=== PATIENT | female | born 1950 | race Caucasian/White ===

== ENCOUNTER → 2016-11-23 | Outpatient (CLI) | payer MEDICARE, OTHER ==
--- NOTE | 2016-11-23 17:18 | XR ---
EXAMINATION TYPE: XR ankle complete LT DATE OF EXAM: 11/23/2016 5:04 PM COMPARISON: NONE HISTORY: Ankle pain and swelling TECHNIQUE: 3 views FINDINGS: There is soft tissue swelling over the lateral malleolus. I see no fracture nor dislocation . There is mild narrowing of intertarsal joint spaces. IMPRESSION: Soft tissue swelling. No fracture.
== END | disposition home or self-care (01) ==
LOC: RADXRMAIN 16:37
PROVIDERS: ATTEND Internal Medicine
DX: M25.572 Pain in left ankle and joints of left foot (principal); M79.89 Other specified soft tissue disorders

== ENCOUNTER 2017-10-12 22:04 | Emergency (ER) | payer MEDICARE, OTHER ==
--- NOTE | 2017-10-12 22:28 | ED ---
General Adult HPI - General Chief complaint: Dizziness Stated complaint: vertigo Time Seen by Provider: 10/12/17 22:26 Source: patient, EMS, RN notes reviewed, old records reviewed Mode of arrival: EMS Limitations: no limitations - History of Present Illness Initial comments: This is a 67-year-old female to the ER for evaluation of vertigo and dizziness. Patient has history of the same. Patient's poor historian history is otherwise obtained from EMS as well as patient's prior chart and transfer paperwork, patient has history of vertigo and has been extremity vertigo throughout the day. - Related Data Home Medications Medication Instructions Recorded Confirmed Baclofen 10 mg PO TID 07/18/14 10/12/17 Calcium Carbonate/Vitamin D3 1 tab PO BID 07/18/14 10/12/17 [Calcium 500 + D Tablet] Cholecalciferol [Vitamin D3] 2,000 unit PO DAILY 07/18/14 10/12/17 Omeprazole [PriLOSEC] 20 mg PO DAILY 07/18/14 10/12/17 Simvastatin [Zocor] 10 mg PO HS 07/18/14 10/12/17 Timolol 0.5% Ophth Soln [Timoptic 1 drop BOTH EYES DAILY 07/18/14 10/12/17 0.5% Ophth Soln] Artificial Tears-Hypromellose 1 drops BOTH EYES Q2HR 10/12/17 10/12/17 [Artificial Tear Drops] Bimatoprost [Lumigan .01% Ophth 1 drop BOTH EYES HS 10/12/17 10/12/17 Soln] Brimonidine Tartrate [Alphagan P 1 drops BOTH EYES BID 10/12/17 10/12/17 0.15% Ophth Soln] Carvedilol [Coreg] 12.5 mg PO BID 10/12/17 10/12/17 Difluprednate [Durezol] 1 drop RIGHT EYE DAILY 10/12/17 10/12/17 FLUoxetine HCL [PROzac] 60 mg PO DAILY 10/12/17 10/12/17 Nepafenac [Ilevro] 1 drop RIGHT EYE DAILY 10/12/17 10/12/17 metFORMIN HCL ER [Glucophage Xr] 500 mg PO DAILY 10/12/17 10/12/17 Previous Rx's Medication Instructions Recorded Meclizine [Antivert] 25 mg PO TID #20 tab 01/10/18 Allergies Allergy/AdvReac Type Severity Reaction Status Date / Time No Known Allergies Allergy Verified 10/12/17 22:21 Review of Systems ROS Statement: Those systems with pertinent positive or pertinent negative responses have been documented in the HPI. ROS Other: All systems not noted in ROS Statement are negative. Past Medical History Past Medical History: Hypertension Additional Past Medical History / Comment(s): dysthymic disorder, mental disorder, hyper cholestremia, cerebral palsy. History of Any Multi-Drug Resistant Organisms: None Reported Past Surgical History: No Surgical Hx Reported Past Psychological History: No Psychological Hx Reported Smoking Status: Never smoker Past Alcohol Use History: None Reported Past Drug Use History: None Reported General Exam Limitations: no limitations General appearance: alert, in no apparent distress Head exam: Present: atraumatic, normocephalic, normal inspection Eye exam: Present: normal appearance, PERRL, EOMI. Absent: scleral icterus, conjunctival injection, periorbital swelling ENT exam: Present: normal exam, mucous membranes moist Neck exam: Present: normal inspection. Absent: tenderness, meningismus, lymphadenopathy Respiratory exam: Present: normal lung sounds bilaterally. Absent: respiratory distress, wheezes, rales, rhonchi, stridor Cardiovascular Exam: Present: regular rate, normal rhythm, normal heart sounds. Absent: systolic murmur, diastolic murmur, rubs, gallop, clicks GI/Abdominal exam: Present: soft, normal bowel sounds. Absent: distended, tenderness, guarding, rebound, rigid Extremities exam: Present: normal inspection, full ROM, normal capillary refill. Absent: tenderness, pedal edema, joint swelling, calf tenderness Back exam: Present: normal inspection Neurological exam: Present: alert, oriented X3, CN II-XII intact Psychiatric exam: Present: normal affect, normal mood Skin exam: Present: warm, dry, intact, normal color. Absent: rash Course Vital Signs 10/12/17 10/13/17 22:06 01:10 Temperature 98.0 F Pulse Rate 72 68 Respiratory 18 16 Rate Blood Pressure 136/65 130/66 O2 Sat by Pulse 95 98 Oximetry Medical Decision Making - Medical Decision Making 67 female the ER for evaluation of vertigo, symptoms improved, CT brain negative , patient can be discharged home - Lab Data Result diagrams: 10/12/17 23:10 10/12/17 23:10 Lab Results 10/12/17 10/12/17 10/12/17 Range/Units 23:10 23:10 23:10 WBC 8.4 (3.8-10.6) k/uL RBC 4.21 (3.80-5.40) m/uL Hgb 11.6 (11.4-16.0) gm/dL Hct 36.6 (34.0-46.0) % MCV 87.0 (80.0-100.0) fL MCH 27.4 (25.0-35.0) pg MCHC 31.5 (31.0-37.0) g/dL RDW 16.0 H (11.5-15.5) % Plt Count 250 (150-450) k/uL Neutrophils % 77 % Lymphocytes % 12 % Monocytes % 6 % Eosinophils % 3 % Basophils % 0 % Neutrophils # 6.5 (1.3-7.7) k/uL Lymphocytes # 1.0 (1.0-4.8) k/uL Monocytes # 0.5 (0-1.0) k/uL Eosinophils # 0.2 (0-0.7) k/uL Basophils # 0.0 (0-0.2) k/uL Hypochromasia Slight Sodium 137 (137-145) mmol/L Potassium 4.5 (3.5-5.1) mmol/L Chloride 101 (98-107) mmol/L Carbon Dioxide 28 (22-30) mmol/L Anion Gap 8 mmol/L BUN 18 H (7-17) mg/dL Creatinine 0.71 (0.52-1.04) mg/dL Est GFR (MDRD) Af Amer >60 (>60 ml/min/1.73 sqM) Est GFR (MDRD) Non-Af >60 (>60 ml/min/1.73 sqM) Glucose 183 H (74-99) mg/dL Calcium 9.6 (8.4-10.2) mg/dL Phosphorus 3.3 (2.5-4.5) mg/dL Magnesium 1.9 (1.6-2.3) mg/dL Total Bilirubin 0.2 (0.2-1.3) mg/dL AST 26 (14-36) U/L ALT 45 (9-52) U/L Alkaline Phosphatase 97 (38-126) U/L Total Creatine Kinase 52 (30-135) U/L CK-MB (CK-2) 0.8 (0.0-2.4) ng/mL CK-MB (CK-2) Rel Index 1.5 Troponin I <0.012 (0.000-0.034) ng/mL Total Protein 6.9 (6.3-8.2) g/dL Albumin 3.6 (3.5-5.0) g/dL Urine Color Urine Appearance (Clear) Urine pH (5.0-8.0) Ur Specific [place] (1.001-1.035) Urine Protein (Negative) Urine Glucose (UA) (Negative) Urine Ketones (Negative) Urine Blood (Negative) Urine Nitrite (Negative) Urine Bilirubin (Negative) Urine Urobilinogen (<2.0) mg/dL Ur Leukocyte Esterase (Negative) 10/12/17 Range/Units 23:55 WBC (3.8-10.6) k/uL RBC (3.80-5.40) m/uL Hgb (11.4-16.0) gm/dL Hct (34.0-46.0) % MCV (80.0-100.0) fL MCH (25.0-35.0) pg MCHC (31.0-37.0) g/dL RDW (11.5-15.5) % Plt Count (150-450) k/uL Neutrophils % % Lymphocytes % % Monocytes % % Eosinophils % % Basophils % % Neutrophils # (1.3-7.7) k/uL Lymphocytes # (1.0-4.8) k/uL Monocytes # (0-1.0) k/uL Eosinophils # (0-0.7) k/uL Basophils # (0-0.2) k/uL Hypochromasia Sodium (137-145) mmol/L Potassium (3.5-5.1) mmol/L Chloride (98-107) mmol/L Carbon Dioxide (22-30) mmol/L Anion Gap mmol/L BUN (7-17) mg/dL Creatinine (0.52-1.04) mg/dL Est GFR (MDRD) Af Amer (>60 ml/min/1.73 sqM) Est GFR (MDRD) Non-Af (>60 ml/min/1.73 sqM) Glucose (74-99) mg/dL Calcium (8.4-10.2) mg/dL Phosphorus (2.5-4.5) mg/dL Magnesium (1.6-2.3) mg/dL Total Bilirubin (0.2-1.3) mg/dL AST (14-36) U/L ALT (9-52) U/L Alkaline Phosphatase (38-126) U/L Total Creatine Kinase (30-135) U/L CK-MB (CK-2) (0.0-2.4) ng/mL CK-MB (CK-2) Rel Index Troponin I (0.000-0.034) ng/mL Total Protein (6.3-8.2) g/dL Albumin (3.5-5.0) g/dL Urine Color Light Yellow Urine Appearance Clear (Clear) Urine pH 6.0 (5.0-8.0) Ur Specific [place] 1.008 (1.001-1.035) Urine Protein Negative (Negative) Urine Glucose (UA) 4+ H (Negative) Urine Ketones Negative (Negative) Urine Blood Negative (Negative) Urine Nitrite Negative (Negative) Urine Bilirubin Negative (Negative) Urine Urobilinogen <2.0 (<2.0) mg/dL Ur Leukocyte Esterase Negative (Negative) - Radiology Data Radiology results: report reviewed (CT brain negative), image reviewed Disposition Clinical Impression: Vertigo Disposition: HOME SELF-CARE Condition: Good Instructions: Vertigo (ED) Prescriptions: Meclizine [Antivert] 25 mg PO TID #20 tab Referrals: Johny Abraham MD [Primary Care Provider] - 1-2 days
[2017-10-12] MEDS ORDERED: SODIUM CHLORIDE 0.9% 500 ML IV STA (22:54)
[2017-10-12] MEDS ORDERED: ONDANSETRON 4 MG/2 ML VIAL IVP STA (22:54)
[2017-10-12] MEDS ORDERED: DIAZEPAM 5 MG/ML 2 ML INJ IVP STA (22:55)
[2017-10-12 23:27] LABS: Basophils % (A) 0 %; Eosinophils # (A) 0.2 k/uL (0-0.7); Eosinophils % (A) 3 %; HCT 36.6 % (34.0-46.0); HGB 11.6 gm/dL (11.4-16.0); Hypochromasia Slight; Lymphocytes % (A) 12 %; MCH 27.4 pg (25.0-35.0); MCHC 31.5 g/dL (31.0-37.0); Mean Platelet Volume 8.1; Monocytes # (A) 0.5 k/uL (0-1.0); Monocytes % (A) 6 %; Neutrophils # (A) 6.5 k/uL (1.3-7.7); Neutrophils % (A) 77 %; Platelet Count 250 k/uL (150-450); RBC 4.21 m/uL (3.80-5.40); WBC 8.4 k/uL (3.8-10.6)
[2017-10-12 23:30] LABS: ALT 45 U/L (9-52); AST 26 U/L (14-36); Albumin 3.6 g/dL (3.5-5.0); Alkaline Phosphatase 97 U/L (38-126); Anion Gap 8 mmol/L; Blood Urea Nitrogen 18 mg/dL (7-17); Calcium 9.6 mg/dL (8.4-10.2); Carbon Dioxide 28 mmol/L (22-30); Chloride 101 mmol/L (98-107); Glucose 183 mg/dL (74-99); Magnesium 1.9 mg/dL (1.6-2.3); Phosphorus 3.3 mg/dL (2.5-4.5); Potassium 4.5 mmol/L (3.5-5.1); Sodium 137 mmol/L (137-145); Total Bilirubin 0.2 mg/dL (0.2-1.3); Total Protein 6.9 g/dL (6.3-8.2)
--- NOTE | 2017-10-12 23:39 | CT ---
EXAMINATION TYPE: CT brain wo con DATE OF EXAM: 10/12/2017 COMPARISON: 09/21/2011 HISTORY: Weakness CT DLP: mGycm Automated exposure control for dose reduction was used. FINDINGS: There is cerebral cortical atrophy. There is no mass effect nor midline shift. There is no sign of in tracranial hemorrhage. There is widening of the subdural space over the left parietal convexity more than the right consistent with encephalomalacia. There is dural calcification in the left posterior f rontal lobe. There is no midline shift. There is no sign of intracranial hemorrhage. 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 GENERALIZED ATROPHY. NO ACUTE INTRACRANI AL ABNORMALITY. NO CHANGE COMPARED TO OLD EXAM.
[2017-10-12 23:41] LABS: Creatine Kinase 52 U/L (30-135)
[2017-10-12 23:54] LABS: Creatine Kinase MB 0.8 ng/mL (0.0-2.4); Troponin I <0.012 ng/mL (0.000-0.034)
[2017-10-13 00:13] LABS: Appearance,Urine Clear (Clear); Bilirubin,Urine Negative (Negative); Blood,Urine Negative (Negative); Color,Urine Light Yellow; Glucose,Urine (UA) 4+ (Negative); Ketones,Urine Negative (Negative); Leukocyte Esterase,Urine Negative (Negative); Nitrite,Urine Negative (Negative); Protein,Urine Negative (Negative); Specific Gravity,Urine 1.008 (1.001-1.035); Urobilinogen,Urine <2.0 mg/dL (<2.0)
--- NOTE | 2017-10-13 00:46 | ED ---
Medical Decision Making - Lab Data Result diagrams: 10/12/17 23:10 10/12/17 23:10 Lab Results 10/12/17 10/12/17 10/12/17 Range/Units 23:10 23:10 23:10 WBC 8.4 (3.8-10.6) k/uL RBC 4.21 (3.80-5.40) m/uL Hgb 11.6 (11.4-16.0) gm/dL Hct 36.6 (34.0-46.0) % MCV 87.0 (80.0-100.0) fL MCH 27.4 (25.0-35.0) pg MCHC 31.5 (31.0-37.0) g/dL RDW 16.0 H (11.5-15.5) % Plt Count 250 (150-450) k/uL Neutrophils % 77 % Lymphocytes % 12 % Monocytes % 6 % Eosinophils % 3 % Basophils % 0 % Neutrophils # 6.5 (1.3-7.7) k/uL Lymphocytes # 1.0 (1.0-4.8) k/uL Monocytes # 0.5 (0-1.0) k/uL Eosinophils # 0.2 (0-0.7) k/uL Basophils # 0.0 (0-0.2) k/uL Hypochromasia Slight Sodium 137 (137-145) mmol/L Potassium 4.5 (3.5-5.1) mmol/L Chloride 101 (98-107) mmol/L Carbon Dioxide 28 (22-30) mmol/L Anion Gap 8 mmol/L BUN 18 H (7-17) mg/dL Creatinine 0.71 (0.52-1.04) mg/dL Est GFR (MDRD) Af Amer >60 (>60 ml/min/1.73 sqM) Est GFR (MDRD) Non-Af >60 (>60 ml/min/1.73 sqM) Glucose 183 H (74-99) mg/dL Calcium 9.6 (8.4-10.2) mg/dL Phosphorus 3.3 (2.5-4.5) mg/dL Magnesium 1.9 (1.6-2.3) mg/dL Total Bilirubin 0.2 (0.2-1.3) mg/dL AST 26 (14-36) U/L ALT 45 (9-52) U/L Alkaline Phosphatase 97 (38-126) U/L Total Creatine Kinase 52 (30-135) U/L CK-MB (CK-2) 0.8 (0.0-2.4) ng/mL CK-MB (CK-2) Rel Index 1.5 Troponin I <0.012 (0.000-0.034) ng/mL Total Protein 6.9 (6.3-8.2) g/dL Albumin 3.6 (3.5-5.0) g/dL Urine Color Urine Appearance (Clear) Urine pH (5.0-8.0) Ur Specific [place] (1.001-1.035) Urine Protein (Negative) Urine Glucose (UA) (Negative) Urine Ketones (Negative) Urine Blood (Negative) Urine Nitrite (Negative) Urine Bilirubin (Negative) Urine Urobilinogen (<2.0) mg/dL Ur Leukocyte Esterase (Negative) 10/12/17 Range/Units 23:55 WBC (3.8-10.6) k/uL RBC (3.80-5.40) m/uL Hgb (11.4-16.0) gm/dL Hct (34.0-46.0) % MCV (80.0-100.0) fL MCH (25.0-35.0) pg MCHC (31.0-37.0) g/dL RDW (11.5-15.5) % Plt Count (150-450) k/uL Neutrophils % % Lymphocytes % % Monocytes % % Eosinophils % % Basophils % % Neutrophils # (1.3-7.7) k/uL Lymphocytes # (1.0-4.8) k/uL Monocytes # (0-1.0) k/uL Eosinophils # (0-0.7) k/uL Basophils # (0-0.2) k/uL Hypochromasia Sodium (137-145) mmol/L Potassium (3.5-5.1) mmol/L Chloride (98-107) mmol/L Carbon Dioxide (22-30) mmol/L Anion Gap mmol/L BUN (7-17) mg/dL Creatinine (0.52-1.04) mg/dL Est GFR (MDRD) Af Amer (>60 ml/min/1.73 sqM) Est GFR (MDRD) Non-Af (>60 ml/min/1.73 sqM) Glucose (74-99) mg/dL Calcium (8.4-10.2) mg/dL Phosphorus (2.5-4.5) mg/dL Magnesium (1.6-2.3) mg/dL Total Bilirubin (0.2-1.3) mg/dL AST (14-36) U/L ALT (9-52) U/L Alkaline Phosphatase (38-126) U/L Total Creatine Kinase (30-135) U/L CK-MB (CK-2) (0.0-2.4) ng/mL CK-MB (CK-2) Rel Index Troponin I (0.000-0.034) ng/mL Total Protein (6.3-8.2) g/dL Albumin (3.5-5.0) g/dL Urine Color Light Yellow Urine Appearance Clear (Clear) Urine pH 6.0 (5.0-8.0) Ur Specific [place] 1.008 (1.001-1.035) Urine Protein Negative (Negative) Urine Glucose (UA) 4+ H (Negative) Urine Ketones Negative (Negative) Urine Blood Negative (Negative) Urine Nitrite Negative (Negative) Urine Bilirubin Negative (Negative) Urine Urobilinogen <2.0 (<2.0) mg/dL Ur Leukocyte Esterase Negative (Negative) Disposition Clinical Impression: Vertigo Disposition: HOME SELF-CARE Condition: Good Instructions: Vertigo (ED) Prescriptions: Meclizine [Antivert] 25 mg PO TID #20 tab Referrals: Johny Abraham MD [Primary Care Provider] - 1-2 days
[2017-10-13 01:11] VITALS: BP 130/66; PULSE 68; RESP 16; TEMP 98
== END 2017-10-13 01:11 | disposition home or self-care (01) ==
LOC: EEVIPCON 22:04 → EC 22:04
DX: R42 Dizziness and giddiness (principal); I10 Essential (primary) hypertension; E78.00 Pure hypercholesterolemia, unspecified; Z79.84 Long term (current) use of oral hypoglycemic drugs; Z79.899 Other long term (current) drug therapy; F99 Mental disorder, not otherwise specified
CPT/HCPCS: 36415; 80053; 82550; 82553; 83735; 84100; 84484; 85025; 81003; 87086; 70450; 99285; 96374; 96375; J3360; J2405

== ENCOUNTER 2018-01-23 17:16 | Observation (INO) | payer MEDICARE, OTHER ==
[2018-01-23] MEDS ORDERED: NITROGLYCERIN OINT 1 INCH/GM PACKET TOPICAL STA ×2 (17:31→18:23)
[2018-01-23] MEDS ORDERED: ASPIRIN 81 MG PO STA (17:31)
--- NOTE | 2018-01-23 17:35 | ED ---
General Adult HPI - General Chief complaint: Chest Pain Stated complaint: Dizziness/chest pain Time Seen by Provider: 01/23/18 17:16 Source: patient, EMS, RN notes reviewed Mode of arrival: EMS - History of Present Illness Initial comments: This is a 67-year-old female presents emergency Department who is developmental delayed and has a guardian. Patient comes in because she complained at the adult foster care facility that she was feeling like she might pass out was complaining of chest pain. Patient states she continues to have chest pain at this time. Patient denies difficulty breathing shortness breath per patient denies any recent fever chills or cough. Patient denies abdominal pain patient denies nausea vomiting diarrhea. Patient denies headache patient denies numbness weakness. Pa patient denies dysuria hematuria urinary frequency. tient denies any abdominal pain - Related Data Home Medications Medication Instructions Recorded Confirmed Baclofen 10 mg PO TID 07/18/14 10/12/17 Calcium Carbonate/Vitamin D3 1 tab PO BID 07/18/14 10/12/17 [Calcium 500 + D Tablet] Cholecalciferol [Vitamin D3] 2,000 unit PO DAILY 07/18/14 10/12/17 Omeprazole [PriLOSEC] 20 mg PO DAILY 07/18/14 10/12/17 Simvastatin [Zocor] 10 mg PO HS 07/18/14 10/12/17 Timolol 0.5% Ophth Soln [Timoptic 1 drop BOTH EYES DAILY 07/18/14 10/12/17 0.5% Ophth Soln] Artificial Tears-Hypromellose 1 drops BOTH EYES Q2HR 10/12/17 10/12/17 [Artificial Tear Drops] Bimatoprost [Lumigan .01% Ophth 1 drop BOTH EYES HS 10/12/17 10/12/17 Soln] Brimonidine Tartrate [Alphagan P 1 drops BOTH EYES BID 10/12/17 10/12/17 0.15% Ophth Soln] Carvedilol [Coreg] 12.5 mg PO BID 10/12/17 10/12/17 Difluprednate [Durezol] 1 drop RIGHT EYE DAILY 10/12/17 10/12/17 FLUoxetine HCL [PROzac] 60 mg PO DAILY 10/12/17 10/12/17 Nepafenac [Ilevro] 1 drop RIGHT EYE DAILY 10/12/17 10/12/17 metFORMIN HCL ER [Glucophage Xr] 500 mg PO DAILY 10/12/17 10/12/17 Previous Rx's Medication Instructions Recorded Meclizine [Antivert] 25 mg PO TID #20 tab 10/13/17 Allergies Allergy/AdvReac Type Severity Reaction Status Date / Time No Known Allergies Allergy Verified 01/23/18 18:20 Review of Systems ROS Statement: Those systems with pertinent positive or pertinent negative responses have been documented in the HPI. ROS Other: All systems not noted in ROS Statement are negative. Past Medical History Past Medical History: Hypertension Additional Past Medical History / Comment(s): dysthymic disorder, mental disorder, hyper cholestremia, cerebral palsy. History of Any Multi-Drug Resistant Organisms: None Reported Past Surgical History: No Surgical Hx Reported Past Psychological History: No Psychological Hx Reported Smoking Status: Never smoker Past Alcohol Use History: None Reported Past Drug Use History: None Reported General Exam - General Exam Comments Initial Comments: GENERAL: Patient is well-developed and well-nourished. Patient is nontoxic and well- hydrated and is in mild distress. ENT: Neck is soft and supple. No significant lymphadenopathy is noted. Oropharynx is clear. Moist mucous membranes. Neck has full range of motion without eliciting any pain. EYES: The sclera were anicteric and conjunctiva were pink and moist. Extraocular movements were intact and pupils were equal round and reactive to light. Eyelids were unremarkable. PULMONARY: Diminished breath sounds in the bases CARDIOVASCULAR: There is a regular rate and rhythm without any murmurs gallops or rubs. ABDOMEN: Soft and nontender with normal bowel sounds. SKIN: Skin is clear with no lesions or rashes and otherwise unremarkable. NEUROLOGIC: Patient is alert and oriented 2. Cranial nerves II through XII are grossly intact. Motor and sensory are also intact. Normal speech, volume and content. Symmetrical smile. MUSCULOSKELETAL: No lower extremity swelling or edema. No calf tenderness. LYMPHATICS: No significant lymphadenopathy is noted PSYCHIATRIC: Normal psychiatric evaluation. Course Vital Signs 01/23/18 01/23/18 17:17 18:13 Temperature 98.3 F Pulse Rate 87 Pulse Rate [ 77 Right Sitting Pulse Oximetery ] Pulse Rate [ 75 Right Standing Pulse Oximetery ] Pulse Rate [ 65 Right Supine Pulse Oximetery ] Respiratory 18 Rate Blood Pressure 155/65 Blood Pressure 184/83 [Left Arm Sitting] Blood Pressure 193/86 [Left Arm Standing] Blood Pressure 165/74 [Left Arm Supine] O2 Sat by Pulse 95 Oximetry Medical Decision Making - Medical Decision Making EKG shows normal sinus rhythm at 65 bpm [place] interval is 138 QRS is 76 QT interval 400 QTC is 416. Patient's EKG shows no ST segment elevation or depression or T wave abnormalities are noted. Chest x-ray shows pulmonary edema. Patient received Lasix Nitropaste. I spoke with Dr. Abraham he agreed to admit the patient admitted the patient I wrote admitting orders I continued Nitropaste and Lasix on the floor. - Lab Data Result diagrams: 01/23/18 17:25 01/23/18 17:25 Lab Results 01/23/18 01/23/18 01/23/18 Range/Units 17:25 17:25 17:25 WBC 7.8 (3.8-10.6) k/uL RBC 4.70 (3.80-5.40) m/uL Hgb 12.2 (11.4-16.0) gm/dL Hct 38.9 (34.0-46.0) % MCV 82.8 (80.0-100.0) fL MCH 26.0 (25.0-35.0) pg MCHC 31.4 (31.0-37.0) g/dL RDW 15.9 H (11.5-15.5) % Plt Count 285 (150-450) k/uL Neutrophils % 63 % Lymphocytes % 21 % Monocytes % 9 % Eosinophils % 5 % Basophils % 0 % Neutrophils # 4.9 (1.3-7.7) k/uL Lymphocytes # 1.6 (1.0-4.8) k/uL Monocytes # 0.7 (0-1.0) k/uL Eosinophils # 0.4 (0-0.7) k/uL Basophils # 0.0 (0-0.2) k/uL PT (9.0-12.0) sec INR (<1.2) APTT (22.0-30.0) sec Sodium 139 (137-145) mmol/L Potassium 4.6 (3.5-5.1) mmol/L Chloride 100 (98-107) mmol/L Carbon Dioxide 27 (22-30) mmol/L Anion Gap 12 mmol/L BUN 17 (7-17) mg/dL Creatinine 0.81 (0.52-1.04) mg/dL Est GFR (CKD-EPI)AfAm 86 (>60 ml/min/1.73 sqM) Est GFR (CKD-EPI)NonAf 75 (>60 ml/min/1.73 sqM) Glucose 101 H (74-99) mg/dL Calcium 9.8 (8.4-10.2) mg/dL Magnesium 1.9 (1.6-2.3) mg/dL Total Bilirubin 0.3 (0.2-1.3) mg/dL AST 25 (14-36) U/L ALT 34 (9-52) U/L Alkaline Phosphatase 115 (38-126) U/L Total Creatine Kinase 59 (30-135) U/L CK-MB (CK-2) 1.0 (0.0-2.4) ng/mL CK-MB (CK-2) Rel Index 1.7 Troponin I <0.012 (0.000-0.034) ng/mL NT-Pro-B Natriuret Pep pg/mL Total Protein 7.0 (6.3-8.2) g/dL Albumin 3.9 (3.5-5.0) g/dL 01/23/18 01/23/18 Range/Units 17:25 17:25 WBC (3.8-10.6) k/uL RBC (3.80-5.40) m/uL Hgb (11.4-16.0) gm/dL Hct (34.0-46.0) % MCV (80.0-100.0) fL MCH (25.0-35.0) pg MCHC (31.0-37.0) g/dL RDW (11.5-15.5) % Plt Count (150-450) k/uL Neutrophils % % Lymphocytes % % Monocytes % % Eosinophils % % Basophils % % Neutrophils # (1.3-7.7) k/uL Lymphocytes # (1.0-4.8) k/uL Monocytes # (0-1.0) k/uL Eosinophils # (0-0.7) k/uL Basophils # (0-0.2) k/uL PT 11.6 (9.0-12.0) sec INR 1.2 H (<1.2) APTT 25.1 (22.0-30.0) sec Sodium (137-145) mmol/L Potassium (3.5-5.1) mmol/L Chloride (98-107) mmol/L Carbon Dioxide (22-30) mmol/L Anion Gap mmol/L BUN (7-17) mg/dL Creatinine (0.52-1.04) mg/dL Est GFR (CKD-EPI)AfAm (>60 ml/min/1.73 sqM) Est GFR (CKD-EPI)NonAf (>60 ml/min/1.73 sqM) Glucose (74-99) mg/dL Calcium (8.4-10.2) mg/dL Magnesium (1.6-2.3) mg/dL Total Bilirubin (0.2-1.3) mg/dL AST (14-36) U/L ALT (9-52) U/L Alkaline Phosphatase (38-126) U/L Total Creatine Kinase (30-135) U/L CK-MB (CK-2) (0.0-2.4) ng/mL CK-MB (CK-2) Rel Index Troponin I (0.000-0.034) ng/mL NT-Pro-B Natriuret Pep 147 pg/mL Total Protein (6.3-8.2) g/dL Albumin (3.5-5.0) g/dL Disposition Clinical Impression: Acute pulmonary edema Disposition: ADMITTED IP TO THIS HOSP Is patient prescribed a controlled substance at d/c from ED?: No Referrals: Johny Abraham MD [Primary Care Provider] - 1-2 days Time of Disposition: 18:22
[2018-01-23 17:45] LABS: Basophils % (A) 0 %; Eosinophils # (A) 0.4 k/uL (0-0.7); Eosinophils % (A) 5 %; HCT 38.9 % (34.0-46.0); HGB 12.2 gm/dL (11.4-16.0); Lymphocytes # (A) 1.6 k/uL (1.0-4.8); Lymphocytes % (A) 21 %; MCHC 31.4 g/dL (31.0-37.0); MCV 82.8 fL (80.0-100.0); Mean Platelet Volume 7.8; Monocytes # (A) 0.7 k/uL (0-1.0); Monocytes % (A) 9 %; Neutrophils # (A) 4.9 k/uL (1.3-7.7); Neutrophils % (A) 63 %; Platelet Count 285 k/uL (150-450); RDW 15.9 % (11.5-15.5); WBC 7.8 k/uL (3.8-10.6)
[2018-01-23 17:55] LABS: INR 1.2 (<1.2); Partial Thromboplastin Time 25.1 sec (22.0-30.0); Prothrombin Time 11.6 sec (9.0-12.0)
[2018-01-23 18:03] LABS: Creatine Kinase 59 U/L (30-135)
[2018-01-23 18:04] LABS: Albumin 3.9 g/dL (3.5-5.0); Calcium 9.8 mg/dL (8.4-10.2); Magnesium 1.9 mg/dL (1.6-2.3); Potassium 4.6 mmol/L (3.5-5.1); Total Bilirubin 0.3 mg/dL (0.2-1.3)
--- NOTE | 2018-01-23 18:05 | XR ---
EXAMINATION TYPE: XR chest 2V DATE OF EXAM: 01/23/2018 COMPARISON: 10/23/2015 HISTORY: Shortness of breath TECHNIQUE: Frontal and lateral views of the chest are obtained. Examination limited by the degree of inspiration. FINDINGS: Pulmonary venous congestion with interstitial edema. Heart size is stable. Mediastinal structures are stable and grossly unremarkable. No evidence for hilar prominence. Degenerative changes dorsal spine. IMPRESSION: 1. Pulmonary venous congestion with interstitial edema.
[2018-01-23 18:16] LABS: Troponin I <0.012 ng/mL (0.000-0.034)
[2018-01-23] MEDS ORDERED: FUROSEMIDE 10 MG/ML 4 ML VIAL IV STA (18:23)
[2018-01-23] MEDS: FUROSEMIDE 10 MG/ML 4 ML VIAL IV SCH (19:21)
[2018-01-23] MEDS ORDERED: NITROGLYCERIN OINT 1 INCH/GM PACKET TOPICAL SCH (22:00)
[2018-01-24] MEDS: MORPHINE ORAL SOLN 10 MG/5 ML CUP PO PRN ×3 (02:44→11:08)
[2018-01-24] MEDS: FUROSEMIDE 10 MG/ML 4 ML VIAL IV SCH (02:50)
[2018-01-24] MEDS: ARTIFICIAL TEARS-HYPROMELLOSE DROPS 15 ML BTL BOTH EYES SCH ×10 (02:55→22:40)
[2018-01-24 06:20] LABS: Glucose,Whole Blood 153 mg/dL (75-99)
[2018-01-24] MEDS: INSULIN ASPART 100 UNIT/ML 1 ML 10 ML VIAL SQ SCH ×4 (06:36→20:43)
[2018-01-24] MEDS ORDERED: TRIAMCINOLONE 0.1% CREAM 80 GM TUBE TOPICAL SCH (08:00)
--- NOTE | 2018-01-24 08:43 | P.CRDCN ---
History of Present Illness Consult date: 01/24/18 Requesting physician: Johny Abraham Consult reason: chest pain Chief complaint: Chest pain History of present illness: This is a pleasant 67-year-old female who is developmentally delayed. She has a history of hypertension, hyperlipidemia, diabetes. Presents to the hospital with symptoms of left-sided chest pain, she states it just feels like the pain, gets worse when she takes a deep breath or when she sits forward in the bed. She denies any shortness of breath, nondiaphoretic. The patient resides at an adult foster care and has a guardian. EKG on arrival here showed a normal sinus rhythm with no acute changes. Chest x-ray showed pulmonary venous congestion with interstitial edema. Blood pressure on arrival 155/60, heart rate in the 80s, 95% on room air. Blood pressure this morning 116/70 with a heart rate in the 80s, 95% on 2 L of oxygen. White blood cell count 7.8 , hemoglobin 12.2, platelet count 285. Sodium 139, potassium 4.6, BUN 17, creatinine 0.8. An easy and 1.9, troponins negative 2. BNP level 147. At the time of my examination this morning, patient still points to her chest and states that she has a pain, when she takes a deep breath he gets significantly worse. Lying flat in bed at the time of my examination, no overt difficulty in breathing noted. She was initiated on IV Lasix in the emergency room, and also started on Nitropaste. Past Medical History Past Medical History: Hypertension Additional Past Medical History / Comment(s): dysthymic disorder, mental disorder, hyper cholestremia, cerebral palsy. History of Any Multi-Drug Resistant Organisms: None Reported Past Surgical History: No Surgical Hx Reported Past Psychological History: No Psychological Hx Reported Smoking Status: Never smoker Past Alcohol Use History: None Reported Past Drug Use History: None Reported Medications and Allergies Home Medications Medication Instructions Recorded Confirmed Type Baclofen 10 mg PO TID@08,12,17 07/18/14 01/23/18 History Cholecalciferol [Vitamin D3] 2,000 unit PO DAILY@0800 07/18/14 01/23/18 History Omeprazole [PriLOSEC] 20 mg PO DAILY@0800 07/18/14 01/23/18 History Simvastatin [Zocor] 10 mg PO HS@199907/18/14 01/23/18 History Timolol 0.5% Ophth Soln [Timoptic 1 drop BOTH EYES DAILY@08 07/18/14 01/23/18 History 0.5% Ophth Soln] Artificial Tears-Hypromellose 1 drops BOTH EYES Q2HR 10/12/17 01/23/18 History [Artificial Tear Drops] Bimatoprost [Lumigan .01% Ophth 1 drop BOTH EYES HS@199910/12/17 01/23/18 History Soln] Brimonidine Tartrate [Alphagan P 1 drops BOTH EYES BID@,10/12/17 01/23/18 History 0.15% Ophth Soln] Carvedilol [Coreg] 12.5 mg PO BID@,10/12/17 01/23/18 History metFORMIN HCL ER [Glucophage Xr] 500 mg PO DAILY@1700 10/12/17 01/23/18 History Calcium 500mg 500 mg PO BID@,01/23/18 01/23/18 History Clotrimazole/Betamethasone Dip 1 applic TOPICAL BID 01/23/18 01/23/18 History [Lotrisone Cream] FLUoxetine HCL 40 mg PO DAILY@0800 01/23/18 01/23/18 History Triamcinolone 0.1% Cream [Kenalog] 1 applicatio TOPICAL BID@,01/23/1801/23 History Allergies Allergy/AdvReac Type Severity Reaction Status Date / Time No Known Allergies Allergy Verified 01/23/18 18:20 Physical Exam Vitals: Vital Signs Temp Pulse Pulse Pulse Pulse Resp BP 01/24/18 08:00 98 F 84 16 01/24/18 06:25 91 24 01/24/18 04:00 77 79 65 18 01/24/18 00:00 79 18 01/23/18 20:25 79 18 01/23/18 19:18 70 18 123/72 01/23/18 18:33 68 16 162/72 01/23/18 18:13 77 75 65 01/23/18 17:17 98.3 F 87 18 155/65 BP BP BP Pulse Ox 01/24/18 08:00 116/76 95 01/24/18 06:25 105/59 93 L 01/24/18 04:00 01/24/18 00:00 01/23/18 20:25 109/58 94 L 01/23/18 19:18 96 01/23/18 18:33 98 01/23/18 18:13 184/83 193/86 165/74 01/23/18 17:17 95 Intake and Output 01/23/18 01/24/18 01/24/18 22:59 06:59 14:59 Intake Total 1000 Output Total 400 400 Balance -400 600 Intake: Oral 1000 Output: Urine 400 400 Other: # Voids 1 Weight 58.967 kg 64 kg PHYSICAL EXAMINATION: HEENT: Head is atraumatic, normocephalic. Pupils equal, round. Neck is supple. There is no elevated jugular venous pressure. HEART EXAMINATION: Heart S1, S2 normal. No murmur or gallop heard. CHEST EXAMINATION: Ends are clear with mild diminished air entry to the bases. Positive chest wall tenderness on palpation and with deep breathing. ABDOMEN: Soft, nontender. Bowel sounds are heard. No organomegaly noted. EXTREMITIES: 2+ peripheral pulses with no evidence of peripheral edema and no calf tenderness noted. NEUROLOGIC patient is awake, alert and oriented -3. . Results 01/23/18 17:25 01/23/18 17:25 Cardiac Enzymes 01/23/18 01/23/18 01/24/18 Range/Units 17:25 17:25 00:09 AST 25 (14-36) U/L CK-MB (CK-2) 1.0 (0.0-2.4) ng/mL Troponin I <0.012 <0.012 (0.000-0.034) ng/mL Coagulation 01/23/18 Range/Units 17:25 PT 11.6 (9.0-12.0) sec APTT 25.1 (22.0-30.0) sec CBC 01/23/18 Range/Units 17:25 WBC 7.8 (3.8-10.6) k/uL RBC 4.70 (3.80-5.40) m/uL Hgb 12.2 (11.4-16.0) gm/dL Hct 38.9 (34.0-46.0) % Plt Count 285 (150-450) k/uL Comprehensive Metabolic Panel 01/23/18 Range/Units 17:25 Sodium 139 (137-145) mmol/L Potassium 4.6 (3.5-5.1) mmol/L Chloride 100 (98-107) mmol/L Carbon Dioxide 27 (22-30) mmol/L BUN 17 (7-17) mg/dL Creatinine 0.81 (0.52-1.04) mg/dL Glucose 101 H (74-99) mg/dL Calcium 9.8 (8.4-10.2) mg/dL AST 25 (14-36) U/L ALT 34 (9-52) U/L Alkaline Phosphatase 115 (38-126) U/L Total Protein 7.0 (6.3-8.2) g/dL Albumin 3.9 (3.5-5.0) g/dL Current Medications Generic Name Dose Route Start Last Admin Trade Name Freq PRN Reason Stop Dose Admin Artificial Tears 1 drops 01/24/18 00:00 01/24/18 06:23 Artificial Tear Drops BOTH EYES Not Given Q2HR [facility] Atorvastatin Calcium 5 mg 01/24/18 20:00 Lipitor PO HS@1999 [facility] Baclofen 10 mg 01/24/18 08:00 Lioresal PO TID@08,, [facility] Betamethasone/Clotrimazole 1 applic 01/24/18 09:00 Lotrisone TOPICAL BID [facility] Brimonidine Tartrate 1 drops 01/24/18 08:00 Alphagan P 0.2% Ophth Soln BOTH EYES BID@08,20 [facility] Calcium Carbonate/Glycine 500 mg 01/24/18 08:00 Tums PO BID@08,17 [facility] Carvedilol 12.5 mg 01/24/18 08:00 Coreg PO BID@08,17 [facility] Cholecalciferol 2,000 unit 01/24/18 08:00 Vitamin D3 PO DAILY@0800 [facility] Fluoxetine HCl 40 mg 01/24/18 08:00 Prozac PO DAILY@0800 [facility] Furosemide 40 mg 01/23/18 18:30 01/24/18 02:50 Lasix IV 40 mg Q8H [facility] Administration Insulin Aspart 0 unit 01/24/18 07:30 01/24/18 06:36 Novolog SQ 1 unit ACHS [facility] Administration Protocol Latanoprost 1 drops 01/24/18 20:00 Xalatan 0.005% BOTH EYES HS@1999 [facility] Morphine Sulfate 6 mg 01/23/18 23:41 01/24/18 06:33 Morphine Oral Celsa 2mg/Ml PO 6 mg Q4HR PRN Administration Pain Nitroglycerin 1 inch 01/23/18 22:00 01/24/18 02:54 Nitro-Bid Oint TOPICAL 1 inch QID [place] Administration Pantoprazole Sodium 40 mg 01/24/18 08:00 Protonix PO 0800 [place] Timolol Maleate 1 drops 01/24/18 08:00 Timoptic BOTH EYES DAILY@08 [place] Intake and Output 01/23/18 01/24/18 01/24/18 22:59 06:59 14:59 Intake Total 1000 Output Total 400 400 Balance -400 600 Intake: Oral 1000 Output: Urine 400 400 Other: # Voids 1 Weight 58.967 kg 64 kg 01/23/18 17:25 01/23/18 17:25 EKG Interpretations (text) EKG shows a normal sinus rhythm with no acute changes. Assessment and Plan Plan: Assessment and plan #1 chest pain, with atypical features for acute coronary syndrome. Troponins negative 3. EKG shows a normal sinus rhythm with no acute changes. #2 hypertension #3 hyperlipidemia #4 diabetes #5 developmentally delayed Plan We will obtain an echocardiogram with Doppler study. We will also check to see if there are any old records of prior echocardiogram or prior admissions. Patient does have risk factors in the form of diabetes, hypertension, hyperlipidemia, and may benefit from stress testing. Discussions will need to be made with the guardian. Start the patient on a baby aspirin daily. Discontinue IV Lasix and start the patient on oral diuretics. Discontinue Nitropaste. Further recommendations to follow. DNP note has been reviewed, I agree with a documented findings and plan of care. Patient was seen and examined.
[2018-01-24] MEDS: BACLOFEN 10 MG TAB PO SCH ×3 (09:27→17:35)
[2018-01-24] MEDS: FUROSEMIDE 20 MG TAB PO SCH ×2 (09:27→17:34)
[2018-01-24] MEDS: CALCIUM CARBONATE 500 MG CHEWABLE PO SCH ×2 (09:28→17:34)
[2018-01-24] MEDS: CHOLECALCIFEROL 1,000 UNIT TAB PO SCH (09:28)
[2018-01-24] MEDS: CLOTRIMAZOLE/BETAMETH 1-0.05% CREAM 45 GM TUBE TOPICAL SCH ×2 (09:28→20:43)
[2018-01-24] MEDS: FLUoxetine HCL 20 MG CAP PO SCH (09:28)
[2018-01-24] MEDS: PANTOPRAZOLE 40 MG TABLET PO SCH (09:28)
[2018-01-24] MEDS: ASPIRIN 81 MG PO SCH (09:28)
[2018-01-24] MEDS: CARVEDILOL 12.5 MG TAB PO SCH ×2 (09:28→17:35)
[2018-01-24] MEDS: BRIMONIDINE TARTRATE 0.2% DROPS 5 ML BTL BOTH EYES SCH ×2 (09:29→20:43)
[2018-01-24] MEDS: TIMOLOL 0.5% OPHTH DROPS 5 ML BTL BOTH EYES SCH (09:29)
--- NOTE | 2018-01-24 10:57 | P.PN ---
Progress Note - Text This is an addendum to the dictated cardiology consultation. The patient presents with symptoms of chest discomfort. The discomfort is worse with palpation of the chest. There was a question of CHF on the x-ray but yet her physical examination and her BNP are normal making the likelihood of CHF very low. There is no evidence of arrhythmia on the monitor and she is in sinus mechanism. Her physical examination shows clear lungs and she is in sinus mechanism with no peripheral edema. She has reproducible chest discomfort with palpation on the left side. Her chest discomfort is noncardiac and I do not see any evidence of CHF. An echocardiogram with Doppler will be obtained and depending on those results further recommendations will be made. Thank you for this consult we will follow with you.
[2018-01-24 11:47] LABS: Glucose,Whole Blood 247 mg/dL (75-99)
--- NOTE | 2018-01-24 12:24 | ECHOF ---
Referral Reason:chest pain MEASUREMENTS -------- HEIGHT: 132.1 cm WEIGHT: 64.0 kg BP: IVSd: 1.1 cm (0.6 - 1.1) LVIDd: 3.1 cm (3.9 - 5.3) LVPWd: 1.1 cm (0.6 - 1.1) IVSs: 1.3 cm LVIDs: 1.5 cm LVPWs: 1.1 cm Ao Diam: 2.6 cm (2.0 - 3.7) AV Cusp: 1.2 cm (1.5 - 2.6) LA Diam: 2.3 cm (2.7 - 3.8) MV E Shravan: 0.44 m/s MV DecT: 244 ms MV A Shravan: 0.72 m/s MV E/A Ratio: 0.62 RAP: 5.00 mmHg RVSP: 9.49 mmHg FINDINGS -------- Sinus rhythm. This was a technically difficult study with suboptimal views. The left ventricular size is normal. Left ventricular wall thickness is normal. Overall left vent ricular systolic function is normal with, an EF between 55 - 60 %. The right ventricle is normal in size and function. The left atrium is normal in size. The right atrium is normal in size. Lumason used The aortic valve is trileaflet, and appears structurally normal. No aortic stenosis or regurgitation. There is trace mitral regurgitation. Trace tricuspid regurgitation present. The right ventricular systolic pressure, as measured by Dopp ler, is 9.49mmHg. Pulmonic valve appears structurally normal. The aortic root size is normal. The pericardium is normal. CONCLUSIONS -------- 1. Sinus rhythm. 2. This was a technically difficult study with suboptimal views. 3. The left ventricular size is normal. 4. Left ventricular wall thickness is normal. 5. Overall left ventricular systolic function is normal with, an EF between 55 - 60 %. 6. The right ventricle is normal in size and function. 7. The left atrium is normal in size. 8. The right atrium is normal in size. 9. Lumason used 10. The aortic valve is trileaflet, and appears structurally normal. No aortic stenosis or regurgitat ion. 11. There is trace mitral regurgitation. 12. Trace tricuspid regurgitation present. 13. The right ventricular systolic pressure, as measured by Doppler, is 9.49mmHg. 14. Pulmonic valve appears structurally normal. 15. The aortic root size is normal. 16. The pericardium is normal. [employer]PLICATIONS DEVELOPMENT ENGINEER: Gabriela Jovel RDCS
--- NOTE | 2018-01-24 12:40 | P.HPIM ---
History of Present Illness H&P Date: 01/24/18 This is a 67-year-old female with complex past medical history noted below significant for underlying cerebral palsy with developmental delay that presented to the hospital with chest pain. Patient is a very poor historian. She reported having pain in the left side of her chest. Her pain is clearly reproducible. She denies any radiation. No dizziness or lightheadedness. Chest pain is not exertional. Patient denies nausea or vomiting. Patient was admitted to telemetry floor. She was evaluated by cardiology. Initial 12-lead EKG showed no acute ischemic changes. Serial troponin were negative 3 sets. Chest x-ray showed evidence of pulmonary venous congestion but BNP was normal. Patient was given one-time dose of . IV Lasix. She said that her pain is about the same. Review of Systems Review of system: 14 points review of systems were obtained and were negative except to what were mentioned in the HPI. Past Medical History Past Medical History: Hypertension Additional Past Medical History / Comment(s): dysthymic disorder, mental disorder, hyper cholestremia, cerebral palsy. History of Any Multi-Drug Resistant Organisms: None Reported Past Surgical History: No Surgical Hx Reported Past Psychological History: No Psychological Hx Reported Smoking Status: Never smoker Past Alcohol Use History: None Reported Past Drug Use History: None Reported Medications and Allergies Home Medications Medication Instructions Recorded Confirmed Type Baclofen 10 mg PO TID@08,12,17 07/18/14 01/23/18 History Cholecalciferol [Vitamin D3] 2,000 unit PO DAILY@0800 07/18/14 01/23/18 History Omeprazole [PriLOSEC] 20 mg PO DAILY@0800 07/18/14 01/23/18 History Simvastatin [Zocor] 10 mg PO HS@199907/18/14 01/23/18 History Timolol 0.5% Ophth Soln [Timoptic 1 drop BOTH EYES DAILY@08 07/18/14 01/23/18 History 0.5% Ophth Soln] Artificial Tears-Hypromellose 1 drops BOTH EYES Q2HR 10/12/17 01/23/18 History [Artificial Tear Drops] Bimatoprost [Lumigan .01% Ophth 1 drop BOTH EYES HS@199910/12/17 01/23/18 History Soln] Brimonidine Tartrate [Alphagan P 1 drops BOTH EYES BID@08,20 01/09/18 04/22/18 History 0.15% Ophth Soln] Carvedilol [Coreg] 12.5 mg PO BID@10/12/17 01/23/18 History metFORMIN HCL ER [Glucophage Xr] 500 mg PO DAILY@1700 10/12/17 01/23/18 History Calcium 500mg 500 mg PO BID@01/23/18 01/23/18 History Clotrimazole/Betamethasone Dip 1 applic TOPICAL BID 01/23/18 01/23/18 History [Lotrisone Cream] FLUoxetine HCL 40 mg PO DAILY@0800 01/23/18 01/23/18 History Triamcinolone 0.1% Cream [Kenalog] 1 applicatio TOPICAL BID@01/23/1801/23 History Allergies Allergy/AdvReac Type Severity Reaction Status Date / Time No Known Allergies Allergy Verified 01/23/18 18:20 Physical Exam Vitals: Vital Signs Temp Pulse Pulse Pulse Pulse Resp BP 01/24/18 11:20 90 16 01/24/18 08:00 98 F 84 16 01/24/18 06:25 91 24 01/24/18 04:00 77 79 65 18 01/24/18 00:00 79 18 01/23/18 20:25 79 18 01/23/18 19:18 70 18 123/72 01/23/18 18:33 68 16 162/72 01/23/18 18:13 77 75 65 01/23/18 17:17 98.3 F 87 18 155/65 BP BP BP Pulse Ox 01/24/18 11:20 119/65 100 01/24/18 08:00 116/76 95 01/24/18 06:25 105/59 93 L 01/24/18 04:00 01/24/18 00:00 01/23/18 20:25 109/58 94 L 01/23/18 19:18 96 01/23/18 18:33 98 01/23/18 18:13 184/83 193/86 165/74 01/23/18 17:17 95 Intake and Output 01/23/18 01/24/18 01/24/18 22:59 06:59 14:59 Intake Total 1000 Output Total 400 400 Balance -400 600 Intake: Oral 1000 Output: Urine 400 400 Other: # Voids 1 Weight 58.967 kg 64 kg General: The patient is awake and alert, in no distress Eye: there is normal conjunctiva bilaterally. Neck: The neck is supple, there is no JVD. Cardiovascular: Normal S1-S2, no S3-S4, no murmurs. Respiratory: Lungs clear to auscultation bilaterally Gastrointestinal: Abdomen is soft, nontender Musculoskeletal: There is no pedal edema. Neurological:. Speech is normal. Skin: Skin is warm and dry Results CBC & Chem 7: 01/23/18 17:25 01/23/18 17:25 Labs: Abnormal Lab Results - Last 24 Hours (Table) 01/23/18 01/23/18 01/23/18 Range/Units 17:25 17:25 17:25 RDW 15.9 H (11.5-15.5) % INR 1.2 H (<1.2) Glucose 101 H (74-99) mg/dL POC Glucose (mg/dL) (75-99) mg/dL 01/24/18 01/24/18 Range/Units 06:19 11:21 RDW (11.5-15.5) % INR (<1.2) Glucose (74-99) mg/dL POC Glucose (mg/dL) 153 H 247 H (75-99) mg/dL Assessment and Plan Assessment: 1. Chest pain: Atypical in nature. Mostly musculoskeletal. 12-lead EKG showed no acute ischemic changes. Serial troponin were negative 3 sets. Patient was seen and evaluated by cardiology. Echocardiogram showed preserved ejection fraction of 55-60%, no significant valvular abnormalities, no significant wall motion abnormality reported. 2. Essential hypertension: Blood pressure well-controlled 3. Mixed hyperlipidemia: Maintained on Zocor at home. I would check fasting lipid profile 4. Type 2 diabetes, maintained on metformin at home. I would check A1c 5. DVT prophylaxis with subcu heparin
[2018-01-24 14:01] VITALS: BMI 29.5
[2018-01-24 16:45] LABS: Glucose,Whole Blood 123 mg/dL (75-99)
[2018-01-24 18:54] LABS: Hemoglobin A1C 6.9 % (4.0-6.0)
[2018-01-24] MEDS ORDERED: LATANOPROST 0.005% OPHTH DROPS 2.5 ML BTL BOTH EYES SCH (20:00)
[2018-01-24] MEDS ORDERED: ATORVASTATIN 10 MG TAB PO SCH (20:00)
[2018-01-24 20:29] LABS: Glucose,Whole Blood 213 mg/dL (75-99)
[2018-01-24] MEDS: HEPARIN SODIUM,PORCINE 5,000 UNIT/ML 1 ML VIAL SQ SCH (20:43)
[2018-01-25] MEDS: ARTIFICIAL TEARS-HYPROMELLOSE DROPS 15 ML BTL BOTH EYES SCH ×8 (00:05→14:02)
[2018-01-25 06:03] LABS: Glucose,Whole Blood 126 mg/dL (75-99)
[2018-01-25] MEDS: INSULIN ASPART 100 UNIT/ML 1 ML 10 ML VIAL SQ SCH ×2 (06:19→12:07)
[2018-01-25 06:27] LABS: Basophils % (A) 1 %; Eosinophils # (A) 0.4 k/uL (0-0.7); Eosinophils % (A) 5 %; HGB 11.9 gm/dL (11.4-16.0); Hypochromasia Slight; Lymphocytes # (A) 1.3 k/uL (1.0-4.8); Lymphocytes % (A) 17 %; MCH 26.2 pg (25.0-35.0); MCHC 31.3 g/dL (31.0-37.0); MCV 83.7 fL (80.0-100.0); Mean Platelet Volume 7.6; Monocytes # (A) 0.7 k/uL (0-1.0); Monocytes % (A) 8 %; Neutrophils # (A) 5.4 k/uL (1.3-7.7); Neutrophils % (A) 68 %; Platelet Count 258 k/uL (150-450); RBC 4.54 m/uL (3.80-5.40); WBC 7.9 k/uL (3.8-10.6)
[2018-01-25 06:44] LABS: ALT 28 U/L (9-52); AST 22 U/L (14-36); Albumin 3.5 g/dL (3.5-5.0); Alkaline Phosphatase 114 U/L (38-126); Anion Gap 9 mmol/L; Blood Urea Nitrogen 26 mg/dL (7-17); Calcium 9.1 mg/dL (8.4-10.2); Carbon Dioxide 31 mmol/L (22-30); Chloride 99 mmol/L (98-107); Cholesterol 138 mg/dL (<200); Glucose 135 mg/dL (74-99); HDL Cholesterol 49 mg/dL (40-60); LDL Cholesterol,Calculated 74 mg/dL (0-99); Potassium 4.2 mmol/L (3.5-5.1); Sodium 139 mmol/L (137-145); Total Bilirubin 0.2 mg/dL (0.2-1.3); Total Protein 6.6 g/dL (6.3-8.2); Triglycerides 77 mg/dL (<150)
[2018-01-25 08:19] VITALS: TEMP 96.8
[2018-01-25] MEDS: CHOLECALCIFEROL 1,000 UNIT TAB PO SCH (08:45)
[2018-01-25] MEDS: CARVEDILOL 12.5 MG TAB PO SCH (08:45)
[2018-01-25] MEDS: BRIMONIDINE TARTRATE 0.2% DROPS 5 ML BTL BOTH EYES SCH (08:45)
[2018-01-25] MEDS: CALCIUM CARBONATE 500 MG CHEWABLE PO SCH (08:45)
[2018-01-25] MEDS: BACLOFEN 10 MG TAB PO SCH ×2 (08:45→12:28)
[2018-01-25] MEDS: PANTOPRAZOLE 40 MG TABLET PO SCH (08:46)
[2018-01-25] MEDS: FLUoxetine HCL 20 MG CAP PO SCH (08:46)
[2018-01-25] MEDS: TIMOLOL 0.5% OPHTH DROPS 5 ML BTL BOTH EYES SCH (08:46)
[2018-01-25] MEDS: HEPARIN SODIUM,PORCINE 5,000 UNIT/ML 1 ML VIAL SQ SCH (08:47)
[2018-01-25] MEDS: CLOTRIMAZOLE/BETAMETH 1-0.05% CREAM 45 GM TUBE TOPICAL SCH (08:47)
[2018-01-25] MEDS: FUROSEMIDE 20 MG TAB PO SCH (08:47)
[2018-01-25] MEDS: ASPIRIN 81 MG PO SCH (09:58)
[2018-01-25 12:07] VITALS: BP 148/76; PULSE 80; RESP 12
[2018-01-25 12:16] LABS: Glucose,Whole Blood 122 mg/dL (75-99)
--- NOTE | 2018-01-25 13:02 | P.DS ---
Providers Date of admission: 01/23/18 18:23 Expected date of discharge: 01/25/18 Attending physician: Johny Abraham Consults: 01/23/18 18:23 Consult Physician Routine Consulting Provider: [facility] Consult Reason/Comments: Acute pulmonary edema Do you want consulting provider notified?: Yes Primary care physician: Johny Abraham [facility] Course: 1. Chest pain: Atypical in nature. Mostly musculoskeletal. 12-lead EKG showed no acute ischemic changes. Serial troponin were negative 3 sets. Patient was seen and evaluated by cardiology. Echocardiogram showed preserved ejection fraction of 55-60%, no significant valvular abnormalities, no significant wall motion abnormality reported. Patient is cleared for discharge home with no further testing 2. Essential hypertension: Blood pressure well-controlled 3. Mixed hyperlipidemia: Maintained on Zocor at home. Cholesterol level at goal 4. Type 2 diabetes, maintained on metformin at home. A1c 6.9 Plan - Discharge Summary Discharge Rx Participant: No New Discharge Prescriptions: Continue Timolol 0.5% Ophth Soln [Timoptic 0.5% Ophth Soln] 1 drop BOTH EYES DAILY@08 Omeprazole [PriLOSEC] 20 mg PO DAILY@0800 Simvastatin [Zocor] 10 mg PO HS@2000 Cholecalciferol [Vitamin D3] 2,000 unit PO DAILY@0800 Baclofen 10 mg PO TID@08,,17 Artificial Tears-Hypromellose [Artificial Tear Drops] 1 drops BOTH EYES Q2HR Brimonidine Tartrate [Alphagan P 0.15% Ophth Soln] 1 drops BOTH EYES BID@08, 20 Bimatoprost [Lumigan .01% Ophth Soln] 1 drop BOTH EYES HS@2000 metFORMIN HCL ER [Glucophage Xr] 500 mg PO DAILY@1700 Carvedilol [Coreg*] 12.5 mg PO BID@08,17 Calcium 500mg 500 mg PO BID@08,17 Clotrimazole/Betamethasone Dip [Lotrisone Cream] 1 applic TOPICAL BID FLUoxetine HCL 40 mg PO DAILY@0800 Triamcinolone 0.1% Cream [Kenalog] 1 applicatio TOPICAL BID@08,20 Discharge Medication List Baclofen 10 mg PO TID@08,12,17 07/18/14 [History] Cholecalciferol [Vitamin D3] 2,000 unit PO DAILY@0800 07/18/14 [History] Omeprazole [PriLOSEC] 20 mg PO DAILY@0800 07/18/14 [History] Simvastatin [Zocor] 10 mg PO HS@199907/18/14 [History] Timolol 0.5% Ophth Soln [Timoptic 0.5% Ophth Soln] 1 drop BOTH EYES DAILY@08 [History] Artificial Tears-Hypromellose [Artificial Tear Drops] 1 drops BOTH EYES Q2HR 06/21 [History] Bimatoprost [Lumigan .01% Ophth Soln] 1 drop BOTH EYES HS@199910/12/17 [History ] Brimonidine Tartrate [Alphagan P 0.15% Ophth Soln] 1 drops BOTH EYES BID@,10/12/17 [History] Carvedilol [Coreg*] 12.5 mg PO BID@,10/12/17 [History] metFORMIN HCL ER [Glucophage Xr] 500 mg PO DAILY@1700 10/12/17 [History] Calcium 500mg 500 mg PO BID@,01/23/18 [History] Clotrimazole/Betamethasone Dip [Lotrisone Cream] 1 applic TOPICAL BID 01/23/18 [ History] FLUoxetine HCL 40 mg PO DAILY@0801/23/18 [History] Triamcinolone 0.1% Cream [Kenalog] 1 applicatio TOPICAL BID@,01/23/18 [ History] Follow up Appointment(s)/Referral(s): Johny Abraham MD [Primary Care Provider] - 1-2 days
--- NOTE | 2018-01-25 16:00 | P.PN ---
Subjective Progress Note Date: 01/25/18 This is a pleasant 67-year-old female who is developmentally delayed. She has a history of hypertension, hyperlipidemia, diabetes. Presents to the hospital with symptoms of left-sided chest pain, she states it just feels like the pain, gets worse when she takes a deep breath or when she sits forward in the bed. She denies any shortness of breath, nondiaphoretic. The patient resides at an adult foster care and has a guardian. EKG on arrival here showed a normal sinus rhythm with no acute changes. Chest x-ray showed pulmonary venous congestion with interstitial edema. Blood pressure on arrival 155/60, heart rate in the 80s, 95% on room air. Blood pressure this morning 116/70 with a heart rate in the 80s, 95% on 2 L of oxygen. White blood cell count 7.8 , hemoglobin 12.2, platelet count 285. Sodium 139, potassium 4.6, BUN 17, creatinine 0.8. An easy and 1.9, troponins negative 2. BNP level 147. At the time of my examination this morning, patient still points to her chest and states that she has a pain, when she takes a deep breath he gets significantly worse. Lying flat in bed at the time of my examination, no overt difficulty in breathing noted. She was initiated on IV Lasix in the emergency room, and also started on Nitropaste. 01/25/2018 Patient seen and examined today denies any chest discomfort, breathing has been stable. Blood pressure 146/76 heart rate in the 80s. Echocardiogram with Doppler study was performed which revealed a normal left ventricular systolic function. Objective - Vital Signs Vital signs: Vital Signs Temp 96.8 F L 01/25/18 08:15 Pulse 80 01/25/18 11:55 Resp 12 01/25/18 11:55 BP 148/76 01/25/18 11:55 Pulse Ox 95 01/25/18 11:55 Intake & Output 01/24/18 01/25/18 01/25/18 18:59 06:59 18:59 Intake Total 360 160 Output Total 375 200 Balance -15 -40 Weight 64 kg 56 kg Intake: Oral 360 160 Output: Urine 250 200 Post Void Residual 125 Other: Voiding Method Bedpan Bedpan # Voids 1 1 - Exam PHYSICAL EXAMINATION: HEENT: Head is atraumatic, normocephalic. Pupils equal, round. Neck is supple. There is no elevated jugular venous pressure. HEART EXAMINATION: Heart S1, S2 normal. No murmur or gallop heard. CHEST EXAMINATION: Ends are clear with mild diminished air entry to the bases. Positive chest wall tenderness on palpation and with deep breathing. ABDOMEN: Soft, nontender. Bowel sounds are heard. No organomegaly noted. EXTREMITIES: 2+ peripheral pulses with no evidence of peripheral edema and no calf tenderness noted. NEUROLOGIC patient is awake, alert and oriented -3. . - Labs CBC & Chem 7: 01/25/18 05:52 01/25/18 05:52 Labs: Abnormal Lab Results - Last 24 Hours (Table) 01/23/18 01/24/18 01/24/18 Range/Units 17:25 16:32 20:27 RDW (11.5-15.5) % Carbon Dioxide (22-30) mmol/L BUN (7-17) mg/dL Glucose (74-99) mg/dL POC Glucose (mg/dL) 123 H 213 H (75-99) mg/dL Hemoglobin A1c 6.9 H (4.0-6.0) % 01/25/18 01/25/18 01/25/18 Range/Units 05:52 05:52 06:01 RDW 16.0 H (11.5-15.5) % Carbon Dioxide 31 H (22-30) mmol/L BUN 26 H (7-17) mg/dL Glucose 135 H (74-99) mg/dL POC Glucose (mg/dL) 126 H (75-99) mg/dL Hemoglobin A1c (4.0-6.0) % 01/25/18 Range/Units 11:56 RDW (11.5-15.5) % Carbon Dioxide (22-30) mmol/L BUN (7-17) mg/dL Glucose (74-99) mg/dL POC Glucose (mg/dL) 122 H (75-99) mg/dL Hemoglobin A1c (4.0-6.0) % Assessment and Plan Plan: Assessment and plan #1 chest pain, with atypical features for acute coronary syndrome. Troponins negative 3. EKG shows a normal sinus rhythm with no acute changes. #2 hypertension #3 hyperlipidemia #4 diabetes #5 developmentally delayed Plan Echocardiogram with Doppler study was performed which revealed a normal left ventricular systolic function. From cardiology's perspective, patient to be discharged home today. DNP note has been reviewed, I agree with a documented findings and plan of care. Patient was seen and examined.
== END 2018-01-25 15:36 | disposition home or self-care (01) ==
LOC: EC 17:16 → 6SEL 18:23
PROVIDERS: ADMIT Internal Medicine; ATTEND Internal Medicine
DX: R07.89 Other chest pain (principal); I10 Essential (primary) hypertension; E78.2 Mixed hyperlipidemia; E11.9 Type 2 diabetes mellitus without complications; J81.0 Acute pulmonary edema; Z79.84 Long term (current) use of oral hypoglycemic drugs; G80.9 Cerebral palsy, unspecified; R09.89 Other specified symptoms and signs involving the circulatory and respiratory systems; R62.50 Unspecified lack of expected normal physiological development in childhood; F34.1 Dysthymic disorder
CPT/HCPCS: 99285 ×2; 96374 ×2; 96376; 96372 ×2; 36415; 94760; 93005; 97530; 97162; 97166; 83880; 80061; 80053 ×2; 82550; 82553; 83735; 84484 ×2; 85025 ×2; 85610; 85730; 83036; 71046; G0378 ×3; C8929; J1644 ×2; J1940 ×2; Q9950; 93306

== ENCOUNTER → 2018-07-12 | Outpatient (CLI) | payer MEDICARE, OTHER ==
--- NOTE | 2018-07-13 05:32 | MR ---
EXAMINATION TYPE: MR foot RT wo con DATE OF EXAM: 07/12/2018 COMPARISON: None HISTORY: cyst; pain and swelling Standard multiplanar, multisequence MRI departmental protocol Multiplanar, multisequence images of the right foot were acquired. FINDINGS: There is mild hallux valgus. Metatarsals appear intact. There is mild spurring at the first MP joint and small joint effusion. There are no erosions. Ankle mortise is anatomic. Collateral liga ments appear intact. Flexor tendons of the foot appear intact. Achilles tendon is intact. Plantar fas talia appears normal. There is mild subcutaneous edema of the forefoot at the level of the MP joints. T here is subcutaneous edema around the lower tibia. There is mild ankle joint effusion. I see no signi ficant joint space narrowing. There is no evidence of a fracture. I see no focal bone destruction. IMPRESSION: mild subcutaneous edema. Ankle joint effusion. Mild effusion at the first MP joint with hallux valgus . This is consistent with nonspecific mild synovitis. No fracture. No evidence of tendon tear.
== END ==
LOC: RADMRIMAIN 13:26
PROVIDERS: ATTEND Podiatrist Foot & Ankle Surgery
DX: M25.474 Effusion, right foot (principal); M20.11 Hallux valgus (acquired), right foot; R60.0 Localized edema

== ENCOUNTER → 2019-01-03 | Outpatient (CLI) | payer MEDICARE, OTHER ==
--- NOTE | 2019-01-05 11:28 | MM ---
Reason for exam: screening (asymptomatic). Last mammogram was performed 3 years and 1 month ago. History: Patient is postmenopausal and is nulliparous. Physical Findings: A clinical breast exam by your physician is recommended on an annual basis and results should be correlated with mammographic findings. MG Screening Mammo w CAD Bilateral CC and MLO view(s) were taken. Prior study comparison: December 17, 2015, bilateral MG screening mammo w CAD. July 27, 2014, bilateral MG screening mammo w CAD. There are scattered fibroglandular densities. No significant changes when compared with prior studies. ASSESSMENT: Benign, BI-RAD 2 RECOMMENDATION: Routine screening mammogram of both breasts in 1 year.
== END | disposition home or self-care (01) ==
LOC: RADMAMWWP 13:24
PROVIDERS: ATTEND Internal Medicine
DX: Z12.31 Encounter for screening mammogram for malignant neoplasm of breast (principal)
CPT/HCPCS: 77067

== ENCOUNTER 2019-01-06 00:47 | Observation (INO) | payer MEDICARE, OTHER ==
[2019-01-06 00:53] VITALS: RESP 18
[2019-01-06] MEDS ORDERED: MORPHINE SULFATE 2 MG/ML SYRINGE IVP STA (01:18)
[2019-01-06] MEDS ORDERED: ONDANSETRON 4 MG/2 ML VIAL IVP STA (01:18)
[2019-01-06 01:50] LABS: Basophils % (A) 1 %; Eosinophils # (A) 0.3 k/uL (0-0.7); Eosinophils % (A) 4 %; HCT 33.7 % (34.0-46.0); HGB 11.1 gm/dL (11.4-16.0); Hypochromasia Slight; Lymphocytes # (A) 0.9 k/uL (1.0-4.8); Lymphocytes % (A) 12 %; MCV 81.8 fL (80.0-100.0); Mean Platelet Volume 7.8; Monocytes # (A) 0.6 k/uL (0-1.0); Monocytes % (A) 8 %; Neutrophils # (A) 5.4 k/uL (1.3-7.7); Neutrophils % (A) 74 %; Platelet Count 284 k/uL (150-450); RBC 4.11 m/uL (3.80-5.40); RDW 15.4 % (11.5-15.5); WBC 7.4 k/uL (3.8-10.6)
--- NOTE | 2019-01-06 01:58 | XR ---
EXAM: XR Chest, 2 Views CLINICAL HISTORY: ITS.REASON XR Reason: Chest Pain TECHNIQUE: Frontal and lateral views of the chest. COMPARISON: 01/23/18 chest x-ray IMPRESSION: Cardiomegaly. Mild vascular congestion. Bibasilar atelectasis. Possible trace left pleural effusion.
[2019-01-06 02:11] LABS: Prothrombin Time 11.1 sec (9.0-12.0)
[2019-01-06 02:19] LABS: ALT 36 U/L (9-52); AST 24 U/L (14-36); Albumin 3.5 g/dL (3.5-5.0); Alkaline Phosphatase 97 U/L (38-126); Anion Gap 7 mmol/L; Blood Urea Nitrogen 20 mg/dL (7-17); Calcium 9.3 mg/dL (8.4-10.2); Carbon Dioxide 26 mmol/L (22-30); Chloride 104 mmol/L (98-107); Glucose 125 mg/dL (74-99); Magnesium 1.8 mg/dL (1.6-2.3); Potassium 4.3 mmol/L (3.5-5.1); Sodium 137 mmol/L (137-145); Total Bilirubin 0.2 mg/dL (0.2-1.3); Total Protein 6.5 g/dL (6.3-8.2)
[2019-01-06] MEDS ORDERED: NITROGLYCERIN SL TABS 0.4 MG TAB SUBLINGUAL PRN (03:38)
--- NOTE | 2019-01-06 03:38 | ED ---
Chest Pain HPI - General Chief Complaint: Chest Pain Stated Complaint: Chest pain Time Seen by Provider: 01/06/19 01:07 Source: patient, EMS Mode of arrival: EMS Limitations: altered mental status - History of Present Illness Initial Comments: 68-year-old female patient presents to the emergency department today for evaluation of shortness of breath and chest pain. Patient states this started a couple hours prior to arrival. Patient reports the pain is substernal and sharp in nature. Denies any radiation of the pain to her back. Patient states it feels that she's having difficulty catching her breath. Patient denies any fever or chills with this. Denies any cough or congestion. Denies any abdominal pain, nausea, or vomiting. Denies any sweats. Patient denies any recent rash, diarrhea, constipation, back pain, numbness, tingling, dizziness, weakness, hematuria, dysuria, urinary urgency, urinary frequency, headache, visual changes, or any other complaints. - Related Data Home Medications Medication Instructions Recorded Confirmed Baclofen 10 mg PO TID@08,,07/18/14 01/23/18 Cholecalciferol [Vitamin D3] 2,000 unit PO DAILY@0800 07/18/14 01/23/18 Omeprazole [PriLOSEC] 20 mg PO DAILY@0800 07/18/14 01/23/18 Simvastatin [Zocor] 10 mg PO HS@199907/18/14 01/23/18 Timolol 0.5% Ophth Soln [Timoptic 1 drop BOTH EYES DAILY@08 07/18/14 01/23/18 0.5% Ophth Soln] Artificial Tears-Hypromellose 1 drops BOTH EYES Q2HR 10/12/17 01/23/18 [Artificial Tear Drops] Bimatoprost [Lumigan .01% Ophth 1 drop BOTH EYES HS@199910/12/17 01/23/18 Soln] Brimonidine Tartrate [Alphagan P 1 drops BOTH EYES BID@,10/12/17 01/23/18 0.15% Ophth Soln] Carvedilol [Coreg*] 12.5 mg PO BID@08,17 10/12/17 01/23/18 metFORMIN HCL ER [Glucophage Xr] 500 mg PO DAILY@1700 10/12/17 01/23/18 Calcium 500mg 500 mg PO BID@08,17 01/23/18 01/23/18 Clotrimazole/Betamethasone Dip 1 applic TOPICAL BID 01/23/18 01/23/18 [Lotrisone Cream] FLUoxetine HCL 40 mg PO DAILY@0800 01/23/18 01/23/18 Triamcinolone 0.1% Cream [Kenalog 1 applicatio TOPICAL BID@08,20 01/23/18 01/23/18 0.1% Cream] Allergies Allergy/AdvReac Type Severity Reaction Status Date / Time No Known Allergies Allergy Verified 01/06/19 00:53 Review of Systems ROS Statement: Those systems with pertinent positive or pertinent negative responses have been documented in the HPI. ROS Other: All systems not noted in ROS Statement are negative. EKG Findings - EKG Comments: EKG Findings:: EKG obtained at 0102 shows normal sinus rhythm with a ventricular rate is 70, [place] interval 138, QRS duration 68, QT 410, QTC 442. No evidence of ST elevation or depression. Past Medical History Past Medical History: Hypertension Additional Past Medical History / Comment(s): dysthymic disorder, mental disorder, hyper cholestremia, cerebral palsy. History of Any Multi-Drug Resistant Organisms: None Reported Past Surgical History: No Surgical Hx Reported Past Psychological History: No Psychological Hx Reported Smoking Status: Never smoker Past Alcohol Use History: None Reported Past Drug Use History: None Reported - Past Family History Father History Unknown: Yes Family Medical History: No Reported History General Exam Limitations: altered mental status General appearance: alert, in no apparent distress, other (Physical well- developed, well-nourished adult female patient in no acute distress. Vital signs upon presentation are temperature 98.8F, pulse 75, respirations 18, blood pressure 113/84, pulse ox 97% on room air.) Eye exam: Present: normal appearance, PERRL, EOMI. Absent: scleral icterus, conjunctival injection, periorbital swelling ENT exam: Present: normal exam, normal oropharynx, mucous membranes moist Respiratory exam: Present: normal lung sounds bilaterally. Absent: respiratory distress, wheezes, rales, rhonchi, stridor Cardiovascular Exam: Present: regular rate, normal rhythm, normal heart sounds. Absent: systolic murmur, diastolic murmur, rubs, gallop, clicks GI/Abdominal exam: Present: soft, normal bowel sounds. Absent: distended, tenderness, guarding, rebound, rigid Neurological exam: Present: alert, oriented X3, CN II-XII intact Psychiatric exam: Present: normal affect, normal mood Skin exam: Present: warm, dry, intact, normal color. Absent: rash Course Vital Signs 01/06/19 00:48 Temperature 98.8 F Pulse Rate 75 Respiratory 18 Rate Blood Pressure 113/84 O2 Sat by Pulse 97 Oximetry Chest Pain MDM - [facility] RADIOLOGY:Two-view x-ray of the chest is obtained. Report was reviewed in its entirety. Impression by Dr. Cortés shows cardiomegaly. Mild vascular congestion. Bibasilar atelectasis. Possible trace left pleural effusion.. MDM: 68-year-old female patient presents to the emergency room today for evaluation of chest pain and shortness of breath. Physical examination showed totally unremarkable. Lungs are clear to auscultation with good air movement. Vital signs are stable. EKG showed normal sinus rhythm. Patient will be admitted for serial troponins and further evaluation by cardiology. Disposition Clinical Impression: Chest pain Disposition: ADMITTED IP TO THIS [facility] Condition: Serious Referrals: None,Stated [Primary Care Provider] - 1-2 days Decision to Admit Reason: Admit from EC Decision Date: 01/06/19 Decision Time: 03:38
[2019-01-06] MEDS ORDERED: ONDANSETRON 4 MG/2 ML VIAL IVP PRN (03:40)
[2019-01-06] MEDS ORDERED: MORPHINE SULFATE 4 MG/ML SYRINGE IVP PRN (03:40)
[2019-01-06 06:41] LABS: Glucose,Whole Blood 108 mg/dL (75-99)
--- NOTE | 2019-01-06 07:36 | P.CRDCN ---
History of Present Illness Consult date: 01/06/19 History of present illness: This is a 68-year-old female who is mentally delayed, with history of hypertension, hyperlipidemia and diabetes. Patient lives in adult foster residential. She is admitted now to the hospital with complaints of chest pain. She points to the right side of the chest and it seemed to be very circumscribed and pinpoint. There is tenderness upon palpation of that area. Denies any nausea vomiting or sweating. Her EKGs did not reveal any acute changes. One set of cardiac enzymes are negative. Patient had previous admission about a year ago with chest pain. At the time, echocardiogram showed normal LV function. Doesn't appear that patient had any further follow-up. At this time, Her pains appear to be atypical and probably musculoskeletal. We'll continue to follow her cardiac enzymes and get an echocardiogram. If the enzymes are negative, and if echocardiogram is normal, patient could be discharged home. May be considered for outpatient dobutamine echo for further evaluation. Her chest x- ray reported as showing evidence of possible primary congestion. However her BNP level is normal. Review of Systems As per the chart Past Medical History Past Medical History: Hypertension Additional Past Medical History / Comment(s): dysthymic disorder, mental disorder, hyper cholestremia, cerebral palsy. History of Any Multi-Drug Resistant Organisms: None Reported Past Surgical History: No Surgical Hx Reported Past Psychological History: No Psychological Hx Reported Smoking Status: Never smoker Past Alcohol Use History: None Reported Past Drug Use History: None Reported - Past Family History Father History Unknown: Yes Family Medical History: No Reported History Medications and Allergies Home Medications Medication Instructions Recorded Confirmed Type Baclofen 10 mg PO TID@08,12,17 07/18/14 01/23/18 History Cholecalciferol [Vitamin D3] 2,000 unit PO DAILY@0800 07/18/14 01/23/18 History Omeprazole [PriLOSEC] 20 mg PO DAILY@0800 07/18/14 01/23/18 History Simvastatin [Zocor] 10 mg PO HS@199907/18/14 01/23/18 History Timolol 0.5% Ophth Soln [Timoptic 1 drop BOTH EYES DAILY@08 07/18/14 01/23/18 History 0.5% Ophth Soln] Artificial Tears-Hypromellose 1 drops BOTH EYES Q2HR 10/12/17 01/23/18 History [Artificial Tear Drops] Bimatoprost [Lumigan .01% Ophth 1 drop BOTH EYES HS@199910/12/17 01/23/18 History Soln] Brimonidine Tartrate [Alphagan P 1 drops BOTH EYES BID@,10/12/17 01/23/18 History 0.15% Ophth Soln] Carvedilol [Coreg*] 12.5 mg PO BID@,10/12/17 01/23/18 History metFORMIN HCL ER [Glucophage Xr] 500 mg PO DAILY@1700 10/12/17 01/23/18 History Calcium 500mg 500 mg PO BID@,01/23/18 01/23/18 History Clotrimazole/Betamethasone Dip 1 applic TOPICAL BID 01/23/18 01/23/18 History [Lotrisone Cream] FLUoxetine HCL 40 mg PO DAILY@0800 01/23/18 01/23/18 History Triamcinolone 0.1% Cream [Kenalog 1 applicatio TOPICAL BID@01/23/18 01/23/18 History 0.1% Cream] Allergies Allergy/AdvReac Type Severity Reaction Status Date / Time No Known Allergies Allergy Verified 01/06/19 00:53 Physical Exam Vitals: Vital Signs Temp Pulse Pulse Resp BP BP Pulse Ox 01/06/19 07:00 97.5 F L 67 18 122/77 96 01/06/19 05:36 97.4 F L 73 18 137/86 94 L 01/06/19 05:35 18 01/06/19 05:03 67 18 121/60 100 01/06/19 00:48 98.8 F 75 18 113/84 97 Intake and Output 01/05/19 01/06/19 01/06/19 22:59 06:59 14:59 Other: Voiding Method Bedpan Diaper Weight 70.307 kg GENERAL EXAM: Patient is alert and oriented and doesn't appear to be in any acute distress HEENT: Normocephalic. Normal reaction of pupils, equal size, normal range of extraocular motion. No erythema or exudates in the throat. NECK: No masses, no nuchal rigidity. CHEST: No chest wall deformity. There is tenderness on the right side of the chest LUNGS: Equal air entry with no crackles or wheeze. HEART: S1 and S2 normal with no audible mumurs or gallops. Regular rhythm, femorals equal on both sides.. ABDOMEN: No hepatosplenomegaly, normal bowel sounds, no guarding or rigidity. SKIN: No rashes CENTRAL NERVOUS SYSTEM: No focal deficits. EXTREMITIES: No cyanosis, clubbing or edema. Results 01/06/19 01:29 01/06/19 01:29 Cardiac Enzymes 01/06/19 01/06/19 Range/Units 01:29 01:29 AST 24 (14-36) U/L Troponin I <0.012 (0.000-0.034) ng/mL Coagulation 01/06/19 Range/Units 01:29 PT 11.1 (9.0-12.0) sec APTT 24.0 (22.0-30.0) sec CBC 01/06/19 Range/Units 01:29 WBC 7.4 (3.8-10.6) k/uL RBC 4.11 (3.80-5.40) m/uL Hgb 11.1 L (11.4-16.0) gm/dL Hct 33.7 L (34.0-46.0) % Plt Count 284 (150-450) k/uL Comprehensive Metabolic Panel 01/06/19 Range/Units 01:29 Sodium 137 (137-145) mmol/L Potassium 4.3 (3.5-5.1) mmol/L Chloride 104 (98-107) mmol/L Carbon Dioxide 26 (22-30) mmol/L BUN 20 H (7-17) mg/dL Creatinine 0.64 (0.52-1.04) mg/dL Glucose 125 H (74-99) mg/dL Calcium 9.3 (8.4-10.2) mg/dL AST 24 (14-36) U/L ALT 36 (9-52) U/L Alkaline Phosphatase 97 (38-126) U/L Total Protein 6.5 (6.3-8.2) g/dL Albumin 3.5 (3.5-5.0) g/dL Current Medications Generic Name Dose Route Start Last Admin Trade Name Freq PRN Reason Stop Dose Admin Aspirin 325 mg 01/07/19 09:00 Aspirin PO DAILY MO Morphine Sulfate 4 mg 01/06/19 03:40 Morphine Sulfate (Inj) IVP Q4HR PRN Pain Nitroglycerin 0.4 mg 01/06/19 03:38 Nitrostat SUBLINGUAL Q5M PRN Chest Pain Ondansetron HCl 4 mg 01/06/19 03:40 Zofran IVP Q6HR PRN Nausea And Vomiting Intake and Output 01/05/19 01/06/19 01/06/19 22:59 06:59 14:59 Other: Voiding Method Bedpan Diaper Weight 70.307 kg 01/06/19 01:29 01/06/19 01:29 EKG Interpretations (text) Sinus rhythm without any acute ST-T changes Assessment and Plan (1) Essential hypertension Current Visit: Yes Status: Acute Code(s): I10 - ESSENTIAL (PRIMARY) HYPERTENSION SNOMED Code(s): 48232304 (2) Chest pain Current Visit: Yes Status: Acute Code(s): R07.9 - CHEST PAIN, UNSPECIFIED SNOMED Code(s): 99279335 (3) Hyperlipidemia Current Visit: Yes Status: Acute Code(s): E78.5 - HYPERLIPIDEMIA, UNSPECIFIED SNOMED Code(s): 61386437 (4) Mentally challenged Current Visit: Yes Status: Acute Code(s): F79 - UNSPECIFIED INTELLECTUAL DISABILITIES SNOMED Code(s): 454994851 Plan: Will proceed with echocardiogram. Follow serial enzymes. If the enzymes are negative and if echocardiogram is normal, patient could be treated symptomatically. Could be discharged home for possible dobutamine echo as an outpatient.
[2019-01-06] MEDS ORDERED: ARTIFICIAL TEARS-HYPROMELLOSE DROPS 15 ML BTL BOTH EYES PRN (09:40)
[2019-01-06] MEDS ORDERED: CLOTRIMAZOLE/BETAMETH 1-0.05% CREAM 45 GM TUBE TOPICAL PRN (09:40)
[2019-01-06] MEDS ORDERED: CHOLECALCIFEROL 1,000 UNIT TAB PO SCH (09:42)
[2019-01-06] MEDS ORDERED: lamoTRIgine 25 MG TAB PO SCH (09:45)
[2019-01-06] MEDS ORDERED: FLUoxetine HCL 20 MG CAP PO SCH (09:45)
[2019-01-06] MEDS ORDERED: PANTOPRAZOLE 40 MG TABLET PO SCH (09:45)
[2019-01-06] MEDS ORDERED: CARVEDILOL 3.125 MG TAB PO SCH (09:45)
[2019-01-06] MEDS ORDERED: TIMOLOL 0.5% OPHTH DROPS 5 ML BTL BOTH EYES SCH (09:45)
[2019-01-06 11:40] LABS: Glucose,Whole Blood 167 mg/dL (75-99)
--- NOTE | 2019-01-06 11:47 | ECHOF ---
Referral Reason:Chest pain and cardiomyopathy MEASUREMENTS -------- HEIGHT: 154.9 cm WEIGHT: 70.3 kg BP: 122/77 IVSd: 1.0 cm (0.6 - 1.1) LVIDd: 2.6 cm (3.9 - 5.3) LVPWd: 1.0 cm (0.6 - 1.1) IVSs: 1.2 cm LVIDs: 1.3 cm LVPWs: 1.2 cm LAESV Index (A-L): 24.38 ml/m Ao Diam: 2.6 cm (2.0 - 3.7) AV Cusp: 1.2 cm (1.5 - 2.6) LA Diam: 3.1 cm (2.7 - 3.8) MV E Shravan: 0.80 m/s MV DecT: 202 ms MV A Shravan: 0.75 m/s MV E/A Ratio: 1.08 RAP: 5.00 mmHg RVSP: 36.73 mmHg FINDINGS -------- Sinus rhythm. This was a technically difficult study with suboptimal views. The left ventricular size is normal. Left ventricular wall thickness is normal. Left ventricular systolic function is hyperdynamic with an estimated EF of >70%. The right ventricle is normal in size and function. The RV was not well visualized. Normal LA size by volume 22+/-6 ml/m2. The right atrium was not well visualized. The aortic valve was not well visualized. No significant aortic stenosis or regurgitation visualize d. The mitral valve leaflets are mildly thickened. There is trace to mild mitral regurgitation. Trace tricuspid regurgitation present. Right ventricular systolic pressure is normal at < 35 mmHg. There is no evidence of pulmonary hypertension. The pulmonic valve was not well visualized. The aortic root size is normal. IVC Not well visulized. There is no pericardial effusion. CONCLUSIONS -------- 1. Sinus rhythm. 2. This was a technically difficult study with suboptimal views. 3. The left ventricular size is normal. 4. Left ventricular wall thickness is normal. 5. Left ventricular systolic function is hyperdynamic with an estimated EF of >70%. 6. The RV was not well visualized. 7. Normal LA size by volume 22+/-6 ml/m2. 8. The right atrium was not well visualized. 9. The aortic valve was not well visualized. 10. No significant aortic stenosis or regurgitation visualized. 11. The mitral valve leaflets are mildly thickened. 12. There is trace to mild mitral regurgitation. 13. Trace tricuspid regurgitation present. 14. Right ventricular systolic pressure is normal at < 35 mmHg. 15. There is no evidence of pulmonary hypertension. 16. The pulmonic valve was not well visualized. 17. The aortic root size is normal. 18. IVC Not well visulized. 19. There is no pericardial effusion. [employer] CAPTAIN: Alfonzo Cleary RDCS
[2019-01-06 11:49] VITALS: BP 122/75; PULSE 78; TEMP 98.9
[2019-01-06] MEDS: MECLIZINE 12.5 MG TAB PO SCH ×2 (11:53→16:05)
[2019-01-06] MEDS: BACLOFEN 10 MG TAB PO SCH ×2 (11:54→16:05)
[2019-01-06] MEDS ORDERED: FUROSEMIDE 10 MG/ML 2 ML VIAL IV STA (12:23)
--- NOTE | 2019-01-06 12:24 | P.HPIM ---
History of Present Illness H&P Date: 01/06/19 Chief Complaint: Chest pain Patient is a 68-year-old with a known history of hypertension, dysthymic disorder, mental disorder, hyperlipidemia and history of cerebral palsy, d ysarthria who is currently at [facility] was brought to the ER due to chest pain or shortness of breath. Chest pain is mainly along the right retrosternal border associated with shortness of breath. Patient says that she felt dizzy and diaphoretic. Sharp pain sometimes radiate to the back. No associated nausea vomiting or abdominal pain or diarrhea. Patient says that she is doing sick recently and is having headaches. Denied any fever or chills. No cough or sputum production. No dysuria or hematuria. Denied any visual changes. Pain gets worse with deep palpation. Chest x-ray showed t x-ray showed mild vascular congestion. Bibasilar atelectasis. Possible trace left pleural effusion. EKG showed normal sinus rhythm Troponin 2 negative BNP 255 Review of Systems Constitutional: Patient denies any fever or chills . No generalized weakness or weight loss. Abdomen: Patient denied nausea vomiting and diarrhea and abdominal pain. Cardiovascular: Patient does have chest tightness and shortness of breath. No leg swelling.. Respiratory: patient denied any cough is from production. No shortness of breath Neurologic: Patient denied any numbness or tingling headache. Musculoskeletal: Patient denies any complaints of joint swelling or deformity. Skin: Negative Psychiatric: Negative Endocrine: No heat or cold intolerance. No recent weight gain. Genitourinary: No dysuria or hematuria. All other 14 point ROS negative except the above Past Medical History Past Medical History: Hypertension Additional Past Medical History / Comment(s): dysthymic disorder, mental disorder, hyper cholestremia, cerebral palsy, carpal tunnel left wrist, bipolar, left hip surgery, costochondritis. History of Any Multi-Drug Resistant Organisms: None Reported Past Surgical History: No Surgical Hx Reported Additional Past Surgical History / Comment(s): left hip surgery Past Psychological History: Bipolar Smoking Status: Never smoker Past Alcohol Use History: None Reported Past Drug Use History: None Reported - Past Family History Father History Unknown: Yes Family Medical History: No Reported History Medications and Allergies Home Medications Medication Instructions Recorded Confirmed Type Baclofen 10 mg PO TID 07/18/14 01/06/19 History Cholecalciferol [Vitamin D3] 2,000 unit PO DAILY 07/18/14 01/06/19 History Omeprazole [PriLOSEC] 20 mg PO DAILY 07/18/14 01/06/19 History Simvastatin [Zocor] 10 mg PO HS 07/18/14 01/06/19 History Timolol 0.5% Ophth Soln [Timoptic 1 drop BOTH EYES DAILY 07/18/14 01/06/19 History 0.5% Ophth Soln] Artificial Tears-Hypromellose 1 drops BOTH EYES TID 10/12/17 01/06/19 History [Artificial Tear Drops] Bimatoprost [Lumigan .01% Ophth 1 drop BOTH EYES HS 10/12/17 01/06/19 History Soln] Brimonidine Tartrate [Alphagan P 1 drops BOTH EYES BID 10/12/17 01/06/19 History 0.15% Ophth Soln] metFORMIN HCL ER [Glucophage Xr] 500 mg PO W/SUPPER 10/12/17 01/06/19 History Calcium 500mg 500 mg PO BID 01/23/18 01/06/19 History Clotrimazole/Betamethasone Dip 1 applic TOPICAL BID PRN 01/23/18 01/06/19 History [Lotrisone Cream] Carvedilol [Coreg] 3.125 mg PO BID 01/06/19 01/06/19 History FLUoxetine HCL [PROzac] 60 mg PO DAILY 01/06/19 01/06/19 History Meclizine [Antivert] 12.5 mg PO TID 01/06/19 01/06/19 History cycloSPORINE [Restasis] 1 applicator BOTH EYES BID 01/06/19 01/06/19 History lamoTRIgine [LaMICtal] 75 mg PO BID 01/06/19 01/06/19 History Allergies Allergy/AdvReac Type Severity Reaction Status Date / Time No Known Allergies Allergy Verified 01/06/19 08:28 Physical Exam Vitals: Vital Signs Temp Pulse Pulse Resp BP BP Pulse Ox 01/06/19 11:30 98.9 F 78 18 122/75 94 L 01/06/19 07:00 97.5 F L 67 18 122/77 96 01/06/19 05:36 97.4 F L 73 18 137/86 94 L 04/05/19 05:35 18 01/06/19 05:03 67 18 121/60 100 01/06/19 00:48 98.8 F 75 18 113/84 97 Intake and Output 01/05/19 01/06/19 01/06/19 22:59 06:59 14:59 Other: Voiding Method Bedpan Bedpan Diaper Diaper # Voids 1 Weight 70.307 kg PHYSICAL EXAMINATION: Patient is lying in the bed comfortably, no acute distress, awake alert and oriented.. HEENT: Normocephalic. Neck is supple. Pupils reactive. Nostrils clear. Oral cavity is moist. Ears reveal no drainage. Neck reveals no JVD, carotid bruits, or thyromegaly. CHEST EXAMINATION: Trachea is central. Symmetrical expansion. Bibasilar diminished air entry. Lung reynaga clear to auscultation and percussion. CARDIAC: Normal S1, S2 with no gallops. No murmurs ABDOMEN: Soft. Bowel sounds normal. No organomegaly. No abdominal bruits. Extremities: reveal no edema. No clubbing or cyanosis Neurologically awake, alert, oriented x3 with well-coordinated movements. Dysarthria and mental retardation. No focal deficits noted Skin: No rash or skin lesions. Psychiatric: Coperative. Nonsuicidal Musculoskeletal: No joint swelling or deformity. Normal range of motion. Results CBC & Chem 7: 01/06/19 01:29 01/06/19 01:29 Labs: Abnormal Lab Results - Last 24 Hours (Table) 01/06/19 01/06/19 01/06/19 Range/Units 01:29 01:29 06:39 Hgb 11.1 L (11.4-16.0) gm/dL Hct 33.7 L (34.0-46.0) % Lymphocytes # 0.9 L (1.0-4.8) k/uL BUN 20 H (7-17) mg/dL Glucose 125 H (74-99) mg/dL POC Glucose (mg/dL) 108 H (75-99) mg/dL 01/06/19 Range/Units 11:39 Hgb (11.4-16.0) gm/dL Hct (34.0-46.0) % Lymphocytes # (1.0-4.8) k/uL BUN (7-17) mg/dL Glucose (74-99) mg/dL POC Glucose (mg/dL) 167 H (75-99) mg/dL Thrombosis Risk Factor Assmnt - Choose All That Apply Any of the Below Risk Factors Present?: Yes Each Factor Represents 1 point: Obesity (BMI >25) Other Risk Factors: Yes Each Risk Factor Represents 2 Points: Age 61-74 years Thrombosis Risk Factor Assessment Total Risk Factor Score: 3 Thrombosis Risk Factor Assessment Level: Moderate Risk Assessment and Plan Assessment: Chest pain most likely musculoskeletal in origin. Worsens with deep palpation. Ruled out ACS. Pulmonary vascular congestion. However BNP is not elevated. Hypertension Dysthymic disorder Cerebral palsy and dysarthria Hyperlipidemia DVT prophylaxis Plan: Patient will be continued on telemetry monitoring. Serial EKGs and troponins negative. Chest pain seems to be musculoskeletal in origin. Pain is much improved now but still have some tightness in the chest. Patient will be given a dose of IV Lasix 20 mg 1. 2-D echocardiogram was ordered. Cardiology is following the patient. Further recommendations based on the clinical course. Time with Patient: Greater than 30
[2019-01-06] MEDS ORDERED: metFORMIN 500 MG TAB PO SCH (17:30)
[2019-01-06] MEDS ORDERED: BRIMONIDINE TARTRATE 0.2% DROPS 5 ML BTL BOTH EYES SCH (21:00)
[2019-01-06] MEDS ORDERED: CALCIUM CARBONATE 500 MG CHEWABLE PO SCH (21:00)
[2019-01-06] MEDS ORDERED: LATANOPROST 0.005% OPHTH DROPS 2.5 ML BTL BOTH EYES SCH (21:00)
[2019-01-06] MEDS ORDERED: ATORVASTATIN 10 MG TAB PO SCH (21:00)
[2019-01-07] MEDS ORDERED: ASPIRIN 325 MG TAB PO SCH (09:00)
== END 2019-01-06 16:18 ==
LOC: EC 00:47 → 1SOBS 04:03
PROVIDERS: ADMIT Hospitalist; ATTEND Hospitalist
DX: R07.89 Other chest pain (principal); J81.1 Chronic pulmonary edema; I11.9 Hypertensive heart disease without heart failure; G80.9 Cerebral palsy, unspecified; F34.1 Dysthymic disorder; J98.11 Atelectasis; E78.5 Hyperlipidemia, unspecified; E11.9 Type 2 diabetes mellitus without complications; R61 Generalized hyperhidrosis; R42 Dizziness and giddiness; R51 Headache; R47.1 Dysarthria and anarthria; E78.00 Pure hypercholesterolemia, unspecified; G56.02 Carpal tunnel syndrome, left upper limb; F31.9 Bipolar disorder, unspecified; F79 Unspecified intellectual disabilities; E66.9 Obesity, unspecified; Z68.29 Body mass index [BMI] 29.0-29.9, adult; Z79.84 Long term (current) use of oral hypoglycemic drugs; Z79.899 Other long term (current) drug therapy
CPT/HCPCS: 96375 ×2; 96374; 99285; 36415; 93005; 93306; 83880; 80053; 83735; 84484; 85025; 85610; 85730; 71046; G0378; J1940; J2405; J2270

== ENCOUNTER → 2019-06-29 | Outpatient (CLI) | payer MEDICARE, OTHER ==
--- NOTE | 2019-06-29 18:13 | XR ---
EXAMINATION TYPE: XR chest 2V DATE OF EXAM: 06/29/2019 COMPARISON: Prior chest x-ray 01/06/2019 HISTORY: Cough, fever TECHNIQUE: Frontal and lateral views of the chest are obtained. FINDINGS: Patchy basilar density is noted at the right lung base. There is no pleural effusion or pn eumothorax seen. Interstitium is increased. The cardiac silhouette size is stable, heart size may be accentuated by rotation. The aorta is dense. The osseous structures are intact. IMPRESSION: Correlate for possible pulmonary venous hypertension and interstitial edema or interstit ial lung disease, difficult to exclude basilar pneumonia. Follow-up is recommended. A [place] level critical message alert has been initiated for Johny Abraham MD via the [employer] Critical Results System on 06/29/2019 4:37 PM. This message alert has been sent to Johny Abraham MD via the preferences provided by the clinician for the receipt of Radiology Critical Findings. Message ID [id number].
== END | disposition home or self-care (01) ==
LOC: RADXRMAIN 13:08
PROVIDERS: ATTEND Internal Medicine
DX: R05 Cough (principal); R50.9 Fever, unspecified
CPT/HCPCS: 71046

== ENCOUNTER 2019-11-05 12:15 | Inpatient (IN) | payer MEDICARE, OTHER ==
--- NOTE | 2019-11-05 13:57 | ED ---
Abdominal Pain HPI - General Chief Complaint: Abdominal Pain Stated Complaint: body aches/COURT Time Seen by Provider: 11/05/19 13:20 Source: patient, family, RN notes reviewed Mode of arrival: wheelchair Limitations: no limitations - History of Present Illness Initial Comments: This is a 69-year-old female history of dysthymic disorder who presents with complaints of chest pain abdominal pain cough. Chest pain is described as achy moderate some what increase with movement. She also has some left upper abdominal pain. No nausea no vomiting no fevers chills sweats or other symptoms she is of a history of CHF history of asthma. Patient initially denies a rhinorrhea earaches sore throat MD Complaint: abdominal pain, other - Related Data Home Medications Medication Instructions Recorded Confirmed Baclofen 10 mg PO TID 07/18/14 01/06/19 Cholecalciferol [Vitamin D3 (25 2,000 unit PO DAILY 07/18/14 01/06/19 Mcg = 1000 Iu)] Omeprazole [PriLOSEC] 20 mg PO DAILY 07/18/14 01/06/19 Simvastatin [Zocor] 10 mg PO HS 07/18/14 01/06/19 Timolol 0.5% Ophth Soln [Timoptic 1 drop BOTH EYES DAILY 07/18/14 01/06/19 0.5% Ophth Soln] Artificial Tears-Hypromellose 1 drops BOTH EYES TID 10/12/17 01/06/19 [Artificial Tear Drops] Bimatoprost [Lumigan .01% Ophth 1 drop BOTH EYES HS 10/12/17 01/06/19 Soln] Brimonidine Tartrate [Alphagan P 1 drops BOTH EYES BID 10/12/17 01/06/19 0.15% Ophth Soln] metFORMIN HCL ER [Glucophage Xr] 500 mg PO W/SUPPER 10/12/17 01/06/19 Calcium 500mg 500 mg PO BID 01/23/18 01/06/19 Clotrimazole/Betamethasone Dip 1 applic TOPICAL BID PRN 01/23/18 01/06/19 [Lotrisone Cream] Carvedilol [Coreg] 3.125 mg PO BID 01/06/19 01/06/19 FLUoxetine HCL [PROzac] 60 mg PO DAILY 01/06/19 01/06/19 Meclizine [Antivert] 12.5 mg PO TID 01/06/19 01/06/19 cycloSPORINE [Restasis] 1 applicator BOTH EYES BID 01/06/19 01/06/19 lamoTRIgine [LaMICtal] 75 mg PO BID 01/06/19 01/06/19 Allergies Allergy/AdvReac Type Severity Reaction Status Date / Time No Known Allergies Allergy Verified 11/05/19 12:48 Review of Systems ROS Statement: Those systems with pertinent positive or pertinent negative responses have been documented in the HPI. ROS Other: All systems not noted in ROS Statement are negative. Past Medical History Past Medical History: Hypertension Additional Past Medical History / Comment(s): dysthymic disorder, mental disorder, hyper cholestremia, cerebral palsy, carpal tunnel left wrist, bipolar, left hip surgery, costochondritis. History of Any Multi-Drug Resistant Organisms: None Reported Past Surgical History: No Surgical Hx Reported Additional Past Surgical History / Comment(s): left hip surgery Past Psychological History: Bipolar Smoking Status: Never smoker Past Alcohol Use History: None Reported Past Drug Use History: None Reported - Past Family History Father History Unknown: Yes Family Medical History: No Reported History General Exam - General Exam Comments Initial Comments: This is a well-developed well-nourished obese female who is awake alert. Limitations: no limitations General appearance: alert, in no apparent distress Head exam: Present: atraumatic, normocephalic, normal inspection Eye exam: Present: normal appearance, PERRL, EOMI. Absent: scleral icterus, conjunctival injection, periorbital swelling ENT exam: Present: normal exam, mucous membranes moist Neck exam: Present: normal inspection. Absent: tenderness, meningismus, lymphadenopathy Respiratory exam: Present: rales, chest wall tenderness (Reproducible tenderness palpation on the left costal sternal margin no step-off or crepitation basilar rales noted.), decreased breath sounds. Absent: respiratory distress, wheezes, rhonchi, stridor Cardiovascular Exam: Present: regular rate, normal rhythm, normal heart sounds. Absent: systolic murmur, diastolic murmur, rubs, gallop, clicks GI/Abdominal exam: Present: soft, normal bowel sounds. Absent: distended, tenderness, guarding, rebound, rigid, bruit, pulsatile mass Extremities exam: Present: normal inspection, full ROM, normal capillary refill. Absent: tenderness, pedal edema, joint swelling, calf tenderness Back exam: Present: normal inspection Neurological exam: Present: alert, oriented X3, CN II-XII intact Psychiatric exam: Present: normal affect, normal mood Skin exam: Present: warm, dry, intact, normal color. Absent: rash Course Vital Signs 11/05/19 11/05/19 11/05/19 12:48 14:00 15:00 Temperature 97.9 F Pulse Rate 75 71 74 Respiratory 20 19 23 Rate Blood Pressure 115/60 122/73 126/77 O2 Sat by Pulse 96 98 99 Oximetry Medical Decision Making - Medical Decision Making I did discuss the findings the patient family as well as with Dr. Abraham. Patient be admitted for IV fluids in for evaluation of chest pain - Lab Data Result diagrams: 11/05/19 13:10 11/05/19 13:10 Lab Results 11/05/19 11/05/19 11/05/19 Range/Units 13:10 13:10 13:10 WBC 9.5 (3.8-10.6) k/uL RBC 5.07 (3.80-5.40) m/uL Hgb 14.0 (11.4-16.0) gm/dL Hct 44.8 (34.0-46.0) % MCV 88.3 (80.0-100.0) fL MCH 27.6 (25.0-35.0) pg MCHC 31.3 (31.0-37.0) g/dL RDW 16.1 H (11.5-15.5) % Plt Count 337 (150-450) k/uL Neutrophils % 76 % Lymphocytes % 10 % Monocytes % 8 % Eosinophils % 3 % Basophils % 2 % Neutrophils # 7.3 (1.3-7.7) k/uL Lymphocytes # 1.0 (1.0-4.8) k/uL Monocytes # 0.7 (0-1.0) k/uL Eosinophils # 0.2 (0-0.7) k/uL Basophils # 0.2 (0-0.2) k/uL Anisocytosis Slight Sodium 136 L (137-145) mmol/L Potassium 4.6 (3.5-5.1) mmol/L Chloride 96 L (98-107) mmol/L Carbon Dioxide 29 (22-30) mmol/L Anion Gap 11 mmol/L BUN 26 H (7-17) mg/dL Creatinine 0.70 (0.52-1.04) mg/dL Est GFR (CKD-EPI)AfAm >90 (>60 ml/min/1.73 sqM) Est GFR (CKD-EPI)NonAf 87 (>60 ml/min/1.73 sqM) Glucose 123 H (74-99) mg/dL Calcium 9.6 (8.4-10.2) mg/dL Magnesium 2.0 (1.6-2.3) mg/dL Total Bilirubin 0.4 (0.2-1.3) mg/dL AST 31 (14-36) U/L ALT 32 (4-34) U/L Alkaline Phosphatase 97 (38-126) U/L Creatine Kinase 34 (30-135) U/L Troponin I (0.000-0.034) ng/mL NT-Pro-B Natriuret Pep 104 pg/mL Total Protein 8.0 (6.3-8.2) g/dL Albumin 4.4 (3.5-5.0) g/dL Amylase 76 (30-110) U/L Lipase 162 (23-300) U/L Urine Color Urine Appearance (Clear) Urine pH (5.0-8.0) Ur Specific Bristow (1.001-1.035) Urine Protein (Negative) Urine Glucose (UA) (Negative) Urine Ketones (Negative) Urine Blood (Negative) Urine Nitrite (Negative) Urine Bilirubin (Negative) Urine Urobilinogen (<2.0) mg/dL Ur Leukocyte Esterase (Negative) 11/05/19 11/05/19 Range/Units 13:10 13:44 WBC (3.8-10.6) k/uL RBC (3.80-5.40) m/uL Hgb (11.4-16.0) gm/dL Hct (34.0-46.0) % MCV (80.0-100.0) fL MCH (25.0-35.0) pg MCHC (31.0-37.0) g/dL RDW (11.5-15.5) % Plt Count (150-450) k/uL Neutrophils % % Lymphocytes % % Monocytes % % Eosinophils % % Basophils % % Neutrophils # (1.3-7.7) k/uL Lymphocytes # (1.0-4.8) k/uL Monocytes # (0-1.0) k/uL Eosinophils # (0-0.7) k/uL Basophils # (0-0.2) k/uL Anisocytosis Sodium (137-145) mmol/L Potassium (3.5-5.1) mmol/L Chloride (98-107) mmol/L Carbon Dioxide (22-30) mmol/L Anion Gap mmol/L BUN (7-17) mg/dL Creatinine (0.52-1.04) mg/dL Est GFR (CKD-EPI)AfAm (>60 ml/min/1.73 sqM) Est GFR (CKD-EPI)NonAf (>60 ml/min/1.73 sqM) Glucose (74-99) mg/dL Calcium (8.4-10.2) mg/dL Magnesium (1.6-2.3) mg/dL Total Bilirubin (0.2-1.3) mg/dL AST (14-36) U/L ALT (4-34) U/L Alkaline Phosphatase (38-126) U/L Creatine Kinase (30-135) U/L Troponin I <0.012 (0.000-0.034) ng/mL NT-Pro-B Natriuret Pep pg/mL Total Protein (6.3-8.2) g/dL Albumin (3.5-5.0) g/dL Amylase (30-110) U/L Lipase (23-300) U/L Urine Color Yellow Urine Appearance Clear (Clear) Urine pH 5.5 (5.0-8.0) Ur Specific Bristow 1.016 (1.001-1.035) Urine Protein Negative (Negative) Urine Glucose (UA) Negative (Negative) Urine Ketones Negative (Negative) Urine Blood Negative (Negative) Urine Nitrite Negative (Negative) Urine Bilirubin Negative (Negative) Urine Urobilinogen <2.0 (<2.0) mg/dL Ur Leukocyte Esterase Negative (Negative) - EKG Data -: EKG Interpreted by Me EKG shows normal: sinus rhythm (Normal sinus rhythm of 75. Interval 134 QRS duration 76 DT says QTC 392/[address]-T wave changes) - Radiology Data Radiology results: report reviewed (I did review the imaging and report no acute findings.), image reviewed Disposition Clinical Impression: Chest pain, Chest wall pain, Dehydration Disposition: ADMITTED IP TO THIS [facility] Condition: Fair Referrals: Johny Abraham MD [Primary Care Provider] - 1-2 days
[2019-11-05] MEDS ORDERED: SODIUM CHLORIDE 0.9% 1,000 ML IV STA (14:19)
[2019-11-05 14:37] LABS: Anisocytosis Slight; Basophils # (A) 0.2 k/uL (0-0.2); Basophils % (A) 2 %; Eosinophils # (A) 0.2 k/uL (0-0.7); Eosinophils % (A) 3 %; HCT 44.8 % (34.0-46.0); Lymphocytes % (A) 10 %; MCH 27.6 pg (25.0-35.0); MCHC 31.3 g/dL (31.0-37.0); MCV 88.3 fL (80.0-100.0); Mean Platelet Volume 8.2; Monocytes # (A) 0.7 k/uL (0-1.0); Monocytes % (A) 8 %; Neutrophils # (A) 7.3 k/uL (1.3-7.7); Neutrophils % (A) 76 %; Platelet Count 337 k/uL (150-450); RBC 5.07 m/uL (3.80-5.40); RDW 16.1 % (11.5-15.5); WBC 9.5 k/uL (3.8-10.6)
--- NOTE | 2019-11-05 14:39 | XR ---
EXAMINATION TYPE: XR chest 2V DATE OF EXAM: 11/05/2019 COMPARISON: 06/29/2019 HISTORY: Cough, congestion, and body aches TECHNIQUE: Frontal and lateral views of the chest are obtained. FINDINGS: Bibasilar airspace disease is similar to the prior of 06/29/2019 and could be on the basis of chronic atelectasis, exaggerated by low lung volumes. The mediastinum is shifted secondary to james ent positioning. Suboptimal inspiration. Diffuse osseous demineralization. IMPRESSION: Bibasilar opacities are present although these appear on the image of 06/29/2019 and cut off sawyer log shira atelectasis is possible. In the appropriate clinical setting, recurrent pneumonia is possible.
--- NOTE | 2019-11-05 14:40 | XR ---
EXAMINATION TYPE: XR KUB DATE OF EXAM: 11/05/2019 2:33 PM CLINICAL HISTORY: Body aches and stomach pain TECHNIQUE: Single upright image of the abdomen is obtained. COMPARISON: None. FINDINGS: There is a dextroscoliosis of the thoracolumbar junction and diffuse osseous demineralizati on. Numerous overlying leads partially obscure the abdomen. No pneumoperitoneum is seen. No dilated b owel. Left hip arthroplasty is present. No grossly suspicious calcifications in the abdomen. Cholecys tectomy clips are present.. IMPRESSION: Nonobstructive bowel gas pattern.
[2019-11-05 14:48] LABS: ALT 32 U/L (4-34); AST 31 U/L (14-36); African American GFR (CKD) >90 (>60 ml/min/1.73 sqM); Albumin 4.4 g/dL (3.5-5.0); Alkaline Phosphatase 97 U/L (38-126); Amylase 76 U/L (30-110); Anion Gap 11 mmol/L; Blood Urea Nitrogen 26 mg/dL (7-17); Calcium 9.6 mg/dL (8.4-10.2); Carbon Dioxide 29 mmol/L (22-30); Chloride 96 mmol/L (98-107); Creatine Kinase 34 U/L (30-135); Glucose 123 mg/dL (74-99); Non-African American GFR(CKD) 87 (>60 ml/min/1.73 sqM); Potassium 4.6 mmol/L (3.5-5.1); Sodium 136 mmol/L (137-145); Total Bilirubin 0.4 mg/dL (0.2-1.3)
[2019-11-05 16:34] LABS: Appearance,Urine Clear (Clear); Bilirubin,Urine Negative (Negative); Blood,Urine Negative (Negative); Color,Urine Yellow; Glucose,Urine (UA) Negative (Negative); Ketones,Urine Negative (Negative); Leukocyte Esterase,Urine Negative (Negative); Nitrite,Urine Negative (Negative); PH, Urine 5.5 (5.0-8.0); Protein,Urine Negative (Negative); Specific Gravity,Urine 1.016 (1.001-1.035); Urobilinogen,Urine <2.0 mg/dL (<2.0)
[2019-11-05] MEDS ORDERED: NALOXONE 0.4 MG/ML 1 ML VIAL IV PRN (16:49)
[2019-11-05] MEDS ORDERED: CLOTRIMAZOLE/BETAMETH 1-0.05% CREAM 45 GM TUBE TOPICAL PRN (16:51)
[2019-11-05] MEDS ORDERED: CARVEDILOL 3.125 MG TAB PO SCH (17:30)
[2019-11-05 17:43] LABS: Glucose,Whole Blood 116 mg/dL (75-99)
[2019-11-05] MEDS: SODIUM CHLORIDE 0.9% 1,000 ML IV SCH (19:02)
[2019-11-05] MEDS: metFORMIN 500 MG TAB PO SCH (19:02)
[2019-11-05] MEDS: BUDESONIDE 0.5 MG/2 ML NEBU INHALATION SCH (20:02)
[2019-11-05] MEDS: ALBUTEROL NEBULIZED 2.5 MG/3 ML INHALATION PRN (20:02)
[2019-11-05 20:29] LABS: Glucose,Whole Blood 181 mg/dL (75-99)
[2019-11-05] MEDS: BACLOFEN 10 MG TAB PO SCH (20:56)
[2019-11-05] MEDS: CALCIUM CARBONATE 500 MG CHEWABLE PO SCH (20:56)
[2019-11-05] MEDS: ATORVASTATIN 10 MG TAB PO SCH (20:56)
[2019-11-05] MEDS: CALCIUM CARB-VIT D 500MG-200UN 1 EACH TAB PO SCH (20:56)
[2019-11-05] MEDS: lamoTRIgine 25 MG TAB PO SCH (20:56)
[2019-11-05] MEDS: MECLIZINE 12.5 MG TAB PO SCH (20:57)
[2019-11-05] MEDS: BRIMONIDINE TARTRATE 0.2% DROPS 5 ML BTL BOTH EYES SCH (20:57)
[2019-11-05] MEDS: ARTIFICIAL TEARS-HYPROMELLOSE DROPS 15 ML BTL BOTH EYES SCH (20:57)
[2019-11-05] MEDS: LATANOPROST 0.005% OPHTH DROPS 2.5 ML BTL BOTH EYES SCH (20:57)
[2019-11-05] MEDS: cycloSPORINE 0.05% OPHTH 0.4 ML DROPERETTE BOTH EYES SCH (20:58)
[2019-11-05] MEDS ORDERED: CARVEDILOL 12.5 MG TAB PO SCH (21:00)
[2019-11-06] MEDS: SODIUM CHLORIDE 0.9% 1,000 ML IV SCH (04:22)
[2019-11-06 06:12] LABS: Glucose,Whole Blood 115 mg/dL (75-99)
[2019-11-06] MEDS: PANTOPRAZOLE 40 MG TABLET PO SCH (06:46)
[2019-11-06] MEDS: CARVEDILOL 12.5 MG TAB PO SCH ×2 (06:46→17:47)
[2019-11-06] MEDS: metFORMIN 500 MG TAB PO SCH ×2 (06:46→17:45)
[2019-11-06] MEDS ORDERED: NON FORMULARY DRUG (Cholecalciferol (Vitamin D3) [Vitamin D3] 2,000 UNIT) PO SCH (09:00)
[2019-11-06 09:37] LABS: Anisocytosis Slight; Basophils # (A) 0.2 k/uL (0-0.2); Basophils % (A) 3 %; Eosinophils # (A) 0.3 k/uL (0-0.7); Eosinophils % (A) 4 %; HCT 35.3 % (34.0-46.0); HGB 11.5 gm/dL (11.4-16.0); Hypochromasia Slight; Lymphocytes # (A) 0.6 k/uL (1.0-4.8); Lymphocytes % (A) 9 %; MCH 29.1 pg (25.0-35.0); MCHC 32.6 g/dL (31.0-37.0); MCV 89.3 fL (80.0-100.0); Mean Platelet Volume 8.1; Monocytes # (A) 0.4 k/uL (0-1.0); Monocytes % (A) 6 %; Neutrophils # (A) 5.7 k/uL (1.3-7.7); Neutrophils % (A) 77 %; Platelet Count 252 k/uL (150-450); RBC 3.95 m/uL (3.80-5.40); RDW 16.1 % (11.5-15.5); WBC 7.3 k/uL (3.8-10.6)
[2019-11-06 09:48] LABS: ALT 27 U/L (4-34); AST 29 U/L (14-36); African American GFR (CKD) >90 (>60 ml/min/1.73 sqM); Albumin 3.2 g/dL (3.5-5.0); Alkaline Phosphatase 71 U/L (38-126); Anion Gap 8 mmol/L; Blood Urea Nitrogen 16 mg/dL (7-17); Calcium 8.5 mg/dL (8.4-10.2); Carbon Dioxide 23 mmol/L (22-30); Chloride 103 mmol/L (98-107); Glucose 187 mg/dL (74-99); Non-African American GFR(CKD) >90 (>60 ml/min/1.73 sqM); Potassium 4.3 mmol/L (3.5-5.1); Sodium 134 mmol/L (137-145); Total Bilirubin 0.3 mg/dL (0.2-1.3); Total Protein 6.2 g/dL (6.3-8.2)
[2019-11-06] MEDS: MONTELUKAST 10 MG TAB PO SCH (09:59)
[2019-11-06] MEDS: FLUoxetine HCL 20 MG CAP PO SCH (09:59)
[2019-11-06] MEDS: LISINOPRIL 2.5 MG TAB PO SCH (09:59)
[2019-11-06] MEDS: CHOLECALCIFEROL 1,000 UNIT TAB PO SCH (09:59)
[2019-11-06] MEDS: CALCIUM CARBONATE 500 MG CHEWABLE PO SCH ×2 (10:00→21:20)
[2019-11-06] MEDS: FUROSEMIDE 40 MG TAB PO SCH (10:00)
[2019-11-06] MEDS: DOCUSATE 100 MG CAP PO SCH (10:00)
[2019-11-06] MEDS: CALCIUM CARB-VIT D 500MG-200UN 1 EACH TAB PO SCH ×2 (10:00→21:20)
[2019-11-06] MEDS: lamoTRIgine 25 MG TAB PO SCH ×2 (10:00→21:20)
[2019-11-06] MEDS: BACLOFEN 10 MG TAB PO SCH ×3 (10:00→21:20)
[2019-11-06] MEDS: ARTIFICIAL TEARS-HYPROMELLOSE DROPS 15 ML BTL BOTH EYES SCH ×2 (10:01→21:20)
[2019-11-06] MEDS: BRIMONIDINE TARTRATE 0.2% DROPS 5 ML BTL BOTH EYES SCH ×2 (10:02→21:20)
[2019-11-06] MEDS: TIMOLOL 0.5% OPHTH DROPS 5 ML BTL BOTH EYES SCH (10:03)
[2019-11-06] MEDS: cycloSPORINE 0.05% OPHTH 0.4 ML DROPERETTE BOTH EYES SCH ×2 (10:03→21:21)
[2019-11-06] MEDS: MECLIZINE 12.5 MG TAB PO SCH ×3 (10:04→21:20)
--- NOTE | 2019-11-06 10:29 | P.HPIM ---
History of Present Illness H&P Date: 11/06/19 Chief Complaint: Chest pain abdominal pain This is a 69-year-old female patient who presented to the ER with complaints of chest pain and abdominal pain. Patient describes chest pain left-sided chest pain that radiates to the back that occurs intermittently. Patient denies any nausea or vomiting. Patient denies any fevers. Patient does report occasional cough. Patient does have a past medical history of hypertension, dysrhythmic disorder, mental disorder, cerebral palsy, hyperlipidemia and carpal tunnel syndrome of the left wrist. Initial troponin negative will order serial troponins. Chest x-ray completed showing bibasilar PACs are present although these appear on image of 06/29/2019 and chronic atelectasis is possible in the appropriate clinical setting recurrent pneumonia is possible. Patient has been afebrile with no white count. KUB x-ray completed showing nonobstructive bowel gas pattern. EKG showing normal sinus rhythm normal EKG. At this time cardiology services will be consulted. Ultrasound of abdomen ordered. This time patient is still complaining of intermittent chest pain. Patient denies any diarrhea. Patient denies any urinary burning or frequency Review of Systems Please refer to HPI otherwise unremarkable Past Medical History Past Medical History: Chest Pain / Angina, Hypertension Additional Past Medical History / Comment(s): dysthymic disorder, mental disorder, hyper cholestremia, cerebral palsy, carpal tunnel left wrist, bipolar, left hip surgery, costochondritis. History of Any Multi-Drug Resistant Organisms: None Reported Past Surgical History: No Surgical Hx Reported Additional Past Surgical History / Comment(s): left hip surgery Past Anesthesia/Blood Transfusion Reactions: Unable to Obtain Past Psychological History: Bipolar Additional Psychological History / Comment(s): Mentally delayed Smoking Status: Never smoker Past Alcohol Use History: None Reported Past Drug Use History: None Reported - Past Family History Father History Unknown: Yes Family Medical History: No Reported History Medications and Allergies Home Medications Medication Instructions Recorded Confirmed Type Baclofen 10 mg PO TID 07/18/14 11/05/19 History Omeprazole [PriLOSEC] 20 mg PO DAILY 07/18/14 11/05/19 History Simvastatin [Zocor] 10 mg PO DAILY 07/18/14 11/05/19 History Artificial Tears-Hypromellose 1 drop BOTH EYES BID 10/12/17 11/05/19 History [Artificial Tear Drops] Bimatoprost [Lumigan .01% Ophth 1 drop BOTH EYES HS 10/12/17 11/05/19 History Soln] metFORMIN HCL ER [Glucophage Xr] 500 mg PO DAILY 10/12/17 11/05/19 History Clotrimazole/Betamethasone Dip 1 applic TOPICAL BID 01/23/18 11/05/19 History [Lotrisone Cream] FLUoxetine HCL [PROzac] 60 mg PO DAILY 01/06/19 11/05/19 History Meclizine [Antivert] 12.5 mg PO BID 01/06/19 11/05/19 History cycloSPORINE [Restasis] 1 drop BOTH EYES BID 01/06/19 11/05/19 History lamoTRIgine [LaMICtal] 75 mg PO BID 01/06/19 11/05/19 History Albuterol Nebulized [Ventolin 2.5 mg INHALATION RT-QID PRN 11/05/19 11/05/19 History Nebulized] Budesonide [Pulmicort] 0.5 mg INHALATION RT-BID 11/05/19 11/05/19 History Carboxymethylcellulose Sodium 1 drop BOTH EYES BID 11/05/19 11/05/19 History [Refresh Tears] Carvedilol [Coreg] 12.5 mg PO BID 11/05/19 11/05/19 History Cholecalciferol (Vitamin D3) 2,000 unit PO DAILY 11/05/19 11/05/19 History [Vitamin D3] Docusate [Colace] 100 mg PO DAILY 11/05/19 11/05/19 History Eucalyptus Oil/Menthol/Camphor 1 applic TOPICAL HS 11/05/19 11/05/19 History [Vicks Vaporub Ointment] Furosemide [Lasix] 40 mg PO DAILY 11/05/19 11/05/19 History Guaifenesin/Dextromethorphan 10 ml PO Q4H PRN 11/05/19 11/05/19 History [Diabetic Tussin Dm Liquid] Lisinopril [Zestril] 2.5 mg PO DAILY 11/05/19 11/05/19 History Montelukast [Singulair] 10 mg PO DAILY 11/05/19 11/05/19 History Ocusoft Retain Eye Lubricant 1 applic OPHTHALMIC DAILY 11/05/19 11/05/19 History Oyster Shell Calcium 500mg W/Vitd3 1 tab PO BID 11/05/19 11/05/19 History 200iu Allergies Allergy/AdvReac Type Severity Reaction Status Date / Time No Known Allergies Allergy Verified 11/05/19 12:48 Physical Exam Vitals: Vital Signs Temp Pulse Pulse Resp BP BP Pulse Ox 11/06/19 09:47 98.1 F 77 12 113/65 96 11/06/19 04:00 96.6 F L 72 18 132/60 95 11/06/19 00:00 97.1 F L 71 18 97/60 100 11/05/19 20:14 72 11/05/19 20:04 73 11/05/19 20:00 98.1 F 78 18 120/73 98 11/05/19 18:03 97.5 F L 70 20 131/81 97 11/05/19 18:00 97.5 F L 70 20 131/81 97 11/05/19 17:13 99.2 F 75 18 132/74 99 11/05/19 15:00 74 23 126/77 99 11/05/19 14:00 71 19 122/73 98 11/05/19 12:48 97.9 F 75 20 115/60 96 Intake and Output 11/05/19 11/06/19 11/06/19 22:59 06:59 14:59 Intake Total 240 0 Balance 240 0 Intake: Oral 240 0 Other: Voiding Method Toilet Toilet Incontinent Bedside Commode Incontinent # Voids 1 Weight 99.79 kg 68.2 kg Head normocephalic Neck supple Lungs clear to auscultation bilaterally no wheezing or crackles Heart regular rate and rhythm S1-S2, no rub or gallop Abdomen is soft nontender nondistended positive bowel sounds no hepatosplenomegaly Extremities no edema Neuro alert and orientated to 3. Mental disability Results CBC & Chem 7: 11/06/19 09:07 11/06/19 09:07 Labs: Abnormal Lab Results - Last 24 Hours (Table) 11/05/19 11/05/19 11/05/19 Range/Units 13:10 13:10 17:42 RDW 16.1 H (11.5-15.5) % Lymphocytes # (1.0-4.8) k/uL Sodium 136 L (137-145) mmol/L Chloride 96 L (98-107) mmol/L BUN 26 H (7-17) mg/dL Glucose 123 H (74-99) mg/dL POC Glucose (mg/dL) 116 H (75-99) mg/dL Total Protein (6.3-8.2) g/dL Albumin (3.5-5.0) g/dL 11/05/19 11/06/19 11/06/19 Range/Units 20:28 06:11 09:07 RDW 16.1 H (11.5-15.5) % Lymphocytes # 0.6 L (1.0-4.8) k/uL Sodium (137-145) mmol/L Chloride (98-107) mmol/L BUN (7-17) mg/dL Glucose (74-99) mg/dL POC Glucose (mg/dL) 181 H 115 H (75-99) mg/dL Total Protein (6.3-8.2) g/dL Albumin (3.5-5.0) g/dL 11/06/19 Range/Units 09:07 RDW (11.5-15.5) % Lymphocytes # (1.0-4.8) k/uL Sodium 134 L (137-145) mmol/L Chloride (98-107) mmol/L BUN (7-17) mg/dL Glucose 187 H (74-99) mg/dL POC Glucose (mg/dL) (75-99) mg/dL Total Protein 6.2 L (6.3-8.2) g/dL Albumin 3.2 L (3.5-5.0) g/dL Thrombosis Risk Factor Assmnt - Choose All That Apply Other Risk Factors: Yes Each Risk Factor Represents 2 Points: Age 61-74 years Other congenital or acquired thrombophilia - If yes, enter type in comment: No Thrombosis Risk Factor Assessment Total Risk Factor Score: 2 Thrombosis Risk Factor Assessment Level: Low Risk Assessment and Plan Assessment: 1. Chest pain. Initial troponin negative. Chest x-ray showing bibasilar PACs that are present although these appear on image of 06/29/2019 and chronic atelectasis is possible in the appropriate clinical setting recurrent pneumonia is possible. White count within normal limits afebrile. Serial troponins ordered. Cardiology services consulted 2. Abdominal pain . Amylase and lipase within normal limits. KUB negative. Will order abdominal ultrasound 3. History of dysrhythmic disorder 4. History of Cerebral palsy 5. History of Essential hypertension 6. History of diabetes mellitus type 2. Metformin resumed 7. Dehydration. Bun 26 and creatinine 0.70. Patient maintained on normal saline repeat labs on 16 creatinine 0.56 fluids will be DC'd DVT prophylaxis Lovenox. GI prophylaxis Pepcid Time with Patient: Greater than 30 (Greater than 60% of the total time spent in counseling and coordination of care. I performed an examination of the patient and discussed their management with the Nurse Practitioner. I have reviewed the Nurse Practitioner's notes and agree with the documented findings and plan of care)
[2019-11-06] MEDS: ALBUTEROL NEBULIZED 2.5 MG/3 ML INHALATION PRN ×2 (10:59→20:02)
[2019-11-06] MEDS: BUDESONIDE 0.5 MG/2 ML NEBU INHALATION SCH ×2 (10:59→20:02)
[2019-11-06 11:56] LABS: Glucose,Whole Blood 117 mg/dL (75-99)
--- NOTE | 2019-11-06 15:49 | US ---
EXAMINATION TYPE: US abdomen complete DATE OF EXAM: 11/06/2019 COMPARISON: NONE CLINICAL HISTORY: abdominal pain. Pain. Limitations due to body habitus. EXAM MEASUREMENTS: Liver Length: 13.4 cm Gallbladder Wall: Not visualilzed. CBD: .6 cm Spleen: 10.7 cm Right Kidney: 8.8 x 3.7 x 3.7 cm Left Kidney: 8.2 x 4.5 x 3.5 cm Pancreas: Obscured by bowel gas Liver: wnl Gallbladder: wnl Evidence for sonographic Herron's sign: No CBD: wnl Spleen: wnl Right Kidney: wnl Left Kidney: wnl Upper IVC: wnl Abd Aorta: wnl The liver is homogenous. The intrahepatic portion of the IVC and proximal abdominal aorta are within normal limits. There is no evidence of cholelithiasis. Common bile duct is unremarkable. The visu alized portions of the pancreas are homogenous. The spleen is unremarkable. Kidneys are symmetric a nd free of hydronephrosis. No renal lesions are seen. IMPRESSION: 1. No acute process
[2019-11-06 17:01] LABS: Glucose,Whole Blood 223 mg/dL (75-99)
[2019-11-06 20:50] LABS: Glucose,Whole Blood 135 mg/dL (75-99)
[2019-11-06] MEDS: ATORVASTATIN 10 MG TAB PO SCH (21:20)
[2019-11-06] MEDS: LATANOPROST 0.005% OPHTH DROPS 2.5 ML BTL BOTH EYES SCH (21:21)
[2019-11-07] MEDS: ALBUTEROL NEBULIZED 2.5 MG/3 ML INHALATION PRN ×3 (03:49→20:14)
[2019-11-07 05:45] LABS: Glucose,Whole Blood 161 mg/dL (75-99)
[2019-11-07 06:26] LABS: Basophils # (A) 0.3 k/uL (0-0.2); Basophils % (A) 3 %; Eosinophils # (A) 0.4 k/uL (0-0.7); Eosinophils % (A) 4 %; HCT 37.8 % (34.0-46.0); HGB 11.9 gm/dL (11.4-16.0); Hypochromasia Slight; Lymphocytes # (A) 0.9 k/uL (1.0-4.8); Lymphocytes % (A) 11 %; MCH 27.5 pg (25.0-35.0); MCHC 31.4 g/dL (31.0-37.0); MCV 87.6 fL (80.0-100.0); Mean Platelet Volume 8.1; Monocytes # (A) 0.7 k/uL (0-1.0); Monocytes % (A) 8 %; Neutrophils % (A) 71 %; Platelet Count 293 k/uL (150-450); RBC 4.32 m/uL (3.80-5.40); RDW 15.6 % (11.5-15.5); WBC 8.4 k/uL (3.8-10.6)
[2019-11-07] MEDS: CARVEDILOL 12.5 MG TAB PO SCH ×2 (06:34→16:29)
[2019-11-07] MEDS: PANTOPRAZOLE 40 MG TABLET PO SCH (06:34)
[2019-11-07] MEDS: metFORMIN 500 MG TAB PO SCH ×2 (06:34→16:29)
[2019-11-07 06:40] LABS: ALT 30 U/L (4-34); AST 28 U/L (14-36); African American GFR (CKD) >90 (>60 ml/min/1.73 sqM); Albumin 3.6 g/dL (3.5-5.0); Alkaline Phosphatase 85 U/L (38-126); Anion Gap 8 mmol/L; Blood Urea Nitrogen 15 mg/dL (7-17); Calcium 9.1 mg/dL (8.4-10.2); Carbon Dioxide 28 mmol/L (22-30); Chloride 97 mmol/L (98-107); Glucose 98 mg/dL (74-99); Non-African American GFR(CKD) >90 (>60 ml/min/1.73 sqM); Potassium 4.2 mmol/L (3.5-5.1); Sodium 133 mmol/L (137-145); Total Bilirubin 0.4 mg/dL (0.2-1.3); Total Protein 6.7 g/dL (6.3-8.2)
[2019-11-07] MEDS: BUDESONIDE 0.5 MG/2 ML NEBU INHALATION SCH ×2 (09:22→20:14)
[2019-11-07] MEDS: lamoTRIgine 25 MG TAB PO SCH ×2 (09:35→20:42)
[2019-11-07] MEDS: DOCUSATE 100 MG CAP PO SCH (09:35)
[2019-11-07] MEDS: BACLOFEN 10 MG TAB PO SCH ×3 (09:35→20:42)
[2019-11-07] MEDS: CHOLECALCIFEROL 1,000 UNIT TAB PO SCH (09:35)
[2019-11-07] MEDS: FUROSEMIDE 40 MG TAB PO SCH (09:35)
[2019-11-07] MEDS: MONTELUKAST 10 MG TAB PO SCH (09:35)
[2019-11-07] MEDS: LISINOPRIL 2.5 MG TAB PO SCH (09:35)
[2019-11-07] MEDS: CALCIUM CARB-VIT D 500MG-200UN 1 EACH TAB PO SCH ×2 (09:35→20:42)
[2019-11-07] MEDS: cycloSPORINE 0.05% OPHTH 0.4 ML DROPERETTE BOTH EYES SCH ×2 (09:36→20:43)
[2019-11-07] MEDS: FLUoxetine HCL 20 MG CAP PO SCH (09:36)
[2019-11-07] MEDS: CALCIUM CARBONATE 500 MG CHEWABLE PO SCH ×2 (09:36→20:42)
[2019-11-07] MEDS: MECLIZINE 12.5 MG TAB PO SCH ×3 (09:37→20:42)
[2019-11-07] MEDS: TIMOLOL 0.5% OPHTH DROPS 5 ML BTL BOTH EYES SCH (09:38)
[2019-11-07] MEDS: BRIMONIDINE TARTRATE 0.2% DROPS 5 ML BTL BOTH EYES SCH ×2 (09:39→20:43)
[2019-11-07] MEDS: ARTIFICIAL TEARS-HYPROMELLOSE DROPS 15 ML BTL BOTH EYES SCH ×2 (09:39→20:43)
[2019-11-07] MEDS: ENOXAPARIN 40 MG/0.4 ML SYRINGE SQ SCH (09:40)
[2019-11-07] MEDS: FAMOTIDINE 20 MG TAB PO SCH (09:41)
--- NOTE | 2019-11-07 11:45 | P.CRDCN ---
History of Present Illness Consult date: 11/07/19 Requesting physician: Johny Abraham Consult reason: chest pain Chief complaint: Chest pain History of present illness: This is a pleasant 69-year-old female who is developmentally delayed, she has a history of hypertension, hyperlipidemia, diabetes, she resides in an adult foster longterm. She had an admission to the hospital in January 2018 and subsequently in January 2019, she complains of symptoms of midsternal chest discomfort as well as discomfort in her abdomen. Most recent echocardiogram with Doppler study was performed in January 2019 which revealed a hyperdynamic ejection fraction of greater than 70%. On this occasion she presents to the hospital with symptoms of midsternal chest discomfort, patient points to the area that seems to be right in the center of her chest near her upper epigastric region, she also points to an area not her abdomen which is giving her some pain. The patient has had multiple admissions with similar complaints but it does not appear that the patient has had any form of stress testing done. Abdominal ultrasound was performed which did not reveal any acute process. EKG shows a normal sinus rhythm with no acute changes. Blood pressure 116/70 with a heart rate in the 80s, 100% on room air. White blood cell count 8.4, hemoglobin 11.9, platelet count 293. Sodium 133, potassium 4.2, BUN 15, creatinine 0.6. Troponins are negative 3. Liver functions normal. At the time of my examination this morning, patient is sitting up in her chair at bedside. She still points to her mid epigastric lower sternal area and complains of pain, only when asked. Twice the patient appears to be quite comfortable. Past Medical History Past Medical History: Chest Pain / Angina, Hypertension Additional Past Medical History / Comment(s): dysthymic disorder, mental disorder, hyper cholestremia, cerebral palsy, carpal tunnel left wrist, bipolar, left hip surgery, costochondritis. History of Any Multi-Drug Resistant Organisms: None Reported Past Surgical History: No Surgical Hx Reported Additional Past Surgical History / Comment(s): left hip surgery Past Anesthesia/Blood Transfusion Reactions: Unable to Obtain Past Psychological History: Bipolar Additional Psychological History / Comment(s): Mentally delayed Smoking Status: Never smoker Past Alcohol Use History: None Reported Past Drug Use History: None Reported - Past Family History Father History Unknown: Yes Family Medical History: No Reported History Medications and Allergies Home Medications Medication Instructions Recorded Confirmed Type Baclofen 10 mg PO TID 07/18/14 11/05/19 History Omeprazole [PriLOSEC] 20 mg PO DAILY 07/18/14 11/05/19 History Simvastatin [Zocor] 10 mg PO DAILY 07/18/14 11/05/19 History Artificial Tears-Hypromellose 1 drop BOTH EYES BID 10/12/17 11/05/19 History [Artificial Tear Drops] Bimatoprost [Lumigan .01% Ophth 1 drop BOTH EYES HS 10/12/17 11/05/19 History Soln] metFORMIN HCL ER [Glucophage Xr] 500 mg PO DAILY 10/12/17 11/05/19 History Clotrimazole/Betamethasone Dip 1 applic TOPICAL BID 01/23/18 11/05/19 History [Lotrisone Cream] FLUoxetine HCL [PROzac] 60 mg PO DAILY 01/06/19 11/05/19 History Meclizine [Antivert] 12.5 mg PO BID 01/06/19 11/05/19 History cycloSPORINE [Restasis] 1 drop BOTH EYES BID 01/06/19 11/05/19 History lamoTRIgine [LaMICtal] 75 mg PO BID 01/06/19 11/05/19 History Albuterol Nebulized [Ventolin 2.5 mg INHALATION RT-QID PRN 11/05/19 11/05/19 History Nebulized] Budesonide [Pulmicort] 0.5 mg INHALATION RT-BID 11/05/19 11/05/19 History Carboxymethylcellulose Sodium 1 drop BOTH EYES BID 11/05/19 11/05/19 History [Refresh Tears] Carvedilol [Coreg] 12.5 mg PO BID 11/05/19 11/05/19 History Cholecalciferol (Vitamin D3) 2,000 unit PO DAILY 11/05/19 11/05/19 History [Vitamin D3] Docusate [Colace] 100 mg PO DAILY 11/05/19 11/05/19 History Eucalyptus Oil/Menthol/Camphor 1 applic TOPICAL HS 11/05/19 11/05/19 History [Vicks Vaporub Ointment] Furosemide [Lasix] 40 mg PO DAILY 11/05/19 11/05/19 History Guaifenesin/Dextromethorphan 10 ml PO Q4H PRN 11/05/19 11/05/19 History [Diabetic Tussin Dm Liquid] Lisinopril [Zestril] 2.5 mg PO DAILY 11/05/19 11/05/19 History Montelukast [Singulair] 10 mg PO DAILY 11/05/19 11/05/19 History Ocusoft Retain Eye Lubricant 1 applic OPHTHALMIC DAILY 11/05/19 11/05/19 History Oyster Shell Calcium 500mg W/Vitd3 1 tab PO BID 11/05/19 11/05/19 History 200iu Allergies Allergy/AdvReac Type Severity Reaction Status Date / Time No Known Allergies Allergy Verified 11/05/19 12:48 Physical Exam Vitals: Vital Signs Temp Pulse Pulse Resp BP Pulse Ox 11/07/19 09:34 80 11/07/19 09:25 76 95 11/07/19 08:57 100 16 11/07/19 08:50 97.9 F 100 16 115/71 100 11/07/19 03:59 80 11/07/19 03:49 80 11/07/19 03:19 97.4 F L 74 16 135/64 97 11/07/19 00:00 98.1 F 73 18 121/60 98 11/06/19 20:19 77 11/06/19 20:03 75 95 11/06/19 20:00 97.9 F 82 18 116/56 94 L 11/06/19 16:22 80 16 11/06/19 16:20 98.7 F 80 16 121/77 97 11/06/19 12:43 78 12 11/06/19 12:00 97.8 F 78 12 109/62 97 Intake and Output 11/06/19 11/07/19 11/07/19 22:59 06:59 14:59 Intake Total 480 540 240 Balance 480 540 240 Intake: Oral 480 540 240 Other: Voiding Method Bedside Commode Bedside Commode Bedside Commode Diaper Diaper Diaper Incontinent Incontinent Incontinent # Voids 1 1 # Bowel Movements 1 Weight 68.2 kg PHYSICAL EXAMINATION: GENERAL: 69-year-old female in no acute distress at the time of my examination HEENT: Head is atraumatic, normocephalic. Pupils equal, round. Sclera anicteric. Conjunctiva are clear. Mucous membranes of the mouth are moist. Neck is supple. There is no elevated jugular venous pressure. No carotid bruit is heard. HEART EXAMINATION: Heart S1, S2 normal. No murmur or gallop heard. CHEST EXAMINATION: Lungs are clear to auscultation and precussion. No chest wall tenderness is noted on palpation or with deep breathing. ABDOMEN: Soft, nontender. Bowel sounds are heard. No organomegaly noted. EXTREMITIES: 2+ peripheral pulses with no evidence of peripheral edema and no calf tenderness noted. NEUROLOGIC [patient is awake, alert and oriented 3, mental disability. . Results 11/07/19 05:36 11/07/19 05:36 Cardiac Enzymes 11/06/19 11/06/19 11/07/19 Range/Units 15:07 22:49 05:36 AST 28 (14-36) U/L Troponin I <0.012 <0.012 (0.000-0.034) ng/mL CBC 11/07/19 Range/Units 05:36 WBC 8.4 (3.8-10.6) k/uL RBC 4.32 (3.80-5.40) m/uL Hgb 11.9 (11.4-16.0) gm/dL Hct 37.8 (34.0-46.0) % Plt Count 293 (150-450) k/uL Comprehensive Metabolic Panel 11/07/19 Range/Units 05:36 Sodium 133 L (137-145) mmol/L Potassium 4.2 (3.5-5.1) mmol/L Chloride 97 L (98-107) mmol/L Carbon Dioxide 28 (22-30) mmol/L BUN 15 (7-17) mg/dL Creatinine 0.60 (0.52-1.04) mg/dL Glucose 98 (74-99) mg/dL Calcium 9.1 (8.4-10.2) mg/dL AST 28 (14-36) U/L ALT 30 (4-34) U/L Alkaline Phosphatase 85 (38-126) U/L Total Protein 6.7 (6.3-8.2) g/dL Albumin 3.6 (3.5-5.0) g/dL Current Medications Generic Name Dose Route Start Last Admin Trade Name Freq PRN Reason Stop Dose Admin Albuterol Sulfate 2.5 mg 11/05/19 17:36 11/07/19 09:22 Ventolin Nebulized INHALATION 2.5 mg RT-QID PRN Administration Shortness Of Breath Artificial Tears 1 drops 11/05/19 21:00 11/07/19 09:39 Artificial Tear Drops BOTH EYES 1 drops BID MO Administration Atorvastatin Calcium 10 mg 11/05/19 21:00 11/06/19 21:20 Lipitor PO 10 mg HS MO Administration Baclofen 10 mg 11/05/19 22:00 11/07/19 09:35 Lioresal PO 10 mg TID MO Administration Betamethasone/Clotrimazole 1 applic 11/05/19 16:51 Lotrisone TOPICAL BID PRN TOE NAILS Brimonidine Tartrate 1 drops 11/05/19 21:00 11/07/19 09:39 Alphagan P 0.2% Ophth Soln BOTH EYES 1 drops BID MO Administration Budesonide 0.5 mg 11/05/19 20:00 11/07/19 09:22 Pulmicort INHALATION 0.5 mg RT-BID MO Administration Calcium Carbonate 1 each 11/05/19 21:00 11/07/19 09:35 Oscal 500+D PO 1 each BID MO Administration Calcium Carbonate/Glycine 500 mg 11/05/19 21:00 11/07/19 09:36 Tums PO 500 mg BID MO Administration Carvedilol 12.5 mg 11/06/19 07:30 11/07/19 06:34 Coreg PO 12.5 mg BID-W/MEALS MO Administration Cholecalciferol 2,000 unit 11/06/19 09:00 11/07/19 09:35 Vitamin D3 (25 Mcg = 1000 Iu) PO 2,000 unit DAILY MO Administration Cyclosporine 1 drops 11/05/19 21:00 11/07/19 09:36 Restasis 0.05% Ophth Soln BOTH EYES 1 drops BID MO Administration Docusate Sodium 100 mg 11/06/19 09:00 11/07/19 09:35 Colace PO 100 mg DAILY MO Administration Enoxaparin Sodium 40 mg 11/07/19 09:00 11/07/19 09:40 Lovenox SQ 40 mg DAILY MO Administration Famotidine 20 mg 11/07/19 09:00 11/07/19 09:41 Pepcid PO 20 mg DAILY MO Administration Fluoxetine HCl 60 mg 11/06/19 09:00 11/07/19 09:36 Prozac PO 60 mg DAILY MO Administration Furosemide 40 mg 11/06/19 09:00 11/07/19 09:35 Lasix PO 40 mg DAILY MO Administration Lamotrigine 75 mg 11/05/19 21:00 11/07/19 09:35 Lamictal PO 75 mg BID MO Administration Latanoprost 1 drops 11/05/19 21:00 11/06/19 21:21 Xalatan 0.005% BOTH EYES 1 drops HS MO Administration Lisinopril 2.5 mg 11/06/19 09:00 11/07/19 09:35 Zestril PO 2.5 mg DAILY MO Administration Meclizine HCl 12.5 mg 11/05/19 22:00 11/07/19 09:37 Antivert PO 12.5 mg TID MO Administration Metformin HCl 250 mg 11/05/19 17:30 11/07/19 06:34 Glucophage PO 250 mg AC-BID MO Administration Montelukast Sodium 10 mg 11/06/19 09:00 11/07/19 09:35 Singulair PO 10 mg DAILY MO Administration Naloxone HCl 0.2 mg 11/05/19 16:49 Narcan IV Q2M PRN Opioid Reversal Pantoprazole Sodium 40 mg 11/06/19 07:30 11/07/19 06:34 Protonix PO 40 mg AC-BRKFST MO Administration Timolol Maleate 1 drops 11/06/19 09:00 11/07/19 09:38 Timoptic BOTH EYES 1 drops DAILY MO Administration Intake and Output 11/06/19 11/07/19 11/07/19 22:59 06:59 14:59 Intake Total 480 540 240 Balance 480 540 240 Intake: Oral 480 540 240 Other: Voiding Method Bedside Commode Bedside Commode Bedside Commode Diaper Diaper Diaper Incontinent Incontinent Incontinent # Voids 1 1 # Bowel Movements 1 Weight 68.2 kg 11/07/19 05:36 11/07/19 05:36 EKG Interpretations (text) EKG shows a normal sinus rhythm with no acute changes. Assessment and Plan Plan: Assessment and plan #1 chest pain, atypical in nature, troponins are negative 3. EKG shows a normal sinus rhythm with no acute changes. Echo performed in January 2019 r evealed a normal left ventricular systolic function. #2 abdominal pain, KUB negative, abdominal ultrasound negative. Her functions normal. #3 cerebral palsy #4 hypertension #5 diabetes #6 hyperlipidemia #7 mentally challenged Plan Repeat echocardiogram with Doppler study has been requested. Consider possible dobutamine echocardiographic study today. DNP note has been reviewed, I agree with a documented findings and plan of care. Patient was seen and examined.
[2019-11-07 12:00] LABS: Glucose,Whole Blood 145 mg/dL (75-99)
[2019-11-07] MEDS ORDERED: DOBUTamine DRIP for NUC MED 500 MG in DEXTROSE/WATER 1 250ML.BAG IV ONE (12:14)
[2019-11-07] MEDS ORDERED: METOPROLOL TARTRATE 5 MG/5 ML VIAL IVP ONE (13:30)
[2019-11-07] MEDS ORDERED: ATROPINE SULFATE 0.1 MG/ML 10ML SYRINGE ONE (13:30)
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
[2019-11-07 14:48] VITALS: BMI 30.3
--- NOTE | 2019-11-07 15:40 | P.PN ---
Subjective Progress Note Date: 11/07/19 This is a 69-year-old female patient who presented to the ER with complaints of chest pain and abdominal pain. Patient describes chest pain left-sided chest pain that radiates to the back that occurs intermittently. Patient denies any nausea or vomiting. Patient denies any fevers. Patient does report occasional cough. Patient does have a past medical history of hypertension, dysrhythmic disorder, mental disorder, cerebral palsy, hyperlipidemia and carpal tunnel syndrome of the left wrist. Initial troponin negative will order serial troponins. Chest x-ray completed showing bibasilar PACs are present although these appear on image of 06/29/2019 and chronic atelectasis is possible in the appropriate clinical setting recurrent pneumonia is possible. Patient has been afebrile with no white count. KUB x-ray completed showing nonobstructive bowel gas pattern. EKG showing normal sinus rhythm normal EKG. At this time cardiology services will be consulted. Ultrasound of abdomen ordered. This time patient is still complaining of intermittent chest pain. Patient denies any diarrhea. Patient denies any urinary burning or frequency On 11/07/2019 patient is alert and oriented 3. Patient still having chest discomfort that seems to be associated with coughing. Cardiology did evaluate patient in order stress test. Stress test will not be able to be read till later. Troponins negative 3 ultrasound of abdomen negative. robitussin added for cough. Patient denies any shortness of breath. Patient denies nausea vomiting or diarrhea. Patient denies any urinary burning or frequency Objective - Vital Signs Vital signs: Vital Signs Temp 97.9 F 11/07/19 08:50 Pulse 75 11/07/19 12:29 Resp 12 11/07/19 12:29 BP 121/56 11/07/19 12:29 Pulse Ox 97 11/07/19 12:29 Intake & Output 11/06/19 11/07/19 11/07/19 18:59 06:59 18:59 Intake Total 480 540 240 Balance 480 540 240 Weight 68.2 kg 68.2 kg Intake: Oral 480 540 240 Other: Voiding Method Toilet Bedside Commode Bedside Commode Bedside Commode Diaper Diaper Incontinent Incontinent Incontinent # Voids 1 1 1 # Bowel Movements 0 1 - Exam Head normocephalic Neck supple Lungs clear to auscultation bilaterally no wheezing or crackles Heart regular rate and rhythm S1-S2, no rub or gallop Abdomen is soft nontender nondistended positive bowel sounds no hepatosplenome jessi Extremities no edema Neuro alert and orientated to 3. Mental disability - Labs CBC & Chem 7: 11/07/19 05:36 11/07/19 05:36 Labs: Abnormal Lab Results - Last 24 Hours (Table) 11/06/19 11/06/19 11/07/19 Range/Units 17:00 20:49 05:36 RDW 15.6 H (11.5-15.5) % Lymphocytes # 0.9 L (1.0-4.8) k/uL Basophils # 0.3 H (0-0.2) k/uL Sodium (137-145) mmol/L Chloride (98-107) mmol/L POC Glucose (mg/dL) 223 H 135 H (75-99) mg/dL 11/07/19 11/07/19 11/07/19 Range/Units 05:36 05:43 11:58 RDW (11.5-15.5) % Lymphocytes # (1.0-4.8) k/uL Basophils # (0-0.2) k/uL Sodium 133 L (137-145) mmol/L Chloride 97 L (98-107) mmol/L POC Glucose (mg/dL) 161 H 145 H (75-99) mg/dL Microbiology - Last 24 Hours (Table) 11/05/19 15:40 Blood Culture - Preliminary Blood No Growth after 24 hours Assessment and Plan Assessment: 1. Chest pain. Initial troponin negative. Chest x-ray showing bibasilar PACs that are present although these appear on image of 06/29/2019 and chronic atelectasis is possible in the appropriate clinical setting recurrent pneumonia is possible. White count within normal limits afebrile. Serial troponins ordered. Stress test has been completed but still needs to be read by per cardiology services. 2. Abdominal pain . Amylase and lipase within normal limits. KUB negative. Abdominal ultrasound completed showing no acute process 3. History of dysrhythmic disorder 4. History of Cerebral palsy 5. History of Essential hypertension 6. History of diabetes mellitus type 2. Metformin resumed 7. Dehydration. Bun 26 and creatinine 0.70. Patient maintained on normal saline repeat labs on 16 creatinine 0.56 fluids will be DC'd DVT prophylaxis Lovenox. GI prophylaxis Pepcid I performed an examination of the patient and discussed their management with the Nurse Practitioner. I have reviewed the Nurse Practitioner's notes and agree with the documented findings and plan of care
[2019-11-07] MEDS: guaiFENesin SYRUP 100MG/5ML 200 MG/10 ML CUP PO PRN ×2 (16:29→22:48)
[2019-11-07 16:59] LABS: Glucose,Whole Blood 150 mg/dL (75-99)
--- NOTE | 2019-11-07 20:09 | ECHOS ---
STRESS ECHOCARDIOGRAM INDICATIONS: Chest pain. MEDICATIONS: BASELINE HEART RATE: 73 BASELINE BLOOD PRESSURE: 152/90 MAXIMUM HEART RATE: 137 MAXIMUM BLOOD PRESSURE: 208/72 85% MPHR: 127 100% MPHR: 149 METS: MAXIMUM STAGE REACHED: 40 mcg/kg per minute. TOTAL EXERCISE TIME: CLINICAL INFORMATION: Baseline EKG revealed normal sinus rhythm without significant ST-T changes. Patient was administered dobutamine as per protocol and the heart rate went up to 139 beats per minute, which is well above 85% of predicted maximal. She also had some hypertensive response to dobutamine administration. Blood pressure went up to 208/72. The patient did not have any significant symptoms. EKG did not reveal any changes to suggest ischemia. By EKG criteria, this is an unremarkable dobutamine stress test. Baseline echo images revealed normal wall motion and wall thickening of all segments. As per protocol, dobutamine was administered and there was progressive increase in contractility noted. There was no evidence of any stress-induced ischemia on this study. Ejection fraction improved remarkably. Lumason contrast was used to enhance the quality of images. FINAL IMPRESSION: 1. By EKG criteria, this is an unremarkable dobutamine stress test. 2. Normal dobutamine stress echocardiogram. MMODL / IJN: [id number] / MTDD
[2019-11-07 20:37] LABS: Glucose,Whole Blood 184 mg/dL (75-99)
[2019-11-07] MEDS: ATORVASTATIN 10 MG TAB PO SCH (20:42)
[2019-11-07] MEDS: LATANOPROST 0.005% OPHTH DROPS 2.5 ML BTL BOTH EYES SCH (20:44)
[2019-11-08 05:59] LABS: Glucose,Whole Blood 117 mg/dL (75-99)
[2019-11-08] MEDS: CARVEDILOL 12.5 MG TAB PO SCH (06:16)
[2019-11-08] MEDS: metFORMIN 500 MG TAB PO SCH (06:16)
[2019-11-08] MEDS: PANTOPRAZOLE 40 MG TABLET PO SCH (06:16)
[2019-11-08 06:33] LABS: Basophils # (A) 0.2 k/uL (0-0.2); Basophils % (A) 2 %; Eosinophils # (A) 0.4 k/uL (0-0.7); Eosinophils % (A) 5 %; HCT 36.6 % (34.0-46.0); HGB 11.5 gm/dL (11.4-16.0); Lymphocytes # (A) 1.3 k/uL (1.0-4.8); Lymphocytes % (A) 15 %; MCH 27.3 pg (25.0-35.0); MCHC 31.3 g/dL (31.0-37.0); MCV 87.2 fL (80.0-100.0); Mean Platelet Volume 7.7; Monocytes # (A) 0.8 k/uL (0-1.0); Monocytes % (A) 9 %; Neutrophils # (A) 5.7 k/uL (1.3-7.7); Neutrophils % (A) 66 %; Platelet Count 254 k/uL (150-450); RDW 15.9 % (11.5-15.5); WBC 8.6 k/uL (3.8-10.6)
[2019-11-08 06:54] LABS: ALT 28 U/L (4-34); AST 27 U/L (14-36); African American GFR (CKD) >90 (>60 ml/min/1.73 sqM); Albumin 3.5 g/dL (3.5-5.0); Alkaline Phosphatase 86 U/L (38-126); Anion Gap 7 mmol/L; Blood Urea Nitrogen 17 mg/dL (7-17); Calcium 9.1 mg/dL (8.4-10.2); Carbon Dioxide 30 mmol/L (22-30); Chloride 97 mmol/L (98-107); Glucose 100 mg/dL (74-99); Non-African American GFR(CKD) 89 (>60 ml/min/1.73 sqM); Potassium 4.2 mmol/L (3.5-5.1); Sodium 134 mmol/L (137-145); Total Bilirubin 0.3 mg/dL (0.2-1.3); Total Protein 6.6 g/dL (6.3-8.2)
[2019-11-08] MEDS: ALBUTEROL NEBULIZED 2.5 MG/3 ML INHALATION PRN (07:51)
[2019-11-08] MEDS: BUDESONIDE 0.5 MG/2 ML NEBU INHALATION SCH (07:51)
[2019-11-08 08:34] VITALS: RESP 16
[2019-11-08] MEDS: ENOXAPARIN 40 MG/0.4 ML SYRINGE SQ SCH (08:38)
[2019-11-08] MEDS: CALCIUM CARBONATE 500 MG CHEWABLE PO SCH (08:38)
[2019-11-08] MEDS: MONTELUKAST 10 MG TAB PO SCH (08:38)
[2019-11-08] MEDS: CALCIUM CARB-VIT D 500MG-200UN 1 EACH TAB PO SCH (08:38)
[2019-11-08] MEDS: FLUoxetine HCL 20 MG CAP PO SCH (08:38)
[2019-11-08] MEDS: LISINOPRIL 2.5 MG TAB PO SCH (08:38)
[2019-11-08] MEDS: lamoTRIgine 25 MG TAB PO SCH (08:39)
[2019-11-08] MEDS: DOCUSATE 100 MG CAP PO SCH (08:39)
[2019-11-08] MEDS: FUROSEMIDE 40 MG TAB PO SCH (08:39)
[2019-11-08] MEDS: BACLOFEN 10 MG TAB PO SCH (08:39)
[2019-11-08] MEDS: MECLIZINE 12.5 MG TAB PO SCH (08:39)
[2019-11-08] MEDS: ARTIFICIAL TEARS-HYPROMELLOSE DROPS 15 ML BTL BOTH EYES SCH (08:40)
[2019-11-08] MEDS: cycloSPORINE 0.05% OPHTH 0.4 ML DROPERETTE BOTH EYES SCH (08:40)
[2019-11-08] MEDS: BRIMONIDINE TARTRATE 0.2% DROPS 5 ML BTL BOTH EYES SCH (08:41)
[2019-11-08] MEDS: TIMOLOL 0.5% OPHTH DROPS 5 ML BTL BOTH EYES SCH (08:42)
[2019-11-08] MEDS: CHOLECALCIFEROL 1,000 UNIT TAB PO SCH (08:44)
[2019-11-08] MEDS: FAMOTIDINE 20 MG TAB PO SCH (08:44)
[2019-11-08 11:29] VITALS: BP 108/56; PULSE 74; TEMP 97.7
--- NOTE | 2019-11-08 11:34 | P.DS ---
Providers Date of admission: 11/07/19 09:14 Expected date of discharge: 11/08/19 Attending physician: Johny Abraham Consults: 11/06/19 09:35 Consult Physician Stat Consulting Provider: Wang Rosario Consult Reason/Comments: chest pain Do you want consulting provider notified?: Yes Primary care physician: Johny [facility] Course: Discharge diagnosis 1. Chest pain. Initial troponin negative. Chest x-ray showing bibasilar PACs that are present although these appear on image of 06/29/2019 and chronic atelectasis is possible in the appropriate clinical setting recurrent pneumonia is possible. White count within normal limits afebrile. Serial troponins ordered. Dobutamine stress test was completed showing unremarkable dobutamine stress test normal stress test echocardiogram. Discussed case with cardiology nurse practitioner patient has been cleared for discharge. 2. Abdominal pain . Amylase and lipase within normal limits. KUB negative. Abdominal ultrasound completed showing no acute process 3. History of dysrhythmic disorder 4. History of Cerebral palsy 5. History of Essential hypertension 6. History of diabetes mellitus type 2. Metformin resumed 7. Dehydration. Bun 26 and creatinine 0.70. Patient maintained on normal saline repeat labs on 16 creatinine 0.56 fluids will be DC'd Hospital course This is a 69-year-old female patient who presented to the ER with complaints of chest pain and abdominal pain. Patient describes chest pain left-sided chest pain that radiates to the back that occurs intermittently. Patient denies any nausea or vomiting. Patient denies any fevers. Patient does report occasional cough. Patient does have a past medical history of hypertension, dysrhythmic disorder, mental disorder, cerebral palsy, hyperlipidemia and carpal tunnel syndrome of the left wrist. Initial troponin negative will order serial troponins. Chest x-ray completed showing bibasilar PACs are present although these appear on image of 06/29/2019 and chronic atelectasis is possible in the appropriate clinical setting recurrent pneumonia is possible. Patient has been afebrile with no white count. KUB x-ray completed showing nonobstructive bowel gas pattern. EKG showing normal sinus rhythm normal EKG. At this time cardiology services will be consulted. Ultrasound of abdomen ordered. This time patient is still complaining of intermittent chest pain. Patient denies any diarrhea. Patient denies any urinary burning or frequency On 11/07/2019 patient is alert and oriented 3. Patient still having chest discomfort that seems to be associated with coughing. Cardiology did evaluate patient in order stress test. Stress test will not be able to be read till l ater. Troponins negative 3 ultrasound of abdomen negative. robitussin added for cough. Patient denies any shortness of breath. Patient denies nausea vomiting or diarrhea. Patient denies any urinary burning or frequency On 11/08/2019 patient is alert and oriented 3. Patient should still having intermittent chest discomfort with coughing. Patient did undergo dobutamine stress test that was negative. Cardiology services have cleared patient for discharge. Patient remains afebrile white count within normal limits. Patient denies any shortness of breath. Patient denies nausea vomiting or diarrhea. Patient denies any urinary burning or frequency. Patient will be DC'd home in advised to follow up with PCP and consulting providers. I performed an examination of the patient and discussed their management with the Nurse Practitioner. I have reviewed the Nurse Practitioner's notes and agree with the documented findings and plan of care Patient Condition at Discharge: Stable Plan - Discharge Summary Discharge Rx Participant: No New Discharge Prescriptions: Continue Omeprazole [PriLOSEC] 20 mg PO DAILY Simvastatin [Zocor] 10 mg PO DAILY Baclofen 10 mg PO TID Artificial Tears-Hypromellose [Artificial Tear Drops] 1 drop BOTH EYES BID Bimatoprost [Lumigan .01% Ophth Soln] 1 drop BOTH EYES HS metFORMIN HCL ER [Glucophage Xr] 500 mg PO DAILY Clotrimazole/Betamethasone Dip [Lotrisone Cream] 1 applic TOPICAL BID Meclizine [Antivert] 12.5 mg PO BID lamoTRIgine [LaMICtal] 75 mg PO BID FLUoxetine HCL [PROzac] 60 mg PO DAILY cycloSPORINE [Restasis] 1 drop BOTH EYES BID Guaifenesin/Dextromethorphan [Diabetic Tussin Dm Liquid] 10 ml PO Q4H PRN PRN Reason: Cough Eucalyptus Oil/Menthol/Camphor [Vicks Vaporub Ointment] 1 applic TOPICAL HS Albuterol Nebulized [Ventolin Nebulized] 2.5 mg INHALATION RT-QID PRN PRN Reason: Shortness Of Breath Ocusoft Retain Eye Lubricant 1 applic OPHTHALMIC DAILY Carboxymethylcellulose Sodium [Refresh Tears] 1 drop BOTH EYES BID Budesonide [Pulmicort] 0.5 mg INHALATION RT-BID Montelukast [Singulair] 10 mg PO DAILY Lisinopril [Zestril] 2.5 mg PO DAILY Furosemide [Lasix] 40 mg PO DAILY Docusate [Colace] 100 mg PO DAILY Oyster Shell Calcium 500mg W/Vitd3 200iu 1 tab PO BID Cholecalciferol (Vitamin D3) [Vitamin D3] 2,000 unit PO DAILY Carvedilol [Coreg] 12.5 mg PO BID Discharge Medication List Baclofen 10 mg PO TID 07/18/14 [History] Omeprazole [PriLOSEC] 20 mg PO DAILY 07/18/14 [History] Simvastatin [Zocor] 10 mg PO DAILY 07/18/14 [History] Artificial Tears-Hypromellose [Artificial Tear Drops] 1 drop BOTH EYES BID 10/12/17 [History] Bimatoprost [Lumigan .01% Ophth Soln] 1 drop BOTH EYES HS 10/12/17 [History] metFORMIN HCL ER [Glucophage Xr] 500 mg PO DAILY 10/12/17 [History] Clotrimazole/Betamethasone Dip [Lotrisone Cream] 1 applic TOPICAL BID 01/23/18 [History] FLUoxetine HCL [PROzac] 60 mg PO DAILY 01/06/19 [History] Meclizine [Antivert] 12.5 mg PO BID 01/06/19 [History] cycloSPORINE [Restasis] 1 drop BOTH EYES BID 01/06/19 [History] lamoTRIgine [LaMICtal] 75 mg PO BID 01/06/19 [History] Albuterol Nebulized [Ventolin Nebulized] 2.5 mg INHALATION RT-QID PRN 11/05/19 [History] Budesonide [Pulmicort] 0.5 mg INHALATION RT-BID 11/05/19 [History] Carboxymethylcellulose Sodium [Refresh Tears] 1 drop BOTH EYES BID 11/05/19 [History] Carvedilol [Coreg] 12.5 mg PO BID 11/05/19 [History] Cholecalciferol (Vitamin D3) [Vitamin D3] 2,000 unit PO DAILY 11/05/19 [History] Docusate [Colace] 100 mg PO DAILY 11/05/19 [History] Eucalyptus Oil/Menthol/Camphor [Vicks Vaporub Ointment] 1 applic TOPICAL HS 11/05/19 [History] Furosemide [Lasix] 40 mg PO DAILY 11/05/19 [History] Guaifenesin/Dextromethorphan [Diabetic Tussin Dm Liquid] 10 ml PO Q4H PRN 11/05/19 [History] Lisinopril [Zestril] 2.5 mg PO DAILY 11/05/19 [History] Montelukast [Singulair] 10 mg PO DAILY 11/05/19 [History] Ocusoft Retain Eye Lubricant 1 applic OPHTHALMIC DAILY 11/05/19 [History] Oyster Shell Calcium 500mg W/Vitd3 200iu 1 tab PO BID 11/05/19 [History] Follow up Appointment(s)/Referral(s): Pablo Lutz MD [STAFF PHYSICIAN] - 11/21/19 3:00 pm (Wednesday with SIMULATION TECH) Johny Abraham MD [Primary Care Provider] - 11/14/19 11:00 am (Wednesday) Activity/Diet/Wound Care/Special Instructions: Patient has public guardian, notify them at discharge Contact caregiver, Khushi for transport home ([phone]) Discharge Disposition: HOME SELF-CARE
[2019-11-08 11:38] LABS: Glucose,Whole Blood 133 mg/dL (75-99)
[2019-11-08] MEDS: guaiFENesin SYRUP 100MG/5ML 200 MG/10 ML CUP PO PRN (12:10)
--- NOTE | 2019-11-08 12:15 | P.PN ---
Subjective Progress Note Date: 11/08/19 This is a pleasant 69-year-old female who is developmentally delayed, she has a history of hypertension, hyperlipidemia, diabetes, she resides in an adult foster usp. She had an admission to the hospital in January 2018 and subsequently in January 2019, she complains of symptoms of midsternal chest dis comfort as well as discomfort in her abdomen. Most recent echocardiogram with Doppler study was performed in January 2019 which revealed a hyperdynamic ejection fraction of greater than 70%. On this occasion she presents to the hospital with symptoms of midsternal chest discomfort, patient points to the area that seems to be right in the center of her chest near her upper epigastric region, she also points to an area not her abdomen which is giving her some pain. The patient has had multiple admissions with similar complaints but it does not appear that the patient has had any form of stress testing done. Abdominal ultrasound was performed which did not reveal any acute process. EKG shows a normal sinus rhythm with no acute changes. Blood pressure 116/70 with a heart rate in the 80s, 100% on room air. White blood cell count 8.4, hemoglobin 11.9, platelet count 293. Sodium 133, potassium 4.2, BUN 15, creatinine 0.6. Troponins are negative 3. Liver functions normal. At the time of my examination this morning, patient is sitting up in her chair at bedside. She still points to her mid epigastric lower sternal area and complains of pain, only when asked. Twice the patient appears to be quite comfortable. 11/08/2019 The patient underwent a dobutamine echocardiographic study which was negative for any reversible ischemia, she was seen and examined this morning and overall doing well. Denies any chest pain in her breathing is stable. Blood pressure 108/56 with a heart rate in the 70s, 98% on room air. White blood cell count 8.6, hemoglobin 11.5, platelet count 254. Sodium 134, potassium 4.2, BUN 17, creatinine 0.6. Objective - Vital Signs Vital signs: Vital Signs Temp 97.7 F 11/08/19 11:29 Pulse 74 11/08/19 11:29 Resp 16 11/08/19 11:29 BP 108/56 11/08/19 11:29 Pulse Ox 98 11/08/19 11:29 Intake & Output 11/07/19 11/08/19 11/08/19 18:59 06:59 18:59 Intake Total 480 540 120 Balance 480 540 120 Weight 68.2 kg 66.4 kg Intake: Oral 480 540 120 Other: Voiding Method Bedside Commode Bedside Commode Bedside Commode Diaper Diaper Diaper Incontinent Incontinent Incontinent # Voids 1 1 # Bowel Movements 1 - Exam PHYSICAL EXAMINATION: GENERAL: 69-year-old female in no acute distress at the time of my examination HEENT: Head is atraumatic, normocephalic. Pupils equal, round. Sclera an icteric. Conjunctiva are clear. Mucous membranes of the mouth are moist. Neck is supple. There is no elevated jugular venous pressure. No carotid bruit is heard. HEART EXAMINATION: Heart S1, S2 normal. No murmur or gallop heard. CHEST EXAMINATION: Lungs are clear to auscultation and precussion. No chest wall tenderness is noted on palpation or with deep breathing. ABDOMEN: Soft, nontender. Bowel sounds are heard. No organomegaly noted. EXTREMITIES: 2+ peripheral pulses with no evidence of peripheral edema and no calf tenderness noted. NEUROLOGIC [patient is awake, alert and oriented 3, mental disability. . - Labs CBC & Chem 7: 11/08/19 05:51 11/08/19 05:51 Labs: Abnormal Lab Results - Last 24 Hours (Table) 11/07/19 11/07/19 11/08/19 Range/Units 16:54 20:36 05:51 RDW 15.9 H (11.5-15.5) % Sodium (137-145) mmol/L Chloride (98-107) mmol/L Glucose (74-99) mg/dL POC Glucose (mg/dL) 150 H 184 H (75-99) mg/dL 11/08/19 11/08/19 11/08/19 Range/Units 05:51 05:58 11:36 RDW (11.5-15.5) % Sodium 134 L (137-145) mmol/L Chloride 97 L (98-107) mmol/L Glucose 100 H (74-99) mg/dL POC Glucose (mg/dL) 117 H 133 H (75-99) mg/dL Microbiology - Last 24 Hours (Table) 11/05/19 15:40 Blood Culture - Preliminary Blood No Growth after 48 hours Assessment and Plan Plan: Assessment and plan #1 chest pain, atypical in nature, troponins are negative 3. EKG shows a normal sinus rhythm with no acute changes. Echo performed in January 2019 revealed a normal left ventricular systolic function. #2 abdominal pain, KUB negative, abdominal ultrasound negative. Her functions normal. #3 cerebral palsy #4 hypertension #5 diabetes #6 hyperlipidemia #7 mentally challenged Plan Dobutamine echocardiographic study negative for any reversible ischemia. From cardiology's perspective, the patient may be able to be discharged home today, we'll make a follow-up appointment in the office post discharge. DNP note has been reviewed, I agree with a documented findings and plan of care. Patient was seen and examined.
== END 2019-11-08 16:15 | disposition home or self-care (01) | DRG 195 ==
LOC: EC 12:15 → 3SCARD 16:49 → OBSVTOIN 11-07 09:14
PROVIDERS: ADMIT Internal Medicine; ATTEND Internal Medicine
DX: J18.9 Pneumonia, unspecified organism (principal); E86.0 Dehydration; I10 Essential (primary) hypertension; E11.9 Type 2 diabetes mellitus without complications; G80.9 Cerebral palsy, unspecified; E78.5 Hyperlipidemia, unspecified; F34.1 Dysthymic disorder; Z79.899 Other long term (current) drug therapy; Z79.84 Long term (current) use of oral hypoglycemic drugs; Z79.51 Long term (current) use of inhaled steroids; Z87.01 Personal history of pneumonia (recurrent)
CPT/HCPCS: 36415; 71046; 74018; 76700; 80053; 81003; 82150; 82550; 83690; 83735; 83880; 84484; 85025; 87040; 87502; 93005; 93351; 94640; 94760; 96360; 96361; 99285

== ENCOUNTER 2019-11-18 12:15 | Emergency (ER) | payer MEDICARE, OTHER ==
[2019-11-18 12:22] VITALS: RESP 18
[2019-11-18] MEDS ORDERED: guaiFENesin-Coden 100-10MG/5ML 10 ML CUP PO STA (12:37)
--- NOTE | 2019-11-18 12:42 | ED ---
URI HPI - General Chief Complaint: Upper Respiratory Infection Stated Complaint: Cough Time Seen by Provider: 11/18/19 12:28 Source: patient, RN notes reviewed Mode of arrival: wheelchair Limitations: no limitations - History of Present Illness Initial Comments: This is a 69-year-old female presents emergency Department with caregiver chief complaint of cough. This cough started in the last 1 week. Patient has a nonproductive cough though they're concerned that she has not been improving. She has not received any antibiotics, steroids or cough suppressants. She did use albuterol treatments morning. Caregiver states that patient's remaining is also been sick with acute bronchitis currently on medications improving. No reported fever at this time patient denies any chest pain. Patient does have a history of CHF. - Related Data Home Medications Medication Instructions Recorded Confirmed Baclofen 10 mg PO TID 07/18/14 11/05/19 Omeprazole [PriLOSEC] 20 mg PO DAILY 07/18/14 11/05/19 Simvastatin [Zocor] 10 mg PO DAILY 07/18/14 11/05/19 Artificial Tears-Hypromellose 1 drop BOTH EYES BID 10/12/17 11/05/19 [Artificial Tear Drops] Bimatoprost [Lumigan .01% Ophth 1 drop BOTH EYES HS 10/12/17 11/05/19 Soln] metFORMIN HCL ER [Glucophage Xr] 500 mg PO DAILY 10/12/17 11/05/19 Clotrimazole/Betamethasone Dip 1 applic TOPICAL BID 01/23/18 11/05/19 [Lotrisone Cream] FLUoxetine HCL [PROzac] 60 mg PO DAILY 01/06/19 11/05/19 Meclizine [Antivert] 12.5 mg PO BID 01/06/19 11/05/19 cycloSPORINE [Restasis] 1 drop BOTH EYES BID 01/06/19 11/05/19 lamoTRIgine [LaMICtal] 75 mg PO BID 01/06/19 11/05/19 Albuterol Nebulized [Ventolin 2.5 mg INHALATION RT-QID PRN 11/05/19 11/05/19 Nebulized] Budesonide [Pulmicort] 0.5 mg INHALATION RT-BID 11/05/19 11/05/19 Carboxymethylcellulose Sodium 1 drop BOTH EYES BID 11/05/19 11/05/19 [Refresh Tears] Carvedilol [Coreg] 12.5 mg PO BID 11/05/19 11/05/19 Cholecalciferol (Vitamin D3) 2,000 unit PO DAILY 11/05/19 11/05/19 [Vitamin D3] Docusate [Colace] 100 mg PO DAILY 11/05/19 11/05/19 Eucalyptus Oil/Menthol/Camphor 1 applic TOPICAL HS 11/05/19 11/05/19 [Vicks Vaporub Ointment] Furosemide [Lasix] 40 mg PO DAILY 11/05/19 11/05/19 Guaifenesin/Dextromethorphan 10 ml PO Q4H PRN 11/05/19 11/05/19 [Diabetic Tussin Dm Liquid] Lisinopril [Zestril] 2.5 mg PO DAILY 11/05/19 11/05/19 Montelukast [Singulair] 10 mg PO DAILY 11/05/19 11/05/19 Ocusoft Retain Eye Lubricant 1 applic OPHTHALMIC DAILY 11/05/19 11/05/19 Oyster Shell Calcium 500mg W/Vitd3 1 tab PO BID 11/05/19 11/05/19 200iu Previous Rx's Medication Instructions Recorded Azithromycin [Zithromax Z-pack] 0 mg PO DIRECTED #1 pack 11/18/19 guaiFENesin-Coden 100-10MG/5ML 10 ml PO Q4H PRN 3 Days #180 ml 11/18/19 [Robitussin AC] Allergies Allergy/AdvReac Type Severity Reaction Status Date / Time amoxicillin [From Augmentin] Allergy Unknown Verified 11/18/19 12:23 clavulanic acid Allergy Unknown Verified 11/18/19 12:23 [From Augmentin] Review of Systems ROS Statement: Those systems with pertinent positive or pertinent negative responses have been documented in the HPI. ROS Other: All systems not noted in ROS Statement are negative. Past Medical History Past Medical History: Chest Pain / Angina, Hypertension Additional Past Medical History / Comment(s): dysthymic disorder, mental disorder, hyper cholestremia, cerebral palsy, carpal tunnel left wrist, bipolar, left hip surgery, costochondritis. History of Any Multi-Drug Resistant Organisms: None Reported Past Surgical History: No Surgical Hx Reported Additional Past Surgical History / Comment(s): left hip surgery Past Anesthesia/Blood Transfusion Reactions: Unable to Obtain Past Psychological History: Bipolar Smoking Status: Never smoker Past Alcohol Use History: None Reported Past Drug Use History: None Reported - Past Family History Father History Unknown: Yes Family Medical History: No Reported History General Exam Limitations: no limitations General appearance: alert, in no apparent distress Head exam: Present: atraumatic, normocephalic, normal inspection Neck exam: Present: normal inspection, full ROM. Absent: tenderness, meningismus, lymphadenopathy Respiratory exam: Present: normal lung sounds bilaterally. Absent: respiratory distress, wheezes, rales, rhonchi, stridor Cardiovascular Exam: Present: regular rate, normal rhythm, normal heart sounds. Absent: systolic murmur, diastolic murmur, rubs, gallop, clicks GI/Abdominal exam: Present: soft, normal bowel sounds. Absent: distended, tenderness, guarding, rebound, rigid Back exam: Absent: CVA tenderness (R), CVA tenderness (L) Neurological exam: Present: alert Skin exam: Present: warm, dry, intact, normal color. Absent: rash Course Vital Signs 11/18/19 11/18/19 12:16 14:12 Temperature 98.8 F Pulse Rate 86 87 Respiratory 18 18 Rate Blood Pressure 118/63 109/55 O2 Sat by Pulse 96 95 Oximetry Medical Decision Making - Medical Decision Making 77-year-old female presented for cough is nonproductive cough at this time. Patient's x-ray showed us bloody L Abril congestion. BNP is 128 last EF on echo performed 11 days ago was greater than 70. Patient is on lisinopril though has been on for several years we discussed possibility of this causing her cough. Though I do feel She has acute bronchitis will be treated with antibiotics, breathing treatments and close follow-up. - Lab Data Result diagrams: 11/18/19 13:30 11/18/19 13:30 Lab Results 11/18/19 11/18/19 11/18/19 Range/Units 12:49 13:30 13:30 WBC 8.5 (3.8-10.6) k/uL RBC 4.53 (3.80-5.40) m/uL Hgb 12.6 (11.4-16.0) gm/dL Hct 39.4 (34.0-46.0) % MCV 87.1 (80.0-100.0) fL MCH 27.8 (25.0-35.0) pg MCHC 31.9 (31.0-37.0) g/dL RDW 15.7 H (11.5-15.5) % Plt Count 309 (150-450) k/uL Neutrophils % 84 % Lymphocytes % 6 % Monocytes % 6 % Eosinophils % 2 % Basophils % 5 % Neutrophils # 7.1 (1.3-7.7) k/uL Lymphocytes # 0.5 L (1.0-4.8) k/uL Monocytes # 0.5 (0-1.0) k/uL Eosinophils # 0.1 (0-0.7) k/uL Basophils # 0.4 H (0-0.2) k/uL Manual Slide Review Performed Sodium 133 L (137-145) mmol/L Potassium 4.3 (3.5-5.1) mmol/L Chloride 96 L (98-107) mmol/L Carbon Dioxide 26 (22-30) mmol/L Anion Gap 11 mmol/L BUN 21 H (7-17) mg/dL Creatinine 0.73 (0.52-1.04) mg/dL Est GFR (CKD-EPI)AfAm >90 (>60 ml/min/1.73 sqM) Est GFR (CKD-EPI)NonAf 83 (>60 ml/min/1.73 sqM) Glucose 115 H (74-99) mg/dL Calcium 9.4 (8.4-10.2) mg/dL Troponin I (0.000-0.034) ng/mL NT-Pro-B Natriuret Pep pg/mL Influenza Type A RNA Not Detected (Not Detectd) Influenza Type B (PCR) Not Detected (Not Detectd) 11/18/19 11/18/19 Range/Units 13:30 13:30 WBC (3.8-10.6) k/uL RBC (3.80-5.40) m/uL Hgb (11.4-16.0) gm/dL Hct (34.0-46.0) % MCV (80.0-100.0) fL MCH (25.0-35.0) pg MCHC (31.0-37.0) g/dL RDW (11.5-15.5) % Plt Count (150-450) k/uL Neutrophils % % Lymphocytes % % Monocytes % % Eosinophils % % Basophils % % Neutrophils # (1.3-7.7) k/uL Lymphocytes # (1.0-4.8) k/uL Monocytes # (0-1.0) k/uL Eosinophils # (0-0.7) k/uL Basophils # (0-0.2) k/uL Manual Slide Review Sodium (137-145) mmol/L Potassium (3.5-5.1) mmol/L Chloride (98-107) mmol/L Carbon Dioxide (22-30) mmol/L Anion Gap mmol/L BUN (7-17) mg/dL Creatinine (0.52-1.04) mg/dL Est GFR (CKD-EPI)AfAm (>60 ml/min/1.73 sqM) Est GFR (CKD-EPI)NonAf (>60 ml/min/1.73 sqM) Glucose (74-99) mg/dL Calcium (8.4-10.2) mg/dL Troponin I <0.012 (0.000-0.034) ng/mL NT-Pro-B Natriuret Pep 128 pg/mL Influenza Type A RNA (Not Detectd) Influenza Type B (PCR) (Not Detectd) Disposition Clinical Impression: Bronchitis, Pulmonary vascular congestion Disposition: HOME SELF-CARE Condition: Stable Instructions (If sedation given, give patient instructions): Upper Respiratory Infection (ED) Additional Instructions: Please return to the Emergency Department if symptoms worsen or any other concerns. Prescriptions: guaiFENesin-Coden 100-10MG/5ML [Robitussin AC] 10 ml PO Q4H PRN 3 Days #180 ml PRN Reason: Cough Azithromycin [Zithromax Z-pack] 0 mg PO DIRECTED #1 pack Is patient prescribed a controlled substance at d/c from ED?: Yes When asked, does pt state using other controlled substances?: No If prescribed controlled substance>3 days was MAPS reviewed?: Prescribed <3 Days Referrals: Johny Abraham MD [Primary Care Provider] - 1-2 days Time of Disposition: 15:04
--- NOTE | 2019-11-18 13:14 | XR ---
EXAMINATION TYPE: XR chest 2V DATE OF EXAM: 11/18/2019 HISTORY: cough. REFERENCE: Previous study dated 11/07/2019. FINDINGS: Heart is mildly enlarged. There is vascular congestion and mild interstitial edema. Both CP angles are blunted and I could not exclude small effusions. IMPRESSION: MILD CHANGES OF HEART FAILURE.
[2019-11-18] MEDS ORDERED: FUROSEMIDE 10 MG/ML 4 ML VIAL IV STA (14:00)
[2019-11-18 14:10] LABS: African American GFR (CKD) >90 (>60 ml/min/1.73 sqM); Anion Gap 11 mmol/L; Blood Urea Nitrogen 21 mg/dL (7-17); Calcium 9.4 mg/dL (8.4-10.2); Carbon Dioxide 26 mmol/L (22-30); Chloride 96 mmol/L (98-107); Glucose 115 mg/dL (74-99); Non-African American GFR(CKD) 83 (>60 ml/min/1.73 sqM); Potassium 4.3 mmol/L (3.5-5.1); Sodium 133 mmol/L (137-145)
[2019-11-18 14:16] LABS: Basophils # (A) 0.4 k/uL (0-0.2); Basophils % (A) 5 %; Eosinophils # (A) 0.1 k/uL (0-0.7); Eosinophils % (A) 2 %; HCT 39.4 % (34.0-46.0); HGB 12.6 gm/dL (11.4-16.0); Lymphocytes # (A) 0.5 k/uL (1.0-4.8); Lymphocytes % (A) 6 %; MCH 27.8 pg (25.0-35.0); MCHC 31.9 g/dL (31.0-37.0); MCV 87.1 fL (80.0-100.0); Mean Platelet Volume 7.9; Monocytes # (A) 0.5 k/uL (0-1.0); Monocytes % (A) 6 %; Neutrophils # (A) 7.1 k/uL (1.3-7.7); Neutrophils % (A) 84 %; Platelet Count 309 k/uL (150-450); RBC 4.53 m/uL (3.80-5.40); RDW 15.7 % (11.5-15.5); WBC 8.5 k/uL (3.8-10.6)
[2019-11-18] MEDS ORDERED: cefTRIAXone IN SWFI 1,000 MG/10 ML SYRINGE IVP STA (15:00)
[2019-11-18 15:27] VITALS: BP 105/70; PULSE 96; TEMP 99.6
== END 2019-11-18 15:47 | disposition home or self-care (01) ==
LOC: EC 12:15
DX: J20.9 Acute bronchitis, unspecified (principal); I11.0 Hypertensive heart disease with heart failure; I50.9 Heart failure, unspecified; E78.00 Pure hypercholesterolemia, unspecified; F31.9 Bipolar disorder, unspecified; Z88.0 Allergy status to penicillin; Z79.51 Long term (current) use of inhaled steroids; Z79.84 Long term (current) use of oral hypoglycemic drugs; Z79.899 Other long term (current) drug therapy
CPT/HCPCS: 36415; 93005; 83880; 80048; 84484; 85025; 87502; 71046; 99284; 96374; 96375; J1940; J0696

== ENCOUNTER 2019-11-19 20:19 | Inpatient (IN) | payer MEDICARE, OTHER ==
--- NOTE | 2019-11-19 20:52 | ED ---
URI HPI - General Chief Complaint: Upper Respiratory Infection Stated Complaint: Upper Resp Time Seen by Provider: 11/19/19 20:31 Source: patient, EMS, RN notes reviewed, old records reviewed Mode of arrival: EMS Limitations: no limitations - History of Present Illness Initial Comments: This is a 69-year-old female with history: The leg, DF for evaluation cough cough congestion shortness of breath. Patient was in the ER yesterday for similar symptoms symptoms are worse today. Patient denying any chest pain began patient's poor historian secondary to underlying medical history as well as mental history MD Complaint: cough -: days(s) Severity: moderate Severity scale (1-10): 4 Improves With: nothing Worsens With: nothing Context: sick contacts Associated Symptoms: chills, myalgias, cough Treatments Prior to Arrival: none - Related Data Home Medications Medication Instructions Recorded Confirmed Baclofen 10 mg PO TID 07/18/14 11/05/19 Omeprazole [PriLOSEC] 20 mg PO DAILY 07/18/14 11/05/19 Simvastatin [Zocor] 10 mg PO DAILY 07/18/14 11/05/19 Artificial Tears-Hypromellose 1 drop BOTH EYES BID 10/12/17 11/05/19 [Artificial Tear Drops] Bimatoprost [Lumigan .01% Ophth 1 drop BOTH EYES HS 10/12/17 11/05/19 Soln] metFORMIN HCL ER [Glucophage Xr] 500 mg PO DAILY 10/12/17 11/05/19 Clotrimazole/Betamethasone Dip 1 applic TOPICAL BID 01/23/18 11/05/19 [Lotrisone Cream] FLUoxetine HCL [PROzac] 60 mg PO DAILY 01/06/19 11/05/19 Meclizine [Antivert] 12.5 mg PO BID 01/06/19 11/05/19 cycloSPORINE [Restasis] 1 drop BOTH EYES BID 01/06/19 11/05/19 lamoTRIgine [LaMICtal] 75 mg PO BID 01/06/19 11/05/19 Albuterol Nebulized [Ventolin 2.5 mg INHALATION RT-QID PRN 11/05/19 11/05/19 Nebulized] Budesonide [Pulmicort] 0.5 mg INHALATION RT-BID 11/05/19 11/05/19 Carboxymethylcellulose Sodium 1 drop BOTH EYES BID 11/05/19 11/05/19 [Refresh Tears] Carvedilol [Coreg] 12.5 mg PO BID 11/05/19 11/05/19 Cholecalciferol (Vitamin D3) 2,000 unit PO DAILY 11/05/19 11/05/19 [Vitamin D3] Docusate [Colace] 100 mg PO DAILY 11/05/19 11/05/19 Eucalyptus Oil/Menthol/Camphor 1 applic TOPICAL HS 11/05/19 11/05/19 [Vicks Vaporub Ointment] Furosemide [Lasix] 40 mg PO DAILY 11/05/19 11/05/19 Guaifenesin/Dextromethorphan 10 ml PO Q4H PRN 11/05/19 11/05/19 [Diabetic Tussin Dm Liquid] Lisinopril [Zestril] 2.5 mg PO DAILY 11/05/19 11/05/19 Montelukast [Singulair] 10 mg PO DAILY 11/05/19 11/05/19 Ocusoft Retain Eye Lubricant 1 applic OPHTHALMIC DAILY 11/05/19 11/05/19 Oyster Shell Calcium 500mg W/Vitd3 1 tab PO BID 11/05/19 11/05/19 200iu Previous Rx's Medication Instructions Recorded Azithromycin [Zithromax Z-pack] 0 mg PO DIRECTED #1 pack 11/18/19 guaiFENesin-Coden 100-10MG/5ML 10 ml PO Q4H PRN 3 Days #180 ml 11/18/19 [Robitussin AC] Allergies Allergy/AdvReac Type Severity Reaction Status Date / Time amoxicillin [From Augmentin] Allergy Unknown Verified 11/18/19 12:23 clavulanic acid Allergy Unknown Verified 11/18/19 12:23 [From Augmentin] Review of Systems ROS Statement: Those systems with pertinent positive or pertinent negative responses have been documented in the HPI. ROS Other: All systems not noted in ROS Statement are negative. Past Medical History Past Medical History: Chest Pain / Angina, Hypertension Additional Past Medical History / Comment(s): dysthymic disorder, mental di sorder, hyper cholestremia, cerebral palsy, carpal tunnel left wrist, bipolar, left hip surgery, costochondritis. History of Any Multi-Drug Resistant Organisms: None Reported Past Surgical History: No Surgical Hx Reported Additional Past Surgical History / Comment(s): left hip surgery Past Anesthesia/Blood Transfusion Reactions: Unable to Obtain Past Psychological History: Bipolar Smoking Status: Never smoker Past Alcohol Use History: None Reported Past Drug Use History: None Reported - Past Family History Father History Unknown: Yes Family Medical History: No Reported History General Exam Limitations: no limitations General appearance: alert, in no apparent distress Head exam: Present: atraumatic, normocephalic, normal inspection Eye exam: Present: normal appearance, PERRL, EOMI. Absent: scleral icterus, conjunctival injection, periorbital swelling ENT exam: Present: normal exam, mucous membranes moist Neck exam: Present: normal inspection. Absent: tenderness, meningismus, lymphadenopathy Respiratory exam: Present: normal lung sounds bilaterally. Absent: respiratory distress, wheezes, rales, rhonchi, stridor Cardiovascular Exam: Present: regular rate, normal rhythm, normal heart sounds. Absent: systolic murmur, diastolic murmur, rubs, gallop, clicks GI/Abdominal exam: Present: soft, normal bowel sounds. Absent: distended, tenderness, guarding, rebound, rigid Extremities exam: Present: normal inspection, full ROM, normal capillary refill. Absent: tenderness, pedal edema, joint swelling, calf tenderness Back exam: Present: normal inspection Neurological exam: Present: alert, oriented X3, CN II-XII intact Psychiatric exam: Present: normal affect, normal mood Skin exam: Present: warm, dry, intact, normal color. Absent: rash Course Vital Signs 11/19/19 11/19/19 11/19/19 20:30 22:00 23:00 Temperature 98.4 F Pulse Rate 74 75 78 Respiratory 18 18 17 Rate Blood Pressure 114/64 110/53 153/89 O2 Sat by Pulse 95 98 98 Oximetry 11/20/19 00:00 Temperature Pulse Rate 78 Respiratory 19 Rate Blood Pressure 154/86 O2 Sat by Pulse 97 Oximetry - Reevaluation(s) Reevaluation #1: 11/20/19 00:48 Medical records reviewed including ER visit from yesterday Reevaluation #2: 11/20/19 00:48 Patient is relatively symptomatic with consistent cough - Consultations Consultation #1: Spoke with Dr. Abraham will be okay for an admission Medical Decision Making - Medical Decision Making 69 female persistent coughing and shortness of breath CHF and COPD will admit for cardiac observation - Lab Data Result diagrams: 11/19/19 21:18 11/19/19 21:18 Lab Results 11/19/19 11/19/19 11/19/19 Range/Units 21:18 21:18 21:18 WBC 5.9 (3.8-10.6) k/uL RBC 4.24 (3.80-5.40) m/uL Hgb 12.0 (11.4-16.0) gm/dL Hct 37.2 (34.0-46.0) % MCV 87.7 (80.0-100.0) fL MCH 28.2 (25.0-35.0) pg MCHC 32.2 (31.0-37.0) g/dL RDW 16.1 H (11.5-15.5) % Plt Count 228 (150-450) k/uL Neutrophils % 79 % Lymphocytes % 5 % Monocytes % 8 % Eosinophils % 1 % Basophils % 3 % Neutrophils # 4.7 (1.3-7.7) k/uL Lymphocytes # 0.3 L (1.0-4.8) k/uL Monocytes # 0.4 (0-1.0) k/uL Eosinophils # 0.1 (0-0.7) k/uL Basophils # 0.2 (0-0.2) k/uL Anisocytosis Slight PT (9.0-12.0) sec INR (<1.2) APTT (22.0-30.0) sec Sodium 130 L (137-145) mmol/L Potassium 4.1 (3.5-5.1) mmol/L Chloride 94 L (98-107) mmol/L Carbon Dioxide 26 (22-30) mmol/L Anion Gap 10 mmol/L BUN 29 H (7-17) mg/dL Creatinine 0.89 (0.52-1.04) mg/dL Est GFR (CKD-EPI)AfAm 76 (>60 ml/min/1.73 sqM) Est GFR (CKD-EPI)NonAf 66 (>60 ml/min/1.73 sqM) Glucose 146 H (74-99) mg/dL Plasma Lactic Acid Jacob 1.8 (0.7-2.0) mmol/L Calcium 8.7 (8.4-10.2) mg/dL Phosphorus 4.5 (2.5-4.5) mg/dL Magnesium 2.0 (1.6-2.3) mg/dL Total Bilirubin 0.2 (0.2-1.3) mg/dL AST 41 H (14-36) U/L ALT 40 H (4-34) U/L Alkaline Phosphatase 87 (38-126) U/L Troponin I (0.000-0.034) ng/mL NT-Pro-B Natriuret Pep pg/mL Total Protein 6.5 (6.3-8.2) g/dL Albumin 3.6 (3.5-5.0) g/dL 11/19/19 11/19/19 11/19/19 Range/Units 21:18 21:18 21:18 WBC (3.8-10.6) k/uL RBC (3.80-5.40) m/uL Hgb (11.4-16.0) gm/dL Hct (34.0-46.0) % MCV (80.0-100.0) fL MCH (25.0-35.0) pg MCHC (31.0-37.0) g/dL RDW (11.5-15.5) % Plt Count (150-450) k/uL Neutrophils % % Lymphocytes % % Monocytes % % Eosinophils % % Basophils % % Neutrophils # (1.3-7.7) k/uL Lymphocytes # (1.0-4.8) k/uL Monocytes # (0-1.0) k/uL Eosinophils # (0-0.7) k/uL Basophils # (0-0.2) k/uL Anisocytosis PT 10.2 (9.0-12.0) sec INR 1.0 (<1.2) APTT 23.7 (22.0-30.0) sec Sodium (137-145) mmol/L Potassium (3.5-5.1) mmol/L Chloride (98-107) mmol/L Carbon Dioxide (22-30) mmol/L Anion Gap mmol/L BUN (7-17) mg/dL Creatinine (0.52-1.04) mg/dL Est GFR (CKD-EPI)AfAm (>60 ml/min/1.73 sqM) Est GFR (CKD-EPI)NonAf (>60 ml/min/1.73 sqM) Glucose (74-99) mg/dL Plasma Lactic Acid Jacob (0.7-2.0) mmol/L Calcium (8.4-10.2) mg/dL Phosphorus (2.5-4.5) mg/dL Magnesium (1.6-2.3) mg/dL Total Bilirubin (0.2-1.3) mg/dL AST (14-36) U/L ALT (4-34) U/L Alkaline Phosphatase (38-126) U/L Troponin I <0.012 (0.000-0.034) ng/mL NT-Pro-B Natriuret Pep 110 pg/mL Total Protein (6.3-8.2) g/dL Albumin (3.5-5.0) g/dL - EKG Data -: EKG Interpreted by Me (EKG shows sinus a rate of 74, WA 140, QRS 78, QTC 461) - Radiology Data Radiology results: report reviewed (CXR pulm effusion, CT abd pel, US gallbladder negative for acute disasesa), image reviewed Disposition Clinical Impression: Chest pain, Acute pulmonary edema, Bronchitis, CHF (congestive heart failure), COPD (chronic obstructive pulmonary disease) Disposition: ADMITTED IP TO THIS HOSP Condition: Fair Is patient prescribed a controlled substance at d/c from ED?: No Referrals: Johny Abraham MD [Primary Care Provider] - 1-2 days
[2019-11-19] MEDS ORDERED: MORPHINE SULFATE 4 MG/ML SYRINGE IV STA (20:54)
[2019-11-19] MEDS ORDERED: SODIUM CHLORIDE 0.9% 1,000 ML IV STA (20:54)
[2019-11-19] MEDS ORDERED: ONDANSETRON 4 MG/2 ML VIAL IVP STA (20:54)
[2019-11-19 21:49] LABS: Anisocytosis Slight; Basophils # (A) 0.2 k/uL (0-0.2); Basophils % (A) 3 %; Eosinophils # (A) 0.1 k/uL (0-0.7); Eosinophils % (A) 1 %; HCT 37.2 % (34.0-46.0); Lymphocytes # (A) 0.3 k/uL (1.0-4.8); Lymphocytes % (A) 5 %; MCH 28.2 pg (25.0-35.0); MCHC 32.2 g/dL (31.0-37.0); MCV 87.7 fL (80.0-100.0); Mean Platelet Volume 7.5; Monocytes # (A) 0.4 k/uL (0-1.0); Monocytes % (A) 8 %; Neutrophils # (A) 4.7 k/uL (1.3-7.7); Neutrophils % (A) 79 %; Platelet Count 228 k/uL (150-450); RBC 4.24 m/uL (3.80-5.40); RDW 16.1 % (11.5-15.5); WBC 5.9 k/uL (3.8-10.6)
--- NOTE | 2019-11-19 21:55 | XR ---
EXAMINATION TYPE: XR chest 2V DATE OF EXAM: 11/19/2019 COMPARISON: 11/18/2019 HISTORY: Cough weakness TECHNIQUE: FINDINGS: There is elevated left diaphragm. There is patchy interstitial infiltrates and atelectasis in the lower lung reynaga. There is no gross heart failure. There are chest leads. IMPRESSION: Pulmonary fibrotic changes and atelectasis appears not significantly different than exam yesterday. No obvious heart failure.
[2019-11-19 21:57] LABS: Partial Thromboplastin Time 23.7 sec (22.0-30.0); Prothrombin Time 10.2 sec (9.0-12.0)
[2019-11-19 22:00] LABS: Albumin 3.6 g/dL (3.5-5.0); Calcium 8.7 mg/dL (8.4-10.2); Phosphorus 4.5 mg/dL (2.5-4.5); Potassium 4.1 mmol/L (3.5-5.1); Total Bilirubin 0.2 mg/dL (0.2-1.3); Total Protein 6.5 g/dL (6.3-8.2)
--- NOTE | 2019-11-19 22:45 | CT ---
EXAMINATION TYPE: CT abdomen pelvis w con DATE OF EXAM: 11/19/2019 COMPARISON: HISTORY: abdominal pain CT DLP: 1194.1 mGycm Automated exposure control for dose reduction was used. CONTRAST: Performed with IV Contrast, patient injected with 100 mL of Isovue 300. None multiple axial sections were obtained from the diaphragm to the floor the pelvis with intravenou s contrast Isovue 100 mL. There is some patchy atelectasis and interstitial infiltrates at the lung bases. Heart appears enlarg ed. There is distended distal esophagus. Stomach is intact. Spleen is intact. There is no evidence of pancreatic mass. There are clips from cholecystectomy. The bile ducts are not dilated. Liver shows n o focal defect. There is no adrenal mass. Kidneys show satisfactory contrast opacification. There is no hydronephrosi s. There is 1 cm cyst medial left kidney. There is no retroperitoneal adenopathy. Appendix is medial and appears normal. Ureters are not dilated. Bladder distends smoothly. There is l eft hip prosthesis. Uterus appears normal. There is no inguinal hernia. There is no free fluid in the pelvis. There is no mesenteric edema. There is no sign of a bowel obstruction. There is no evidence of free air. There is mild thoracolumbar dextroscoliosis. There is L5 spondylolysis with first-degree L5-S1 spondylolisthesis. Bony pelvis is intact. IMPRESSION: Interstitial pulmonary edema and atelectasis at the lung bases. Mild cardiomegaly. Normal appendix. No renal stone or obstruction. L5 spondylolysis.
--- NOTE | 2019-11-20 00:39 | US ---
EXAMINATION TYPE: US gallbladder DATE OF EXAM: 11/20/2019 COMPARISON: NONE CLINICAL HISTORY: pain. cholecystectomy, bad cough, abd pain EXAM MEASUREMENTS: Liver Length: 15.3 cm Gallbladder Wall: Surgically absent CBD: 0.7 cm Right Kidney: 9.3 x 4.3 x 4.1 cm very limited due patient coughing and bowel gas, large habitus Pancreas: not seen Liver: intercostal images only, difficult to penetrate Gallbladder: Surgically absent Evidence for sonographic Herron's sign: no CBD: wnl Right Kidney: wnl IMPRESSION: Negative exam. No dilated ducts. No free fluid.
[2019-11-20] MEDS ORDERED: methylPREDNISolone SOD SUCCI 125 MG/2 ML VIAL IV STA (00:41)
[2019-11-20] MEDS ORDERED: AZITHROMYCIN 500 MG in SODIUM CHLORIDE 0.9% 250 ML IVPB STA (00:49)
[2019-11-20] MEDS: FUROSEMIDE 10 MG/ML 4 ML VIAL IV SCH ×2 (01:22→12:36)
[2019-11-20] MEDS: methylPREDNISolone SOD SUCCI 125 MG/2 ML VIAL IV SCH ×3 (05:26→17:45)
[2019-11-20 07:14] LABS: Glucose,Whole Blood 279 mg/dL (75-99)
[2019-11-20] MEDS: IPRATROPIUM-ALBUTEROL 3 ML NEB INHALATION SCH ×4 (09:25→20:12)
[2019-11-20 11:19] VITALS: BMI 35.3
[2019-11-20 11:59] LABS: Glucose,Whole Blood 285 mg/dL (75-99)
[2019-11-20] MEDS: INSULIN ASPART (NovoLOG) 100 UNIT/ML VIAL SQ SCH ×3 (12:36→21:21)
--- NOTE | 2019-11-20 16:07 | P.HPPUL ---
History of Present Illness H&P Date: 11/20/19 Chief Complaint: Shortness of breath and cough This is a 69-year-old female who is been having cough shortness of breath second visit to the ER for ongoing symptoms has been admitted into the hospital she has problems associated with developmental delay overall a poor historian not details completely obtained, possible medical history is significant for mental disorder, dysthymic syndrome, developmentally delayed due to cerebral palsy, hypercholesterolemia, carpal tunnel syndrome, bipolar disorder, costochondritis Review of Systems ROS unobtainable: due to mental status All systems: negative Past Medical History Past Medical History: Chest Pain / Angina, Diabetes Mellitus, Hypertension Additional Past Medical History / Comment(s): dysthymic disorder, mental disorder, hyper cholestremia, cerebral palsy, carpal tunnel left wrist, bipolar, left hip surgery, costochondritis. History of Any Multi-Drug Resistant Organisms: None Reported Past Surgical History: No Surgical Hx Reported Additional Past Surgical History / Comment(s): left hip surgery Past Anesthesia/Blood Transfusion Reactions: Unable to Obtain Past Psychological History: Bipolar Additional Psychological History / Comment(s): Mentally delayed Smoking Status: Never smoker Past Alcohol Use History: None Reported Past Drug Use History: None Reported - Past Family History Father History Unknown: Yes Family Medical History: No Reported History Medications and Allergies Home Medications Medication Instructions Recorded Confirmed Type Baclofen 10 mg PO TID 07/18/14 11/20/19 History Omeprazole [PriLOSEC] 20 mg PO DAILY 07/18/14 11/20/19 History Simvastatin [Zocor] 10 mg PO DAILY 07/18/14 11/20/19 History Artificial Tears-Hypromellose 1 drop BOTH EYES BID 10/12/17 11/20/19 History [Artificial Tear Drops] Bimatoprost [Lumigan .01% Ophth 1 drop BOTH EYES HS 10/12/17 11/20/19 History Soln] metFORMIN HCL ER [Glucophage Xr] 500 mg PO DAILY 10/12/17 11/20/19 History Clotrimazole/Betamethasone Dip 1 applic TOPICAL BID 01/23/18 11/20/19 History [Lotrisone Cream] FLUoxetine HCL [PROzac] 60 mg PO DAILY 01/06/19 11/20/19 History Meclizine [Antivert] 12.5 mg PO BID PRN 01/06/19 11/20/19 History cycloSPORINE [Restasis] 1 drop BOTH EYES BID 01/06/19 11/20/19 History lamoTRIgine [LaMICtal] 75 mg PO BID 01/06/19 11/20/19 History Albuterol Nebulized [Ventolin 2.5 mg INHALATION RT-Q6H PRN 11/05/19 11/20/19 History Nebulized] Budesonide [Pulmicort] 0.5 mg INHALATION RT-BID 11/05/19 11/20/19 History Carvedilol [Coreg] 12.5 mg PO BID 11/05/19 11/20/19 History Docusate [Colace] 100 mg PO DAILY 11/05/19 11/20/19 History Furosemide [Lasix] 40 mg PO DAILY 11/05/19 11/20/19 History Lisinopril [Zestril] 2.5 mg PO DAILY 11/05/19 11/20/19 History Montelukast [Singulair] 10 mg PO HS 11/05/19 11/20/19 History Ocusoft Retain Eye Lubricant 1 applic OPHTHALMIC DAILY 11/05/19 11/20/19 History guaiFENesin-Coden 100-10MG/5ML 10 ml PO Q4H PRN 3 Days #180 ml 11/18/19 11/20/19 Rx [Robitussin AC] Acetaminophen Tab [Tylenol Tab] 1,000 mg PO Q6HR PRN 11/20/19 11/20/19 History Azithromycin [Zithromax Z-pack] See Taper PO DAILY 11/20/19 11/20/19 History Calcium Carbonate 500 mg PO BID 11/20/19 11/20/19 History Cholecalciferol [Vitamin D3 (25 2,000 unit PO DAILY 11/20/19 11/20/19 History Mcg = 1000 Iu)] Guaifenesin/Dextromethorphan 10 ml PO Q4H PRN 11/20/19 11/20/19 History [Diabetic Tussin Dm Liquid] Loperamide [Imodium] 2 mg PO QID PRN 11/20/19 11/20/19 History Sennosides [Senna] 8.6 mg PO DAILY PRN 11/20/19 11/20/19 History guaiFENesin [Mucinex] 600 mg PO BID PRN 11/20/19 11/20/19 History Allergies Allergy/AdvReac Type Severity Reaction Status Date / Time amoxicillin [From Augmentin] Allergy Unknown Verified 11/20/19 11:28 clavulanic acid Allergy Unknown Verified 11/20/19 11:28 [From Augmentin] Physical Examination Vital signs: Vital Signs Temp Pulse Resp BP Pulse Ox 98.4 F 74 18 114/64 95 11/19/19 20:30 11/19/19 20:30 11/19/19 20:30 11/19/19 20:30 11/19/19 20:30 General appearance: no acute distress, alert, appears uncomfortable Eyes: nonicteric ENT: oropharynx moist Neck: supple Effort: normal Auscultation: Bilateral: wheezes Percussion: Bilateral: not dull Tactile fremitus: Bilateral: normal Cardiovascular: regular rate and rhythm Gastrointestinal: normoactive bowel sounds Integumentary: normal Extremities: no cyanosis, no edema normal mental status, non-focal exam, CN II-XII normal, motor strength normal and symmetric mood appropriate Results - Laboratory Findings CBC and BMP: 11/19/19 21:18 11/19/19 21:18 PT/INR, D-dimer PT 10.2 sec (9.0-12.0) 11/19/19 21:18 INR 1.0 (<1.2) 11/19/19 21:18 Abnormal lab findings: Abnormal Labs 11/19/19 11/19/19 11/20/19 21:18 21:18 07:02 RDW 16.1 H Lymphocytes # 0.3 L Sodium 130 L Chloride 94 L BUN 29 H Glucose 146 H POC Glucose (mg/dL) 279 H AST 41 H ALT 40 H 11/20/19 11:57 RDW Lymphocytes # Sodium Chloride BUN Glucose POC Glucose (mg/dL) 285 H AST ALT - Diagnostic Findings Chest x-ray: report reviewed (Bilateral pulmonary fibrotic changes are seen no obvious pathology noted), image reviewed Assessment and Plan Assessment: Acute exacerbation of COPD Tracheobronchitis Cerebral patency and W mentally delayed due to that Type 2 diabetes mellitus Mood disorder depression Morbid obesity Dyslipidemia GERD Hypertension hypertensive cardiovascular disease Plan: Start patient on IV steroids antibiotics and breathing treatment resume on medication follow clinical course closely Time with Patient: Greater than 30
[2019-11-20 17:07] LABS: Glucose,Whole Blood 375 mg/dL (75-99)
[2019-11-20 20:36] LABS: Glucose,Whole Blood 273 mg/dL (75-99)
[2019-11-21] MEDS ORDERED: AZITHROMYCIN 500 MG in SODIUM CHLORIDE 0.9% 250 ML IVPB SCH ×2
[2019-11-21] MEDS: methylPREDNISolone SOD SUCCI 125 MG/2 ML VIAL IV SCH ×4 (00:20→17:52)
[2019-11-21] MEDS: FUROSEMIDE 10 MG/ML 4 ML VIAL IV SCH ×2 (00:21→13:00)
[2019-11-21 07:26] LABS: Glucose,Whole Blood 225 mg/dL (75-99)
[2019-11-21] MEDS: IPRATROPIUM-ALBUTEROL 3 ML NEB INHALATION SCH ×4 (08:02→19:55)
[2019-11-21] MEDS: INSULIN ASPART (NovoLOG) 100 UNIT/ML VIAL SQ SCH ×4 (08:36→22:51)
[2019-11-21 11:57] LABS: Glucose,Whole Blood 257 mg/dL (75-99)
[2019-11-21 17:11] LABS: Glucose,Whole Blood 269 mg/dL (75-99)
[2019-11-21 20:20] LABS: Glucose,Whole Blood 361 mg/dL (75-99)
[2019-11-21] MEDS: AZITHROMYCIN 500 MG TAB PO SCH (22:57)
[2019-11-22] MEDS: FUROSEMIDE 10 MG/ML 4 ML VIAL IV SCH ×3 (00:54→23:50)
[2019-11-22] MEDS: methylPREDNISolone SOD SUCCI 125 MG/2 ML VIAL IV SCH ×5 (00:55→23:51)
[2019-11-22] MEDS: IPRATROPIUM-ALBUTEROL 3 ML NEB INHALATION SCH ×4 (07:04→20:23)
[2019-11-22 07:51] LABS: Glucose,Whole Blood 244 mg/dL (75-99)
[2019-11-22] MEDS: INSULIN ASPART (NovoLOG) 100 UNIT/ML VIAL SQ SCH ×3 (08:34→18:32)
[2019-11-22] MEDS ORDERED: LOPERAMIDE 2 MG CAP PO PRN (09:03)
[2019-11-22] MEDS ORDERED: SENNOSIDES 8.6 MG TAB PO PRN (09:03)
[2019-11-22] MEDS ORDERED: guaiFENesin 600 MG TABLET.ER PO PRN (09:03)
[2019-11-22] MEDS ORDERED: ALBUTEROL NEBULIZED 2.5 MG/3 ML INHALATION PRN (09:03)
[2019-11-22] MEDS ORDERED: ACETAMINOPHEN TAB 500 MG TAB PO PRN (09:03)
[2019-11-22] MEDS ORDERED: MECLIZINE 12.5 MG TAB PO PRN (09:03)
[2019-11-22 09:43] LABS: Anisocytosis Slight; Basophils % (A) 0 %; Eosinophils % (A) 0 %; HCT 42.2 % (34.0-46.0); HGB 12.9 gm/dL (11.4-16.0); Lymphocytes # (A) 0.5 k/uL (1.0-4.8); Lymphocytes % (A) 4 %; MCHC 30.5 g/dL (31.0-37.0); MCV 88.4 fL (80.0-100.0); Mean Platelet Volume 7.8; Monocytes # (A) 0.3 k/uL (0-1.0); Monocytes % (A) 2 %; Neutrophils # (A) 12.3 k/uL (1.3-7.7); Neutrophils % (A) 93 %; Platelet Count 276 k/uL (150-450); RBC 4.77 m/uL (3.80-5.40); RDW 16.2 % (11.5-15.5); WBC 13.2 k/uL (3.8-10.6)
[2019-11-22 09:51] LABS: AST 50 U/L (14-36); African American GFR (CKD) >90 (>60 ml/min/1.73 sqM); Albumin 3.9 g/dL (3.5-5.0); Alkaline Phosphatase 185 U/L (38-126); Anion Gap 14 mmol/L; Blood Urea Nitrogen 32 mg/dL (7-17); Calcium 8.8 mg/dL (8.4-10.2); Carbon Dioxide 28 mmol/L (22-30); Chloride 93 mmol/L (98-107); Glucose 401 mg/dL (74-99); Non-African American GFR(CKD) 86 (>60 ml/min/1.73 sqM); Potassium 3.5 mmol/L (3.5-5.1); Sodium 135 mmol/L (137-145); Total Bilirubin 0.4 mg/dL (0.2-1.3); Total Protein 7.1 g/dL (6.3-8.2)
[2019-11-22 10:01] LABS: ALT 82 U/L (4-34)
[2019-11-22] MEDS: LISINOPRIL 2.5 MG TAB PO SCH (11:30)
[2019-11-22] MEDS: FLUoxetine HCL 20 MG CAP PO SCH (11:31)
[2019-11-22] MEDS: CARVEDILOL 12.5 MG TAB PO SCH ×2 (11:31→18:33)
[2019-11-22] MEDS: lamoTRIgine 25 MG TAB PO SCH ×2 (11:38→21:10)
[2019-11-22 11:40] LABS: Glucose,Whole Blood 555 mg/dL (75-99)
[2019-11-22 11:47] LABS: Glucose,Whole Blood 510 mg/dL (75-99)
[2019-11-22] MEDS ORDERED: INSULIN REGULAR BOLUS (FROM DRIP BAG) IV ONE (12:30)
[2019-11-22] MEDS: INSULIN REGULAR 100 UNIT in SODIUM CHLORIDE 0.9% 100 ML IV SCH ×3 (13:29→17:39)
[2019-11-22 14:00] LABS: Glucose,Whole Blood 416 mg/dL (75-99)
[2019-11-22 14:39] LABS: Glucose,Whole Blood 324 mg/dL (75-99)
--- NOTE | 2019-11-22 15:08 | P.PN ---
Subjective Progress Note Date: 11/22/19 This is a 69-year-old female who is been having cough shortness of breath second visit to the ER for ongoing symptoms has been admitted into the hospital she has problems associated with developmental delay overall a poor historian not details completely obtained, possible medical history is significant for mental disorder, dysthymic syndrome, developmentally delayed due to cerebral palsy, hypercholesterolemia, carpal tunnel syndrome, bipolar disorder, costochondritis Dr. Lance covering 11/21/2019 On 11/22/2019 patient is resting comfortably in bed. Patient is anxious to go home. Patient remains on Solu-Medrol azithromycin IV Lasix. Blood sugar greater than 500 insulin drip has been started per protocol. At this time patient denies chest pain or shortness of breath. Patient denies nausea v omiting or diarrhea. Patient denies any urinary burning or frequency. Pulmonary and cardiology services are following Objective - Vital Signs Vital signs: Vital Signs Temp 97.7 F 11/22/19 07:00 Pulse 76 11/22/19 11:46 Resp 18 11/22/19 07:00 BP 149/77 11/22/19 07:00 Pulse Ox 92 L 11/22/19 07:00 Intake & Output 11/21/19 11/22/19 11/22/19 18:59 06:59 18:59 Weight 66.5 kg Other: Voiding Method Diaper Diaper Incontinent Incontinent # Voids 3 1 - Exam Head normocephalic Neck supple Lungs diminished bilaterally with some expiratory wheezing Heart regular rate and rhythm S1-S2, no rub or gallop Abdomen is soft nontender nondistended positive bowel sounds no hepatosplenomegaly Extremities no edema Neuro alert and orientated to 3. Developmentally delayed - Labs CBC & Chem 7: 11/22/19 09:20 11/22/19 09:20 Labs: Abnormal Lab Results - Last 24 Hours (Table) 11/21/19 11/21/19 11/22/19 Range/Units 17:09 20:18 07:49 WBC (3.8-10.6) k/uL MCHC (31.0-37.0) g/dL RDW (11.5-15.5) % Neutrophils # (1.3-7.7) k/uL Lymphocytes # (1.0-4.8) k/uL Sodium (137-145) mmol/L Chloride (98-107) mmol/L BUN (7-17) mg/dL Glucose (74-99) mg/dL POC Glucose (mg/dL) 269 H 361 H 244 H (75-99) mg/dL AST (14-36) U/L ALT (4-34) U/L Alkaline Phosphatase (38-126) U/L 11/22/19 11/22/19 11/22/19 Range/Units 09:20 09:20 11:39 WBC 13.2 H (3.8-10.6) k/uL MCHC 30.5 L (31.0-37.0) g/dL RDW 16.2 H (11.5-15.5) % Neutrophils # 12.3 H (1.3-7.7) k/uL Lymphocytes # 0.5 L (1.0-4.8) k/uL Sodium 135 L (137-145) mmol/L Chloride 93 L (98-107) mmol/L BUN 32 H (7-17) mg/dL Glucose 401 H (74-99) mg/dL POC Glucose (mg/dL) 555 H (75-99) mg/dL AST 50 H (14-36) U/L ALT 82 H (4-34) U/L Alkaline Phosphatase 185 H (38-126) U/L 11/22/19 11/22/19 Range/Units 11:45 13:58 WBC (3.8-10.6) k/uL MCHC (31.0-37.0) g/dL RDW (11.5-15.5) % Neutrophils # (1.3-7.7) k/uL Lymphocytes # (1.0-4.8) k/uL Sodium (137-145) mmol/L Chloride (98-107) mmol/L BUN (7-17) mg/dL Glucose (74-99) mg/dL POC Glucose (mg/dL) 510 H 416 H (75-99) mg/dL AST (14-36) U/L ALT (4-34) U/L Alkaline Phosphatase (38-126) U/L Microbiology - Last 24 Hours (Table) 11/20/19 01:18 Blood Culture - Preliminary Blood No Growth after 48 hours Assessment and Plan Assessment: 1. Shortness breath related to acute exacerbation of COPD. Patient currently maintained on Solu-Medrol. 2. Acute Tracheobronchitis. Pulmonary services have been consulted. Patient maintained on azithromycin 3. Abdominal pain. Abdominal pelvis CT completed showing interstitial pulmonary edema and atelectasis at the lung bases mild cardiomegaly normal appendix no renal stones or obstruction. Gallbladder ultrasound completed showing negative exam no dilated ducts no free fluid 4. Possible CHF exacerbation patient currently on IV Lasix cardiology services have been consulted. 2-D echo performed in January 2019 revealing normal left ventricular systolic function 5. Diabetes mellitus type 2 with hyperglycemia blood sugars greater than 500 patient started on insulin drip per protocol likely secondary to IV steroids 6. Elevated liver enzymes. Lipitor currently on hold we'll continue to monitor 7. Cerebral palsy with developmental delay 8. Hyperlipidemia. Statin On hold due to elevated liver enzymes 9. History of essential hypertension home medications resumed 10. Mood disorder depression DVT prophylaxis Lovenox. GI prophylaxis Protonix I performed an examination of the patient and discussed their management with the Nurse Practitioner. I have reviewed the Nurse Practitioner's notes and agree with the documented findings and plan of care
[2019-11-22 15:16] LABS: Glucose,Whole Blood 223 mg/dL (75-99)
--- NOTE | 2019-11-22 15:32 | CONS ---
CONSULTATION Rosmery Shirley is a 69-year-old female with a history of cerebral palsy, who comes in with increasing shortness of breath and cough for about 2-3 days' duration. She had no clear fever or chills and subsequently was admitted for further evaluation and management. PAST MEDICAL HISTORY: Positive for cerebral palsy, costochondritis, arthritis, diabetes mellitus type 2, hypercholesterolemia, hypertension, vertigo, previous hip surgery. FAMILY HISTORY: Noncontributory. SOCIAL HISTORY: Patient is a never smoker. Does not drink alcohol excessively. MEDICATIONS: Prior to admission medications were metformin, Lamictal, guaifenesin, Mucinex, Robitussin, Zocor, senna, Prilosec, Singulair, Antivert, Imodium, guaifenesin with dextromethorphan, Lasix, Prozac, Lotrisone, vitamin D3, Coreg, calcium carbonate, Pulmicort, Lumigan eye drops, baclofen, Zithromax, artificial tear drops, Ventolin nebulized, and Tylenol. PHYSICAL EXAMINATION: She was sitting in a chair. Her respiratory rate was 18, pulse rate of 82, temperature 98.6, blood pressure 133/77, O2 saturation on room is 92%. HEENT: Reveals pupils that are equal. Chest reveals prolonged exhalation. No clear wheeze. Cardiovascular system reveals an S1, S2. Abdomen is soft. There is no pedal edema. Blood cultures have been negative. Gallbladder ultrasound showed surgically absent gallbladder. LABS: Reveal a white count of 13.2, hemoglobin 12.9, and platelet count of 276,000. Sodium 135, potassium 3.5, chloride 93, bicarb 28, BUN 32, creatinine 0.71, previously, her eosinophil count had been 0.4000 on 11/08/2019 and on 01/23/2018. IMPRESSION: 1. Severe eosinophilic asthma with acute exacerbation. 2. Cerebral palsy. At this point in time, keep her on bronchodilators, IV and aerosolized steroids, GI and DVT prophylaxis. Control her sugars using insulin as she is a type 2 diabetic. Increase activity level. She may be a candidate for anti-eosinophilic monoclonal antibody which we will discuss with her in the outpatient setting. Depending on how she does, we shall make further changes to her care. MMODL / IJN: [id number] /
[2019-11-22] MEDS: BACLOFEN 10 MG TAB PO SCH ×2 (16:46→21:09)
[2019-11-22 17:08] LABS: Glucose,Whole Blood 170 mg/dL (75-99)
[2019-11-22 18:14] LABS: Hemoglobin A1C 7.2 % (4.0-6.0)
[2019-11-22 19:11] LABS: Glucose,Whole Blood 199 mg/dL (75-99)
[2019-11-22] MEDS: BUDESONIDE 0.5 MG/2 ML NEBU INHALATION SCH (20:23)
[2019-11-22 21:04] LABS: Glucose,Whole Blood 334 mg/dL (75-99)
[2019-11-22] MEDS: CALCIUM CARBONATE 500 MG CHEWABLE PO SCH (21:09)
[2019-11-22] MEDS: MONTELUKAST 10 MG TAB PO SCH (21:09)
[2019-11-22] MEDS: ARTIFICIAL TEARS-HYPROMELLOSE DROPS 15 ML BTL BOTH EYES SCH (21:10)
[2019-11-22] MEDS: AZITHROMYCIN 500 MG TAB PO SCH (21:10)
[2019-11-22] MEDS: cycloSPORINE 0.05% OPHTH 0.4 ML DROPERETTE BOTH EYES SCH (21:10)
[2019-11-22] MEDS: LATANOPROST 0.005% OPHTH DROPS 2.5 ML BTL BOTH EYES SCH (21:10)
[2019-11-22] MEDS: CLOTRIMAZOLE/BETAMETH 1-0.05% CREAM 45 GM TUBE TOPICAL SCH (21:41)
[2019-11-22 23:07] LABS: Glucose,Whole Blood 295 mg/dL (75-99)
[2019-11-23 01:00] LABS: Glucose,Whole Blood 343 mg/dL (75-99)
[2019-11-23] MEDS: INSULIN REGULAR 100 UNIT in SODIUM CHLORIDE 0.9% 100 ML IV SCH ×7 (01:04→22:07)
[2019-11-23 02:58] LABS: Glucose,Whole Blood 173 mg/dL (75-99)
[2019-11-23 05:03] LABS: Glucose,Whole Blood 148 mg/dL (75-99)
[2019-11-23] MEDS: methylPREDNISolone SOD SUCCI 125 MG/2 ML VIAL IV SCH ×4 (05:03→23:42)
[2019-11-23 07:12] LABS: Glucose,Whole Blood 189 mg/dL (75-99)
[2019-11-23 07:19] LABS: Anisocytosis Slight; Basophils % (A) 0 %; Eosinophils % (A) 0 %; HCT 39.1 % (34.0-46.0); HGB 12.2 gm/dL (11.4-16.0); Lymphocytes # (A) 0.9 k/uL (1.0-4.8); Lymphocytes % (A) 7 %; MCH 26.9 pg (25.0-35.0); MCHC 31.2 g/dL (31.0-37.0); MCV 86.4 fL (80.0-100.0); Mean Platelet Volume 7.9; Monocytes # (A) 0.5 k/uL (0-1.0); Monocytes % (A) 4 %; Neutrophils # (A) 11.9 k/uL (1.3-7.7); Neutrophils % (A) 89 %; Platelet Count 255 k/uL (150-450); RBC 4.53 m/uL (3.80-5.40); RDW 16.2 % (11.5-15.5); WBC 13.4 k/uL (3.8-10.6)
[2019-11-23 07:29] LABS: ALT 66 U/L (4-34); AST 31 U/L (14-36); African American GFR (CKD) >90 (>60 ml/min/1.73 sqM); Albumin 3.6 g/dL (3.5-5.0); Alkaline Phosphatase 143 U/L (38-126); Anion Gap 7 mmol/L; Blood Urea Nitrogen 37 mg/dL (7-17); Carbon Dioxide 33 mmol/L (22-30); Chloride 95 mmol/L (98-107); Glucose 161 mg/dL (74-99); Non-African American GFR(CKD) 89 (>60 ml/min/1.73 sqM); Potassium 3.8 mmol/L (3.5-5.1); Sodium 135 mmol/L (137-145); Total Bilirubin 0.3 mg/dL (0.2-1.3); Total Protein 6.7 g/dL (6.3-8.2)
[2019-11-23] MEDS: INSULIN ASPART (NovoLOG) 100 UNIT/ML VIAL SQ SCH ×3 (08:41→16:40)
[2019-11-23] MEDS: metFORMIN 500 MG TAB PO SCH ×2 (08:55→22:02)
[2019-11-23] MEDS: FLUoxetine HCL 20 MG CAP PO SCH (08:55)
[2019-11-23] MEDS: lamoTRIgine 25 MG TAB PO SCH ×2 (08:55→22:01)
[2019-11-23] MEDS: DOCUSATE 100 MG CAP PO SCH (08:56)
[2019-11-23] MEDS: ARTIFICIAL TEARS-HYPROMELLOSE DROPS 15 ML BTL BOTH EYES SCH ×2 (08:56→22:00)
[2019-11-23] MEDS: PANTOPRAZOLE 40 MG TABLET PO SCH (08:56)
[2019-11-23] MEDS: CHOLECALCIFEROL 1,000 UNIT TAB PO SCH (08:56)
[2019-11-23] MEDS: LISINOPRIL 2.5 MG TAB PO SCH (08:56)
[2019-11-23] MEDS: CALCIUM CARBONATE 500 MG CHEWABLE PO SCH ×2 (08:56→22:02)
[2019-11-23] MEDS: CARVEDILOL 12.5 MG TAB PO SCH ×2 (08:56→16:40)
[2019-11-23] MEDS: BACLOFEN 10 MG TAB PO SCH ×3 (08:56→22:01)
[2019-11-23] MEDS: CLOTRIMAZOLE/BETAMETH 1-0.05% CREAM 45 GM TUBE TOPICAL SCH ×2 (08:57→22:02)
[2019-11-23] MEDS: ENOXAPARIN 40 MG/0.4 ML SYRINGE SQ SCH (08:57)
[2019-11-23] MEDS: cycloSPORINE 0.05% OPHTH 0.4 ML DROPERETTE BOTH EYES SCH ×2 (08:57→22:01)
[2019-11-23] MEDS ORDERED: ATORVASTATIN 10 MG TAB PO SCH (09:00)
[2019-11-23] MEDS ORDERED: [UNRECOGNIZED DRUG - OTHER] OPHTHALMIC SCH (09:00)
[2019-11-23] MEDS: IPRATROPIUM-ALBUTEROL 3 ML NEB INHALATION SCH ×4 (09:05→21:43)
[2019-11-23] MEDS: BUDESONIDE 0.5 MG/2 ML NEBU INHALATION SCH ×2 (09:05→21:43)
[2019-11-23 09:43] LABS: Glucose,Whole Blood 258 mg/dL (75-99)
--- NOTE | 2019-11-23 10:34 | P.CRDCN ---
History of Present Illness History of present illness: HISTORY OF PRESENTING ILLNESS This is a pleasant 69-year-old female past medical history significant for hypertension, diabetes mellitus and developmental delay. She denies prior history of coronary artery disease and does not follow in the office with a radiologic technology program director. We have been asked to see in consultation for CHF. She presented to the hospital with cough, congestion and shortness of breath. Patient is somewhat of a poor historian, information is obtained from nursing staff and main campus medical center record. Chest x-ray on admission reveals pulmonary fibrotic changes significantly different from previous exam. No heart failure. She had also come in the day before for similar symptoms and was sent home from the ER. CT of the abdomen pelvis reveals interstitial edema and atelectasis with mild cardiomegaly. Gallbladder ultrasound normal. She is also been seen in consultation by pulmonary services. She is currently being treated for an acute exacerbation of eosinophilic asthma. She is maintained on bronchodilators and IV steroids and oral antibiotics. She denies symptoms of chest pain, dizziness or palpitations. She continues to feel mildly short of breath at rest. She recently underwent a dobutamine stress echocardiogram 01/06/2020 secondary to chest discomfort that was normal with no evidence of stress-induced ischemia. Most recent echocardiogram obtained January 2019 revealed preserved LV systolic function with hyperdynamic LV function, ejection fraction greater than 70%. DIAGNOSTICS EKG reveals sinus mechanism with no acute ST or T wave abnormalities noted. Laboratory reviewed, WBC 13.4, hemoglobin 12.2, platelets 255, sodium 135, potassium 3.8, creatinine 0.66, hemoglobin A1c 7.2, cardiac enzymes negative 1, alkaline phosphate 143, NT proBNP 110. Current cardiac medications include simvastatin 10 mg daily, lisinopril 2.5 mg daily, Lasix 40 mg daily and carvedilol 12.5 mg twice a day. REVIEW OF SYSTEMS At the time of my exam: CONSTITUTIONAL: Denies fever or chills. CARDIOVASCULAR: Denies chest pain, shortness of breath, orthopnea, PND or palpitations. RESPIRATORY: Complains of cough. GASTROINTESTINAL: Denies abdominal pain, diarrhea, constipation, nausea or vomiting. MUSCULOSKELETAL: Denies myalgias. NEUROLOGIC: Denies numbness, tingling or weakness. ENDOCRINE: Denies fatigue, weight change, polydipsia or polyurina. GENITOURINARY: Denies burning, hematuria or urgency with micturation. HEMATOLOGIC: Denies history of anemia or bleeding. PHYSICAL EXAMINATION Blood pressure 151/78 heart rate 76 afebrile and maintaining oxygen saturation on room air. CONSTITUTIONAL: No apparent distress. HEENT: Head is normocephalic. Pupils are equal, round. Sclerae anicteric. Mucous membranes of the mouth are moist. No JVD. No carotid bruit. CHEST EXAMINATION: No rales or rhonchi. No chest wall tenderness is noted on palpation or with deep breathing. Diminished bilaterally. Faint expiratory wheeze noted. HEART EXAMINATION: Regular rate and rhythm. S1, S2 heard. No murmurs, gallops or rub. ABDOMEN: Soft, nontender. Positive bowel sounds. EXTREMITIES: 2+ peripheral pulses, no lower extremity edema and no calf tenderness. NEUROLOGIC EXAMINATION: Patient is awake, alert and oriented x3. ASSESSMENT Acute exacerbation of eosinophilic asthma Hypertension Diabetes mellitus Developmental delay Cerebral palsy PLAN Clinically the patient is euvolemic. No evidence to suggest heart failure. Recommend initiation of atorvastatin 40 mg daily for cardioprotective use secondary to diabetes mellitus. Ongoing medical management per primary care team and pulmonary. We will follow as needed, thank you kindly for this consultation. Nurse Practitioner note has been reviewed, I agree with a documented findings and plan of care. Patient was seen and examined. Past Medical History Past Medical History: Chest Pain / Angina, Diabetes Mellitus, Hypertension Additional Past Medical History / Comment(s): dysthymic disorder, mental disorder, hyper cholestremia, cerebral palsy, carpal tunnel left wrist, bipolar, left hip surgery, costochondritis. History of Any Multi-Drug Resistant Organisms: None Reported Past Surgical History: No Surgical Hx Reported Additional Past Surgical History / Comment(s): left hip surgery Past Anesthesia/Blood Transfusion Reactions: Unable to Obtain Past Psychological History: Bipolar Additional Psychological History / Comment(s): Mentally delayed Smoking Status: Never smoker Past Alcohol Use History: None Reported Past Drug Use History: None Reported - Past Family History Father History Unknown: Yes Family Medical History: No Reported History Medications and Allergies Home Medications Medication Instructions Recorded Confirmed Type Baclofen 10 mg PO TID 07/18/14 11/20/19 History Omeprazole [PriLOSEC] 20 mg PO DAILY 07/18/14 11/20/19 History Simvastatin [Zocor] 10 mg PO DAILY 07/18/14 11/20/19 History Artificial Tears-Hypromellose 1 drop BOTH EYES BID 10/12/17 11/20/19 History [Artificial Tear Drops] Bimatoprost [Lumigan .01% Ophth 1 drop BOTH EYES HS 10/12/17 11/20/19 History Soln] metFORMIN HCL ER [Glucophage Xr] 500 mg PO DAILY 10/12/17 11/20/19 History Clotrimazole/Betamethasone Dip 1 applic TOPICAL BID 01/23/18 11/20/19 History [Lotrisone Cream] FLUoxetine HCL [PROzac] 60 mg PO DAILY 01/06/19 11/20/19 History Meclizine [Antivert] 12.5 mg PO BID PRN 01/06/19 11/20/19 History cycloSPORINE [Restasis] 1 drop BOTH EYES BID 01/06/19 11/20/19 History lamoTRIgine [LaMICtal] 75 mg PO BID 01/06/19 11/20/19 History Albuterol Nebulized [Ventolin 2.5 mg INHALATION RT-Q6H PRN 11/05/19 11/20/19 History Nebulized] Budesonide [Pulmicort] 0.5 mg INHALATION RT-BID 11/05/19 11/20/19 History Carvedilol [Coreg] 12.5 mg PO BID 11/05/19 11/20/19 History Docusate [Colace] 100 mg PO DAILY 11/05/19 11/20/19 History Furosemide [Lasix] 40 mg PO DAILY 11/05/19 11/20/19 History Lisinopril [Zestril] 2.5 mg PO DAILY 11/05/19 11/20/19 History Montelukast [Singulair] 10 mg PO HS 11/05/19 11/20/19 History Ocusoft Retain Eye Lubricant 1 applic OPHTHALMIC DAILY 11/05/19 11/20/19 History guaiFENesin-Coden 100-10MG/5ML 10 ml PO Q4H PRN 3 Days #180 ml 11/18/19 11/20/19 Rx [Robitussin AC] Acetaminophen Tab [Tylenol Tab] 1,000 mg PO Q6HR PRN 11/20/19 11/20/19 History Azithromycin [Zithromax Z-pack] See Taper PO DAILY 11/20/19 11/20/19 History Calcium Carbonate 500 mg PO BID 11/20/19 11/20/19 History Cholecalciferol [Vitamin D3 (25 2,000 unit PO DAILY 11/20/19 11/20/19 History Mcg = 1000 Iu)] Guaifenesin/Dextromethorphan 10 ml PO Q4H PRN 11/20/19 11/20/19 History [Diabetic Tussin Dm Liquid] Loperamide [Imodium] 2 mg PO QID PRN 11/20/19 11/20/19 History Sennosides [Senna] 8.6 mg PO DAILY PRN 11/20/19 11/20/19 History guaiFENesin [Mucinex] 600 mg PO BID PRN 11/20/19 11/20/19 History Allergies Allergy/AdvReac Type Severity Reaction Status Date / Time amoxicillin [From Augmentin] Allergy Unknown Verified 11/20/19 11:28 clavulanic acid Allergy Unknown Verified 11/20/19 11:28 [From Augmentin] Physical Exam Vitals: Vital Signs Temp Pulse Pulse Resp BP Pulse Ox 11/23/19 09:12 76 11/23/19 09:00 76 11/23/19 07:00 98.1 F 62 16 151/78 94 L 11/23/19 00:58 98.3 F 63 16 125/74 96 11/22/19 18:52 97.8 F 77 16 118/72 96 11/22/19 16:42 77 16 11/22/19 16:32 74 16 11/22/19 15:00 98.4 F 81 18 148/76 90 L 11/22/19 11:46 76 11/22/19 11:32 78 Intake and Output 11/22/19 11/23/19 11/23/19 22:59 06:59 14:59 Intake Total 267.033 50.417 9.533 Balance 267.033 50.417 9.533 Intake: Intake, IV Titration 27.033 50.417 9.533 Amount Insulin Regular 100 unit 27.033 50.417 9.533 In Sodium Chloride 0.9% 100 ml @ Titrate IV .Q0M [facility] Rx#:[id number] Oral 240 Other: Voiding Method Diaper Diaper Incontinent Incontinent # Voids 1 1 Weight 48.5 kg Results 11/23/19 06:24 11/23/19 06:24 Cardiac Enzymes 11/22/19 11/23/19 Range/Units 09:20 06:24 AST 50 H 31 (14-36) U/L CBC 11/23/19 Range/Units 06:24 WBC 13.4 H (3.8-10.6) k/uL RBC 4.53 (3.80-5.40) m/uL Hgb 12.2 (11.4-16.0) gm/dL Hct 39.1 (34.0-46.0) % Plt Count 255 (150-450) k/uL Comprehensive Metabolic Panel 11/22/19 11/23/19 Range/Units 09:20 06:24 Sodium 135 L 135 L (137-145) mmol/L Potassium 3.5 3.8 (3.5-5.1) mmol/L Chloride 93 L 95 L (98-107) mmol/L Carbon Dioxide 28 33 H (22-30) mmol/L BUN 32 H 37 H (7-17) mg/dL Creatinine 0.71 0.66 (0.52-1.04) mg/dL Glucose 401 H 161 H (74-99) mg/dL Calcium 8.8 9.0 (8.4-10.2) mg/dL AST 50 H 31 (14-36) U/L ALT 82 H 66 H (4-34) U/L Alkaline Phosphatase 185 H 143 H (38-126) U/L Total Protein 7.1 6.7 (6.3-8.2) g/dL Albumin 3.9 3.6 (3.5-5.0) g/dL Current Medications Generic Name Dose Route Start Last Admin Trade Name Freq PRN Reason Stop Dose Admin Acetaminophen 1,000 mg 11/22/19 09:03 Tylenol Tab PO Q6HR PRN Pain or Fever > 100.5 Albuterol Sulfate 2.5 mg 11/22/19 09:03 Ventolin Nebulized INHALATION RT-Q6H PRN Shortness Of Breath Albuterol/Ipratropium 3 ml 11/20/19 08:00 11/23/19 09:05 Duoneb 0.5 Mg-3 Mg/3 Ml Soln INHALATION 3 ml RT-QID MO Administration Artificial Tears 1 drops 11/22/19 21:00 11/23/19 08:56 Artificial Tear Drops BOTH EYES 1 drops BID MO Administration Azithromycin 500 mg 11/21/19 22:00 11/22/19 21:10 Zithromax PO 500 mg Q24H MO Administration Baclofen 10 mg 11/22/19 16:00 11/23/19 08:56 Lioresal PO 10 mg TID MO Administration Betamethasone/Clotrimazole 1 applic 11/22/19 21:00 11/23/19 08:57 Lotrisone TOPICAL Not Given BID [facility] Budesonide 0.5 mg 11/22/19 20:00 11/23/19 09:05 Pulmicort INHALATION 0.5 mg RT-BID MO Administration Calcium Carbonate/Glycine 500 mg 11/22/19 21:00 11/23/19 08:56 Tums PO 500 mg BID [facility] Administration Carvedilol 12.5 mg 11/22/19 09:15 11/23/19 08:56 Coreg PO 12.5 mg BID-W/MEALS MO Administration Cholecalciferol 2,000 unit 11/23/19 09:00 11/23/19 08:56 Vitamin D3 (25 Mcg = 1000 Iu) PO 2,000 unit DAILY [facility] Administration Cyclosporine 1 drops 11/22/19 21:00 11/23/19 08:57 Restasis 0.05% Ophth Soln BOTH EYES 1 drops BID [facility] Administration Docusate Sodium 100 mg 11/23/19 09:00 11/23/19 08:56 Colace PO 100 mg DAILY MO Administration Enoxaparin Sodium 40 mg 11/23/19 09:00 11/23/19 08:57 Lovenox SQ 40 mg DAILY MO Administration Fluoxetine HCl 60 mg 11/22/19 09:15 11/23/19 08:55 Prozac PO 60 mg DAILY [facility] Administration Furosemide 40 mg 11/20/19 00:45 11/22/19 23:50 Lasix IV 40 mg Q12H MO Administration Guaifenesin 600 mg 11/22/19 09:03 Mucinex PO BID PRN Congestion Insulin Human Regular 100 unit 101 mls @ 0 mls/hr 11/22/19 12:15 11/23/19 09:42 / Sodium Chloride IV 2.5 ml/hr .Q0M MO 5 mls/hr Administration Protocol Titrate Insulin Aspart 9 unit 11/22/19 12:30 11/23/19 08:41 Novolog 0.13 unit/kg (9 unit) Not Given SQ AC-TID MO Lamotrigine 75 mg 11/22/19 09:15 11/23/19 08:55 Lamictal PO 75 mg BID MO Administration Latanoprost 1 drops 11/22/19 21:00 11/22/19 21:10 Xalatan 0.005% BOTH EYES 1 drops HS MO Administration Lisinopril 2.5 mg 11/22/19 09:15 11/23/19 08:56 Zestril PO 2.5 mg DAILY MO Administration Loperamide HCl 2 mg 11/22/19 09:03 Imodium PO QID PRN Loose Stool Meclizine HCl 12.5 mg 11/22/19 09:03 Antivert PO BID PRN DIZZINESS Metformin HCl 250 mg 11/23/19 09:00 11/23/19 08:55 Glucophage PO 250 mg BID [facility] Administration Methylprednisolone Sodium Succinate 60 mg 11/20/19 06:00 11/23/19 05:03 Solu-Medrol IV 60 mg Q6HR [facility] Administration Montelukast Sodium 10 mg 11/22/19 21:00 11/22/19 21:09 Singulair PO 10 mg HS [facility] Administration Pantoprazole Sodium 40 mg 11/23/19 07:30 11/23/19 08:56 Protonix PO 40 mg AC-BRKFST [facility] Administration Senna 8.6 mg 11/22/19 09:03 Senokot PO DAILY PRN Constipation Intake and Output 11/22/19 11/23/19 11/23/19 22:59 06:59 14:59 Intake Total 267.033 50.417 9.533 Balance 267.033 50.417 9.533 Intake: Intake, IV Titration 27.033 50.417 9.533 Amount Insulin Regular 100 unit 27.033 50.417 9.533 In Sodium Chloride 0.9% 100 ml @ Titrate IV .Q0M [facility] Rx#:[id number] Oral 240 Other: Voiding Method Diaper Diaper Incontinent Incontinent # Voids 1 1 Weight 48.5 kg 11/23/19 06:24 11/23/19 06:24
[2019-11-23 11:32] LABS: Glucose,Whole Blood 221 mg/dL (75-99)
--- NOTE | 2019-11-23 12:18 | P.PN ---
Subjective Progress Note Date: 11/23/19 This is a 69-year-old female who is been having cough shortness of breath second visit to the ER for ongoing symptoms has been admitted into the hospital she has problems associated with developmental delay overall a poor historian not details completely obtained, possible medical history is significant for mental disorder, dysthymic syndrome, developmentally delayed due to cerebral palsy, hypercholesterolemia, carpal tunnel syndrome, bipolar disorder, costochondritis Dr. Lance covering 11/21/2019 On 11/22/2019 patient is resting comfortably in bed. Patient is anxious to go home. Patient remains on Solu-Medrol azithromycin IV Lasix. Blood sugar greater than 500 insulin drip has been started per protocol. At this time patient denies chest pain or shortness of breath. Patient denies nausea v omiting or diarrhea. Patient denies any urinary burning or frequency. Pulmonary and cardiology services are following On 11/23/2019 patient is sitting comfortably in chair. Patient remains on IV Solu-Medrol per pulmonary services. Pulmonary and cardiology services following. Patient remains on insulin drip. Blood sugars have improved. At this time patient denies chest pain or shortness breath. Patient denies nausea vomiting or diarrhea. Patient denies any urinary burning or frequency. Objective - Vital Signs Vital signs: Vital Signs Temp 98.1 F 11/23/19 07:00 Pulse 76 11/23/19 09:12 Resp 16 11/23/19 07:00 BP 151/78 11/23/19 07:00 Pulse Ox 94 L 11/23/19 07:00 Intake & Output 11/22/19 11/23/19 11/23/19 18:59 06:59 18:59 Intake Total 54.483 298.467 18.700 Balance 54.483 298.467 18.700 Weight 48.5 kg Intake: Intake, IV Titration 54.483 58.467 18.700 Amount Insulin Regular 100 unit 54.483 58.467 18.700 In Sodium Chloride 0.9% 100 ml @ Titrate IV .Q0M [facility] Rx#:[id number] Oral 240 Other: Voiding Method Diaper Diaper Incontinent Incontinent # Voids 3 1 # Bowel Movements 1 - Exam Head normocephalic Neck supple Lungs diminished bilaterally with some expiratory wheezing Heart regular rate and rhythm S1-S2, no rub or gallop Abdomen is soft nontender nondistended positive bowel sounds no hepatosplenomegaly Extremities no edema Neuro alert and orientated to 3. Developmentally delayed - Labs CBC & Chem 7: 11/23/19 06:24 11/23/19 06:24 Labs: Abnormal Lab Results - Last 24 Hours (Table) 11/22/19 11/22/19 11/22/19 Range/Units 09:20 13:58 14:37 WBC (3.8-10.6) k/uL RDW (11.5-15.5) % Neutrophils # (1.3-7.7) k/uL Lymphocytes # (1.0-4.8) k/uL Sodium (137-145) mmol/L Chloride (98-107) mmol/L Carbon Dioxide (22-30) mmol/L BUN (7-17) mg/dL Glucose (74-99) mg/dL POC Glucose (mg/dL) 416 H 324 H (75-99) mg/dL Hemoglobin A1c 7.2 H (4.0-6.0) % ALT (4-34) U/L Alkaline Phosphatase (38-126) U/L 11/22/19 11/22/19 11/22/19 Range/Units 15:14 17:06 19:10 WBC (3.8-10.6) k/uL RDW (11.5-15.5) % Neutrophils # (1.3-7.7) k/uL Lymphocytes # (1.0-4.8) k/uL Sodium (137-145) mmol/L Chloride (98-107) mmol/L Carbon Dioxide (22-30) mmol/L BUN (7-17) mg/dL Glucose (74-99) mg/dL POC Glucose (mg/dL) 223 H 170 H 199 H (75-99) mg/dL Hemoglobin A1c (4.0-6.0) % ALT (4-34) U/L Alkaline Phosphatase (38-126) U/L 11/22/19 11/22/19 11/23/19 Range/Units 21:01 23:01 00:56 WBC (3.8-10.6) k/uL RDW (11.5-15.5) % Neutrophils # (1.3-7.7) k/uL Lymphocytes # (1.0-4.8) k/uL Sodium (137-145) mmol/L Chloride (98-107) mmol/L Carbon Dioxide (22-30) mmol/L BUN (7-17) mg/dL Glucose (74-99) mg/dL POC Glucose (mg/dL) 334 H 295 H 343 H (75-99) mg/dL Hemoglobin A1c (4.0-6.0) % ALT (4-34) U/L Alkaline Phosphatase (38-126) U/L 11/23/19 11/23/19 11/23/19 Range/Units 02:56 05:02 06:24 WBC 13.4 H (3.8-10.6) k/uL RDW 16.2 H (11.5-15.5) % Neutrophils # 11.9 H (1.3-7.7) k/uL Lymphocytes # 0.9 L (1.0-4.8) k/uL Sodium (137-145) mmol/L Chloride (98-107) mmol/L Carbon Dioxide (22-30) mmol/L BUN (7-17) mg/dL Glucose (74-99) mg/dL POC Glucose (mg/dL) 173 H 148 H (75-99) mg/dL Hemoglobin A1c (4.0-6.0) % ALT (4-34) U/L Alkaline Phosphatase (38-126) U/L 11/23/19 11/23/19 11/23/19 Range/Units 06:24 07:08 09:41 WBC (3.8-10.6) k/uL RDW (11.5-15.5) % Neutrophils # (1.3-7.7) k/uL Lymphocytes # (1.0-4.8) k/uL Sodium 135 L (137-145) mmol/L Chloride 95 L (98-107) mmol/L Carbon Dioxide 33 H (22-30) mmol/L BUN 37 H (7-17) mg/dL Glucose 161 H (74-99) mg/dL POC Glucose (mg/dL) 189 H 258 H (75-99) mg/dL Hemoglobin A1c (4.0-6.0) % ALT 66 H (4-34) U/L Alkaline Phosphatase 143 H (38-126) U/L 11/23/19 Range/Units 11:30 WBC (3.8-10.6) k/uL RDW (11.5-15.5) % Neutrophils # (1.3-7.7) k/uL Lymphocytes # (1.0-4.8) k/uL Sodium (137-145) mmol/L Chloride (98-107) mmol/L Carbon Dioxide (22-30) mmol/L BUN (7-17) mg/dL Glucose (74-99) mg/dL POC Glucose (mg/dL) 221 H (75-99) mg/dL Hemoglobin A1c (4.0-6.0) % ALT (4-34) U/L Alkaline Phosphatase (38-126) U/L Microbiology - Last 24 Hours (Table) 11/20/19 01:18 Blood Culture - Preliminary Blood No Growth after 72 hours Assessment and Plan Assessment: 1. Shortness breath related to acute exacerbation of COPD. Patient currently maintained on Solu-Medrol. 2. Acute Tracheobronchitis. Pulmonary services have been consulted. Patient maintained on azithromycin 3. Abdominal pain. Abdominal pelvis CT completed showing interstitial pulmonary edema and atelectasis at the lung bases mild cardiomegaly normal appendix no renal stones or obstruction. Gallbladder ultrasound completed showing negative exam no dilated ducts no free fluid 4. Possible CHF exacerbation patient currently on IV Lasix cardiology services have been consulted. 2-D echo performed in January 2019 revealing normal left ventricular systolic function. Cardiology services are following 5. Diabetes mellitus type 2 with hyperglycemia blood sugars greater than 500 patient started on insulin drip per protocol likely secondary to IV steroids 6. Elevated liver enzymes. Lipitor currently on hold we'll continue to monitor 7. Cerebral palsy with developmental delay 8. Hyperlipidemia. Statin On hold due to elevated liver enzymes 9. History of essential hypertension home medications resumed 10. Mood disorder depression DVT prophylaxis Lovenox. GI prophylaxis Protonix I performed an examination of the patient and discussed their management with the Nurse Practitioner. I have reviewed the Nurse Practitioner's notes and agree with the documented findings and plan of care
[2019-11-23 13:48] LABS: Glucose,Whole Blood 204 mg/dL (75-99)
[2019-11-23] MEDS: FUROSEMIDE 10 MG/ML 4 ML VIAL IV SCH ×2 (13:54→23:42)
[2019-11-23 15:57] LABS: Glucose,Whole Blood 267 mg/dL (75-99)
--- NOTE | 2019-11-23 17:43 | PN ---
PROGRESS NOTE DATE OF SERVICE: 11/23/2019 The patient is a 69-year-old female who is seen sitting up in bed, is awake, alert, a bit anxious that she may be going home today. The patient is on an insulin drip, is hemodynamically stable, afebrile, in no acute distress. PHYSICAL EXAMINATION: VITAL SIGNS: Temperature is 98.0, heart rate is 69, respiratory rate is 18, blood pressure is 138/76, oxygen saturation is 95% on room air. HEENT: Head is normocephalic, atraumatic. NECK: Neck is supple. Trachea is midline. LUNGS: With decreased breath sounds and fine expiratory wheeze. HEART: S1 and S2 are heard. Not tachycardic. ABDOMEN: Abdomen is soft. Bowel sounds are positive. EXTREMITIES: With no edema. NEUROLOGIC: The patient is awake and alert. LABS: No new labs to review. IMAGING: No imaging to review. IMPRESSION: 1. Severe eosinophilic asthma with acute exacerbation. 2. Cerebral palsy. PLAN: Continue current medications, which have been reviewed. Continue bronchodilators, intravenous and aerosolized steroids. Continue GI and DVT prophylaxes. Continue to control hyperglycemia as patient is type 2 diabetic and receiving intravenous steroids. Increase activity as tolerated. The patient should be up in chair for meals. The patient may be a candidate for anti-eosinophilic monoclonal antibody treatment, which again was discussed with the patient and will be followed further in the outpatient setting. We will follow the patient closely with you making further changes as necessary. MMODL / IJN: [id number] /
[2019-11-23 17:56] LABS: Glucose,Whole Blood 295 mg/dL (75-99)
[2019-11-23 19:57] LABS: Glucose,Whole Blood 376 mg/dL (75-99)
[2019-11-23] MEDS: LATANOPROST 0.005% OPHTH DROPS 2.5 ML BTL BOTH EYES SCH (22:00)
[2019-11-23 22:01] LABS: Glucose,Whole Blood 200 mg/dL (75-99)
[2019-11-23] MEDS: AZITHROMYCIN 500 MG TAB PO SCH (22:01)
[2019-11-23] MEDS: MONTELUKAST 10 MG TAB PO SCH (22:01)
[2019-11-23 23:54] LABS: Glucose,Whole Blood 139 mg/dL (75-99)
[2019-11-24 01:57] LABS: Glucose,Whole Blood 217 mg/dL (75-99)
[2019-11-24 04:09] LABS: Glucose,Whole Blood 223 mg/dL (75-99)
[2019-11-24] MEDS: methylPREDNISolone SOD SUCCI 125 MG/2 ML VIAL IV SCH ×2 (05:29→13:20)
[2019-11-24 05:56] LABS: Glucose,Whole Blood 181 mg/dL (75-99)
[2019-11-24 07:38] LABS: Basophils % (A) 0 %; Eosinophils % (A) 0 %; HCT 38.2 % (34.0-46.0); HGB 12.4 gm/dL (11.4-16.0); Lymphocytes # (A) 0.9 k/uL (1.0-4.8); Lymphocytes % (A) 8 %; MCH 27.8 pg (25.0-35.0); MCHC 32.3 g/dL (31.0-37.0); MCV 85.9 fL (80.0-100.0); Mean Platelet Volume 7.9; Monocytes # (A) 0.4 k/uL (0-1.0); Monocytes % (A) 4 %; Neutrophils # (A) 10.5 k/uL (1.3-7.7); Neutrophils % (A) 88 %; Platelet Count 247 k/uL (150-450); RBC 4.45 m/uL (3.80-5.40); RDW 15.8 % (11.5-15.5)
[2019-11-24 07:54] LABS: ALT 56 U/L (4-34); AST 29 U/L (14-36); African American GFR (CKD) >90 (>60 ml/min/1.73 sqM); Albumin 3.5 g/dL (3.5-5.0); Alkaline Phosphatase 131 U/L (38-126); Anion Gap 9 mmol/L; Blood Urea Nitrogen 38 mg/dL (7-17); Calcium 8.8 mg/dL (8.4-10.2); Carbon Dioxide 31 mmol/L (22-30); Chloride 93 mmol/L (98-107); Glucose 168 mg/dL (74-99); Non-African American GFR(CKD) 87 (>60 ml/min/1.73 sqM); Potassium 3.3 mmol/L (3.5-5.1); Sodium 133 mmol/L (137-145); Total Bilirubin 0.4 mg/dL (0.2-1.3); Total Protein 6.5 g/dL (6.3-8.2)
[2019-11-24 08:09] LABS: Glucose,Whole Blood 171 mg/dL (75-99)
[2019-11-24] MEDS: ENOXAPARIN 40 MG/0.4 ML SYRINGE SQ SCH (08:23)
[2019-11-24] MEDS: ARTIFICIAL TEARS-HYPROMELLOSE DROPS 15 ML BTL BOTH EYES SCH ×2 (08:24→20:49)
[2019-11-24] MEDS: LISINOPRIL 2.5 MG TAB PO SCH (08:24)
[2019-11-24] MEDS: INSULIN ASPART (NovoLOG) 100 UNIT/ML VIAL SQ SCH ×4 (08:24→21:46)
[2019-11-24] MEDS: CALCIUM CARBONATE 500 MG CHEWABLE PO SCH ×2 (08:24→20:50)
[2019-11-24] MEDS: FLUoxetine HCL 20 MG CAP PO SCH (08:25)
[2019-11-24] MEDS: CHOLECALCIFEROL 1,000 UNIT TAB PO SCH (08:25)
[2019-11-24] MEDS: PANTOPRAZOLE 40 MG TABLET PO SCH (08:25)
[2019-11-24] MEDS: CARVEDILOL 12.5 MG TAB PO SCH ×2 (08:25→17:42)
[2019-11-24] MEDS: DOCUSATE 100 MG CAP PO SCH (08:25)
[2019-11-24] MEDS: BACLOFEN 10 MG TAB PO SCH ×3 (08:25→20:50)
[2019-11-24] MEDS: CLOTRIMAZOLE/BETAMETH 1-0.05% CREAM 45 GM TUBE TOPICAL SCH ×2 (08:26→20:49)
[2019-11-24] MEDS: cycloSPORINE 0.05% OPHTH 0.4 ML DROPERETTE BOTH EYES SCH ×2 (08:26→20:50)
[2019-11-24] MEDS: metFORMIN 500 MG TAB PO SCH ×2 (08:26→20:44)
[2019-11-24] MEDS: lamoTRIgine 25 MG TAB PO SCH ×2 (08:27→20:50)
[2019-11-24] MEDS ORDERED: Potassium Replacement Protocol 1 EACH MISC MISCELLANE PRN (08:42)
[2019-11-24] MEDS: IPRATROPIUM-ALBUTEROL 3 ML NEB INHALATION SCH ×4 (08:46→21:04)
[2019-11-24] MEDS: BUDESONIDE 0.5 MG/2 ML NEBU INHALATION SCH ×2 (08:46→21:04)
[2019-11-24 10:07] LABS: Glucose,Whole Blood 301 mg/dL (75-99)
[2019-11-24] MEDS: POTASSIUM CHLORIDE ER 20 MEQ TAB.ER PO SCH ×2 (11:50→13:20)
[2019-11-24 12:06] LABS: Glucose,Whole Blood 247 mg/dL (75-99)
--- NOTE | 2019-11-24 13:39 | P.PN ---
Subjective Progress Note Date: 11/24/19 This is a 69-year-old female who is been having cough shortness of breath second visit to the ER for ongoing symptoms has been admitted into the hospital she has problems associated with developmental delay overall a poor historian not details completely obtained, possible medical history is significant for mental disorder, dysthymic syndrome, developmentally delayed due to cerebral palsy, hypercholesterolemia, carpal tunnel syndrome, bipolar disorder, costochondritis Dr. Lance covering 11/21/2019 On 11/22/2019 patient is resting comfortably in bed. Patient is anxious to go home. Patient remains on Solu-Medrol azithromycin IV Lasix. Blood sugar greater than 500 insulin drip has been started per protocol. At this time patient denies chest pain or shortness of breath. Patient denies nausea v omiting or diarrhea. Patient denies any urinary burning or frequency. Pulmonary and cardiology services are following On 11/23/2019 patient is sitting comfortably in chair. Patient remains on IV Solu-Medrol per pulmonary services. Pulmonary and cardiology services following. Patient remains on insulin drip. Blood sugars have improved. At this time patient denies chest pain or shortness breath. Patient denies nausea vomiting or diarrhea. Patient denies any urinary burning or frequency. On 11/24/2019 patient is alert and oriented. Patient remains on IV Solu-Medrol per services. Cardiology services following Lasix DC'd. Patient having increased cough Mucinex ordered. Patient denies chest pain or shortness breath. Patient denies nausea vomiting or diarrhea. Patient denies any urinary burning or frequency. Patient remains on insulin drip for 1 IV steroids for adequate bl ood sugar control Objective - Vital Signs Vital signs: Vital Signs Temp 97.5 F L 11/24/19 07:10 Pulse 84 11/24/19 09:02 Resp 17 11/24/19 08:45 BP 140/81 11/24/19 07:10 Pulse Ox 96 11/24/19 08:48 Intake & Output 11/23/19 11/24/19 11/24/19 18:59 06:59 18:59 Intake Total 281.183 53.350 14.758 Balance 281.183 53.350 14.758 Intake: Intake, IV Titration 41.183 53.350 14.758 Amount Insulin Regular 100 unit 41.183 53.350 14.758 In Sodium Chloride 0.9% 100 ml @ Titrate IV .[facility] Rx#:[id number] Oral 240 Other: Voiding Method Diaper Incontinent # Voids 3 2 - Exam Head normocephalic Neck supple Lungs diminished bilaterally with some expiratory wheezing Heart regular rate and rhythm S1-S2, no rub or gallop Abdomen is soft nontender nondistended positive bowel sounds no hepatosplenomegaly Extremities no edema Neuro alert and orientated to 3. Developmentally delayed - Labs CBC & Chem 7: 11/24/19 06:54 11/24/19 06:54 Labs: Abnormal Lab Results - Last 24 Hours (Table) 11/23/19 11/23/19 11/23/19 Range/Units 13:46 15:45 17:54 WBC (3.8-10.6) k/uL RDW (11.5-15.5) % Neutrophils # (1.3-7.7) k/uL Lymphocytes # (1.0-4.8) k/uL Sodium (137-145) mmol/L Potassium (3.5-5.1) mmol/L Chloride (98-107) mmol/L Carbon Dioxide (22-30) mmol/L BUN (7-17) mg/dL Glucose (74-99) mg/dL POC Glucose (mg/dL) 204 H 267 H 295 H (75-99) mg/dL ALT (4-34) U/L Alkaline Phosphatase (38-126) U/L 11/23/19 11/23/19 11/23/19 Range/Units 19:56 21:59 23:53 WBC (3.8-10.6) k/uL RDW (11.5-15.5) % Neutrophils # (1.3-7.7) k/uL Lymphocytes # (1.0-4.8) k/uL Sodium (137-145) mmol/L Potassium (3.5-5.1) mmol/L Chloride (98-107) mmol/L Carbon Dioxide (22-30) mmol/L BUN (7-17) mg/dL Glucose (74-99) mg/dL POC Glucose (mg/dL) 376 H 200 H 139 H (75-99) mg/dL ALT (4-34) U/L Alkaline Phosphatase (38-126) U/L 11/24/19 11/24/19 11/24/19 Range/Units 01:53 04:04 05:51 WBC (3.8-10.6) k/uL RDW (11.5-15.5) % Neutrophils # (1.3-7.7) k/uL Lymphocytes # (1.0-4.8) k/uL Sodium (137-145) mmol/L Potassium (3.5-5.1) mmol/L Chloride (98-107) mmol/L Carbon Dioxide (22-30) mmol/L BUN (7-17) mg/dL Glucose (74-99) mg/dL POC Glucose (mg/dL) 217 H 223 H 181 H (75-99) mg/dL ALT (4-34) U/L Alkaline Phosphatase (38-126) U/L 11/24/19 11/24/19 11/24/19 Range/Units 06:54 06:54 08:07 WBC 12.0 H (3.8-10.6) k/uL RDW 15.8 H (11.5-15.5) % Neutrophils # 10.5 H (1.3-7.7) k/uL Lymphocytes # 0.9 L (1.0-4.8) k/uL Sodium 133 L (137-145) mmol/L Potassium 3.3 L (3.5-5.1) mmol/L Chloride 93 L (98-107) mmol/L Carbon Dioxide 31 H (22-30) mmol/L BUN 38 H (7-17) mg/dL Glucose 168 H (74-99) mg/dL POC Glucose (mg/dL) 171 H (75-99) mg/dL ALT 56 H (4-34) U/L Alkaline Phosphatase 131 H (38-126) U/L 11/24/19 11/24/19 Range/Units 10:05 12:04 WBC (3.8-10.6) k/uL RDW (11.5-15.5) % Neutrophils # (1.3-7.7) k/uL Lymphocytes # (1.0-4.8) k/uL Sodium (137-145) mmol/L Potassium (3.5-5.1) mmol/L Chloride (98-107) mmol/L Carbon Dioxide (22-30) mmol/L BUN (7-17) mg/dL Glucose (74-99) mg/dL POC Glucose (mg/dL) 301 H 247 H (75-99) mg/dL ALT (4-34) U/L Alkaline Phosphatase (38-126) U/L Microbiology - Last 24 Hours (Table) 11/20/19 01:18 Blood Culture - Preliminary Blood No Growth after 96 hours Assessment and Plan Assessment: 1. Shortness breath related to acute exacerbation of COPD. Patient currently maintained on Solu-Medrol. 2. Acute Tracheobronchitis. Pulmonary services have been consulted. Patient maintained on azithromycin 3. Abdominal pain. Abdominal pelvis CT completed showing interstitial pulmonary edema and atelectasis at the lung bases mild cardiomegaly normal appendix no renal stones or obstruction. Gallbladder ultrasound completed showing negative exam no dilated ducts no free fluid 4. Possible CHF exacerbation patient currently on IV Lasix cardiology services have been consulted. 2-D echo performed in January 2019 revealing normal left ventricular systolic function. Cardiology services are following 5. Diabetes mellitus type 2 with hyperglycemia blood sugars greater than 500 patient started on insulin drip per protocol likely secondary to IV steroids 6. Elevated liver enzymes. Lipitor currently on hold we'll continue to monitor. Liver enzymes are trending down 7. Cerebral palsy with developmental delay 8. Hyperlipidemia. Statin On hold due to elevated liver enzymes 9. History of essential hypertension home medications resumed 10. Mood disorder depression DVT prophylaxis Lovenox. GI prophylaxis Protonix I performed an examination of the patient and discussed their management with the Nurse Practitioner. I have reviewed the Nurse Practitioner's notes and agree with the documented findings and plan of care
--- NOTE | 2019-11-24 15:25 | FL ---
EXAMINATION TYPE: FL barium swallow w video DATE OF EXAM: 11/24/2019 COMPARISON: NONE HISTORY: Coughing after swallowing TECHNIQUE: Fluoroscopy. FINDINGS: Fluoroscopic guidance was provided for the procedure performed in conjunction with the [facility] pathology department. Please see complete report forthcoming from the Speech Pathology departmen t. Various consistencies from thin liquid to solids were administered. Fluoroscopy time 1 minute 20 seconds. Number of images: 0. No aspiration or penetration was evident. No significant pooling was observed in the vallecula. There was normal propulsion of the bolus. IMPRESSION: 1. Normal modified barium swallow
[2019-11-24 15:33] LABS: Glucose,Whole Blood 187 mg/dL (75-99)
[2019-11-24 17:36] LABS: Glucose,Whole Blood 128 mg/dL (75-99)
[2019-11-24] MEDS: FUROSEMIDE 10 MG/ML 4 ML VIAL IV SCH (18:30)
[2019-11-24 19:46] LABS: Glucose,Whole Blood 380 mg/dL (75-99)
[2019-11-24] MEDS: LATANOPROST 0.005% OPHTH DROPS 2.5 ML BTL BOTH EYES SCH (20:49)
[2019-11-24] MEDS: MONTELUKAST 10 MG TAB PO SCH (20:49)
[2019-11-24] MEDS: AZITHROMYCIN 500 MG TAB PO SCH (20:50)
[2019-11-24] MEDS: guaiFENesin 600 MG TABLET.ER PO SCH (21:00)
--- NOTE | 2019-11-24 21:00 | PN ---
PROGRESS NOTE DATE OF SERVICE: 11/24/2019 This patient has been hemodynamically stable. She is not short of breath. On physical examination, respiratory rate is 17, pulse rate of 67, temperature 97.5, blood pressure 140/81. HEENT is unremarkable. Chest is clear. Cardiovascular system is in S1, S2. Abdomen is soft. There is no edema. Labs and medications were reviewed. IMPRESSION AT THIS TIME: 1. Asthma with acute exacerbation. 2. Diabetes mellitus. 3. History of cerebral palsy. 4. No evidence of aspiration at this time. Discontinue her IV steroids. Continue aerosolized steroids, antibiotics and bronchodilators. Increase her activity level. Continue Singulair as well. Her prognosis is fair. MMODL / IJN: [id number] /
[2019-11-24 21:35] LABS: Glucose,Whole Blood 300 mg/dL (75-99)
[2019-11-25 07:17] LABS: Anisocytosis Slight; Basophils % (A) 0 %; Eosinophils % (A) 0 %; HCT 37.6 % (34.0-46.0); HGB 11.9 gm/dL (11.4-16.0); Lymphocytes # (A) 1.2 k/uL (1.0-4.8); Lymphocytes % (A) 13 %; MCH 27.5 pg (25.0-35.0); MCHC 31.6 g/dL (31.0-37.0); Mean Platelet Volume 7.9; Monocytes # (A) 0.6 k/uL (0-1.0); Monocytes % (A) 6 %; Neutrophils # (A) 7.4 k/uL (1.3-7.7); Neutrophils % (A) 79 %; Platelet Count 228 k/uL (150-450); RBC 4.32 m/uL (3.80-5.40); WBC 9.4 k/uL (3.8-10.6)
[2019-11-25 07:32] LABS: Glucose,Whole Blood 159 mg/dL (75-99)
[2019-11-25 07:33] LABS: ALT 52 U/L (4-34); AST 31 U/L (14-36); African American GFR (CKD) >90 (>60 ml/min/1.73 sqM); Albumin 3.1 g/dL (3.5-5.0); Alkaline Phosphatase 120 U/L (38-126); Anion Gap 6 mmol/L; Blood Urea Nitrogen 28 mg/dL (7-17); Calcium 8.8 mg/dL (8.4-10.2); Carbon Dioxide 33 mmol/L (22-30); Chloride 95 mmol/L (98-107); Glucose 161 mg/dL (74-99); Non-African American GFR(CKD) 87 (>60 ml/min/1.73 sqM); Potassium 4.1 mmol/L (3.5-5.1); Sodium 134 mmol/L (137-145); Total Bilirubin 0.4 mg/dL (0.2-1.3); Total Protein 6.1 g/dL (6.3-8.2)
[2019-11-25] MEDS: INSULIN ASPART (NovoLOG) 100 UNIT/ML VIAL SQ SCH ×3 (08:08→17:17)
[2019-11-25] MEDS: ENOXAPARIN 40 MG/0.4 ML SYRINGE SQ SCH (08:08)
[2019-11-25] MEDS: cycloSPORINE 0.05% OPHTH 0.4 ML DROPERETTE BOTH EYES SCH (08:09)
[2019-11-25] MEDS: PANTOPRAZOLE 40 MG TABLET PO SCH (08:10)
[2019-11-25] MEDS: CALCIUM CARBONATE 500 MG CHEWABLE PO SCH (08:10)
[2019-11-25] MEDS: LISINOPRIL 2.5 MG TAB PO SCH (08:10)
[2019-11-25] MEDS: CARVEDILOL 12.5 MG TAB PO SCH ×2 (08:10→17:17)
[2019-11-25] MEDS: CHOLECALCIFEROL 1,000 UNIT TAB PO SCH (08:10)
[2019-11-25] MEDS: BACLOFEN 10 MG TAB PO SCH ×2 (08:10→15:52)
[2019-11-25] MEDS: lamoTRIgine 25 MG TAB PO SCH (08:10)
[2019-11-25] MEDS: guaiFENesin 600 MG TABLET.ER PO SCH (08:10)
[2019-11-25] MEDS: DOCUSATE 100 MG CAP PO SCH (08:10)
[2019-11-25] MEDS: metFORMIN 500 MG TAB PO SCH (08:11)
[2019-11-25] MEDS: FLUoxetine HCL 20 MG CAP PO SCH (08:11)
[2019-11-25] MEDS: CLOTRIMAZOLE/BETAMETH 1-0.05% CREAM 45 GM TUBE TOPICAL SCH (08:17)
[2019-11-25] MEDS: ARTIFICIAL TEARS-HYPROMELLOSE DROPS 15 ML BTL BOTH EYES SCH (08:17)
[2019-11-25] MEDS ORDERED: FUROSEMIDE 40 MG TAB PO SCH (09:00)
[2019-11-25] MEDS: IPRATROPIUM-ALBUTEROL 3 ML NEB INHALATION SCH ×3 (09:31→16:33)
[2019-11-25] MEDS: BUDESONIDE 0.5 MG/2 ML NEBU INHALATION SCH (09:31)
[2019-11-25 11:21] LABS: Glucose,Whole Blood 206 mg/dL (75-99)
--- NOTE | 2019-11-25 14:02 | P.DS ---
Providers Date of admission: 11/22/19 09:02 Expected date of discharge: 11/25/19 Attending physician: Johny Abraham Consults: 11/22/19 09:07 Consult Physician Routine Consulting Provider: Corry Casillas Consult Reason/Comments: CHF exacerbation Do you want consulting provider notified?: Yes 11/22/19 11:23 Consult Physician Routine Consulting Provider: Danny Lutz Consult Reason/Comments: COPD Do you want consulting provider notified?: Yes Primary care physician: Johny [facility] Course: Diagnosis on discharge: #1 acute asthma exacerbation with acute purulent tracheobronchitis, received IV steroids and IV antibiotic during this admission and discharged home on oral Zithromax, and inhaled bronchodilators and inhaled steroids. #2 underlying history of cerebral palsy with developmental delay 3. Abdominal pain. Abdominal pelvis CT completed showing interstitial pulmonary edema and atelectasis at the lung bases mild cardiomegaly normal appendix no renal stones or obstruction. Gallbladder ultrasound completed showing negative exam no dilated ducts no free fluid 4. Possible CHF exacerbation patient currently on IV Lasix cardiology services have been consulted. 2-D echo performed in January 2019 revealing normal left ventricular systolic function. Cardiology services are following 5. Diabetes mellitus type 2 with hyperglycemia blood sugars greater than 500 patient started on insulin drip per protocol likely secondary to IV steroids 6. Elevated liver enzymes. Lipitor currently on hold we'll continue to monitor. Liver enzymes are trending down 7. Cerebral palsy with developmental delay 8. Hyperlipidemia. Statin On hold due to elevated liver enzymes 9. History of essential hypertension home medications resumed 10. Mood disorder depression Hospital course: This is a 69-year-old female who is been having cough shortness of breath second visit to the ER for ongoing symptoms has been admitted into the hospital she has problems associated with developmental delay overall a poor historian not details completely obtained, possible medical history is significant for mental disorder, dysthymic syndrome, developmentally delayed due to cerebral palsy, hypercholesterolemia, carpal tunnel syndrome, bipolar disorder, costochondritis Dr. Lance covering 11/21/2019 On 11/22/2019 patient is resting comfortably in bed. Patient is anxious to go home. Patient remains on Solu-Medrol azithromycin IV Lasix. Blood sugar greater than 500 insulin drip has been started per protocol. At this time patient denies chest pain or shortness of breath. Patient denies nausea vomiting or diarrhea. Patient denies any urinary burning or frequency. Pulmonary and cardiology services are following On 11/23/2019 patient is sitting comfortably in chair. Patient remains on IV Solu-Medrol per pulmonary services. Pulmonary and cardiology services following. Patient remains on insulin drip. Blood sugars have improved. At this time patient denies chest pain or shortness breath. Patient denies nausea vomiting or diarrhea. Patient denies any urinary burning or frequency. On 11/24/2019 patient is alert and oriented. Patient remains on IV Solu-Medrol per services. Cardiology services following Lasix DC'd. Patient having increased cough Mucinex ordered. Patient denies chest pain or shortness breath. Patient denies nausea vomiting or diarrhea. Patient denies any urinary burning or frequency. Patient remains on insulin drip for 1 IV steroids for adequate blood sugar control On 11/25/2019 patient was seen and examined on the medical floor she is alert and oriented 3 in no apparent distress she passed swallow evaluation she needs special diet, no evidence of pneumonia at this time patient diagnosed with acute asthma exacerbation and acute purulent bronchitis she is stable and is asking for discharge she will be discharged home today she will be given Zithromax 500 mg daily for 5 more days she will be followed in our office within 1 week Patient Condition at Discharge: Fair Plan - Discharge Summary Discharge Rx Participant: Yes New Discharge Prescriptions: New Azithromycin [Zithromax] 500 mg PO Q24H 5 Days #5 tab Continue Omeprazole [PriLOSEC] 20 mg PO DAILY Simvastatin [Zocor] 10 mg PO DAILY Baclofen 10 mg PO TID Artificial Tears-Hypromellose [Artificial Tear Drops] 1 drop BOTH EYES BID Bimatoprost [Lumigan .01% Ophth Soln] 1 drop BOTH EYES HS metFORMIN HCL ER [Glucophage Xr] 500 mg PO DAILY Clotrimazole/Betamethasone Dip [Lotrisone Cream] 1 applic TOPICAL BID Meclizine [Antivert] 12.5 mg PO BID PRN PRN Reason: DIZZINESS lamoTRIgine [LaMICtal] 75 mg PO BID FLUoxetine HCL [PROzac] 60 mg PO DAILY cycloSPORINE [Restasis] 1 drop BOTH EYES BID Albuterol Nebulized [Ventolin Nebulized] 2.5 mg INHALATION RT-Q6H PRN PRN Reason: Shortness Of Breath Ocusoft Retain Eye Lubricant 1 applic OPHTHALMIC DAILY Budesonide [Pulmicort] 0.5 mg INHALATION RT-BID Montelukast [Singulair] 10 mg PO HS Lisinopril [Zestril] 2.5 mg PO DAILY Furosemide [Lasix] 40 mg PO DAILY Docusate [Colace] 100 mg PO DAILY Carvedilol [Coreg] 12.5 mg PO BID guaiFENesin-Coden 100-10MG/5ML [Robitussin AC] 10 ml PO Q4H PRN 3 Days #180 ml PRN Reason: Cough Calcium Carbonate 500 mg PO BID guaiFENesin [Mucinex] 600 mg PO BID PRN PRN Reason: Congestion Loperamide [Imodium] 2 mg PO QID PRN PRN Reason: Loose Stool Sennosides [Senna] 8.6 mg PO DAILY PRN PRN Reason: Constipation Acetaminophen Tab [Tylenol] 1,000 mg PO Q6HR PRN PRN Reason: Pain Or Fever > 100.5 Guaifenesin/Dextromethorphan [Diabetic Tussin Dm Liquid] 10 ml PO Q4H PRN PRN Reason: Cough Discontinued Azithromycin [Zithromax Z-pack] See Taper PO DAILY No Action Cholecalciferol [Vitamin D3 (25 Mcg = 1000 Iu)] 2,000 unit PO DAILY Discharge Medication List Baclofen 10 mg PO TID 07/18/14 [History] Omeprazole [PriLOSEC] 20 mg PO DAILY 07/18/14 [History] Simvastatin [Zocor] 10 mg PO DAILY 07/18/14 [History] Artificial Tears-Hypromellose [Artificial Tear Drops] 1 drop BOTH EYES BID 10/12/17 [History] Bimatoprost [Lumigan .01% Ophth Soln] 1 drop BOTH EYES HS 10/12/17 [History] metFORMIN HCL ER [Glucophage Xr] 500 mg PO DAILY 10/12/17 [History] Clotrimazole/Betamethasone Dip [Lotrisone Cream] 1 applic TOPICAL BID 01/23/18 [History] FLUoxetine HCL [PROzac] 60 mg PO DAILY 01/06/19 [History] Meclizine [Antivert] 12.5 mg PO BID PRN 01/06/19 [History] cycloSPORINE [Restasis] 1 drop BOTH EYES BID 01/06/19 [History] lamoTRIgine [LaMICtal] 75 mg PO BID 01/06/19 [History] Albuterol Nebulized [Ventolin Nebulized] 2.5 mg INHALATION RT-Q6H PRN 11/05/19 [History] Budesonide [Pulmicort] 0.5 mg INHALATION RT-BID 11/05/19 [History] Carvedilol [Coreg] 12.5 mg PO BID 11/05/19 [History] Docusate [Colace] 100 mg PO DAILY 11/05/19 [History] Furosemide [Lasix] 40 mg PO DAILY 11/05/19 [History] Lisinopril [Zestril] 2.5 mg PO DAILY 11/05/19 [History] Montelukast [Singulair] 10 mg PO HS 11/05/19 [History] Ocusoft Retain Eye Lubricant 1 applic OPHTHALMIC DAILY 11/05/19 [History] guaiFENesin-Coden 100-10MG/5ML [Robitussin AC] 10 ml PO Q4H PRN 3 Days #180 ml 11/18/19 [Rx] Acetaminophen Tab [Tylenol] 1,000 mg PO Q6HR PRN 11/20/19 [History] Calcium Carbonate 500 mg PO BID 11/20/19 [History] Cholecalciferol [Vitamin D3 (25 Mcg = 1000 Iu)] 2,000 unit PO DAILY 11/20/19 [History] Guaifenesin/Dextromethorphan [Diabetic Tussin Dm Liquid] 10 ml PO Q4H PRN 11/20/19 [History] Loperamide [Imodium] 2 mg PO QID PRN 11/20/19 [History] Sennosides [Senna] 8.6 mg PO DAILY PRN 11/20/19 [History] guaiFENesin [Mucinex] 600 mg PO BID PRN 11/20/19 [History] Azithromycin [Zithromax] 500 mg PO Q24H 5 Days #5 tab 11/25/19 [Rx] Follow up Appointment(s)/Referral(s): Johny Abraham MD [Primary Care Provider] - 1-2 days Activity/Diet/Wound Care/Special Instructions: Please call Pina ([phone]) when pt is discharged, she will transport home.
--- NOTE | 2019-11-25 14:25 | PN ---
PROGRESS NOTE DATE OF SERVICE: 11/25/2019 This patient has been hemodynamically stable. She is less short of breath. She is sitting in bed. She is off her insulin drip. On physical examination, her respiratory rate is 12, pulse rate is 60, temperature 98, blood pressure 137/82. Oxygen saturation on room air is 97%. HEENT is unremarkable. Chest is clear. Cardiovascular system is in S1, S2. Abdomen is soft. There is no edema. IMPRESSION AT THIS TIME: 1. Asthma with acute exacerbation. 2. Diabetes mellitus. 3. Cerebral palsy. Continue to optimize her clinically. Depending on how she does, we shall make further changes to her care. Agree with discharge planning with close outpatient followup. MMODL / IJN: [id number] /
[2019-11-25 15:57] VITALS: BP 103/65; RESP 17; TEMP 98.3
[2019-11-25 16:47] VITALS: PULSE 88
[2019-11-25 16:59] LABS: Glucose,Whole Blood 170 mg/dL (75-99)
--- NOTE | 2019-11-28 12:01 | CDI ---
Documentation Clarification Form Date: 11/28/19 From: Selma Kruger Phone: If you have a question about this query, please contact Cordelia Lara, Track Moving Machine Operator at [phone] between 8am and 5pm. Admit Date: 11/19 Discharge Date:11/25/19 Patient Name: Rosmery Shirley Visit Number: [id number] ATTENTION: The Clinical Documentation Specialists (CDI) and [facility] Coding Staff appreciate your assistance in clarifying documentation. Please respond to the clarification below the line at the bottom and electronically sign. The CDI & [facility] Coding staff will review the response and follow-up if needed. Please note: Queries are made part of the Legal Health Record. If you have any questions, please contact the author of this message via ITS. Dear Dr. Acosta Possible CHF exacerbation is documented in the cardiology notes and in the discharge summary. History/Risk Factors: Hypertensive cardiovascular disease Clinical Indicators: Persistent coughing, shortness of breath, acute pulmonary edema VS/Pulse OX: T. 98.4, P. 74, R. 18, BP 114/64, Pulse Ox. 95% BNP: 110 Echocardiogram Results: Most recent echo obtained in January 2019 revealed preserved LV systolic function with hyperdynamic LV function, ejection fraction greater than 70% Chest X Ray: CXR 11/19: No obvious heart failure. CT Abdomen 11/19: Interstitial pulmonary edema and atelectasis at the lung bases. Mild cardiomegaly. Treatment: IV Lasix 40 mg Q12 In your professional opinion, can you please clarify the acuity and type of CHF if known? Systolic Heart Failure: Diastolic Heart Failure: Systolic & Diastolic Heart Failure: Unable to Determine Other, please specify Response Unable to determine MTDD
--- NOTE | 2019-12-01 14:37 | P.PN ---
Subjective Progress Note Date: 11/21/19 Principal diagnosis: Acute exacerbation of COPD, tracheobronchitis, cerebral PALSY, type 2 diabetes mellitus, mood disorder, morbid obesity, dyslipidemia, GERD, hypertension hypert ensive cardiovascular disease, 11/21/2019, patient seen eval reexamined during the rounds remains on IV steroids and breathing treatment cough congestion is slightly better than before, oxygen saturation remained stable, This is a 69-year-old female who is been having cough shortness of breath second visit to the ER for ongoing symptoms has been admitted into the hospital she has problems associated with developmental delay overall a poor historian not details completely obtained, possible medical history is significant for mental disorder, dysthymic syndrome, developmentally delayed due to cerebral palsy, hypercholesterolemia, carpal tunnel syndrome, bipolar disorder, costochondritis Objective - Vital Signs Vital signs: Vital Signs Temp 97.8 F 11/21/19 07:00 Pulse 69 11/21/19 11:59 Resp 16 11/21/19 11:59 BP 143/77 11/21/19 07:00 Pulse Ox 92 L 11/21/19 08:04 Intake & Output 11/20/19 11/21/19 11/21/19 18:59 06:59 18:59 Weight 74 kg 70 kg Other: Voiding Method Diaper Diaper Incontinent Incontinent # Voids 2 2 2 - Exam General appearance: no acute distress, alert, appears uncomfortable Eyes: nonicteric ENT: oropharynx moist Neck: supple Effort: normal Auscultation: Bilateral: wheezes Percussion: Bilateral: not dull Tactile fremitus: Bilateral: normal Cardiovascular: regular rate and rhythm Gastrointestinal: normoactive bowel sounds Integumentary: normal Extremities: no cyanosis, no edema normal mental status, non-focal exam, CN II-XII normal, motor strength normal and symmetric mood appropriate - Labs CBC & Chem 7: 11/25/19 06:31 11/25/19 06:31 Labs: Abnormal Lab Results - Last 24 Hours (Table) 11/20/19 11/20/19 11/21/19 Range/Units 17:05 20:35 07:24 POC Glucose (mg/dL) 375 H 273 H 225 H (75-99) mg/dL 11/21/19 Range/Units 11:56 POC Glucose (mg/dL) 257 H (75-99) mg/dL Microbiology - Last 24 Hours (Table) 11/20/19 01:18 Blood Culture - Preliminary Blood No Growth after 24 hours Assessment and Plan Assessment: Acute exacerbation of COPD Tracheobronchitis Cerebral patency and W mentally delayed due to that Type 2 diabetes mellitus Mood disorder depression Morbid obesity Dyslipidemia GERD Hypertension hypertensive cardiovascular disease Plan: Start patient on IV steroids antibiotics and breathing treatment resume on medication follow clinical course closely Time with Patient: Greater than 30
== END 2019-11-25 17:43 | disposition home or self-care (01) | DRG 197 ==
LOC: EC 20:19 → 4SSUR 11-20 00:41 → OBSVTOIN 11-22 09:02
PROVIDERS: ADMIT Internal Medicine; ATTEND Internal Medicine
DX: J82 Pulmonary eosinophilia, not elsewhere classified (principal); J44.0 Chronic obstructive pulmonary disease with (acute) lower respiratory infection; J44.1 Chronic obstructive pulmonary disease with (acute) exacerbation; J98.11 Atelectasis; E11.65 Type 2 diabetes mellitus with hyperglycemia; I11.0 Hypertensive heart disease with heart failure; I50.9 Heart failure, unspecified; E66.01 Morbid (severe) obesity due to excess calories; E78.00 Pure hypercholesterolemia, unspecified; E78.5 Hyperlipidemia, unspecified; G80.9 Cerebral palsy, unspecified; F32.9 Major depressive disorder, single episode, unspecified; J20.9 Acute bronchitis, unspecified; K21.9 Gastro-esophageal reflux disease without esophagitis; F34.1 Dysthymic disorder; G56.02 Carpal tunnel syndrome, left upper limb; M19.90 Unspecified osteoarthritis, unspecified site; R62.50 Unspecified lack of expected normal physiological development in childhood; R32 Unspecified urinary incontinence; Z79.84 Long term (current) use of oral hypoglycemic drugs; Z79.899 Other long term (current) drug therapy; Z88.1 Allergy status to other antibiotic agents; Z88.0 Allergy status to penicillin; Z68.23 Body mass index [BMI] 23.0-23.9, adult
CPT/HCPCS: 36415; 71046; 74177; 74230; 76705; 80053; 83036; 83605; 83735; 83880; 84100; 84484; 85025; 85610; 85730; 87040; 93005; 94640; 94760; 96361; 96374; 96375; 99285

== ENCOUNTER 2020-01-29 11:09 | Emergency (ER) | payer MEDICARE, OTHER ==
[2020-01-29 11:28] VITALS: RESP 18; TEMP 99
[2020-01-29] MEDS ORDERED: ACETAMINOPHEN TAB 325 MG TAB PO STA (12:23)
[2020-01-29 12:34] LABS: Basophils % (A) 1 %; Eosinophils # (A) 0.4 k/uL (0-0.7); Eosinophils % (A) 4 %; HCT 37.3 % (34.0-46.0); HGB 12.2 gm/dL (11.4-16.0); Lymphocytes # (A) 1.1 k/uL (1.0-4.8); Lymphocytes % (A) 13 %; MCH 28.2 pg (25.0-35.0); MCHC 32.6 g/dL (31.0-37.0); MCV 86.7 fL (80.0-100.0); Mean Platelet Volume 7.8; Monocytes # (A) 0.5 k/uL (0-1.0); Monocytes % (A) 6 %; Neutrophils # (A) 6.6 k/uL (1.3-7.7); Neutrophils % (A) 75 %; Platelet Count 290 k/uL (150-450); RBC 4.31 m/uL (3.80-5.40); RDW 15.9 % (11.5-15.5); WBC 8.9 k/uL (3.8-10.6)
[2020-01-29 12:42] LABS: ALT 30 U/L (4-34); AST 28 U/L (14-36); African American GFR (CKD) >90 (>60 ml/min/1.73 sqM); Albumin 3.8 g/dL (3.5-5.0); Alkaline Phosphatase 90 U/L (38-126); Anion Gap 9 mmol/L; Blood Urea Nitrogen 21 mg/dL (7-17); Calcium 9.2 mg/dL (8.4-10.2); Carbon Dioxide 28 mmol/L (22-30); Chloride 101 mmol/L (98-107); Glucose 102 mg/dL (74-99); Non-African American GFR(CKD) >90 (>60 ml/min/1.73 sqM); Potassium 4.3 mmol/L (3.5-5.1); Sodium 138 mmol/L (137-145); Total Bilirubin 0.2 mg/dL (0.2-1.3)
[2020-01-29 12:49] LABS: Appearance,Urine Clear (Clear); Bilirubin,Urine Negative (Negative); Blood,Urine Negative (Negative); Color,Urine Light Yellow; Glucose,Urine (UA) Negative (Negative); Ketones,Urine Negative (Negative); Leukocyte Esterase,Urine Negative (Negative); Nitrite,Urine Negative (Negative); PH, Urine 5.5 (5.0-8.0); Protein,Urine Negative (Negative); Specific Gravity,Urine 1.011 (1.001-1.035); Urobilinogen,Urine <2.0 mg/dL (<2.0)
--- NOTE | 2020-01-29 13:00 | XR ---
EXAMINATION TYPE: XR chest 1V portable DATE OF EXAM: 01/29/2020 Comparison: 11/19/2019 Clinical History: 69 year-old female shortness of breath, difficulty breathing Findings: Heart mildly enlarged. Diffuse interstitial and more patchy left midlung opacity. Additional patchy r ight basilar opacity. No sizable effusion. Impression: Cardiomegaly with interstitial density and more focal patchy left mid and right basilar densities. Co rrelate for possible CHF with mild interstitial edema versus pneumonitis.
--- NOTE | 2020-01-29 14:10 | ED ---
General Adult HPI - General Chief complaint: Shortness of Breath Stated complaint: Fever/cough Time Seen by Provider: 01/29/20 11:44 Source: RN notes reviewed, old records reviewed, Caregiver Mode of arrival: wheelchair Limitations: altered mental status, physical limitation - History of Present Illness Initial comments: 69-year-old female patient past medical history significant for cerebral palsy, mental delay PCP for evaluation of cough, sore throat, reportedly had a fever this morning, complaining of a headache. Patient has history of congestive h eart failure and COPD as well. History taking is somewhat limited due to patient's baseline mentation, history partially provided by caregiving staff. Other complaints are denied. - Related Data Home Medications Medication Instructions Recorded Confirmed Baclofen 10 mg PO TID 07/18/14 11/20/19 Omeprazole [PriLOSEC] 20 mg PO DAILY 07/18/14 11/20/19 Simvastatin [Zocor] 10 mg PO DAILY 07/18/14 11/20/19 Artificial Tears-Hypromellose 1 drop BOTH EYES BID 10/12/17 11/20/19 [Artificial Tear Drops] Bimatoprost [Lumigan .01% Ophth 1 drop BOTH EYES HS 10/12/17 11/20/19 Soln] metFORMIN HCL ER [Glucophage Xr] 500 mg PO DAILY 10/12/17 11/20/19 Clotrimazole/Betamethasone Dip 1 applic TOPICAL BID 01/23/18 11/20/19 [Lotrisone Cream] FLUoxetine HCL [PROzac] 60 mg PO DAILY 01/06/19 11/20/19 Meclizine [Antivert] 12.5 mg PO BID PRN 01/06/19 11/20/19 cycloSPORINE [Restasis] 1 drop BOTH EYES BID 01/06/19 11/20/19 lamoTRIgine [LaMICtal] 75 mg PO BID 01/06/19 11/20/19 Albuterol Nebulized [Ventolin 2.5 mg INHALATION RT-Q6H PRN 11/05/19 11/20/19 Nebulized] Budesonide [Pulmicort] 0.5 mg INHALATION RT-BID 11/05/19 11/20/19 Carvedilol [Coreg] 12.5 mg PO BID 11/05/19 11/20/19 Docusate [Colace] 100 mg PO DAILY 11/05/19 11/20/19 Furosemide [Lasix] 40 mg PO DAILY 11/05/19 11/20/19 Lisinopril [Zestril] 2.5 mg PO DAILY 11/05/19 11/20/19 Montelukast [Singulair] 10 mg PO HS 11/05/19 11/20/19 Ocusoft Retain Eye Lubricant 1 applic OPHTHALMIC DAILY 11/05/19 11/20/19 Acetaminophen Tab [Tylenol] 1,000 mg PO Q6HR PRN 11/20/19 11/20/19 Calcium Carbonate 500 mg PO BID 11/20/19 11/20/19 Cholecalciferol [Vitamin D3 (25 2,000 unit PO DAILY 11/20/19 11/20/19 Mcg = 1000 Iu)] Guaifenesin/Dextromethorphan 10 ml PO Q4H PRN 11/20/19 11/20/19 [Diabetic Tussin Dm Liquid] Loperamide [Imodium] 2 mg PO QID PRN 11/20/19 11/20/19 Sennosides [Senna] 8.6 mg PO DAILY PRN 11/20/19 11/20/19 guaiFENesin [Mucinex] 600 mg PO BID PRN 11/20/19 11/20/19 Previous Rx's Medication Instructions Recorded guaiFENesin-Coden 100-10MG/5ML 10 ml PO Q4H PRN 3 Days #180 ml 11/18/19 [Robitussin AC] Azithromycin [Zithromax] 500 mg PO Q24H 5 Days #5 tab 11/25/19 Allergies Allergy/AdvReac Type Severity Reaction Status Date / Time amoxicillin [From Augmentin] Allergy Unknown Verified 01/29/20 11:28 clavulanic acid Allergy Unknown Verified 01/29/20 11:28 [From Augmentin] Review of Systems ROS Statement: Those systems with pertinent positive or pertinent negative responses have been documented in the HPI. ROS Other: All systems not noted in ROS Statement are negative. Past Medical History Past Medical History: Chest Pain / Angina, Diabetes Mellitus, Hypertension Additional Past Medical History / Comment(s): dysthymic disorder, mental disorder, hyper cholestremia, cerebral palsy, carpal tunnel left wrist, bipolar, left hip surgery, costochondritis. History of Any Multi-Drug Resistant Organisms: None Reported Past Surgical History: No Surgical Hx Reported Additional Past Surgical History / Comment(s): left hip surgery Past Anesthesia/Blood Transfusion Reactions: Unable to Obtain Past Psychological History: Bipolar Smoking Status: Never smoker Past Alcohol Use History: None Reported Past Drug Use History: None Reported - Past Family History Father History Unknown: Yes Family Medical History: No Reported History General Exam - General Exam Comments Initial Comments: Constitutional: NAD, AOX3, Pt has pleasant affect. HEENT: NC/AT, trachea midline, neck supple, no lymphadenopathy. Posterior pharynx non erythematous, without exudates. External ears appear normal, without discharge. Mucous membranes moist. Eyes PERRLA, EOM intact. There is no scleral icterus. No pallor noted. Cardiopulmonary: RRR, no murmurs, rubs or gallops, no JVD noted. Lungs CTAB in anterior and posterior reynaga. No peripheral edema. Abdominal exam: Abdomen soft and non-distended. Abdomen non-tender to palpation in all 4 quadrants. Bowel sounds active in LLQ. No hepatosplenomegaly. No ecchymosis Neuro: CN II-XII intact. No nuchal rigidity. No raccon eyes, no seth sign, no hemotympanum. No cervical spinal tenderness. MSK: Full active ROM in upper and lower extremities, 5/5 stregnth. Limitations: altered mental status, physical limitation Course Vital Signs 01/29/20 01/29/20 01/29/20 11:25 12:21 12:41 Temperature 99.0 F Pulse Rate 79 79 Respiratory 18 18 18 Rate Blood Pressure 129/74 114/56 O2 Sat by Pulse 97 96 Oximetry Medical Decision Making - Medical Decision Making 69-year-old female patient past medical history significant for cerebral palsy, mental delay PCP for evaluation of cough, sore throat, reportedly had a fever this morning, complaining of a headache. Patient has history of congestive heart failure and COPD as well. History taking is somewhat limited due to patient's baseline mentation, history partially provided by caregiving staff. Other complaints are denied. Patient vital signs are stable, afebrile. Physical exam didn't display acute pathology. Laboratory investigations non-impressive. BNP is 196. UA is negative. Chest x-ray revealed cardiomegaly with interstitial density and more focal patchy left mid and right basilar densities. Correlate for possible CHF versus mild interstitial edema versus pneumonitis. She is currently on Lasix and that will be continued. Is not expressing signs of fluid overload. Patient discharged with close follow-up with primary care provider and return to ER if condition worsens. Case discussed with Dr. Estrada. - Lab Data Result diagrams: 01/29/20 12:23 01/29/20 12:23 Lab Results 01/29/20 01/29/20 01/29/20 Range/Units 12:23 12:23 12:23 WBC 8.9 (3.8-10.6) k/uL RBC 4.31 (3.80-5.40) m/uL Hgb 12.2 (11.4-16.0) gm/dL Hct 37.3 (34.0-46.0) % MCV 86.7 (80.0-100.0) fL MCH 28.2 (25.0-35.0) pg MCHC 32.6 (31.0-37.0) g/dL RDW 15.9 H (11.5-15.5) % Plt Count 290 (150-450) k/uL Neutrophils % 75 % Lymphocytes % 13 % Monocytes % 6 % Eosinophils % 4 % Basophils % 1 % Neutrophils # 6.6 (1.3-7.7) k/uL Lymphocytes # 1.1 (1.0-4.8) k/uL Monocytes # 0.5 (0-1.0) k/uL Eosinophils # 0.4 (0-0.7) k/uL Basophils # 0.0 (0-0.2) k/uL Sodium 138 (137-145) mmol/L Potassium 4.3 (3.5-5.1) mmol/L Chloride 101 (98-107) mmol/L Carbon Dioxide 28 (22-30) mmol/L Anion Gap 9 mmol/L BUN 21 H (7-17) mg/dL Creatinine 0.62 (0.52-1.04) mg/dL Est GFR (CKD-EPI)AfAm >90 (>60 ml/min/1.73 sqM) Est GFR (CKD-EPI)NonAf >90 (>60 ml/min/1.73 sqM) Glucose 102 H (74-99) mg/dL Plasma Lactic Acid Jacob 1.2 (0.7-2.0) mmol/L Calcium 9.2 (8.4-10.2) mg/dL Total Bilirubin 0.2 (0.2-1.3) mg/dL AST 28 (14-36) U/L ALT 30 (4-34) U/L Alkaline Phosphatase 90 (38-126) U/L NT-Pro-B Natriuret Pep pg/mL Total Protein 7.0 (6.3-8.2) g/dL Albumin 3.8 (3.5-5.0) g/dL Urine Color Urine Appearance (Clear) Urine pH (5.0-8.0) Ur Specific [place] (1.001-1.035) Urine Protein (Negative) Urine Glucose (UA) (Negative) Urine Ketones (Negative) Urine Blood (Negative) Urine Nitrite (Negative) Urine Bilirubin (Negative) Urine Urobilinogen (<2.0) mg/dL Ur Leukocyte Esterase (Negative) Group A Strep Rapid (Negative) 01/29/20 01/29/20 01/29/20 Range/Units 12:23 12:40 12:40 WBC (3.8-10.6) k/uL RBC (3.80-5.40) m/uL Hgb (11.4-16.0) gm/dL Hct (34.0-46.0) % MCV (80.0-100.0) fL MCH (25.0-35.0) pg MCHC (31.0-37.0) g/dL RDW (11.5-15.5) % Plt Count (150-450) k/uL Neutrophils % % Lymphocytes % % Monocytes % % Eosinophils % % Basophils % % Neutrophils # (1.3-7.7) k/uL Lymphocytes # (1.0-4.8) k/uL Monocytes # (0-1.0) k/uL Eosinophils # (0-0.7) k/uL Basophils # (0-0.2) k/uL Sodium (137-145) mmol/L Potassium (3.5-5.1) mmol/L Chloride (98-107) mmol/L Carbon Dioxide (22-30) mmol/L Anion Gap mmol/L BUN (7-17) mg/dL Creatinine (0.52-1.04) mg/dL Est GFR (CKD-EPI)AfAm (>60 ml/min/1.73 sqM) Est GFR (CKD-EPI)NonAf (>60 ml/min/1.73 sqM) Glucose (74-99) mg/dL Plasma Lactic Acid Jacob (0.7-2.0) mmol/L Calcium (8.4-10.2) mg/dL Total Bilirubin (0.2-1.3) mg/dL AST (14-36) U/L ALT (4-34) U/L Alkaline Phosphatase (38-126) U/L NT-Pro-B Natriuret Pep 196 pg/mL Total Protein (6.3-8.2) g/dL Albumin (3.5-5.0) g/dL Urine Color Light Yellow Urine Appearance Clear (Clear) Urine pH 5.5 (5.0-8.0) Ur Specific [place] 1.011 (1.001-1.035) Urine Protein Negative (Negative) Urine Glucose (UA) Negative (Negative) Urine Ketones Negative (Negative) Urine Blood Negative (Negative) Urine Nitrite Negative (Negative) Urine Bilirubin Negative (Negative) Urine Urobilinogen <2.0 (<2.0) mg/dL Ur Leukocyte Esterase Negative (Negative) Group A Strep Rapid Negative (Negative) Disposition Clinical Impression: Cough Disposition: HOME SELF-CARE Condition: Stable Instructions (If sedation given, give patient instructions): Acute Cough (ED) Additional Instructions: Follow-up with primary care provider tomorrow. Continue taking Lasix as directed. Return to ER if condition worsens. Is patient prescribed a controlled substance at d/c from ED?: No Referrals: Johny Abraham MD [Primary Care Provider] - 1-2 days
[2020-01-29] MEDS ORDERED: IBUPROFEN 400 MG TAB PO STA (14:24)
[2020-01-29 14:25] VITALS: BP 105/66; PULSE 77
== END 2020-01-29 14:30 | disposition home or self-care (01) ==
LOC: EC 11:09
DX: Z03.818 Encounter for observation for suspected exposure to other biological agents ruled out (principal); R05 Cough; G80.9 Cerebral palsy, unspecified; J02.9 Acute pharyngitis, unspecified; I11.0 Hypertensive heart disease with heart failure; I50.9 Heart failure, unspecified; J44.9 Chronic obstructive pulmonary disease, unspecified; R91.8 Other nonspecific abnormal finding of lung field; R41.82 Altered mental status, unspecified; E11.9 Type 2 diabetes mellitus without complications; E78.00 Pure hypercholesterolemia, unspecified; F31.9 Bipolar disorder, unspecified; Z79.51 Long term (current) use of inhaled steroids; Z79.899 Other long term (current) drug therapy; Z79.84 Long term (current) use of oral hypoglycemic drugs; Z88.0 Allergy status to penicillin; Z88.1 Allergy status to other antibiotic agents
CPT/HCPCS: 36415; 71045; 80053; 81003; 83605; 83880; 85025; 87081; 87430; 87635; 99285

== ENCOUNTER 2020-04-01 09:48 | Inpatient (IN) | payer MEDICARE, OTHER ==
--- NOTE | 2020-04-01 10:23 | ED ---
General Adult HPI - General Chief complaint: Shortness of Breath Stated complaint: SOB Time Seen by Provider: 04/01/20 09:53 Source: patient, EMS Mode of arrival: EMS Limitations: no limitations, altered mental status - History of Present Illness Initial comments: Dictation was produced using [employer] dictation software. please excuse any grammatical, word or spelling errors. This patient was cared for during a federal and state declared state of emergency secondary to Covid 19 Chief Complaint: 69-year-old female presents today with abdominal pain. History of Present Illness: 69-year-old male presents with abdominal pain. Patient is brought in by EMS. According to EMS patient had chest pain and possible fever. Patient is a poor historian and part of it is secondary to limited barrier. She states she's been having abdominal pain since waking up this morning. States that the pain is to her epigastric area. Denies any vom iting however does complaint of nausea. No diarrhea. Patient has no past medical history of abdominal surgery. Patient has history of COPD and uses daily oxygen. The ROS documented in this emergency department record has been reviewed and confirmed by me. Those systems with pertinent positive or negative responses have been documented in the HPI. All other systems are other negative and/or noncontributory. PHYSICAL EXAM: General Impression: Alert and oriented x3, mild distress secondary to pain HEENT: Normocephalic atraumatic, extra-ocular movements intact, pupils equal and reactive to light bilaterally, mucous membranes moist. Cardiovascular: Heart regular rate and rhythm Chest: Able to complete full sentences, no retractions, no tachypnea Abdomen: abdomen soft, tenderness epigastric area and right upper quadrant, negative Herron sign, Non-distended, no organomegaly Musculoskeletal: Pulses present and equal in all extremities, no peripheral edema Motor: no focal deficits noted Neurological: CN II-XII grossly intact, no focal motor or sensory deficits noted Skin: Intact with no visualized rashes Psych: Normal affect and mood ED course: 69-year-old female presents with chief complaint of abdominal pain. EMS got a different history and so the fire department who was there prior to EMS. Nurse also got a different report. The patient reports abdominal pain, and nausea. Vital signs upon arrival are within acceptable limits. Patient's 95% on room air.Patient is a poor historian. Daughter at bedside provides history. Daughter reports that patient currently resides in a nursing home. She does have abdominal pain with coughing. Patient has been seen in emergency department on multiple occasions for abdominal pain from chronic coughing. He does have nebulizers and other breathing treatment machine's at home. Laboratory evaluation obtained. CBC, metabolic panel is unremarkable. No leukocytosis. No anion gap acidosis. Abdominal x-ray is unremarkable. Chest x-ray shows diffuse pleuralparenchymal changes concerning for pulmonary edema versus pneumonia. Patient is afebrile and she is currently not coughing at bedside. She does not appear to be in any respiratory distress patient is not hypoxic or tachypneic. She is resting comfortably at bedside. Daughter reports that patient is here more for abdominal pain from coughing. Patient given a Lidoderm patch. Patient underwent an ambulatory pulse oxygen. - Related Data Home Medications Medication Instructions Recorded Confirmed Baclofen 10 mg PO TID 07/18/14 04/01/20 Omeprazole [PriLOSEC] 20 mg PO DAILY 07/18/14 04/01/20 Simvastatin [Zocor] 10 mg PO DAILY 07/18/14 04/01/20 metFORMIN HCL ER [Glucophage Xr] 500 mg PO DAILY 10/12/17 04/01/20 Clotrimazole/Betamethasone Dip 1 applic TOPICAL BID 01/23/18 04/01/20 [Lotrisone Cream] FLUoxetine HCL [PROzac] 60 mg PO DAILY 01/06/19 04/01/20 Meclizine [Antivert] 12.5 mg PO BID 01/06/19 04/01/20 lamoTRIgine [LaMICtal] 75 mg PO BID 01/06/19 04/01/20 Budesonide [Pulmicort] 0.5 mg INHALATION RT-BID 11/05/19 04/01/20 Carvedilol [Coreg] 12.5 mg PO BID 11/05/19 04/01/20 Docusate [Colace] 100 mg PO BID 11/05/19 04/01/20 Furosemide [Lasix] 40 mg PO DAILY 11/05/19 04/01/20 Lisinopril [Zestril] 2.5 mg PO DAILY 11/05/19 04/01/20 Montelukast [Singulair] 10 mg PO DAILY 11/05/19 04/01/20 Cholecalciferol (Vitamin D3) 2,000 unit PO DAILY 04/01/20 04/01/20 [Vitamin D3] Clotrimazole [Clotrimazole AF] 1 applic TOPICAL DAILY 04/01/20 04/01/20 Ibuprofen [Motrin Ib] 400 mg PO ONCE PRN 04/01/20 04/01/20 Latanoprost [Xalatan 0.005%] 1 drop BOTH EYES HS 04/01/20 04/01/20 Ocusoft Lid Scrub 1 applic BOTH EYES DAILY 04/01/20 04/01/20 Oyster Shell Calcium 500mg/Vitamin 1 tab PO BID 04/01/20 04/01/20 D3 200iu cycloSPORINE [Restasis] 1 drop BOTH EYES BID 04/01/20 04/01/20 Allergies Allergy/AdvReac Type Severity Reaction Status Date / Time amoxicillin [From Augmentin] Allergy Anaphylaxis Verified 04/01/20 10:48 clavulanic acid Allergy Anaphylaxis Verified 04/01/20 10:48 [From Augmentin] Review of Systems ROS Statement: Those systems with pertinent positive or pertinent negative responses have been documented in the HPI. ROS Other: All systems not noted in ROS Statement are negative. Past Medical History Past Medical History: Chest Pain / Angina, Diabetes Mellitus, Hypertension Additional Past Medical History / Comment(s): dysthymic disorder, mental disorder, hyper cholestremia, cerebral palsy, carpal tunnel left wrist, bipolar, left hip surgery, costochondritis. History of Any Multi-Drug Resistant Organisms: None Reported Past Surgical History: No Surgical Hx Reported Additional Past Surgical History / Comment(s): left hip surgery Past Anesthesia/Blood Transfusion Reactions: Unable to Obtain Past Psychological History: Bipolar Smoking Status: Never smoker Past Alcohol Use History: None Reported Past Drug Use History: None Reported - Past Family History Father History Unknown: Yes Family Medical History: No Reported History General Exam Limitations: no limitations, altered mental status Course Vital Signs 04/01/20 09:51 Temperature 98.9 F Pulse Rate 73 Respiratory 20 Rate Blood Pressure 136/57 O2 Sat by Pulse 95 Oximetry Medical Decision Making - Lab Data Result diagrams: 04/01/20 11:25 04/01/20 11:25 Lab Results 04/01/20 04/01/20 04/01/20 Range/Units 11:25 11:25 11:25 WBC 7.4 (3.8-10.6) k/uL RBC 4.22 (3.80-5.40) m/uL Hgb 11.4 (11.4-16.0) gm/dL Hct 36.8 (34.0-46.0) % MCV 87.2 (80.0-100.0) fL MCH 26.9 (25.0-35.0) pg MCHC 30.9 L (31.0-37.0) g/dL RDW 15.5 (11.5-15.5) % Plt Count 302 (150-450) k/uL Neutrophils % 73 % Lymphocytes % 15 % Monocytes % 5 % Eosinophils % 4 % Basophils % 1 % Neutrophils # 5.4 (1.3-7.7) k/uL Lymphocytes # 1.1 (1.0-4.8) k/uL Monocytes # 0.4 (0-1.0) k/uL Eosinophils # 0.3 (0-0.7) k/uL Basophils # 0.0 (0-0.2) k/uL Hypochromasia Slight Sodium 138 (137-145) mmol/L Potassium 4.8 (3.5-5.1) mmol/L Chloride 103 (98-107) mmol/L Carbon Dioxide 28 (22-30) mmol/L Anion Gap 7 mmol/L BUN 11 (7-17) mg/dL Creatinine 0.59 (0.52-1.04) mg/dL Est GFR (CKD-EPI)AfAm >90 (>60 ml/min/1.73 sqM) Est GFR (CKD-EPI)NonAf >90 (>60 ml/min/1.73 sqM) Glucose 109 H (74-99) mg/dL Calcium 9.0 (8.4-10.2) mg/dL Magnesium 2.0 (1.6-2.3) mg/dL Total Bilirubin 0.4 (0.2-1.3) mg/dL AST 31 (14-36) U/L ALT 24 (4-34) U/L Alkaline Phosphatase 89 (38-126) U/L NT-Pro-B Natriuret Pep 406 pg/mL Total Protein 6.7 (6.3-8.2) g/dL Albumin 3.6 (3.5-5.0) g/dL Lipase 75 (23-300) U/L Disposition Referrals: Jarad,Johyn, MD [Primary Care Provider] - 1-2 days
[2020-04-01 11:38] LABS: Basophils % (A) 1 %; Eosinophils # (A) 0.3 k/uL (0-0.7); Eosinophils % (A) 4 %; HCT 36.8 % (34.0-46.0); HGB 11.4 gm/dL (11.4-16.0); Hypochromasia Slight; Lymphocytes # (A) 1.1 k/uL (1.0-4.8); Lymphocytes % (A) 15 %; MCH 26.9 pg (25.0-35.0); MCHC 30.9 g/dL (31.0-37.0); MCV 87.2 fL (80.0-100.0); Monocytes # (A) 0.4 k/uL (0-1.0); Monocytes % (A) 5 %; Neutrophils # (A) 5.4 k/uL (1.3-7.7); Neutrophils % (A) 73 %; Platelet Count 302 k/uL (150-450); RBC 4.22 m/uL (3.80-5.40); RDW 15.5 % (11.5-15.5); WBC 7.4 k/uL (3.8-10.6)
[2020-04-01 11:46] LABS: ALT 24 U/L (4-34); AST 31 U/L (14-36); African American GFR (CKD) >90 (>60 ml/min/1.73 sqM); Albumin 3.6 g/dL (3.5-5.0); Alkaline Phosphatase 89 U/L (38-126); Anion Gap 7 mmol/L; Blood Urea Nitrogen 11 mg/dL (7-17); Carbon Dioxide 28 mmol/L (22-30); Chloride 103 mmol/L (98-107); Glucose 109 mg/dL (74-99); Non-African American GFR(CKD) >90 (>60 ml/min/1.73 sqM); Potassium 4.8 mmol/L (3.5-5.1); Sodium 138 mmol/L (137-145); Total Bilirubin 0.4 mg/dL (0.2-1.3); Total Protein 6.7 g/dL (6.3-8.2)
--- NOTE | 2020-04-01 12:32 | XR ---
EXAMINATION TYPE: XR abdomen 1V DATE OF EXAM: 04/01/2020 COMPARISON: 11/05/2019 HISTORY: Pain TECHNIQUE: One view abdominal series FINDINGS: The osseous structures are intact. The bowel gas pattern is nonspecific. Postsurgical change left hi p. Arthropathy right hip. There is diffuse osteopenia. There is a deformity of the left pubic ramus l ikely chronic. Rotatory scoliosis noted. Surgical clips in the right upper quadrant. IMPRESSION: 1. Nonspecific abdomen.
--- NOTE | 2020-04-01 12:33 | XR ---
EXAMINATION TYPE: XR chest 2V DATE OF EXAM: 04/01/2020 COMPARISON: 01/29/2020 TECHNIQUE: PA and lateral views submitted. HISTORY: Shortness of breath FINDINGS: Right is enlarged and there is bilateral infiltrate, pleural effusion and interstitial pattern. No pn eumothorax. Limited inspiration. Heart size stable. IMPRESSION: 1. Diffuse pleural-parenchymal changes correlate for pulmonary edema versus diffuse pneumonia.
[2020-04-01] MEDS ORDERED: LIDOCAINE 5% PATCH TOPICAL STA (12:45)
[2020-04-01] MEDS ORDERED: cefTRIAXone IN SWFI 1,000 MG/10 ML SYRINGE IVP STA (13:26)
[2020-04-01] MEDS ORDERED: AZITHROMYCIN 500 MG in SODIUM CHLORIDE 0.9% 250 ML IVPB STA (13:26)
[2020-04-01] MEDS ORDERED: DEXAMETHASONE SOD PHOSPHATE 10 MG/ML 1 ML VIAL IV STA (13:26)
[2020-04-01] MEDS ORDERED: NALOXONE 0.4 MG/ML 1 ML VIAL IV PRN (13:28)
[2020-04-01] MEDS ORDERED: ACETAMINOPHEN TAB 325 MG TAB PO PRN (13:28)
--- NOTE | 2020-04-01 13:28 | ED ---
Medical Decision Making - Medical Decision Making Dictation was produced using [employer] dictation software. please excuse any gram matical, word or spelling errors. This patient was cared for during a federal and state declared state of emergency secondary to Covid 19 Chief Complaint: 69-year-old female presents today with abdominal pain. History of Present Illness: 1-year-old female presents with abdominal pain. Patient is brought in by EMS from the senior living. According to EMS patient had chest pain and possible fever. Patient is a poor historian and language appears to be part of the problem. Patient states she's has abdominal pain since waking up this morning. It's worse when she coughs. She localizes pain to the epigastric area. She does complain of worsening symptoms with deep breath. Pain does not radiate. Pain is not severe. Denies any vomiting complains of mild nausea. No diarrhea. Patient is no history of abdominal surgery. Patient has history of COPD and uses daily oxygen. The ROS documented in this emergency department record has been reviewed and confirmed by me. Those systems with pertinent positive or negative responses have been documented in the HPI. All other systems are other negative and/or noncontributory. PHYSICAL EXAM: General Impression: Alert and oriented x3, not in acute distress HEENT: Normocephalic atraumatic, extra-ocular movements intact, pupils equal and reactive to light bilaterally, mucous membranes moist. Cardiovascular: Heart regular rate and rhythm Chest: Able to complete full sentences, no retractions, no tachypnea, lungs clear to auscultation bilaterally Abdomen: abdomen soft, non-tender, non-distended, no organomegaly Musculoskeletal: Pulses present and equal in all extremities, no peripheral edema Motor: no focal deficits noted Neurological: CN II-XII grossly intact, no focal motor or sensory deficits noted Skin: Intact with no visualized rashes Psych: Normal affect and mood ED course: 69-year-old female presents with chief complaint of abdominal pain that is worse with coughing. It appears that EMS and fire department had different stories. Pulse nurse also got a different report. Vital signs upon arrival are within acceptable limits. Patient is 95% on room air. Patient is a poor historian. Daughter at bedside provides history. Daughter reports the patient currently resides in a senior living she has abdominal pain with coughing. Patient has been to the emergency department multiple occasions for abdominal pain from chronic coughing. Patient has nebulizers and other breathing treatment apparatus is at home. Laboratory evaluation obtained. CBC, metabolic panel unremarkable. No leukocytosis. No Acidosis. Abdominal x-rays unremarkable. Chest x-ray shows diffuse pleural parenchymal changes concerning for pulmonary edema versus pneumonia. Chest x-rays reviewed from previous past and patient appears to have chronic findings on her x-ray. She does not appear to be in significant respiratory distress is not hypoxic or tachypneic at bedside. She is resting comfortably. Patient given Lidoderm patch for abdominal pain. Patient underwent an ambulatory pulse ox. During that maneuver patient's oxygen dropped into the 60s. Patient did say she was significantly dyspneic. Patient started on azithromycin and ceftriaxone. Patient also given steroids for possible COPD exacerbation. Discussed patient case with Dr. Abraham patient's primary care physician who is willing to accept patients care for inpatient admission. Pulmonology on consultation. EKG interpretation: Ventricular rate 67, normal sinus rhythm, MT interval 140, QRS 80, QTC 420. No MT prolongation, no QTC prolongation, no ST or T-wave changes noted. . Overall, this EKG is unremarkable - Lab Data Result diagrams: 04/01/20 11:25 04/01/20 11:25 Lab Results 04/01/20 04/01/20 04/01/20 Range/Units 11:25 11:25 11:25 WBC 7.4 (3.8-10.6) k/uL RBC 4.22 (3.80-5.40) m/uL Hgb 11.4 (11.4-16.0) gm/dL Hct 36.8 (34.0-46.0) % MCV 87.2 (80.0-100.0) fL MCH 26.9 (25.0-35.0) pg MCHC 30.9 L (31.0-37.0) g/dL RDW 15.5 (11.5-15.5) % Plt Count 302 (150-450) k/uL Neutrophils % 73 % Lymphocytes % 15 % Monocytes % 5 % Eosinophils % 4 % Basophils % 1 % Neutrophils # 5.4 (1.3-7.7) k/uL Lymphocytes # 1.1 (1.0-4.8) k/uL Monocytes # 0.4 (0-1.0) k/uL Eosinophils # 0.3 (0-0.7) k/uL Basophils # 0.0 (0-0.2) k/uL Hypochromasia Slight Sodium 138 (137-145) mmol/L Potassium 4.8 (3.5-5.1) mmol/L Chloride 103 (98-107) mmol/L Carbon Dioxide 28 (22-30) mmol/L Anion Gap 7 mmol/L BUN 11 (7-17) mg/dL Creatinine 0.59 (0.52-1.04) mg/dL Est GFR (CKD-EPI)AfAm >90 (>60 ml/min/1.73 sqM) Est GFR (CKD-EPI)NonAf >90 (>60 ml/min/1.73 sqM) Glucose 109 H (74-99) mg/dL Calcium 9.0 (8.4-10.2) mg/dL Magnesium 2.0 (1.6-2.3) mg/dL Total Bilirubin 0.4 (0.2-1.3) mg/dL AST 31 (14-36) U/L ALT 24 (4-34) U/L Alkaline Phosphatase 89 (38-126) U/L NT-Pro-B Natriuret Pep 406 pg/mL Total Protein 6.7 (6.3-8.2) g/dL Albumin 3.6 (3.5-5.0) g/dL Lipase 75 (23-300) U/L Disposition Clinical Impression: Hypoxia Disposition: ADMITTED IP TO THIS HOSP Condition: Fair Referrals: Johny Abraham MD [Primary Care Provider] - 1-2 days Decision Time: 13:27
[2020-04-01] MEDS: SODIUM CHLORIDE 0.9% 1,000 ML IV SCH (15:51)
[2020-04-01 20:28] LABS: Glucose,Whole Blood 162 mg/dL (75-99)
[2020-04-02 08:23] LABS: Glucose,Whole Blood 156 mg/dL (75-99)
[2020-04-02 12:11] LABS: Glucose,Whole Blood 164 mg/dL (75-99)
[2020-04-02] MEDS: SODIUM CHLORIDE 0.9% 1,000 ML IV SCH (13:22)
[2020-04-02 16:13] VITALS: BMI 25.0
[2020-04-02 17:27] LABS: Glucose,Whole Blood 341 mg/dL (75-99)
[2020-04-02] MEDS: INSULIN ASPART (NovoLOG) 100 UNIT/ML VIAL SQ SCH ×2 (17:55→20:50)
--- NOTE | 2020-04-02 18:21 | P.HPIM ---
History of Present Illness H&P Date: 04/02/20 Rosmery Shirley, he is a 69-year-old female who presented to [facility] emergency room with multiple vague symptoms of abdominal pain, nausea, she was evaluated in emergency room and while in ER, her O2 sat duration dropped down to 70%, she was admitted to medical floor, pulmonary consultation was requested in that regard, patient has a known history of cerebral palsy, and is a very poor historian, she has known history of hypertension, hyperlipidemia, diabetes mellitus, depression, asthma, and lower extremity deformity with muscle spasm related to cerebral palsy. Past Medical History Past Medical History: Chest Pain / Angina, Diabetes Mellitus, Hypertension Additional Past Medical History / Comment(s): dysthymic disorder, mental disorder, hyper cholestremia, cerebral palsy, carpal tunnel left wrist, bipolar, left hip surgery, costochondritis. History of Any Multi-Drug Resistant Organisms: None Reported Past Surgical History: No Surgical Hx Reported Additional Past Surgical History / Comment(s): left hip surgery Past Anesthesia/Blood Transfusion Reactions: Unable to Obtain Past Psychological History: Bipolar Additional Psychological History / Comment(s): Mentally delayed Smoking Status: Never smoker Past Alcohol Use History: None Reported Past Drug Use History: None Reported - Past Family History Father History Unknown: Yes Family Medical History: No Reported History Medications and Allergies Home Medications Medication Instructions Recorded Confirmed Type Baclofen 10 mg PO TID 07/18/14 04/01/20 History Omeprazole [PriLOSEC] 20 mg PO DAILY 07/18/14 04/01/20 History Simvastatin [Zocor] 10 mg PO DAILY 07/18/14 04/01/20 History metFORMIN HCL ER [Glucophage Xr] 500 mg PO DAILY 10/12/17 04/01/20 History Clotrimazole/Betamethasone Dip 1 applic TOPICAL BID 01/23/18 04/01/20 History [Lotrisone Cream] FLUoxetine HCL [PROzac] 60 mg PO DAILY 01/06/19 04/01/20 History Meclizine [Antivert] 12.5 mg PO BID 01/06/19 04/01/20 History lamoTRIgine [LaMICtal] 75 mg PO BID 01/06/19 04/01/20 History Budesonide [Pulmicort] 0.5 mg INHALATION RT-BID 11/05/19 04/01/20 History Carvedilol [Coreg] 12.5 mg PO BID 11/05/19 04/01/20 History Docusate [Colace] 100 mg PO BID 11/05/19 04/01/20 History Furosemide [Lasix] 40 mg PO DAILY 11/05/19 04/01/20 History Lisinopril [Zestril] 2.5 mg PO DAILY 11/05/19 04/01/20 History Montelukast [Singulair] 10 mg PO DAILY 11/05/19 04/01/20 History Cholecalciferol (Vitamin D3) 2,000 unit PO DAILY 04/01/20 04/01/20 History [Vitamin D3] Clotrimazole [Clotrimazole AF] 1 applic TOPICAL DAILY 04/01/20 04/01/20 History Ibuprofen [Motrin Ib] 400 mg PO ONCE PRN 04/01/20 04/01/20 History Latanoprost [Xalatan 0.005%] 1 drop BOTH EYES HS 04/01/20 04/01/20 History Ocusoft Lid Scrub 1 applic BOTH EYES DAILY 04/01/20 04/01/20 History Oyster Shell Calcium 500mg/Vitamin 1 tab PO BID 04/01/20 04/01/20 History D3 200iu cycloSPORINE [Restasis] 1 drop BOTH EYES BID 04/01/20 04/01/20 History Allergies Allergy/AdvReac Type Severity Reaction Status Date / Time amoxicillin [From Augmentin] Allergy Anaphylaxis Verified 04/01/20 10:48 clavulanic acid Allergy Anaphylaxis Verified 04/01/20 10:48 [From Augmentin] Physical Exam Vitals: Vital Signs Temp Pulse Resp BP Pulse Ox 04/02/20 15:00 97.8 F 78 16 144/68 94 L 04/02/20 08:03 16 04/02/20 07:00 97.7 F 63 16 156/77 99 04/02/20 01:42 97.9 F 76 22 164/93 99 04/01/20 19:15 98.1 F 70 22 147/78 98 Intake and Output 04/02/20 04/02/20 04/02/20 06:59 14:59 22:59 Intake Total 520 Balance 520 Intake: Oral 520 Other: Voiding Method Bedpan Bedpan Diaper Diaper # Voids 3 1 # Bowel Movements 1 Weight 54.431 kg In general patient is alert, responsive in no apparent distress HEENT head normocephalic and atraumatic Neck is supple no JVD no goiter no lymphadenopathy Chest exam reveals a few scattered crackles no wheezing Cardiac exam reveals regular heart sounds no gallops no murmurs Abdomen is soft nontender no organomegaly with normal bowel sounds Extremity exam reveals no edema no cyanosis or clubbing, chronic changes of lower extremity deformity Neurological examination reveals no gross focal deficit Results CBC & Chem 7: 04/01/20 11:25 04/01/20 11:25 Labs: Abnormal Lab Results - Last 24 Hours (Table) 04/01/20 04/02/20 04/02/20 Range/Units 20:27 07:41 12:05 POC Glucose (mg/dL) 162 H 156 H 164 H (75-99) mg/dL 04/02/20 Range/Units 17:23 POC Glucose (mg/dL) 341 H (75-99) mg/dL Microbiology - Last 24 Hours (Table) 04/01/20 15:41 Blood Culture - Preliminary Blood No Growth after 24 hours Thrombosis Risk Factor Assmnt - Choose All That Apply Each Risk Factor Represents 2 Points: Age 61-74 years Thrombosis Risk Factor Assessment Total Risk Factor Score: 2 Thrombosis Risk Factor Assessment Level: Low Risk Assessment and Plan Plan: 1. Abdominal pain cause is unclear exam of the abdomen is benign, x-ray of the abdomen does not reveal acute abnormality, will check amylase and lipase check abdomen ultrasound will follow in a.m. 2. Decrease in O2 sat duration down to 60-70% in the emergency room, pulmonary consultation was requested 3. Underlying history of hypertension well-controlled on medications home medications reordered 4. Underlying history of [id number] diabetes mellitus maintained on metformin 5. Underlying history of hyperlipidemia maintained on simvastatin 6. Underlying history of asthma seems to be stable at this time continue was Singulair add albuterol updrafts as needed Will follow during this admission for medical management please see orders will follow in a.m.
[2020-04-02 19:25] LABS: Amylase 50 U/L (30-110)
[2020-04-02] MEDS: AZITHROMYCIN 500 MG in SODIUM CHLORIDE 0.9% 250 ML IVPB SCH (19:32)
[2020-04-02 20:31] LABS: Glucose,Whole Blood 174 mg/dL (75-99)
[2020-04-03] MEDS: INSULIN ASPART (NovoLOG) 100 UNIT/ML VIAL SQ SCH ×4 (07:33→21:30)
[2020-04-03 07:42] LABS: Glucose,Whole Blood 109 mg/dL (75-99)
--- NOTE | 2020-04-03 09:02 | US ---
EXAMINATION TYPE: US abdomen complete DATE OF EXAM: 04/03/2020 COMPARISON: US & CT CLINICAL HISTORY: abdominal pain. Pain EXAM MEASUREMENTS: Liver Length: 13.4 cm CBD: 0.3 cm Spleen: 6.4 cm Right Kidney: 8.2 x 3.9 x 4.3 cm Left Kidney: 8.9 x 4.7 x 4.7 cm Pancreas: Obscured by bowel gas Liver: Visualized portions appeared wnl Gallbladder: Surgically absent Evidence for sonographic Herron's sign: No CBD: wnl Spleen: Very difficult to visualize due to overlying bowel gas Right Kidney: wnl, lower pole gassed out Left Kidney: Difficult to visualize due to overlying bowel gas Upper IVC: wnl Abd Aorta: Obscured by overlying bowel gas IMPRESSION: 1. Postcholecystectomy changes.
[2020-04-03 11:52] LABS: Glucose,Whole Blood 234 mg/dL (75-99)
[2020-04-03] MEDS: SODIUM CHLORIDE 0.9% 1,000 ML IV SCH (15:32)
--- NOTE | 2020-04-03 15:51 | P.CNPUL ---
History of Present Illness Consult date: 04/03/20 Reason for consult: hypoxemia Chief complaint: COPD and hypoxia History of present illness: This is a 69-year-old female was brought into emergency department from the [facility] due to ongoing problems associated with thoracoabdominal pain shortness of breath, coughing she is a resident of [facility] poor historian not much data can be obtained from the patient, patient is on oxygen in [facility] along with nebulizer treatment, her abdominal x-ray is unremarkable, chest x-ray suggestive of developing infiltrate in left upper lobe along with some pleural parenchymal changes possibility of diffuse pneumonia cannot be excluded Review of Systems All systems: negative Past Medical History Past Medical History: Chest Pain / Angina, Diabetes Mellitus, Hypertension Additional Past Medical History / Comment(s): dysthymic disorder, mental disorder, hyper cholestremia, cerebral palsy, carpal tunnel left wrist, bipolar, left hip surgery, costochondritis. History of Any Multi-Drug Resistant Organisms: None Reported Past Surgical History: No Surgical Hx Reported Additional Past Surgical History / Comment(s): left hip surgery Past Anesthesia/Blood Transfusion Reactions: Unable to Obtain Past Psychological History: Bipolar Additional Psychological History / Comment(s): Mentally delayed Smoking Status: Never smoker Past Alcohol Use History: None Reported Past Drug Use History: None Reported - Past Family History Father History Unknown: Yes Family Medical History: No Reported History Medications and Allergies Home Medications Medication Instructions Recorded Confirmed Type Baclofen 10 mg PO TID 07/18/14 04/01/20 History Omeprazole [PriLOSEC] 20 mg PO DAILY 07/18/14 04/01/20 History Simvastatin [Zocor] 10 mg PO DAILY 07/18/14 04/01/20 History metFORMIN HCL ER [Glucophage Xr] 500 mg PO DAILY 10/12/17 04/01/20 History Clotrimazole/Betamethasone Dip 1 applic TOPICAL BID 01/23/18 04/01/20 History [Lotrisone Cream] FLUoxetine HCL [PROzac] 60 mg PO DAILY 01/06/19 04/01/20 History Meclizine [Antivert] 12.5 mg PO BID 01/06/19 04/01/20 History lamoTRIgine [LaMICtal] 75 mg PO BID 01/06/19 04/01/20 History Budesonide [Pulmicort] 0.5 mg INHALATION RT-BID 11/05/19 04/01/20 History Carvedilol [Coreg] 12.5 mg PO BID 11/05/19 04/01/20 History Docusate [Colace] 100 mg PO BID 11/05/19 04/01/20 History Furosemide [Lasix] 40 mg PO DAILY 11/05/19 04/01/20 History Lisinopril [Zestril] 2.5 mg PO DAILY 11/05/19 04/01/20 History Montelukast [Singulair] 10 mg PO DAILY 11/05/19 04/01/20 History Cholecalciferol (Vitamin D3) 2,000 unit PO DAILY 04/01/20 04/01/20 History [Vitamin D3] Clotrimazole [Clotrimazole AF] 1 applic TOPICAL DAILY 04/01/20 04/01/20 History Ibuprofen [Motrin Ib] 400 mg PO ONCE PRN 04/01/20 04/01/20 History Latanoprost [Xalatan 0.005%] 1 drop BOTH EYES HS 04/01/20 04/01/20 History Ocusoft Lid Scrub 1 applic BOTH EYES DAILY 04/01/20 04/01/20 History Oyster Shell Calcium 500mg/Vitamin 1 tab PO BID 04/01/20 04/01/20 History D3 200iu cycloSPORINE [Restasis] 1 drop BOTH EYES BID 04/01/20 04/01/20 History Allergies Allergy/AdvReac Type Severity Reaction Status Date / Time amoxicillin [From Augmentin] Allergy Anaphylaxis Verified 04/01/20 10:48 clavulanic acid Allergy Anaphylaxis Verified 04/01/20 10:48 [From Augmentin] Physical Exam Vitals: Vital Signs Temp Pulse Resp BP Pulse Ox 04/03/20 07:21 97.3 F L 69 20 168/91 99 04/03/20 02:45 97.8 F 76 20 158/76 98 04/03/20 00:00 16 04/02/20 19:57 16 04/02/20 19:42 97.8 F 74 22 154/80 98 Intake and Output 04/03/20 04/03/20 04/03/20 06:59 14:59 22:59 Other: Voiding Method Bedpan Bedpan Diaper Diaper # Voids 1 1 1 - Constitutional General appearance: average body habitus, cooperative, disheveled - EENT Eyes: anicteric sclerae, EOMI Ears: bilateral: normal - Neck Neck: normal ROM Carotids: bilateral: upstroke normal Thyroid: bilateral: normal size - Respiratory Respiratory: bilateral: diminished - Cardiovascular Rhythm: regular Heart sounds: normal: S1, S2 - Gastrointestinal General gastrointestinal: decreased bowel sounds, soft - Musculoskeletal Musculoskeletal: gait normal, generalized weakness, strength equal bilaterally - Psychiatric Psychiatric: A&O x's 3, appropriate affect, intact judgment & insight Results - Laboratory Findings CBC and BMP: 04/01/20 11:25 04/01/20 11:25 Abnormal lab findings: Abnormal Labs 04/01/20 04/01/20 04/01/20 11:25 11:25 20:27 MCHC 30.9 L Glucose 109 H POC Glucose (mg/dL) 162 H 04/02/20 04/02/20 04/02/20 07:41 12:05 17:23 MCHC Glucose POC Glucose (mg/dL) 156 H 164 H 341 H 04/02/20 04/03/20 04/03/20 20:29 07:23 11:44 MCHC Glucose POC Glucose (mg/dL) 174 H 109 H 234 H - Diagnostic Findings Chest x-ray: report reviewed, image reviewed Assessment and Plan Assessment: Left upper lobe and as well as bilateral diffuse pneumonia Acute hypoxic respiratory failure due to above 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
[2020-04-03 17:12] LABS: Glucose,Whole Blood 136 mg/dL (75-99)
--- NOTE | 2020-04-03 19:29 | P.PN ---
Subjective Progress Note Date: 04/03/20 Rosmery Shirley, he is a 69-year-old female who presented to [facility] emergency room with multiple vague symptoms of abdominal pain, nausea, she was evaluated in emergency room and while in ER, her O2 sat duration dropped down to 70%, she was admitted to medical floor, pulmonary consultation was requested in that regard, patient has a known history of cerebral palsy, and is a very poor historian, she has known history of hypertension, hyperlipidemia, diabetes mellitus, depression, asthma, and lower extremity deformity with muscle spasm related to cerebral palsy. On 04/03/2020 patient was seen and examined on the medical floor she is alert and oriented in no distress there is no fever or chills she is still complaining of cough no chest pain or shortness of breath no nausea or vomiting no abdominal pain no diarrhea no blood in the stools no urinary symptoms, patient is maintained on IV antibiotics, she is stable at this time Objective - Vital Signs Vital signs: Vital Signs Temp 97.6 F 04/03/20 15:02 Pulse 85 04/03/20 15:02 Resp 18 04/03/20 15:02 BP 149/82 04/03/20 15:02 Pulse Ox 99 04/03/20 15:02 Intake & Output 04/03/20 04/03/20 04/04/20 06:59 18:59 06:59 Intake Total 300 540 Balance 300 540 Intake: Intake, IV Titration 300 Amount Azithromycin 500 mg In 250 Sodium Chloride 0.9% 250 ml @ 250 mls/hr IVPB DAILY@1900 MO Rx#: [id number] cefTRIAXone 1 gm In 50 Sodium Chloride 0.9% 50 ml @ 100 mls/hr IVPB Q24HR MO Rx#:[id number] Oral 540 Other: Voiding Method Bedpan Bedpan Diaper Diaper # Voids 1 3 - Exam In general patient is alert, responsive in no apparent distress HEENT head normocephalic and atraumatic Neck is supple no JVD no goiter no lymphadenopathy Chest exam reveals a few scattered crackles no wheezing Cardiac exam reveals regular heart sounds no gallops no murmurs Abdomen is soft nontender no organomegaly with normal bowel sounds Extremity exam reveals no edema no cyanosis or clubbing, chronic changes of lower extremity deformity Neurological examination reveals no gross focal deficit - Labs CBC & Chem 7: 04/01/20 11:25 04/01/20 11:25 Labs: Abnormal Lab Results - Last 24 Hours (Table) 04/02/20 04/03/20 04/03/20 Range/Units 20:29 07:23 11:44 POC Glucose (mg/dL) 174 H 109 H 234 H (75-99) mg/dL 04/03/20 Range/Units 16:59 POC Glucose (mg/dL) 136 H (75-99) mg/dL Microbiology - Last 24 Hours (Table) 04/01/20 15:41 Blood Culture - Preliminary Blood No Growth after 48 hours Assessment and Plan Plan: 1. Abdominal pain cause is unclear exam of the abdomen is benign, x-ray of the abdomen does not reveal acute abnormality, will check amylase and lipase check abdomen ultrasound will follow in a.m. 2. Decrease in O2 sat duration down to 60-70% in the emergency room, pulmonary consultation was requested 3. Underlying history of hypertension well-controlled on medications home medications reordered 4. Underlying history of kvh-phygdcy-qwsyskruo diabetes mellitus maintained on metformin 5. Underlying history of hyperlipidemia maintained on simvastatin 6. Underlying history of asthma seems to be stable at this time continue was Singulair add albuterol updrafts as needed Will follow during this admission for medical management please see orders will follow in a.m.
[2020-04-03] MEDS ORDERED: IBUPROFEN 400 MG TAB PO PRN (19:30)
[2020-04-03] MEDS: AZITHROMYCIN 500 MG in SODIUM CHLORIDE 0.9% 250 ML IVPB SCH (19:42)
[2020-04-03] MEDS: BUDESONIDE 0.5 MG/2 ML NEBU INHALATION SCH (19:56)
[2020-04-03 20:47] LABS: Glucose,Whole Blood 235 mg/dL (75-99)
[2020-04-03] MEDS: CARVEDILOL 12.5 MG TAB PO SCH (21:28)
[2020-04-03] MEDS: CALCIUM CARB-VIT D 500MG-200UN 1 EACH TAB PO SCH (21:28)
[2020-04-03] MEDS: ENOXAPARIN 40 MG/0.4 ML SYRINGE SQ SCH (21:28)
[2020-04-03] MEDS: cycloSPORINE 0.05% OPHTH 0.4 ML DROPERETTE BOTH EYES SCH (21:29)
[2020-04-03] MEDS: CLOTRIMAZOLE/BETAMETH 1-0.05% CREAM 45 GM TUBE TOPICAL SCH (21:29)
[2020-04-03] MEDS: lamoTRIgine 25 MG TAB PO SCH (21:30)
[2020-04-03] MEDS: DOCUSATE 100 MG CAP PO SCH (21:30)
[2020-04-03] MEDS: LATANOPROST 0.005% OPHTH DROPS 2.5 ML BTL BOTH EYES SCH (21:30)
[2020-04-03] MEDS: BACLOFEN 10 MG TAB PO SCH (21:30)
[2020-04-03] MEDS: MECLIZINE 12.5 MG TAB PO SCH (21:30)
[2020-04-04 07:03] LABS: Glucose,Whole Blood 119 mg/dL (75-99)
[2020-04-04] MEDS: INSULIN ASPART (NovoLOG) 100 UNIT/ML VIAL SQ SCH ×4 (07:16→21:05)
[2020-04-04] MEDS: PANTOPRAZOLE 40 MG TABLET PO SCH (07:16)
[2020-04-04] MEDS: CARVEDILOL 12.5 MG TAB PO SCH ×2 (07:16→17:22)
--- NOTE | 2020-04-04 07:33 | P.CONS ---
History of Present Illness - Reason for Consult Consult date: 04/03/20 Pneumonia Requesting physician: Johny Abraham - Chief Complaint Chest pain and shortness of breath x one day - History of Present Illness Patient is a 69-year-old female with past medical history significant for developmental delay this patient is a resident of a local [facility] patient has been sent to the ER for evaluation of chest and abdominal pain in this p atient apparently was pointing more towards her epigastric area for the discomfort when I ask her she was complaining of some chest pain unfortunately the patient unable to elaborate further her symptoms when asked specifically for any cough also has been no history no history of any nausea or vomiting patient on presentation hospital has been afebrile and no fever has been documented since admission to the hospital patient also did have a normal white count on presentation to the hospital patient did have a chest x-ray which was reported by radiologist as diffuse infiltrate with consideration for diffuse pneumonia patient had abdominal ultrasound today shows post corticectomy changes and no other abnormality patient has been treated with the Rocephin and azithromycin. Disease was consulted with concern for possible pneumonia and antibiotic recommendation most of the information has been obtained from review the chart as the patient herself is not a good historian Review of Systems Positive points has been mentioned in HPI complete review could not be obtained because of his underlying mental status Past Medical History Past Medical History: Chest Pain / Angina, Diabetes Mellitus, Hypertension Additional Past Medical History / Comment(s): dysthymic disorder, mental disorder, hyper cholestremia, cerebral palsy, carpal tunnel left wrist, bipolar, left hip surgery, costochondritis. History of Any Multi-Drug Resistant Organisms: None Reported Past Surgical History: No Surgical Hx Reported Additional Past Surgical History / Comment(s): left hip surgery Past Anesthesia/Blood Transfusion Reactions: Unable to Obtain Past Psychological History: Bipolar Additional Psychological History / Comment(s): Mentally delayed Smoking Status: Never smoker Past Alcohol Use History: None Reported Past Drug Use History: None Reported - Past Family History Father History Unknown: Yes Family Medical History: No Reported History Medications and Allergies Home Medications Medication Instructions Recorded Confirmed Type Baclofen 10 mg PO TID 07/18/14 04/01/20 History Omeprazole [PriLOSEC] 20 mg PO DAILY 07/18/14 04/01/20 History Simvastatin [Zocor] 10 mg PO DAILY 07/18/14 04/01/20 History metFORMIN HCL ER [Glucophage Xr] 500 mg PO DAILY 10/12/17 04/01/20 History Clotrimazole/Betamethasone Dip 1 applic TOPICAL BID 01/23/18 04/01/20 History [Lotrisone Cream] FLUoxetine HCL [PROzac] 60 mg PO DAILY 01/06/19 04/01/20 History Meclizine [Antivert] 12.5 mg PO BID 01/06/19 04/01/20 History lamoTRIgine [LaMICtal] 75 mg PO BID 01/06/19 04/01/20 History Budesonide [Pulmicort] 0.5 mg INHALATION RT-BID 11/05/19 04/01/20 History Carvedilol [Coreg] 12.5 mg PO BID 11/05/19 04/01/20 History Docusate [Colace] 100 mg PO BID 11/05/19 04/01/20 History Furosemide [Lasix] 40 mg PO DAILY 11/05/19 04/01/20 History Lisinopril [Zestril] 2.5 mg PO DAILY 11/05/19 04/01/20 History Montelukast [Singulair] 10 mg PO DAILY 11/05/19 04/01/20 History Cholecalciferol (Vitamin D3) 2,000 unit PO DAILY 04/01/20 04/01/20 History [Vitamin D3] Clotrimazole [Clotrimazole AF] 1 applic TOPICAL DAILY 04/01/20 04/01/20 History Ibuprofen [Motrin Ib] 400 mg PO ONCE PRN 04/01/20 04/01/20 History Latanoprost [Xalatan 0.005%] 1 drop BOTH EYES HS 04/01/20 04/01/20 History Ocusoft Lid Scrub 1 applic BOTH EYES DAILY 04/01/20 04/01/20 History Oyster Shell Calcium 500mg/Vitamin 1 tab PO BID 04/01/20 04/01/20 History D3 200iu cycloSPORINE [Restasis] 1 drop BOTH EYES BID 04/01/20 04/01/20 History Allergies Allergy/AdvReac Type Severity Reaction Status Date / Time amoxicillin [From Augmentin] Allergy Anaphylaxis Verified 04/01/20 10:48 clavulanic acid Allergy Anaphylaxis Verified 04/01/20 10:48 [From Augmentin] Physical Exam Vitals: Vital Signs Temp Pulse Pulse Resp BP Pulse Ox 04/03/20 20:02 80 04/03/20 19:56 80 04/03/20 15:02 97.6 F 85 18 149/82 99 04/03/20 07:21 97.3 F L 69 20 168/91 99 04/03/20 02:45 97.8 F 76 20 158/76 98 04/03/20 00:00 16 Intake and Output 04/03/20 04/03/20 04/04/20 14:59 22:59 06:59 Intake Total 540 Balance 540 Intake: Oral 540 Other: Voiding Method Bedpan Diaper # Voids 1 1 GENERAL DESCRIPTION: An elderly female lying in bed, no distress. No tachypnea or accessory muscle of respiration use. HEENT: Shows Pallor , no scleral icterus. Oral mucous membrane is dry. No pharyngeal erythema or thrush NECK: Trachea central, no thyromegaly. LUNGS: Unlabored breathing. Decreased breath sound at the base No wheeze or crackle. HEART: S1, S2, regular rate and rhythm. No loud murmur ABDOMEN: Soft, no tenderness , guarding or rigidity, no organomegaly EXTREMITIES: No edema of feet. SKIN: No rash, no masses palpable. NEUROLOGICAL: The patient is awake, alert, oriented x2, mood and affect normal. Results CBC & Chem 7: 04/01/20 11:25 04/01/20 11:25 Labs: Abnormal Lab Results - Last 24 Hours (Table) 04/03/20 04/03/20 04/03/20 Range/Units 07:23 11:44 16:59 POC Glucose (mg/dL) 109 H 234 H 136 H (75-99) mg/dL 04/03/20 Range/Units 20:46 POC Glucose (mg/dL) 235 H (75-99) mg/dL Microbiology - Last 24 Hours (Table) 04/01/20 15:41 Blood Culture - Preliminary Blood No Growth after 48 hours Assessment and Plan Assessment: 1-patient presented to hospital with chest and epigastric discomfort and this patient with no fever or elevated white count and abnormal x-rays of diffuse inf iltrate questionably noninfectious Pneumonia less likely but not entirely excluded 2-patient with penicillin ALLERGY that would limit the number of antibiotic safe to use (1) Abnormal chest x-ray Current Visit: Yes Status: Acute Code(s): R93.89 - ABNORMAL FINDINGS ON DX IMAGING OF OTH BODY STRUCTURES SNOMED Code(s): 745200223 Plan: 1-repeat chest x-ray 2- we will obtain CRP and procalcitonin level 3-continue with Rocephin and Zithromax for now We will follow on clinical condition and cultures to further adjust medication if needed Thank you for this consultation will follow this patient with you Time with Patient: Greater than 30
[2020-04-04] MEDS: ALBUTEROL NEBULIZED 2.5 MG/3 ML INHALATION PRN ×2 (07:44→19:43)
[2020-04-04] MEDS: BUDESONIDE 0.5 MG/2 ML NEBU INHALATION SCH ×2 (07:44→19:43)
[2020-04-04] MEDS: CLOTRIMAZOLE 1% CREAM 15 GM TUBE TOPICAL SCH (08:52)
[2020-04-04] MEDS: MECLIZINE 12.5 MG TAB PO SCH ×2 (08:52→21:06)
[2020-04-04] MEDS: MONTELUKAST 10 MG TAB PO SCH (08:52)
[2020-04-04] MEDS: metFORMIN 500 MG TAB PO SCH ×2 (08:52→21:06)
[2020-04-04] MEDS: FUROSEMIDE 40 MG TAB PO SCH (08:52)
[2020-04-04] MEDS: ATORVASTATIN 10 MG TAB PO SCH (08:53)
[2020-04-04] MEDS: FLUoxetine HCL 20 MG CAP PO SCH (08:53)
[2020-04-04] MEDS: lamoTRIgine 25 MG TAB PO SCH ×2 (08:53→21:07)
[2020-04-04] MEDS: CALCIUM CARB-VIT D 500MG-200UN 1 EACH TAB PO SCH ×2 (08:53→21:06)
[2020-04-04] MEDS: DOCUSATE 100 MG CAP PO SCH ×2 (08:53→21:06)
[2020-04-04] MEDS: BACLOFEN 10 MG TAB PO SCH ×3 (08:54→21:06)
[2020-04-04] MEDS: LISINOPRIL 2.5 MG TAB PO SCH (08:54)
[2020-04-04] MEDS: CHOLECALCIFEROL 1,000 UNIT TAB PO SCH (08:54)
[2020-04-04] MEDS: cycloSPORINE 0.05% OPHTH 0.4 ML DROPERETTE BOTH EYES SCH ×2 (08:55→21:07)
[2020-04-04] MEDS ORDERED: OCUSOFT LID SCRUB BOTH EYES SCH (09:00)
[2020-04-04] MEDS: CLOTRIMAZOLE/BETAMETH 1-0.05% CREAM 45 GM TUBE TOPICAL SCH ×2 (09:15→21:07)
[2020-04-04 11:15] LABS: Basophils # (A) 0.1 k/uL (0-0.2); Basophils % (A) 1 %; Eosinophils # (A) 0.5 k/uL (0-0.7); Eosinophils % (A) 5 %; HCT 36.3 % (34.0-46.0); HGB 11.1 gm/dL (11.4-16.0); Hypochromasia Moderate; Lymphocytes # (A) 1.2 k/uL (1.0-4.8); Lymphocytes % (A) 12 %; MCH 26.7 pg (25.0-35.0); MCHC 30.6 g/dL (31.0-37.0); MCV 87.5 fL (80.0-100.0); Mean Platelet Volume 7.8; Monocytes # (A) 0.7 k/uL (0-1.0); Monocytes % (A) 7 %; Neutrophils # (A) 7.7 k/uL (1.3-7.7); Neutrophils % (A) 75 %; Platelet Count 289 k/uL (150-450); RBC 4.15 m/uL (3.80-5.40); RDW 15.3 % (11.5-15.5); WBC 10.2 k/uL (3.8-10.6)
[2020-04-04 11:44] LABS: Glucose,Whole Blood 137 mg/dL (75-99)
[2020-04-04 11:56] LABS: African American GFR (CKD) >90 (>60 ml/min/1.73 sqM); Anion Gap 6 mmol/L; Blood Urea Nitrogen 15 mg/dL (7-17); C Reactive Protein 34.6 mg/L (<10.0); Calcium 9.3 mg/dL (8.4-10.2); Carbon Dioxide 28 mmol/L (22-30); Chloride 100 mmol/L (98-107); Glucose 144 mg/dL (74-99); Non-African American GFR(CKD) >90 (>60 ml/min/1.73 sqM); Potassium 4.4 mmol/L (3.5-5.1); Sodium 134 mmol/L (137-145)
[2020-04-04] MEDS: SODIUM CHLORIDE 0.9% 1,000 ML IV SCH (14:32)
[2020-04-04 17:01] LABS: Glucose,Whole Blood 139 mg/dL (75-99)
--- NOTE | 2020-04-04 17:59 | P.PN ---
Subjective Progress Note Date: 04/04/20 Rosmery Shirley, he is a 69-year-old female who presented to [facility] emergency room with multiple vague symptoms of abdominal pain, nausea, she was evaluated in emergency room and while in ER, her O2 sat duration dropped down to 70%, she was admitted to medical floor, pulmonary consultation was requested in that regard, patient has a known history of cerebral palsy, and is a very poor historian, she has known history of hypertension, hyperlipidemia, diabetes mellitus, depression, asthma, and lower extremity deformity with muscle spasm related to cerebral palsy. On 04/03/2020 patient was seen and examined on the medical floor she is alert and oriented in no distress there is no fever or chills she is still complaining of cough no chest pain or shortness of breath no nausea or vomiting no abdominal pain no diarrhea no blood in the stools no urinary symptoms, patient is maintained on IV antibiotics, she is stable at this time On 04/04/2020 patient was seen and examined on the medical floor she is alert and oriented in no distress she has some cough otherwise she denies any c omplaints at this time there is no fever or chills no headache or dizziness no chest pain no shortness of breath no nausea or vomiting no abdominal pain no diarrhea no burning with urination no frequency or urgency no hematuria Objective - Vital Signs Vital signs: Vital Signs Temp 98.0 F 04/04/20 14:13 Pulse 84 04/04/20 14:13 Resp 16 04/04/20 14:13 BP 117/69 04/04/20 14:13 Pulse Ox 98 04/04/20 14:13 Intake & Output 04/03/20 04/04/20 04/04/20 18:59 06:59 18:59 Intake Total 540 500 Output Total 2 Balance 540 498 Intake: Oral 540 500 Output: Stool 2 Other: Voiding Method Bedpan Bedpan Bedpan Diaper Diaper Diaper # Voids 3 3 1 # Bowel Movements 1 1 - Exam In general patient is alert, responsive in no apparent distress HEENT head normocephalic and atraumatic Neck is supple no JVD no goiter no lymphadenopathy Chest exam reveals a few scattered crackles no wheezing Cardiac exam reveals regular heart sounds no gallops no murmurs Abdomen is soft nontender no organomegaly with normal bowel sounds Extremity exam reveals no edema no cyanosis or clubbing, chronic changes of lower extremity deformity Neurological examination reveals no gross focal deficit - Labs CBC & Chem 7: 04/04/20 11:03 04/04/20 11:03 Labs: Abnormal Lab Results - Last 24 Hours (Table) 04/03/20 04/04/20 04/04/20 Range/Units 20:46 06:47 11:03 Hgb 11.1 L (11.4-16.0) gm/dL MCHC 30.6 L (31.0-37.0) g/dL Sodium (137-145) mmol/L Glucose (74-99) mg/dL POC Glucose (mg/dL) 235 H 119 H (75-99) mg/dL C-Reactive Protein (<10.0) mg/L 04/04/20 04/04/20 04/04/20 Range/Units 11:03 11:27 16:46 Hgb (11.4-16.0) gm/dL MCHC (31.0-37.0) g/dL Sodium 134 L (137-145) mmol/L Glucose 144 H (74-99) mg/dL POC Glucose (mg/dL) 137 H 139 H (75-99) mg/dL C-Reactive Protein 34.6 H (<10.0) mg/L Microbiology - Last 24 Hours (Table) 04/01/20 15:41 Blood Culture - Preliminary Blood No Growth after 72 hours Assessment and Plan Plan: 1. Abdominal pain cause is unclear exam of the abdomen is benign, x-ray of the abdomen does not reveal acute abnormality, will check amylase and lipase check abdomen ultrasound will follow in a.m. 2. Decrease in O2 sat duration down to 60-70% in the emergency room, pulmonary consultation was requested 3. Underlying history of hypertension well-controlled on medications home medications reordered 4. Underlying history of fmg-izastzx-ywrfrowep diabetes mellitus maintained on metformin 5. Underlying history of hyperlipidemia maintained on simvastatin 6. Underlying history of asthma seems to be stable at this time continue was Singulair add albuterol updrafts as needed 7. Pneumonia maintained on IV antibiotic continue pulmonary are following Will follow during this admission for medical management please see orders will follow in a.m.
[2020-04-04] MEDS: AZITHROMYCIN 500 MG in SODIUM CHLORIDE 0.9% 250 ML IVPB SCH (18:13)
[2020-04-04 20:49] LABS: Glucose,Whole Blood 219 mg/dL (75-99)
[2020-04-04] MEDS: LATANOPROST 0.005% OPHTH DROPS 2.5 ML BTL BOTH EYES SCH (21:05)
[2020-04-04] MEDS: ENOXAPARIN 40 MG/0.4 ML SYRINGE SQ SCH (21:05)
--- NOTE | 2020-04-05 06:42 | PN ---
PROGRESS NOTE DATE OF SERVICE: 04/04/2020 REASON FOR FOLLOWUP: Pneumonia. INTERVAL HISTORY: Patient is currently afebrile. The patient is breathing comfortably. The patient denies having any chest pain or cough. No nausea, no vomiting. No abdominal pain or diarrhea. PHYSICAL EXAMINATION: Blood pressure 152/76, pulse of 82, temperature 98.7. She is 98% on 2 L. General description is a middle-aged female lying in bed in no distress. Respiratory system: Unlabored breathing, clear to auscultation anteriorly. Heart S1, S2. Regular rate and rhythm. Abdomen soft, no tenderness. LABS: Hemoglobin 11.1, white count 10.2, BUN of 15, creatinine 0.61. Blood culture has been negative. DIAGNOSTIC IMPRESSION AND PLAN: Patient admitted to the hospital with chest pain, some shortness of breath, abnormal x- ray that was reported possible pneumonia. Clinically not behaving ( ). She is on Rocephin and Zithromax. May consider short course of oral Ceftin on discharge to finish therapy. Continue supportive care. MMODL / IJN: [id number] /
[2020-04-05 07:20] LABS: Glucose,Whole Blood 192 mg/dL (75-99)
[2020-04-05] MEDS: PANTOPRAZOLE 40 MG TABLET PO SCH (07:30)
[2020-04-05] MEDS: INSULIN ASPART (NovoLOG) 100 UNIT/ML VIAL SQ SCH ×4 (07:30→21:12)
[2020-04-05] MEDS: CARVEDILOL 12.5 MG TAB PO SCH ×2 (07:30→17:14)
--- NOTE | 2020-04-05 09:01 | XR ---
EXAMINATION TYPE: XR chest 1V portable DATE OF EXAM: 04/05/2020 COMPARISON: 04/01/2020 HISTORY: Possible pneumonia TECHNIQUE: Single frontal view of the chest is obtained. FINDINGS: Bilateral lower lobe infiltrate and small effusion. Coarsened interstitium. Heart enlarged . Hypertrophic and degenerative change of the spine. Biapical pleural thickening. Surgical clips righ t upper quadrant. IMPRESSION: Correlate for pneumonia or interstitial pneumonitis. Venous congestion also in considera tion.
[2020-04-05] MEDS: FLUoxetine HCL 20 MG CAP PO SCH (09:22)
[2020-04-05] MEDS: LISINOPRIL 2.5 MG TAB PO SCH (09:22)
[2020-04-05] MEDS: FUROSEMIDE 40 MG TAB PO SCH (09:22)
[2020-04-05] MEDS: ATORVASTATIN 10 MG TAB PO SCH (09:22)
[2020-04-05] MEDS: CHOLECALCIFEROL 1,000 UNIT TAB PO SCH (09:22)
[2020-04-05] MEDS: CALCIUM CARB-VIT D 500MG-200UN 1 EACH TAB PO SCH ×2 (09:22→21:12)
[2020-04-05] MEDS: BACLOFEN 10 MG TAB PO SCH ×3 (09:22→21:13)
[2020-04-05] MEDS: MONTELUKAST 10 MG TAB PO SCH (09:22)
[2020-04-05] MEDS: MECLIZINE 12.5 MG TAB PO SCH ×2 (09:23→21:13)
[2020-04-05] MEDS: cycloSPORINE 0.05% OPHTH 0.4 ML DROPERETTE BOTH EYES SCH ×2 (09:23→21:12)
[2020-04-05] MEDS: metFORMIN 500 MG TAB PO SCH ×2 (09:23→21:13)
[2020-04-05] MEDS: DOCUSATE 100 MG CAP PO SCH ×2 (09:23→21:12)
[2020-04-05] MEDS: CLOTRIMAZOLE 1% CREAM 15 GM TUBE TOPICAL SCH (09:23)
[2020-04-05] MEDS: lamoTRIgine 25 MG TAB PO SCH ×2 (09:24→21:13)
--- NOTE | 2020-04-05 10:04 | P.PN ---
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 History of developmental delay and cerebral palsy Possible sleep disorder breathing and sleep apnea Nonspecific abdominal pain likely related to thoracoabdominal due to pneumonia Insulin-dependent diabetes mellitus Dyslipidemia 04/05/2020, patient evaluated examined, care plan discussed with RN, respiratory status slightly better cough congestion is still going on still get short of breath, patient remains on supplemental oxygen, remains on broad-spectrum antibiotics sputum sample not able obtain, blood culture so far has been negative, chest x-ray from this morning reviewed bilateral infiltrates are present, This is a 69-year-old female was brought into emergency department from the [facility] due to ongoing problems associated with thoracoabdominal pain shortness of breath, coughing she is a resident of [facility] poor historian not much data can be obtained from the patient, patient is on oxygen in [facility] along with nebulizer treatment, her abdominal x-ray is unremarkable, chest x-ray suggestive of developing infiltrate in left upper lobe along with some pleural parenchymal changes possibility of diffuse pneumonia cannot be excluded Objective - Vital Signs Vital signs: Vital Signs Temp 98.3 F 04/05/20 07:10 Pulse 72 04/05/20 07:10 Resp 18 04/05/20 07:10 BP 146/82 04/05/20 07:10 Pulse Ox 100 04/05/20 07:10 Intake & Output 04/04/20 04/05/20 04/05/20 18:59 06:59 18:59 Intake Total 1040 160 Output Total 2 Balance 1038 160 Intake: Intake, IV Titration 160 Amount Sodium Chloride 0.9% 1, 160 000 ml @ 20 mls/hr IV . Q24H [facility] Rx#:[id number] Oral 1040 Output: Stool 2 Other: Voiding Method Bedpan Bedpan Diaper Diaper # Voids 2 2 # Bowel Movements 1 1 - Exam - Constitutional General appearance: average body habitus, cooperative, disheveled - EENT Eyes: anicteric sclerae, EOMI Ears: bilateral: normal - Neck Neck: normal ROM Carotids: bilateral: upstroke normal Thyroid: bilateral: normal size - Respiratory Respiratory: bilateral: diminished - Cardiovascular Rhythm: regular Heart sounds: normal: S1, S2 - Gastrointestinal General gastrointestinal: decreased bowel sounds, soft - Musculoskeletal Musculoskeletal: gait normal, generalized weakness, strength equal bilaterally - Psychiatric Psychiatric: A&O x's 3, appropriate affect, intact judgment & insight - Labs CBC & Chem 7: 04/04/20 11:03 04/04/20 11:03 Labs: Abnormal Lab Results - Last 24 Hours (Table) 04/04/20 04/04/20 04/04/20 Range/Units 11:03 11:03 11:27 Hgb 11.1 L (11.4-16.0) gm/dL MCHC 30.6 L (31.0-37.0) g/dL Sodium 134 L (137-145) mmol/L Glucose 144 H (74-99) mg/dL POC Glucose (mg/dL) 137 H (75-99) mg/dL C-Reactive Protein 34.6 H (<10.0) mg/L 04/04/20 04/04/20 04/05/20 Range/Units 16:46 20:47 07:11 Hgb (11.4-16.0) gm/dL MCHC (31.0-37.0) g/dL Sodium (137-145) mmol/L Glucose (74-99) mg/dL POC Glucose (mg/dL) 139 H 219 H 192 H (75-99) mg/dL C-Reactive Protein (<10.0) mg/L Microbiology - Last 24 Hours (Table) 04/01/20 15:41 Blood Culture - Preliminary Blood No Growth after 72 hours Assessment and Plan Assessment: Multi lobar bilateral diffuse pneumonia Acute hypoxic respiratory failure due to above 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
[2020-04-05] MEDS: CLOTRIMAZOLE/BETAMETH 1-0.05% CREAM 45 GM TUBE TOPICAL SCH ×2 (10:06→21:12)
[2020-04-05 10:08] LABS: Basophils % (A) 0 %; Eosinophils # (A) 0.5 k/uL (0-0.7); Eosinophils % (A) 6 %; HCT 35.4 % (34.0-46.0); HGB 10.6 gm/dL (11.4-16.0); Hypochromasia Moderate; Lymphocytes # (A) 1.2 k/uL (1.0-4.8); Lymphocytes % (A) 13 %; MCH 26.4 pg (25.0-35.0); MCV 87.9 fL (80.0-100.0); Mean Platelet Volume 7.7; Monocytes # (A) 0.5 k/uL (0-1.0); Monocytes % (A) 5 %; Neutrophils # (A) 6.9 k/uL (1.3-7.7); Neutrophils % (A) 74 %; Platelet Count 278 k/uL (150-450); RBC 4.02 m/uL (3.80-5.40); RDW 15.4 % (11.5-15.5); WBC 9.3 k/uL (3.8-10.6)
[2020-04-05 10:24] LABS: ALT 19 U/L (4-34); AST 20 U/L (14-36); African American GFR (CKD) >90 (>60 ml/min/1.73 sqM); Alkaline Phosphatase 86 U/L (38-126); Anion Gap 4 mmol/L; Blood Urea Nitrogen 14 mg/dL (7-17); Carbon Dioxide 31 mmol/L (22-30); Chloride 100 mmol/L (98-107); Glucose 123 mg/dL (74-99); Non-African American GFR(CKD) >90 (>60 ml/min/1.73 sqM); Potassium 4.5 mmol/L (3.5-5.1); Sodium 135 mmol/L (137-145); Total Bilirubin 0.3 mg/dL (0.2-1.3); Total Protein 5.9 g/dL (6.3-8.2)
[2020-04-05 11:15] LABS: Glucose,Whole Blood 114 mg/dL (75-99)
[2020-04-05] MEDS: ALBUTEROL NEBULIZED 2.5 MG/3 ML INHALATION PRN ×2 (11:52→19:57)
[2020-04-05] MEDS: BUDESONIDE 0.5 MG/2 ML NEBU INHALATION SCH ×2 (11:52→19:57)
--- NOTE | 2020-04-05 12:39 | P.PN ---
Subjective Progress Note Date: 04/05/20 Rosmery Shirley, he is a 69-year-old female who presented to [facility] emergency room with multiple vague symptoms of abdominal pain, nausea, she was evaluated in emergency room and while in ER, her O2 sat duration dropped down to 70%, she was admitted to medical floor, pulmonary consultation was requested in that regard, patient has a known history of cerebral palsy, and is a very poor historian, she has known history of hypertension, hyperlipidemia, diabetes mellitus, depression, asthma, and lower extremity deformity with muscle spasm related to cerebral palsy. On 04/03/2020 patient was seen and examined on the medical floor she is alert and oriented in no distress there is no fever or chills she is still complaining of cough no chest pain or shortness of breath no nausea or vomiting no abdominal pain no diarrhea no blood in the stools no urinary symptoms, patient is maintained on IV antibiotics, she is stable at this time On 04/04/2020 patient was seen and examined on the medical floor she is alert and oriented in no distress she has some cough otherwise she denies any c omplaints at this time there is no fever or chills no headache or dizziness no chest pain no shortness of breath no nausea or vomiting no abdominal pain no diarrhea no burning with urination no frequency or urgency no hematuria On 04/05/2020 patient was seen and examined on the medical floor, consultation from pulmonary reviewed, patient is alert responsive in no apparent distress, she is still having cough otherwise she denies any complaints there is no fever or chills no headache or dizziness no chest pain no shortness of breath no nausea or vomiting no abdominal pain no diarrhea no blood in the stools no burning with urination no frequency or urgency and no hematuria Objective - Vital Signs Vital signs: Vital Signs Temp 98.3 F 04/05/20 07:10 Pulse 72 04/05/20 12:07 Resp 18 04/05/20 07:10 BP 146/82 04/05/20 07:10 Pulse Ox 100 04/05/20 07:10 Intake & Output 04/04/20 04/05/20 04/05/20 18:59 06:59 18:59 Intake Total 1040 160 Output Total 2 Balance 1038 160 Intake: Intake, IV Titration 160 Amount Sodium Chloride 0.9% 1, 160 000 ml @ 20 mls/hr IV . Q24H [facility] Rx#:[id number] Oral 1040 Output: Stool 2 Other: Voiding Method Bedpan Bedpan Bedpan Diaper Diaper Diaper # Voids 2 2 1 # Bowel Movements 1 1 - Exam In general patient is alert, responsive in no apparent distress HEENT head normocephalic and atraumatic Neck is supple no JVD no goiter no lymphadenopathy Chest exam reveals a few scattered crackles no wheezing Cardiac exam reveals regular heart sounds no gallops no murmurs Abdomen is soft nontender no organomegaly with normal bowel sounds Extremity exam reveals no edema no cyanosis or clubbing, chronic changes of lower extremity deformity Neurological examination reveals no gross focal deficit - Labs CBC & Chem 7: 04/05/20 09:41 04/05/20 09:41 Labs: Abnormal Lab Results - Last 24 Hours (Table) 04/04/20 04/04/20 04/05/20 Range/Units 16:46 20:47 07:11 Hgb (11.4-16.0) gm/dL MCHC (31.0-37.0) g/dL Sodium (137-145) mmol/L Carbon Dioxide (22-30) mmol/L Glucose (74-99) mg/dL POC Glucose (mg/dL) 139 H 219 H 192 H (75-99) mg/dL Total Protein (6.3-8.2) g/dL Albumin (3.5-5.0) g/dL 04/05/20 04/05/20 04/05/20 Range/Units 09:41 09:41 11:14 Hgb 10.6 L (11.4-16.0) gm/dL MCHC 30.0 L (31.0-37.0) g/dL Sodium 135 L (137-145) mmol/L Carbon Dioxide 31 H (22-30) mmol/L Glucose 123 H (74-99) mg/dL POC Glucose (mg/dL) 114 H (75-99) mg/dL Total Protein 5.9 L (6.3-8.2) g/dL Albumin 3.0 L (3.5-5.0) g/dL Microbiology - Last 24 Hours (Table) 04/01/20 15:41 Blood Culture - Preliminary Blood No Growth after 72 hours Assessment and Plan Plan: 1. Abdominal pain cause is unclear exam of the abdomen is benign, x-ray of the abdomen does not reveal acute abnormality, will check amylase and lipase check abdomen ultrasound will follow in a.m. 2. Decrease in O2 sat duration down to 60-70% in the emergency room, pulmonary consultation was requested 3. Underlying history of hypertension well-controlled on medications home medications reordered 4. Underlying history of rco-uiutrwe-abpmvslzx diabetes mellitus maintained on metformin 5. Underlying history of hyperlipidemia maintained on simvastatin 6. Underlying history of asthma seems to be stable at this time continue was S ingulair add albuterol updrafts as needed 7. Pneumonia maintained on IV antibiotic continue pulmonary are following Will follow during this admission for medical management please see orders will follow in a.m.
[2020-04-05] MEDS: SODIUM CHLORIDE 0.9% 1,000 ML IV SCH (13:26)
[2020-04-05 16:51] LABS: Glucose,Whole Blood 156 mg/dL (75-99)
[2020-04-05] MEDS: AZITHROMYCIN 500 MG in SODIUM CHLORIDE 0.9% 250 ML IVPB SCH (18:10)
[2020-04-05 21:05] LABS: Glucose,Whole Blood 176 mg/dL (75-99)
[2020-04-05] MEDS: ENOXAPARIN 40 MG/0.4 ML SYRINGE SQ SCH (21:11)
[2020-04-05] MEDS: LATANOPROST 0.005% OPHTH DROPS 2.5 ML BTL BOTH EYES SCH (21:13)
--- NOTE | 2020-04-05 23:05 | PN ---
PROGRESS NOTE DATE OF SERVICE: 04/05/2020 REASON FOR FOLLOWUP: Abnormal x-ray and question of pneumonia. RECENT HISTORY: History the patient is currently afebrile. The patient is breathing comfortably. The patient denies any chest pain or shortness of breath or cough. No vomiting or any diarrhea. On examination blood pressure is 115/70 with a pulse of 87, temperature 98.5. She is 100% on 2 L nasal cannula. General description is elderly female up in the bed in no distress. Respiratory system: Unlabored breathing, clear to auscultation anteriorly. Heart S1, S2. Regular rate and rhythm. Abdomen soft, no tenderness. LABS: BUN of 14, creatinine 0.56. Blood culture has been negative. DIAGNOSTIC IMPRESSION AND PLAN: Patient admitted to the hospital with some chest pain, shortness of breath with concern for possible pneumonia, more likely interstitial edema from possible cardiac etiology. Bronch culture was negative. On empiric Rocephin and Zithromax. Continue supportive care. MMODL / IJN: [id number] /
[2020-04-06 07:11] LABS: Glucose,Whole Blood 131 mg/dL (75-99)
[2020-04-06] MEDS: INSULIN ASPART (NovoLOG) 100 UNIT/ML VIAL SQ SCH ×4 (07:30→21:00)
[2020-04-06 08:35] LABS: Basophils % (A) 0 %; Eosinophils # (A) 0.5 k/uL (0-0.7); Eosinophils % (A) 6 %; HCT 36.5 % (34.0-46.0); HGB 11.1 gm/dL (11.4-16.0); Hypochromasia Moderate; Lymphocytes # (A) 1.4 k/uL (1.0-4.8); Lymphocytes % (A) 16 %; MCH 26.8 pg (25.0-35.0); MCHC 30.5 g/dL (31.0-37.0); MCV 87.8 fL (80.0-100.0); Mean Platelet Volume 7.9; Monocytes # (A) 0.4 k/uL (0-1.0); Monocytes % (A) 5 %; Neutrophils # (A) 6.6 k/uL (1.3-7.7); Neutrophils % (A) 72 %; Platelet Count 297 k/uL (150-450); RBC 4.16 m/uL (3.80-5.40); RDW 15.4 % (11.5-15.5); WBC 9.1 k/uL (3.8-10.6)
[2020-04-06 08:49] LABS: ALT 20 U/L (4-34); AST 23 U/L (14-36); African American GFR (CKD) >90 (>60 ml/min/1.73 sqM); Albumin 3.4 g/dL (3.5-5.0); Alkaline Phosphatase 92 U/L (38-126); Anion Gap 7 mmol/L; Blood Urea Nitrogen 16 mg/dL (7-17); Calcium 9.1 mg/dL (8.4-10.2); Carbon Dioxide 31 mmol/L (22-30); Chloride 99 mmol/L (98-107); Glucose 116 mg/dL (74-99); Non-African American GFR(CKD) >90 (>60 ml/min/1.73 sqM); Potassium 4.6 mmol/L (3.5-5.1); Sodium 137 mmol/L (137-145); Total Bilirubin 0.3 mg/dL (0.2-1.3); Total Protein 6.3 g/dL (6.3-8.2)
[2020-04-06] MEDS: BUDESONIDE 0.5 MG/2 ML NEBU INHALATION SCH ×2 (08:56→20:45)
[2020-04-06] MEDS: ALBUTEROL NEBULIZED 2.5 MG/3 ML INHALATION PRN (08:56)
[2020-04-06] MEDS: MONTELUKAST 10 MG TAB PO SCH (09:16)
[2020-04-06] MEDS: FUROSEMIDE 40 MG TAB PO SCH (09:16)
[2020-04-06] MEDS: CALCIUM CARB-VIT D 500MG-200UN 1 EACH TAB PO SCH ×2 (09:16→21:00)
[2020-04-06] MEDS: DOCUSATE 100 MG CAP PO SCH ×2 (09:16→21:00)
[2020-04-06] MEDS: FLUoxetine HCL 20 MG CAP PO SCH (09:16)
[2020-04-06] MEDS: CHOLECALCIFEROL 1,000 UNIT TAB PO SCH (09:16)
[2020-04-06] MEDS: ATORVASTATIN 10 MG TAB PO SCH (09:16)
[2020-04-06] MEDS: LISINOPRIL 2.5 MG TAB PO SCH (09:17)
[2020-04-06] MEDS: lamoTRIgine 25 MG TAB PO SCH ×2 (09:17→21:01)
[2020-04-06] MEDS: BACLOFEN 10 MG TAB PO SCH ×3 (09:17→21:01)
[2020-04-06] MEDS: CARVEDILOL 12.5 MG TAB PO SCH ×2 (09:17→16:45)
[2020-04-06] MEDS: cycloSPORINE 0.05% OPHTH 0.4 ML DROPERETTE BOTH EYES SCH ×2 (09:17→21:00)
[2020-04-06] MEDS: metFORMIN 500 MG TAB PO SCH ×2 (09:17→21:01)
[2020-04-06] MEDS: PANTOPRAZOLE 40 MG TABLET PO SCH (09:18)
[2020-04-06] MEDS: CLOTRIMAZOLE/BETAMETH 1-0.05% CREAM 45 GM TUBE TOPICAL SCH ×3 (09:27→21:00)
[2020-04-06] MEDS: CLOTRIMAZOLE 1% CREAM 15 GM TUBE TOPICAL SCH (09:27)
[2020-04-06] MEDS: MECLIZINE 12.5 MG TAB PO SCH ×2 (10:44→21:01)
[2020-04-06 11:36] LABS: Glucose,Whole Blood 171 mg/dL (75-99)
--- NOTE | 2020-04-06 13:57 | P.PN ---
Subjective Progress Note Date: 04/06/20 Rosmery Shirley, he is a 69-year-old female who presented to [facility] emergency room with multiple vague symptoms of abdominal pain, nausea, she was evaluated in emergency room and while in ER, her O2 sat duration dropped down to 70%, she was admitted to medical floor, pulmonary consultation was requested in that regard, patient has a known history of cerebral palsy, and is a very poor historian, she has known history of hypertension, hyperlipidemia, diabetes mellitus, depression, asthma, and lower extremity deformity with muscle spasm related to cerebral palsy. On 04/03/2020 patient was seen and examined on the medical floor she is alert and oriented in no distress there is no fever or chills she is still complaining of cough no chest pain or shortness of breath no nausea or vomiting no abdominal pain no diarrhea no blood in the stools no urinary symptoms, patient is maintained on IV antibiotics, she is stable at this time On 04/04/2020 patient was seen and examined on the medical floor she is alert and oriented in no distress she has some cough otherwise she denies any c omplaints at this time there is no fever or chills no headache or dizziness no chest pain no shortness of breath no nausea or vomiting no abdominal pain no diarrhea no burning with urination no frequency or urgency no hematuria On 04/05/2020 patient was seen and examined on the medical floor, consultation from pulmonary reviewed, patient is alert responsive in no apparent distress, she is still having cough otherwise she denies any complaints there is no fever or chills no headache or dizziness no chest pain no shortness of breath no nausea or vomiting no abdominal pain no diarrhea no blood in the stools no burning with urination no frequency or urgency and no hematuria On 04/06/2020 patient was seen and examined on the medical floor she is alert and oriented 3 in no distress she is still complaining of cough otherwise she denies any complaints there is no fever or chills no headache or dizziness no chest pain no shortness of breath, no nausea or vomiting no abdominal pain no diarrhea no burning with urination no frequency or urgency no hematuria Objective - Vital Signs Vital signs: Vital Signs Temp 98.4 F 04/06/20 07:00 Pulse 72 04/06/20 09:13 Resp 18 04/06/20 07:00 BP 145/84 04/06/20 07:00 Pulse Ox 98 04/06/20 07:00 Intake & Output 04/05/20 04/06/20 04/06/20 18:59 06:59 18:59 Intake Total 540 250 Output Total 1 Balance 540 249 Intake: Intake, IV Titration 250 Amount Azithromycin 500 mg In 250 Sodium Chloride 0.9% 250 ml @ 250 mls/hr IVPB DAILY@1900 [facility] Rx#: [id number] Oral 540 Output: Stool 1 Other: Voiding Method Bedpan Bedpan Diaper Diaper # Voids 1 1 - Exam In general patient is alert, responsive in no apparent distress HEENT head normocephalic and atraumatic Neck is supple no JVD no goiter no lymphadenopathy Chest exam reveals a few scattered crackles no wheezing Cardiac exam reveals regular heart sounds no gallops no murmurs Abdomen is soft nontender no organomegaly with normal bowel sounds Extremity exam reveals no edema no cyanosis or clubbing, chronic changes of lower extremity deformity Neurological examination reveals no gross focal deficit - Labs CBC & Chem 7: 04/06/20 08:04 04/06/20 08:04 Labs: Abnormal Lab Results - Last 24 Hours (Table) 04/05/20 04/05/20 04/06/20 Range/Units 16:38 21:03 07:07 Hgb (11.4-16.0) gm/dL MCHC (31.0-37.0) g/dL Carbon Dioxide (22-30) mmol/L Glucose (74-99) mg/dL POC Glucose (mg/dL) 156 H 176 H 131 H (75-99) mg/dL Albumin (3.5-5.0) g/dL 04/06/20 04/06/20 04/06/20 Range/Units 08:04 08:04 11:31 Hgb 11.1 L (11.4-16.0) gm/dL MCHC 30.5 L (31.0-37.0) g/dL Carbon Dioxide 31 H (22-30) mmol/L Glucose 116 H (74-99) mg/dL POC Glucose (mg/dL) 171 H (75-99) mg/dL Albumin 3.4 L (3.5-5.0) g/dL Microbiology - Last 24 Hours (Table) 04/01/20 15:41 Blood Culture - Preliminary Blood No Growth after 96 hours Assessment and Plan Plan: 1. Abdominal pain cause is unclear exam of the abdomen is benign, x-ray of the abdomen does not reveal acute abnormality, will check amylase and lipase check abdomen ultrasound will follow in a.m. 2. Decrease in O2 sat duration down to 60-70% in the emergency room, pulmonary consultation was requested 3. Underlying history of hypertension well-controlled on medications home medications reordered 4. Underlying history of [id number]-kbccwcsyr diabetes mellitus maintained on metformin 5. Underlying history of hyperlipidemia maintained on simvastatin 6. Underlying history of asthma seems to be stable at this time continue was Singulair add albuterol updrafts as needed 7. Pneumonia maintained on IV antibiotic continue pulmonary are following Will follow during this admission for medical management please see orders will follow in a.m.
[2020-04-06 16:45] LABS: Glucose,Whole Blood 140 mg/dL (75-99)
[2020-04-06] MEDS: SODIUM CHLORIDE 0.9% 1,000 ML IV SCH (18:24)
[2020-04-06] MEDS: AZITHROMYCIN 500 MG in SODIUM CHLORIDE 0.9% 250 ML IVPB SCH (19:07)
[2020-04-06 20:29] LABS: Glucose,Whole Blood 198 mg/dL (75-99)
[2020-04-06] MEDS: ENOXAPARIN 40 MG/0.4 ML SYRINGE SQ SCH (20:58)
[2020-04-06] MEDS: LATANOPROST 0.005% OPHTH DROPS 2.5 ML BTL BOTH EYES SCH (21:01)
--- NOTE | 2020-04-06 22:21 | PN ---
PROGRESS NOTE DATE OF SERVICE: 04/06/2020 REASON FOR FOLLOWUP: Possible pneumonia. INTERVAL HISTORY: Patient is currently afebrile. The patient is breathing comfortably. Denies having any chest pain. No shortness of breath or cough. No nausea, vomiting, abdominal pain or diarrhea. Wants to go home. PHYSICAL EXAMINATION: Blood pressure 106/58 with a pulse of 88, temp 97.7. She is 95% on 2 L nasal cannula. General description is an elderly female lying in bed in no distress. Respiratory system: Unlabored breathing, clear to auscultation anteriorly. Heart S1, S2. Regular rate and rhythm. Abdomen soft, no tenderness. LABS: Hemoglobin 11.1, white count 9.1, creatinine 0.61. Blood culture has been negative. DIAGNOSTIC IMPRESSION AND PLAN: Patient admitted to the hospital with some chest pain. This patient has abnormal x-ray with possibility of pneumonia currently covered with Rocephin and Zithromax, to continue to finish a short course of oral antibiotic. Continue supportive care. MMODL / IJN: [id number] /
[2020-04-07 07:43] LABS: Glucose,Whole Blood 131 mg/dL (75-99)
[2020-04-07] MEDS: INSULIN ASPART (NovoLOG) 100 UNIT/ML VIAL SQ SCH ×4 (08:47→20:53)
[2020-04-07] MEDS: CARVEDILOL 12.5 MG TAB PO SCH ×2 (08:59→17:39)
[2020-04-07] MEDS: ALBUTEROL NEBULIZED 2.5 MG/3 ML INHALATION PRN ×2 (08:59→12:14)
[2020-04-07] MEDS: CHOLECALCIFEROL 1,000 UNIT TAB PO SCH (08:59)
[2020-04-07] MEDS: LISINOPRIL 2.5 MG TAB PO SCH (08:59)
[2020-04-07] MEDS: BUDESONIDE 0.5 MG/2 ML NEBU INHALATION SCH ×2 (08:59→20:11)
[2020-04-07] MEDS: ATORVASTATIN 10 MG TAB PO SCH (09:00)
[2020-04-07] MEDS: BACLOFEN 10 MG TAB PO SCH ×3 (09:00→20:55)
[2020-04-07] MEDS: FLUoxetine HCL 20 MG CAP PO SCH (09:00)
[2020-04-07] MEDS: CALCIUM CARB-VIT D 500MG-200UN 1 EACH TAB PO SCH ×2 (09:00→20:52)
[2020-04-07] MEDS: metFORMIN 500 MG TAB PO SCH ×2 (09:00→20:54)
[2020-04-07] MEDS: DOCUSATE 100 MG CAP PO SCH ×2 (09:00→20:53)
[2020-04-07] MEDS: FUROSEMIDE 40 MG TAB PO SCH (09:00)
[2020-04-07] MEDS: MONTELUKAST 10 MG TAB PO SCH (09:00)
[2020-04-07] MEDS: PANTOPRAZOLE 40 MG TABLET PO SCH (09:00)
[2020-04-07] MEDS: lamoTRIgine 25 MG TAB PO SCH ×2 (09:01→20:53)
[2020-04-07] MEDS: MECLIZINE 12.5 MG TAB PO SCH ×2 (09:01→20:54)
[2020-04-07] MEDS: cycloSPORINE 0.05% OPHTH 0.4 ML DROPERETTE BOTH EYES SCH ×2 (09:02→20:53)
[2020-04-07] MEDS: CLOTRIMAZOLE 1% CREAM 15 GM TUBE TOPICAL SCH (09:02)
[2020-04-07] MEDS: CLOTRIMAZOLE/BETAMETH 1-0.05% CREAM 45 GM TUBE TOPICAL SCH ×2 (09:02→20:52)
[2020-04-07 09:04] LABS: Basophils % (A) 0 %; Eosinophils # (A) 0.5 k/uL (0-0.7); Eosinophils % (A) 6 %; HCT 35.6 % (34.0-46.0); HGB 11.1 gm/dL (11.4-16.0); Hypochromasia Marked; Lymphocytes # (A) 1.3 k/uL (1.0-4.8); Lymphocytes % (A) 14 %; MCH 27.7 pg (25.0-35.0); MCHC 31.2 g/dL (31.0-37.0); MCV 88.7 fL (80.0-100.0); Mean Platelet Volume 8.4; Monocytes # (A) 0.5 k/uL (0-1.0); Monocytes % (A) 6 %; Neutrophils # (A) 6.8 k/uL (1.3-7.7); Neutrophils % (A) 74 %; Platelet Count 304 k/uL (150-450); RBC 4.02 m/uL (3.80-5.40); RDW 15.1 % (11.5-15.5); WBC 9.3 k/uL (3.8-10.6)
[2020-04-07 09:40] LABS: ALT 17 U/L (4-34); AST 23 U/L (14-36); African American GFR (CKD) >90 (>60 ml/min/1.73 sqM); Albumin 3.4 g/dL (3.5-5.0); Alkaline Phosphatase 94 U/L (38-126); Anion Gap 6 mmol/L; Blood Urea Nitrogen 17 mg/dL (7-17); Calcium 9.4 mg/dL (8.4-10.2); Carbon Dioxide 29 mmol/L (22-30); Chloride 101 mmol/L (98-107); Glucose 121 mg/dL (74-99); Non-African American GFR(CKD) >90 (>60 ml/min/1.73 sqM); Potassium 4.6 mmol/L (3.5-5.1); Sodium 136 mmol/L (137-145); Total Bilirubin 0.2 mg/dL (0.2-1.3); Total Protein 6.2 g/dL (6.3-8.2)
--- NOTE | 2020-04-07 11:22 | P.PN ---
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 History of developmental delay and cerebral palsy Possible sleep disorder breathing and sleep apnea Nonspecific abdominal pain likely related to thoracoabdominal due to pneumonia Insulin-dependent diabetes mellitus Dyslipidemia 04/07/2020, patient seen eval examined during the rounds labs reviewed med ications reviewed care plan discussed with the nurse as well, patient remains afebrile with stable hemodynamics saturation is 99% on 2 L nasal cannula, chest x-ray reviewed as noted on April 05, will get a follow-up chest x-ray tomorrow it appears that patient likely will be discharged tomorrow, unable to obtain a sputum sample 04/05/2020, patient evaluated examined, care plan discussed with RN, respiratory status slightly better cough congestion is still going on still get short of breath, patient remains on supplemental oxygen, remains on broad-spectrum antibiotics sputum sample not able obtain, blood culture so far has been negative, chest x-ray from this morning reviewed bilateral infiltrates are present, This is a 69-year-old female was brought into emergency department from the retirement due to ongoing problems associated with thoracoabdominal pain shortness of breath, coughing she is a resident of retirement poor historian not much data can be obtained from the patient, patient is on oxygen in retirement along with nebulizer treatment, her abdominal x-ray is unremarkable, chest x-ray suggestive of developing infiltrate in left upper lobe along with some pleural parenchymal changes possibility of diffuse pneumonia cannot be excluded Objective - Vital Signs Vital signs: Vital Signs Temp 97.9 F 04/07/20 07:26 Pulse 74 04/07/20 09:26 Resp 16 04/07/20 09:10 BP 134/82 04/07/20 07:26 Pulse Ox 99 04/07/20 07:26 Intake & Output 04/06/20 04/07/20 04/07/20 18:59 06:59 18:59 Intake Total 250 Output Total 1 1 Balance 249 -1 Intake: Intake, IV Titration 250 Amount Azithromycin 500 mg In 250 Sodium Chloride 0.9% 250 ml @ 250 mls/hr IVPB DAILY@1900 [facility] Rx#: [id number] Output: Stool 1 1 Other: Voiding Method Bedpan Bedpan Diaper Diaper # Voids 3 # Bowel Movements 1 - Exam - Constitutional General appearance: average body habitus, cooperative, disheveled - EENT Eyes: anicteric sclerae, EOMI Ears: bilateral: normal - Neck Neck: normal ROM Carotids: bilateral: upstroke normal Thyroid: bilateral: normal size - Respiratory Respiratory: bilateral: diminished - Cardiovascular Rhythm: regular Heart sounds: normal: S1, S2 - Gastrointestinal General gastrointestinal: decreased bowel sounds, soft - Musculoskeletal Musculoskeletal: gait normal, generalized weakness, strength equal bilaterally - Psychiatric Psychiatric: A&O x's 3, appropriate affect, intact judgment & insight - Labs CBC & Chem 7: 04/07/20 07:48 04/07/20 07:48 Labs: Abnormal Lab Results - Last 24 Hours (Table) 04/06/20 04/06/20 04/06/20 Range/Units 11:31 16:40 20:25 Hgb (11.4-16.0) gm/dL Sodium (137-145) mmol/L Glucose (74-99) mg/dL POC Glucose (mg/dL) 171 H 140 H 198 H (75-99) mg/dL Total Protein (6.3-8.2) g/dL Albumin (3.5-5.0) g/dL 04/07/20 04/07/20 04/07/20 Range/Units 07:28 07:48 07:48 Hgb 11.1 L (11.4-16.0) gm/dL Sodium 136 L (137-145) mmol/L Glucose 121 H (74-99) mg/dL POC Glucose (mg/dL) 131 H (75-99) mg/dL Total Protein 6.2 L (6.3-8.2) g/dL Albumin 3.4 L (3.5-5.0) g/dL Microbiology - Last 24 Hours (Table) 04/01/20 15:41 Blood Culture - Preliminary Blood No Growth after 120 hours Assessment and Plan Assessment: Multi lobar bilateral diffuse pneumonia Acute hypoxic respiratory failure due to above 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
--- NOTE | 2020-04-07 11:32 | P.PN ---
Subjective Progress Note Date: 04/07/20 Rosmery Shirley, armand is a 69-year-old female who presented to [facility] emergency room with multiple vague symptoms of abdominal pain, nausea, she was evaluated in emergency room and while in ER, her O2 sat duration dropped down to 70%, she was admitted to medical floor, pulmonary consultation was requested in that regard, patient has a known history of cerebral palsy, and is a very poor historian, she has known history of hypertension, hyperlipidemia, diabetes mellitus, depression, asthma, and lower extremity deformity with muscle spasm related to cerebral palsy. On 04/03/2020 patient was seen and examined on the medical floor she is alert and oriented in no distress there is no fever or chills she is still complaining of cough no chest pain or shortness of breath no nausea or vomiting no abdominal pain no diarrhea no blood in the stools no urinary symptoms, patient is maintained on IV antibiotics, she is stable at this time On 04/04/2020 patient was seen and examined on the medical floor she is alert and oriented in no distress she has some cough otherwise she denies any c omplaints at this time there is no fever or chills no headache or dizziness no chest pain no shortness of breath no nausea or vomiting no abdominal pain no diarrhea no burning with urination no frequency or urgency no hematuria On 04/05/2020 patient was seen and examined on the medical floor, consultation from pulmonary reviewed, patient is alert responsive in no apparent distress, she is still having cough otherwise she denies any complaints there is no fever or chills no headache or dizziness no chest pain no shortness of breath no nausea or vomiting no abdominal pain no diarrhea no blood in the stools no burning with urination no frequency or urgency and no hematuria On 04/06/2020 patient was seen and examined on the medical floor she is alert and oriented 3 in no distress she is still complaining of cough otherwise she denies any complaints there is no fever or chills no headache or dizziness no chest pain no shortness of breath, no nausea or vomiting no abdominal pain no diarrhea no burning with urination no frequency or urgency no hematuria On 04/07/2020 patient was seen and examined on the medical floor she is still complaining of cough otherwise she denies any complaints she was seen by pulmonary and repeat chest x-ray was ordered for tomorrow at this time will continue with IV antibiotic Rocephin and Zithromax recheck labs and chest x-ray in a.m.. There is no fever or chills no headache or dizziness no chest pain no shortness of breath no nausea or vomiting no abdominal pain no diarrhea no burning with urination no frequency or urgency and no hematuria Objective - Vital Signs Vital signs: Vital Signs Temp 97.9 F 04/07/20 07:26 Pulse 74 04/07/20 09:26 Resp 16 04/07/20 09:10 BP 134/82 04/07/20 07:26 Pulse Ox 99 04/07/20 07:26 Intake & Output 04/06/20 04/07/20 04/07/20 18:59 06:59 18:59 Intake Total 250 Output Total 1 1 Balance 249 -1 Intake: Intake, IV Titration 250 Amount Azithromycin 500 mg In 250 Sodium Chloride 0.9% 250 ml @ 250 mls/hr IVPB DAILY@1900 [facility] Rx#: [id number] Output: Stool 1 1 Other: Voiding Method Bedpan Bedpan Diaper Diaper # Voids 3 # Bowel Movements 1 - Exam In general patient is alert, responsive in no apparent distress HEENT head normocephalic and atraumatic Neck is supple no JVD no goiter no lymphadenopathy Chest exam reveals a few scattered crackles no wheezing Cardiac exam reveals regular heart sounds no gallops no murmurs Abdomen is soft nontender no organomegaly with normal bowel sounds Extremity exam reveals no edema no cyanosis or clubbing, chronic changes of lower extremity deformity Neurological examination reveals no gross focal deficit - Labs CBC & Chem 7: 04/07/20 07:48 04/07/20 07:48 Labs: Abnormal Lab Results - Last 24 Hours (Table) 04/06/20 04/06/20 04/06/20 Range/Units 11:31 16:40 20:25 Hgb (11.4-16.0) gm/dL Sodium (137-145) mmol/L Glucose (74-99) mg/dL POC Glucose (mg/dL) 171 H 140 H 198 H (75-99) mg/dL Total Protein (6.3-8.2) g/dL Albumin (3.5-5.0) g/dL 04/07/20 04/07/20 04/07/20 Range/Units 07:28 07:48 07:48 Hgb 11.1 L (11.4-16.0) gm/dL Sodium 136 L (137-145) mmol/L Glucose 121 H (74-99) mg/dL POC Glucose (mg/dL) 131 H (75-99) mg/dL Total Protein 6.2 L (6.3-8.2) g/dL Albumin 3.4 L (3.5-5.0) g/dL Microbiology - Last 24 Hours (Table) 04/01/20 15:41 Blood Culture - Preliminary Blood No Growth after 120 hours Assessment and Plan Plan: 1. Abdominal pain cause is unclear exam of the abdomen is benign, x-ray of the abdomen does not reveal acute abnormality, will check amylase and lipase check abdomen ultrasound will follow in a.m. 2. Decrease in O2 sat duration down to 60-70% in the emergency room, pulmonary consultation was requested 3. Underlying history of hypertension well-controlled on medications home medications reordered 4. Underlying history of [id number] diabetes mellitus maintained on metformin 5. Underlying history of hyperlipidemia maintained on simvastatin 6. Underlying history of asthma seems to be stable at this time continue was Singulair add albuterol updrafts as needed 7. Pneumonia maintained on IV antibiotic continue pulmonary are following Will follow during this admission for medical management please see orders will follow in a.m.
[2020-04-07 12:08] LABS: Glucose,Whole Blood 132 mg/dL (75-99)
[2020-04-07 16:35] LABS: Glucose,Whole Blood 142 mg/dL (75-99)
[2020-04-07] MEDS ORDERED: AZITHROMYCIN 500 MG TAB PO SCH (19:00)
[2020-04-07] MEDS: SODIUM CHLORIDE 0.9% 1,000 ML IV SCH (19:58)
[2020-04-07 20:04] LABS: Glucose,Whole Blood 146 mg/dL (75-99)
[2020-04-07] MEDS: ENOXAPARIN 40 MG/0.4 ML SYRINGE SQ SCH (20:52)
[2020-04-07] MEDS: LATANOPROST 0.005% OPHTH DROPS 2.5 ML BTL BOTH EYES SCH (20:54)
[2020-04-08 07:05] LABS: Glucose,Whole Blood 143 mg/dL (75-99)
[2020-04-08] MEDS: ALBUTEROL NEBULIZED 2.5 MG/3 ML INHALATION PRN ×2 (07:09→11:08)
[2020-04-08] MEDS: BUDESONIDE 0.5 MG/2 ML NEBU INHALATION SCH (07:09)
[2020-04-08] MEDS: PANTOPRAZOLE 40 MG TABLET PO SCH (07:16)
[2020-04-08] MEDS: CARVEDILOL 12.5 MG TAB PO SCH (07:16)
--- NOTE | 2020-04-08 07:22 | PN ---
PROGRESS NOTE DATE OF SERVICE: 04/07/2020 REASON FOR FOLLOWUP: Possible pneumonia, abnormal x-ray. INTERVAL HISTORY: Patient is currently afebrile. The patient is breathing comfortably. Denies having any chest pain or cough. No nausea, vomiting or diarrhea. PHYSICAL EXAMINATION: Blood pressure 133/72 with a pulse of 80, temp 98.6, pulse ox 99% on 2 L. General description is an elderly female lying in bed in no distress. Respiratory system: Unlabored breathing, clear to auscultation anteriorly. Heart S1, S2. Regular rate and rhythm. Abdomen with no tenderness. LABS: Hemoglobin 11.1, white count 9.3, creatinine 0.61. Blood culture negative. DIAGNOSTIC IMPRESSION AND PLAN: Patient admitted to the hospital with chest pain, abnormal x-ray with concern for possible pneumonia. Overall improvement on the Rocephin and Zithromax. May consider a course of oral Levaquin on discharge. Continue supportive care. MMODL / IJN: [id number] /
[2020-04-08 07:31] VITALS: RESP 18
[2020-04-08] MEDS: INSULIN ASPART (NovoLOG) 100 UNIT/ML VIAL SQ SCH ×2 (07:37→12:26)
[2020-04-08 08:57] LABS: Basophils % (A) 0 %; Eosinophils # (A) 0.4 k/uL (0-0.7); Eosinophils % (A) 5 %; HGB 11.4 gm/dL (11.4-16.0); Hypochromasia Marked; Lymphocytes # (A) 1.1 k/uL (1.0-4.8); Lymphocytes % (A) 14 %; MCH 28.1 pg (25.0-35.0); MCHC 31.6 g/dL (31.0-37.0); MCV 88.7 fL (80.0-100.0); Mean Platelet Volume 7.7; Monocytes # (A) 0.4 k/uL (0-1.0); Monocytes % (A) 5 %; Neutrophils # (A) 5.9 k/uL (1.3-7.7); Neutrophils % (A) 75 %; Platelet Count 305 k/uL (150-450); RBC 4.05 m/uL (3.80-5.40); RDW 14.9 % (11.5-15.5); WBC 7.9 k/uL (3.8-10.6)
[2020-04-08] MEDS: metFORMIN 500 MG TAB PO SCH (09:46)
[2020-04-08] MEDS: FUROSEMIDE 40 MG TAB PO SCH (09:46)
[2020-04-08] MEDS: ATORVASTATIN 10 MG TAB PO SCH (09:46)
[2020-04-08] MEDS: FLUoxetine HCL 20 MG CAP PO SCH (09:46)
[2020-04-08] MEDS: DOCUSATE 100 MG CAP PO SCH (09:47)
[2020-04-08] MEDS: lamoTRIgine 25 MG TAB PO SCH (09:47)
[2020-04-08] MEDS: cycloSPORINE 0.05% OPHTH 0.4 ML DROPERETTE BOTH EYES SCH (09:47)
[2020-04-08] MEDS: LISINOPRIL 2.5 MG TAB PO SCH (09:47)
[2020-04-08] MEDS: CHOLECALCIFEROL 1,000 UNIT TAB PO SCH (09:47)
[2020-04-08] MEDS: MECLIZINE 12.5 MG TAB PO SCH (09:47)
[2020-04-08] MEDS: MONTELUKAST 10 MG TAB PO SCH (09:47)
[2020-04-08] MEDS: BACLOFEN 10 MG TAB PO SCH ×2 (09:47→16:00)
[2020-04-08] MEDS: CALCIUM CARB-VIT D 500MG-200UN 1 EACH TAB PO SCH (09:47)
[2020-04-08] MEDS: CLOTRIMAZOLE/BETAMETH 1-0.05% CREAM 45 GM TUBE TOPICAL SCH (09:58)
[2020-04-08] MEDS: CLOTRIMAZOLE 1% CREAM 15 GM TUBE TOPICAL SCH (09:58)
--- NOTE | 2020-04-08 11:02 | P.PN ---
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 History of developmental delay and cerebral palsy Possible sleep disorder breathing and sleep apnea Nonspecific abdominal pain likely related to thoracoabdominal due to pneumonia Insulin-dependent diabetes mellitus Dyslipidemia 04/08/2020, patient seen eval examined during the rounds labs reviewed med ications reviewed care plan discussed, patient has been doing well more pleasant today breathing comfortably will hold on doing the chest x-ray was carried outpatient vision likely will be discharged later on today, ID recommending oral Levaquin 04/07/2020, patient seen eval examined during the rounds labs reviewed medications reviewed care plan discussed with the nurse as well, patient remains afebrile with stable hemodynamics saturation is 99% on 2 L nasal cannula, chest x-ray reviewed as noted on April 05, will get a follow-up chest x-ray tomorrow it appears that patient likely will be discharged tomorrow, unable to obtain a sputum sample 04/05/2020, patient evaluated examined, care plan discussed with RN, respiratory status slightly better cough congestion is still going on still get short of breath, patient remains on supplemental oxygen, remains on broad-spectrum antibiotics sputum sample not able obtain, blood culture so far has been negative, chest x-ray from this morning reviewed bilateral infiltrates are present, This is a 69-year-old female was brought into emergency department from the [facility]f due to ongoing problems associated with thoracoabdominal pain shortness of breath, coughing she is a resident of [facility] poor historian not much data can be obtained from the patient, patient is on oxygen in alf along with nebulizer treatment, her abdominal x-ray is unremarkable, chest x-ray suggestive of developing infiltrate in left upper lobe along with some pleural parenchymal changes possibility of diffuse pneumonia cannot be excluded Objective - Vital Signs Vital signs: Vital Signs Temp 98.2 F 04/08/20 07:00 Pulse 84 04/08/20 07:24 Resp 18 04/08/20 07:00 BP 132/66 04/08/20 07:00 Pulse Ox 99 04/08/20 07:00 Intake & Output 04/07/20 04/08/20 04/08/20 18:59 06:59 18:59 Intake Total 50 160 Output Total 1 Balance 49 160 Intake: Intake, IV Titration 50 160 Amount Sodium Chloride 0.9% 1, 160 000 ml @ 20 mls/hr IV . Q24H [facility] Rx#:[id number] cefTRIAXone 1 gm In 50 Sodium Chloride 0.9% 50 ml @ 100 mls/hr IVPB Q24HR [facility] Rx#:[id number] Output: Stool 1 Other: Voiding Method Bedpan Bedpan Bedpan Diaper Diaper Diaper # Voids 1 1 - Exam - Constitutional General appearance: average body habitus, cooperative, disheveled - EENT Eyes: anicteric sclerae, EOMI Ears: bilateral: normal - Neck Neck: normal ROM Carotids: bilateral: upstroke normal Thyroid: bilateral: normal size - Respiratory Respiratory: bilateral: diminished - Cardiovascular Rhythm: regular Heart sounds: normal: S1, S2 - Gastrointestinal General gastrointestinal: decreased bowel sounds, soft - Musculoskeletal Musculoskeletal: gait normal, generalized weakness, strength equal bilaterally - Psychiatric Psychiatric: A&O x's 3, appropriate affect, intact judgment & insight - Labs CBC & Chem 7: 04/08/20 08:39 04/07/20 07:48 Labs: Abnormal Lab Results - Last 24 Hours (Table) 04/07/20 04/07/20 04/07/20 Range/Units 11:31 16:28 20:03 POC Glucose (mg/dL) 132 H 142 H 146 H (75-99) mg/dL 04/08/20 Range/Units 07:04 POC Glucose (mg/dL) 143 H (75-99) mg/dL Microbiology - Last 24 Hours (Table) 04/01/20 15:41 Blood Culture - Final Blood No Growth after 144 hours Assessment and Plan Assessment: Multi lobar bilateral diffuse pneumonia Acute hypoxic respiratory failure due to above 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
[2020-04-08 11:30] LABS: ALT 19 U/L (4-34); AST 27 U/L (14-36); African American GFR (CKD) >90 (>60 ml/min/1.73 sqM); Albumin 3.5 g/dL (3.5-5.0); Alkaline Phosphatase 83 U/L (38-126); Anion Gap 8 mmol/L; Blood Urea Nitrogen 16 mg/dL (7-17); Calcium 9.2 mg/dL (8.4-10.2); Carbon Dioxide 26 mmol/L (22-30); Chloride 100 mmol/L (98-107); Glucose 164 mg/dL (74-99); Non-African American GFR(CKD) >90 (>60 ml/min/1.73 sqM); Potassium 4.6 mmol/L (3.5-5.1); Sodium 134 mmol/L (137-145); Total Bilirubin 0.3 mg/dL (0.2-1.3); Total Protein 6.2 g/dL (6.3-8.2)
[2020-04-08 11:53] LABS: Glucose,Whole Blood 169 mg/dL (75-99)
[2020-04-08] MEDS: SODIUM CHLORIDE 0.9% 1,000 ML IV SCH (15:02)
--- NOTE | 2020-04-08 15:34 | PN ---
PROGRESS NOTE DATE OF SERVICE: 04/08/2020 REASON FOR FOLLOWUP: Possible pneumonia. INTERVAL HISTORY: The patient is currently afebrile. The patient is breathing comfortably. Denies having any chest pain or shortness of breath or cough. No vomiting or any diarrhea has been reported by the nursing staff. PHYSICAL EXAMINATION: Blood pressure is 102/66, pulse of 67, temperature 98.2. She is 99% on room air. General description is an elderly female lying in bed in no distress. RESPIRATORY SYSTEM: Unlabored breathing. Clear to auscultation anteriorly. HEART: S1, S2. Regular rate and rhythm. ABDOMEN: Soft. No tenderness. LABS: Hemoglobin 11.4, white count 7.9, BUN of 16, creatinine 0.56. Blood culture negative. DIAGNOSTIC IMPRESSION AND PLAN: Patient admitted to hospital with chest pain with concern for possible pneumonia. The patient seems to have shown overall clinical improvement on the Rocephin and Zithromax; to continue with a short course of oral Levaquin 500 mg daily for about 5 days and close outpatient followup. MMODL / IJN: [id number] /
[2020-04-08 15:52] VITALS: BP 111/62; PULSE 77; TEMP 97.4
--- NOTE | 2020-04-08 18:05 | P.DS ---
Providers Date of admission: 04/04/20 10:59 Expected date of discharge: 04/08/20 Attending physician: Johny Abraham Consults: 04/01/20 16:11 Consult Physician Routine Consulting Provider: Louie Lance Consult Reason/Comments: dyspnea, hypoxia Do you want consulting provider notified?: Yes 04/02/20 18:30 Consult Physician Routine Consulting Provider: Joanne Winters Consult Reason/Comments: pneumonia Do you want consulting provider notified?: Yes Primary care physician: Johny Jarad [facility] Course: Diagnoses on discharge: 1. Abdominal pain cause is unclear exam of the abdomen is benign, x-ray of the abdomen does not reveal acute abnormality, will check amylase and lipase check abdomen ultrasound will follow in a.m. 2. Decrease in O2 sat duration down to 60-70% in the emergency room, pulmonary consultation was requested 3. Underlying history of hypertension well-controlled on medications home medications reordered 4. Underlying history of [id number]-stapigvks diabetes mellitus maintained on metformin 5. Underlying history of hyperlipidemia maintained on simvastatin 6. Underlying history of asthma seems to be stable at this time continue was Singulair add albuterol updrafts as needed 7. Pneumonia maintained on IV antibiotic continue pulmonary are following Hospital Course: Rosmery Shirley, he is a 69-year-old female who presented to [facility] emergency room with multiple vague symptoms of abdominal pain, nausea, she was evaluated in emergency room and while in ER, her O2 sat duration dropped down to 70%, she was admitted to medical floor, pulmonary consultation was requested in that regard, patient has a known history of cerebral palsy, and is a very poor historian, she has known history of hypertension, hyperlipidemia, diabetes mellitus, depression, asthma, and lower extremity deformity with muscle spasm related to cerebral palsy. On 04/03/2020 patient was seen and examined on the medical floor she is alert and oriented in no distress there is no fever or chills she is still complaining of cough no chest pain or shortness of breath no nausea or vomiting no abdominal pain no diarrhea no blood in the stools no urinary symptoms, patient is maintained on IV antibiotics, she is stable at this time On 04/04/2020 patient was seen and examined on the medical floor she is alert and oriented in no distress she has some cough otherwise she denies any complaints at this time there is no fever or chills no headache or dizziness no chest pain no shortness of breath no nausea or vomiting no abdominal pain no diarrhea no burning with urination no frequency or urgency no hematuria On 04/05/2020 patient was seen and examined on the medical floor, consultation from pulmonary reviewed, patient is alert responsive in no apparent distress, she is still having cough otherwise she denies any complaints there is no fever or chills no headache or dizziness no chest pain no shortness of breath no nausea or vomiting no abdominal pain no diarrhea no blood in the stools no burning with urination no frequency or urgency and no hematuria On 04/06/2020 patient was seen and examined on the medical floor she is alert and oriented 3 in no distress she is still complaining of cough otherwise she denies any complaints there is no fever or chills no headache or dizziness no chest pain no shortness of breath, no nausea or vomiting no abdominal pain no diarrhea no burning with urination no frequency or urgency no hematuria On 04/07/2020 patient was seen and examined on the medical floor she is still complaining of cough otherwise she denies any complaints she was seen by pulmonary and repeat chest x-ray was ordered for tomorrow at this time will continue with IV antibiotic Rocephin and Zithromax recheck labs and chest x-ray in a.m.. There is no fever or chills no headache or dizziness no chest pain no shortness of breath no nausea or vomiting no abdominal pain no diarrhea no burning with urination no frequency or urgency and no hematuria on 04/08/2020 patient was seen and examined on the medical floor she is still complaining of occasional cough otherwise she denies any complaints, swallow evaluation was done and patient was cleared to receive regular diet, she was evaluated by pulmonary Dr. Lance and was cleared for discharge, otherwise there is no fever or chills no headache or dizziness no chest pain no shortness of breath no nausea or vomiting no abdominal pain no diarrhea no burning with urination no frequency or urgency , and no hematuria Patient Condition at Discharge: Fair Plan - Discharge Summary New Discharge Prescriptions: New Albuterol Nebulized [Ventolin Nebulized] 2.5 mg INHALATION RT-QID PRN ml PRN Reason: Shortness Of Breath Or Wheezing Levofloxacin [Levaquin] 500 mg PO DAILY 7 Days #7 tab Continue Omeprazole [PriLOSEC] 20 mg PO DAILY Simvastatin [Zocor] 10 mg PO DAILY Baclofen 10 mg PO TID metFORMIN HCL ER [Glucophage Xr] 500 mg PO DAILY Clotrimazole/Betamethasone Dip [Lotrisone Cream] 1 applic TOPICAL BID Meclizine [Antivert] 12.5 mg PO BID lamoTRIgine [LaMICtal] 75 mg PO BID FLUoxetine HCL [PROzac] 60 mg PO DAILY Budesonide [Pulmicort] 0.5 mg INHALATION RT-BID Montelukast [Singulair] 10 mg PO DAILY Lisinopril [Zestril] 2.5 mg PO DAILY Furosemide [Lasix] 40 mg PO DAILY Docusate [Colace] 100 mg PO BID Carvedilol [Coreg] 12.5 mg PO BID Ibuprofen [Motrin Ib] 400 mg PO ONCE PRN PRN Reason: Pain Cholecalciferol (Vitamin D3) [Vitamin D3] 2,000 unit PO DAILY cycloSPORINE [Restasis] 1 drop BOTH EYES BID Ocusoft Lid Scrub 1 applic BOTH EYES DAILY Latanoprost [Xalatan 0.005%] 1 drop BOTH EYES HS Clotrimazole [Clotrimazole AF] 1 applic TOPICAL DAILY Oyster Shell Calcium 500mg/Vitamin D3 200iu 1 tab PO BID Discharge Medication List Baclofen 10 mg PO TID 07/18/14 [History] Omeprazole [PriLOSEC] 20 mg PO DAILY 07/18/14 [History] Simvastatin [Zocor] 10 mg PO DAILY 07/18/14 [History] metFORMIN HCL ER [Glucophage Xr] 500 mg PO DAILY 10/12/17 [History] Clotrimazole/Betamethasone Dip [Lotrisone Cream] 1 applic TOPICAL BID 01/23/18 [History] FLUoxetine HCL [PROzac] 60 mg PO DAILY 01/06/19 [History] Meclizine [Antivert] 12.5 mg PO BID 01/06/19 [History] lamoTRIgine [LaMICtal] 75 mg PO BID 01/06/19 [History] Budesonide [Pulmicort] 0.5 mg INHALATION RT-BID 11/05/19 [History] Carvedilol [Coreg] 12.5 mg PO BID 11/05/19 [History] Docusate [Colace] 100 mg PO BID 11/05/19 [History] Furosemide [Lasix] 40 mg PO DAILY 11/05/19 [History] Lisinopril [Zestril] 2.5 mg PO DAILY 11/05/19 [History] Montelukast [Singulair] 10 mg PO DAILY 11/05/19 [History] Cholecalciferol (Vitamin D3) [Vitamin D3] 2,000 unit PO DAILY 04/01/20 [History] Clotrimazole [Clotrimazole AF] 1 applic TOPICAL DAILY 04/01/20 [History] Ibuprofen [Motrin Ib] 400 mg PO ONCE PRN 04/01/20 [History] Latanoprost [Xalatan 0.005%] 1 drop BOTH EYES HS 04/01/20 [History] Ocusoft Lid Scrub 1 applic BOTH EYES DAILY 04/01/20 [History] Oyster Shell Calcium 500mg/Vitamin D3 200iu 1 tab PO BID 04/01/20 [History] cycloSPORINE [Restasis] 1 drop BOTH EYES BID 04/01/20 [History] Albuterol Nebulized [Ventolin Nebulized] 2.5 mg INHALATION RT-QID PRN ml 04/07 [Rx] Levofloxacin [Levaquin] 500 mg PO DAILY 7 Days #7 tab 04/08/20 [Rx] Follow up Appointment(s)/Referral(s): Johny Abraham MD [Primary Care Provider] - 1-2 days (Office closed at time of discharge please call WednesdayApril 09 to set up a follow up appointment) Louie Lance MD [STAFF PHYSICIAN] - 1 Week (Office closed at time of discharge please call WednesdayApril 09 to set up a follow up appointment) Patient Instructions/Handouts: Pneumonia (DC) Activity/Diet/Wound Care/Special Instructions: Please call [facility] #[phone] for transportation on discharge. Regular diet with thin liquids and no straws.
== END 2020-04-08 16:39 | disposition home or self-care (01) | DRG 193 ==
LOC: EC 09:48 → 5NMEDONC 13:28 → INTOOBSV 13:28 → 4SSUR 18:12 → OBSVTOIN 04-04 10:59
PROVIDERS: ADMIT Internal Medicine; ATTEND Internal Medicine
DX: J18.9 Pneumonia, unspecified organism (principal); J96.01 Acute respiratory failure with hypoxia; J44.0 Chronic obstructive pulmonary disease with (acute) lower respiratory infection; G80.9 Cerebral palsy, unspecified; E11.9 Type 2 diabetes mellitus without complications; E78.5 Hyperlipidemia, unspecified; I10 Essential (primary) hypertension; F34.1 Dysthymic disorder; G56.02 Carpal tunnel syndrome, left upper limb; Z20.828 Contact with and (suspected) exposure to other viral communicable diseases; F32.9 Major depressive disorder, single episode, unspecified; M62.838 Other muscle spasm; R10.9 Unspecified abdominal pain; E78.00 Pure hypercholesterolemia, unspecified; F79 Unspecified intellectual disabilities; G47.30 Sleep apnea, unspecified; G47.9 Sleep disorder, unspecified; Z99.81 Dependence on supplemental oxygen; Z88.0 Allergy status to penicillin; Z79.899 Other long term (current) drug therapy; Z79.84 Long term (current) use of oral hypoglycemic drugs; Z88.1 Allergy status to other antibiotic agents
CPT/HCPCS: 36415; 71045; 71046; 74018; 76700; 80048; 80053; 82150; 83690; 83735; 83880; 84145; 85025; 86140; 87040; 93005; 94640; 96365; 96366; 96368; 96375; 96376; 99285

== ENCOUNTER → 2020-04-19 | Outpatient (CLI) | payer MEDICARE, OTHER ==
--- NOTE | 2020-04-19 11:23 | XR ---
EXAMINATION TYPE: XR shoulder complete LT DATE OF EXAM: 04/19/2020 CLINICAL HISTORY: pain COMPARISON: NONE TECHNIQUE: Three views of the left shoulder are obtained. FINDINGS: There is no acute fracture/dislocation evident. The acromioclavicular and glenohumeral lee int spaces appear mildly narrowed.. The visualized ribs are intact and unremarkable. IMPRESSION: 1. There is no acute fracture or dislocation. ICD 10 NO FRACTURE, INITIAL EVALUATION
== END | disposition home or self-care (01) ==
LOC: RADXRMAIN 10:38
PROVIDERS: ATTEND Internal Medicine
DX: M25.512 Pain in left shoulder (principal)

== ENCOUNTER 2021-08-01 16:15 | Emergency (ER) | payer MEDICARE, OTHER ==
[2021-08-01 16:26] VITALS: RESP 18
[2021-08-01 17:54] VITALS: PULSE 73
--- NOTE | 2021-08-01 18:23 | ED ---
General Adult HPI - General Chief complaint: Abdominal Pain Stated complaint: constipation Time Seen by Provider: 08/01/21 17:55 Source: patient, EMS, RN notes reviewed Mode of arrival: EMS Limitations: no limitations - History of Present Illness Initial comments: Patient is a pleasant 70-year-old female presenting to the emergency department with concerns with constipation. Patient states she last had a bowel movement yesterday however report states it is been close to week. Patient denies any complaints at this time. Patient states he does have frequent constipation. Patient does appear to be somewhat poor historian. No reported vomiting. - Related Data Home Medications Medication Instructions Recorded Confirmed Baclofen 10 mg PO TID 07/18/14 04/01/20 Omeprazole [PriLOSEC] 20 mg PO DAILY 07/18/14 04/01/20 Simvastatin [Zocor] 10 mg PO DAILY 07/18/14 04/01/20 metFORMIN HCL ER [Glucophage XR] 500 mg PO DAILY 10/12/17 04/01/20 Clotrimazole/Betamethasone Dip 1 applic TOPICAL BID 01/23/18 04/01/20 [Lotrisone Cream] FLUoxetine HCL [PROzac] 60 mg PO DAILY 01/06/19 04/01/20 Meclizine [Antivert] 12.5 mg PO BID 01/06/19 04/01/20 lamoTRIgine [LaMICtal] 75 mg PO BID 01/06/19 04/01/20 Budesonide [Pulmicort] 0.5 mg INHALATION RT-BID 11/05/19 04/01/20 Carvedilol [Coreg] 12.5 mg PO BID 11/05/19 04/01/20 Docusate [Colace] 100 mg PO BID 11/05/19 04/01/20 Furosemide [Lasix] 40 mg PO DAILY 11/05/19 04/01/20 Montelukast [Singulair] 10 mg PO DAILY 11/05/19 04/01/20 lisinopriL [Zestril] 2.5 mg PO DAILY 11/05/19 04/01/20 Cholecalciferol (Vitamin D3) 2,000 unit PO DAILY 04/01/20 04/01/20 [Vitamin D3] Clotrimazole [Clotrimazole AF] 1 applic TOPICAL DAILY 04/01/20 04/01/20 Ibuprofen [Motrin Ib] 400 mg PO ONCE PRN 04/01/20 04/01/20 Latanoprost [Xalatan 0.005%] 1 drop BOTH EYES HS 04/01/20 04/01/20 Ocusoft Lid Scrub 1 applic BOTH EYES DAILY 04/01/20 04/01/20 Oyster Shell Calcium 500mg/Vitamin 1 tab PO BID 04/01/20 04/01/20 D3 200iu cycloSPORINE [Restasis] 1 drop BOTH EYES BID 04/01/20 04/01/20 Previous Rx's Medication Instructions Recorded Albuterol Nebulized [Ventolin 2.5 mg INHALATION RT-QID PRN ml 04/07/20 Nebulized] Levofloxacin [Levaquin] 500 mg PO DAILY 7 Days #7 tab 04/08/20 Allergies Allergy/AdvReac Type Severity Reaction Status Date / Time amoxicillin [From Augmentin] Allergy Anaphylaxis Verified 08/01/21 16:28 clavulanic acid Allergy Anaphylaxis Verified 08/01/21 16:28 [From Augmentin] Review of Systems ROS Statement: Those systems with pertinent positive or pertinent negative responses have been documented in the HPI. ROS Other: All systems not noted in ROS Statement are negative. Constitutional: Denies: fever Eyes: Denies: eye pain ENT: Denies: ear pain Respiratory: Denies: cough Cardiovascular: Denies: chest pain Endocrine: Denies: fatigue Gastrointestinal: Reports: as per HPI, constipation Genitourinary: Denies: dysuria Musculoskeletal: Denies: back pain Skin: Denies: rash Neurological: Denies: weakness Past Medical History Past Medical History: Chest Pain / Angina, Diabetes Mellitus, Hypertension Additional Past Medical History / Comment(s): dysthymic disorder, mental disorder, hyper cholestremia, cerebral palsy, carpal tunnel left wrist, bipolar, left hip surgery, costochondritis. History of Any Multi-Drug Resistant Organisms: None Reported Past Surgical History: No Surgical Hx Reported Additional Past Surgical History / Comment(s): left hip surgery Past Anesthesia/Blood Transfusion Reactions: Unable to Obtain Past Psychological History: Bipolar Past Alcohol Use History: None Reported Past Drug Use History: None Reported - Past Family History Father History Unknown: Yes Family Medical History: No Reported History General Exam Limitations: no limitations General appearance: alert, in no apparent distress Head exam: Present: normocephalic Eye exam: Present: normal appearance Neck exam: Present: normal inspection Respiratory exam: Present: normal lung sounds bilaterally Cardiovascular Exam: Present: regular rate, normal rhythm GI/Abdominal exam: Present: soft, normal bowel sounds. Absent: distended, tenderness, pulsatile mass Rectal exam: Present: normal inspection. Absent: fecal impaction Extremities exam: Present: normal inspection Neurological exam: Present: alert Psychiatric exam: Present: normal affect, normal mood Skin exam: Present: normal color Course Vital Signs 08/01/21 08/01/21 08/01/21 16:21 17:30 20:23 Temperature 97.6 F Pulse Rate 74 73 73 Respiratory 18 18 18 Rate Blood Pressure 100/65 104/65 117/79 O2 Sat by Pulse 94 L 96 94 L Oximetry Medical Decision Making - Medical Decision Making Patient reevaluated and resting comfortably in bed. Patient updated. Patient will be given fleets enema prior to discharge. - Radiology Data Radiology results: image reviewed (Abdominal x-ray shows nonacute abdomen) Disposition Clinical Impression: Constipation Disposition: HOME SELF-CARE Condition: Stable Instructions (If sedation given, give patient instructions): Constipation (ED), High Fiber Diet (ED) Additional Instructions: Please follow-up with primary care physician in the next day or 2 for recheck. Return for abdominal pain, fever, vomiting, unable to bowel movement, worsening or changing symptoms or other concerns. Is patient prescribed a controlled substance at d/c from ED?: No Referrals: Johny Abraham MD [Primary Care Provider] - 1-2 days Time of Disposition: 20:49
--- NOTE | 2021-08-01 19:06 | XR ---
EXAMINATION TYPE: XR abdomen 1V DATE OF EXAM: 08/01/2021 COMPARISON: 04/01/2020 HISTORY: Constipation TECHNIQUE: Single view FINDINGS: There is no sign of intestinal obstruction or pneumoperitoneum. Fecal pattern is normal. Th ere are clips from cholecystectomy. There is left hip prosthesis. There is no evidence of abdominal m ass. IMPRESSION: Nonacute abdomen. No sign of constipation.
[2021-08-01] MEDS ORDERED: NA PHOS,M-B/NA PHOS,DI-BA 133 ML ENEMA RECTAL STA (20:15)
[2021-08-01 20:24] VITALS: BP 117/79
[2021-08-01 21:24] VITALS: TEMP 98.4
== END 2021-08-01 21:24 | disposition home or self-care (01) ==
LOC: EC 16:15
DX: K59.00 Constipation, unspecified (principal); E11.9 Type 2 diabetes mellitus without complications; I10 Essential (primary) hypertension; F31.9 Bipolar disorder, unspecified; Z79.84 Long term (current) use of oral hypoglycemic drugs; Z88.0 Allergy status to penicillin; Z88.1 Allergy status to other antibiotic agents
CPT/HCPCS: 74018; 99283